=== PATIENT | male | born 1935 | race Caucasian/White ===

== ENCOUNTER → 2017-08-26 | Day surgery (SDC) | payer BC ==
[2017-08-14 09:29] VITALS: Ht 170.2 cm; Wt 95.5 kg
[~2017-08-26] VITALS: Ht 170.2 cm; Wt 95.5 kg
[~2017-08-26] MED LIST: ASPI81TA28 PO; ATOR-26 PO; GLUC1TAB94 PO; HYG/25 PO; HYT/2 PO; LIDOCAINE HCL 2% 2 ML VIAL (20MG/ML) ONE; LSN40 PO; MECL1TAB40 PO; PANT20TA2 PO; PROPOFOL IV EMULSION 10 MG/ML 20 ML VIAL IV ONE; ROPI4TAB3 PO; SENNTAB23 PO; SODIUM CHLORIDE 0.9% 500ML 500 ML IV ONE; TNR50 PO
--- NOTE | 2017-08-26 12:52 | Endo History and Physical ---
History & Physical Date of Service: Aug 26, 2017. Chief Complaint: hx polyps Referring Physician: History of Present Illness hx polyps Past Medical History Reflux, High Cholesterol, Heart Disease, Hypertension Past Surgical History Hx Cardiac Surgery: Yes (HEART CATH-2 STENTS PLACED) Hx Internal Defibrillator: No Hx Pacemaker: No Hx Abdominal Surgery: Yes (LAP RICHARD) Hx of Implantable Prosthesis: No Hx Post-Op Nausea and Vomiting: No Hx Cancer Surgery: No Hx Thoracic Surgery: No Hx Orthopedic: Yes (LUMBAR DECOMPRESSION/FUSION) Hx Urinary Tract Surgery: Yes (TURP) Family History None Social History Smoking Status: Former Smoker Hx Substance Use: No Hx Alcohol Use: Yes (OCCASIONALLY) Allergies Coded Allergies: Chlorhexidine (Verified Allergy, Intermediate, RASH, 08/14/17) Current Medications Reported Home Medications Medications Dose Route/Sig Max Daily Dose Days Date Category Meclizine HCl 12.5 Mg Tab 1 Tab PO TID PRN 08/14/17 Reported Requip (Ropinirole HCl) 4 Mg Tab 4 Mg PO HS 08/14/17 Reported Stool Softener (Sennosides-Docusate Sodium) 1 Tab Tab 1 Tab PO QAM 08/01/16 Reported Lipitor (Atorvastatin Calcium) 80 Mg Tab 80 Mg PO QAM 08/01/16 Reported Move Free Joint Health Ad (Ihznyubdedy-Bmzermbwwbo-Oqhpwh) 1 Tab Tab 2 Tab PO QAM 08/01/16 Reported Protonix (Pantoprazole Sodium) 20 Mg Tab 20 Mg PO HS 07/25/15 Reported Hygroton (Chlorthalidone) 25 Mg Tab 25 Mg PO QAM 07/25/15 Reported Hytrin (Terazosin HCl) 2 Mg Cap 2 Mg PO HS 07/25/15 Reported Aspirin Ec (Aspirin) 81 Mg Tab 81 Mg PO QAM 12/30/14 Reported Atenolol 50 Mg Tab 50 Mg PO QAM 12/30/14 Reported Lisinopril 40 Mg Tab 40 Mg PO QAM 12/30/14 Reported Vital Signs Weight (Kilograms): 95.45 Height (Feet): 5 Height (Inches): 7 Date Time Temp Pulse Resp B/P (MAP) Pulse Ox O2 Delivery O2 Flow Rate FiO2 08/26/17 12:40 36.5 53 20 150/67 (94) 99 Room Air Physical Exam General Appearance: WD/WN, no apparent distress Respiratory/Chest: Auscultation: breath sounds normal Cardiovascular: Heart Auscultation: RRR Abdomen: Bowel Sounds: normal Inspection & Palpation: soft, non-distended, no tenderness, guarding & rebound Assessment and Plan colon today
--- NOTE | 2017-08-26 13:52 | Discharge Instructions ---
Endoscopy Patient Instructions Date / Procedure(s) Performed Aug 26, 2017. Colonoscopy Allergy Information Coded Allergies: Chlorhexidine (Verified Allergy, Intermediate, RASH, 08/14/17) Discharge Date / Findings Aug 26, 2017. small polyp hemorrhoids rare tics Medication Instructions Stopped Medication(s): stool softener, Aspirin, amitriptyline Restart Stopped Medication(s): Reported Home Medications Medications Dose Route/Sig Max Daily Dose Days Date Category Meclizine HCl 12.5 Mg Tab 1 Tab PO TID PRN 08/14/17 Reported Requip (Ropinirole HCl) 4 Mg Tab 4 Mg PO HS 08/14/17 Reported Stool Softener (Sennosides-Docusate Sodium) 1 Tab Tab 1 Tab PO QAM 08/01/16 Reported Lipitor (Atorvastatin Calcium) 80 Mg Tab 80 Mg PO QAM 08/01/16 Reported Move Free Joint Health Ad (Rdedcxiqrxu-Uvieiibltfi-Pyjxjs) 1 Tab Tab 2 Tab PO QAM 08/01/16 Reported Protonix (Pantoprazole Sodium) 20 Mg Tab 20 Mg PO HS 07/25/15 Reported Hygroton (Chlorthalidone) 25 Mg Tab 25 Mg PO QAM 07/25/15 Reported Hytrin (Terazosin HCl) 2 Mg Cap 2 Mg PO HS 07/25/15 Reported Aspirin Ec (Aspirin) 81 Mg Tab 81 Mg PO QAM 12/30/14 Reported Atenolol 50 Mg Tab 50 Mg PO QAM 12/30/14 Reported Lisinopril 40 Mg Tab 40 Mg PO QAM 12/30/14 Reported Reported Home Medications Medications Dose Route/Sig Max Daily Dose Days Date Category Meclizine HCl 12.5 Mg Tab 1 Tab PO TID PRN 08/14/17 Reported Requip (Ropinirole HCl) 4 Mg Tab 4 Mg PO HS 08/14/17 Reported Stool Softener (Sennosides-Docusate Sodium) 1 Tab Tab 1 Tab PO QAM 08/01/16 Reported Lipitor (Atorvastatin Calcium) 80 Mg Tab 80 Mg PO QAM 08/01/16 Reported Move Free Joint Health Ad (Hcvzrobcpnv-Vqhuoujfdgk-Mwblpl) 1 Tab Tab 2 Tab PO QAM 08/01/16 Reported Protonix (Pantoprazole Sodium) 20 Mg Tab 20 Mg PO HS 07/25/15 Reported Hygroton (Chlorthalidone) 25 Mg Tab 25 Mg PO QAM 07/25/15 Reported Hytrin (Terazosin HCl) 2 Mg Cap 2 Mg PO HS 07/25/15 Reported Aspirin Ec (Aspirin) 81 Mg Tab 81 Mg PO QAM 12/30/14 Reported Atenolol 50 Mg Tab 50 Mg PO QAM 12/30/14 Reported Lisinopril 40 Mg Tab 40 Mg PO QAM 12/30/14 Reported Provider Instructions Activity Restrictions - No exercising or heavy lifting for 24 hours. - Do not drink alcohol the day of the procedure. - Do not drive a car or operate machinery until the day after the procedure. - Do not make any important decisions or sign important papers in 24 hours after the procedure. Following Day: - Return to full activity which may include returning to work/school. Diet Start your diet with liquids and light foods (jello, soup, juice, toast). Then eat your usual diet if not nauseated. Treatment For Common After Affects For mild abdominal pain, bloating, or excessive gas: - Rest - Eat lightly - Lie on right side Follow-Up Information Follow-up with Dr. Vivas as scheduled Anesthesia Information What You Should Know You have had a procedure that required some medicine to reduce anxiety and discomfort. This treatment is called moderate sedation. After receiving the treatment, you may be sleepy, but you will be able to breathe on your own. The effects of the treatment may last for several hours. Follow these instructions along with Activity/Diet recommendations noted above: * Do NOT do anything where dizziness or clumsiness would be dangerous. * Rest quietly at home today, then you can be up and about tomorrow. * Have a responsible person stay with you the rest of today. * You may have had an I.V. today. If so, you may take the dressing off later today. Recommendations Call your doctor if: * Trouble breathing * Continuous vomiting for more than 24 hours * Temperature above 101 degrees * Severe abdominal pain or bloating * Pain not relieved by pain medicine ordered * There is increased drainage or redness from any incision * A large amount of rectal bleeding greater than 2-3 tablespoons. (If you had a polyp/s removed or have hemorrhoids, a small amount of blood - from the rectum is to be expected.) * You have any unanswered questions or concerns. IN THE EVENT OF A SERIOUS EMERGENCY, GO TO THE NEAREST EMERGENCY ROOM Your discharge instructions were prepared by provider Alphonse Gill. Patient Instructions Signature Page Jose D Irving Patient (or Guardian) Signature/Date: I have read and understand the instructions given to me by my caregivers. Caregiver/RN/Doctor Signature/Date: The above-named patient and/or guardian has received patient instructions on this date. + Original Patient Signature Page (only) stays with chart. Please make copy for patient.
--- NOTE | 2017-08-26 14:01 | GI REPORT ---
Procedure Date: 08/26/2017 1:26 PM Procedure: Colonoscopy Indications: High risk colon cancer surveillance: Personal history of colonic polyps Medicines: Propofol per Anesthesia Complications: No immediate complications. Estimated blood loss: Minimal. Estimated Blood Loss: Estimated blood loss was minimal. Procedure: Pre-Anesthesia Assessment: - Prior to the procedure, a History and Physical was performed, and patient medications and allergies were reviewed. The patient's tolerance of previous anesthesia was also reviewed. The risks and benefits of the procedure and the sedation options and risks were discussed with the patient. All questions were answered, and informed consent was obtained. Prior Anticoagulants: The patient has taken no previous anticoagulant or antiplatelet agents. ASA Grade Assessment: II - A patient with mild systemic disease. After reviewing the risks and benefits, the patient was deemed in satisfactory condition to undergo the procedure. After I obtained informed consent, the scope was passed under direct vision. Throughout the procedure, the patient's blood pressure, pulse, and oxygen saturations were monitored continuously. The scope was introduced through the anus and advanced to the terminal ileum, with identification of the appendiceal orifice and IC valve. The colonoscopy was performed without difficulty. The patient tolerated the procedure well. The quality of the bowel preparation was fair. Findings: The perianal and digital rectal examinations were normal. Pertinent negatives include normal sphincter tone, no palpable rectal lesions and no anal lesion or abnormality was detected. A 3 mm polyp was found in the proximal ascending colon. The polyp was sessile. The polyp was removed with a cold biopsy forceps. Resection and retrieval were complete. Estimated blood loss was minimal. Verification of patient identification for the specimen was done by the physician and perinatal technician using the patient's name and medical record number. A few small-mouthed diverticula were found in the sigmoid colon. Non-bleeding internal hemorrhoids were found during retroflexion. The hemorrhoids were mild. The exam was otherwise without abnormality. The terminal ileum appeared normal. Impression: - One 3 mm polyp in the proximal ascending colon, removed with a cold biopsy forceps. Resected and retrieved. - Diverticulosis in the sigmoid colon. - Non-bleeding internal hemorrhoids. - The examination was otherwise normal. - The examined portion of the ileum was normal. Recommendation: - Discharge patient to home (ambulatory). - Resume regular diet. - Continue present medications. - Await pathology results. - Repeat colonoscopy for surveillance based on pathology results. - Return to referring physician as previously scheduled. MD Alphonse Woody MD 08/26/2017 2:00:44 PM This report has been signed electronically. Note Initiated On: 08/26/2017 1:26 PM I attest to the content of the Intraoperative Record and orders documented therein, exceptions below
[2017-08-26 14:21] VITALS: BP 15/90; PULSE 50; O2SAT 99
--- NOTE | 2017-08-26 14:41 | Anesthesiology Progress Note ---
Anesthesia Post Op Note Date & Time Aug 26, 2017 at 14:41 Vital Signs Pain Intensity: 0 Vital Signs Past 12 Hours Date Time Temp Pulse Resp B/P (MAP) Pulse Ox O2 Delivery O2 Flow Rate FiO2 08/26/17 14:21 50 16 15/90 (65) 99 Room Air 08/26/17 14:06 50 16 141/71 (94) 98 Room Air 08/26/17 13:51 52 12 107/63 (78) 98 Room Air 08/26/17 12:40 36.5 53 20 150/67 (94) 99 Room Air Notes Mental Status: alert / awake / arousable, participated in evaluation Pt Amnestic to Procedure: Yes Nausea / Vomiting: adequately controlled Pain: adequately controlled Airway Patency, RR, SpO2: stable & adequate BP & HR: stable & adequate Hydration State: stable & adequate Anesthetic Complications: no major complications apparent
== END | disposition home or self-care (01) ==
LOC: C.GI 11:50
PROVIDERS: ATTEND Internal Medicine Gastroenterology
DX: Z12.11 Encounter for screening for malignant neoplasm of colon (principal); D12.2 Benign neoplasm of ascending colon; K57.30 Diverticulosis of large intestine without perforation or abscess without bleeding; K64.8 Other hemorrhoids; E66.9 Obesity, unspecified; I25.2 Old myocardial infarction; N40.0 Benign prostatic hyperplasia without lower urinary tract symptoms; I25.10 Atherosclerotic heart disease of native coronary artery without angina pectoris; I10 Essential (primary) hypertension; Z90.49 Acquired absence of other specified parts of digestive tract; Z98.890 Other specified postprocedural states; Z85.038 Personal history of other malignant neoplasm of large intestine; Z87.891 Personal history of nicotine dependence; Z79.82 Long term (current) use of aspirin; Z79.899 Other long term (current) drug therapy; Z68.30 Body mass index [BMI] 30.0-30.9, adult

== ENCOUNTER → 2017-10-01 | Outpatient (CLI) | payer BC ==
[~2017-10-01] MED LIST changes: -LIDOCAINE HCL 2% 2 ML VIAL (20MG/ML) ONE; -PROPOFOL IV EMULSION 10 MG/ML 20 ML VIAL IV ONE; -SODIUM CHLORIDE 0.9% 500ML 500 ML IV ONE
== END | disposition home or self-care (01) ==
LOC: C.RDSM 10:54
PROVIDERS: ATTEND Orthopaedic Surgery
DX: R52 Pain, unspecified (principal)

== ENCOUNTER → 2017-10-11 | Outpatient (CLI) | payer BC | END | disposition home or self-care (01) | LOC: C.RDSM 08:00 | PROVIDERS: ATTEND Orthopaedic Surgery | DX: R52 Pain, unspecified (principal) ==

== ENCOUNTER 2019-08-09 11:16 | Inpatient (IN) ==
[2019-08-09] MEDS ORDERED: PIPERACILLIN/TAZOBACTAM 4.5 GM/120 ML BAG IV STA (12:01)
[2019-08-09] MEDS ORDERED: SODIUM CHLORIDE 0.9% 500 ML IV SCH (12:15)
--- NOTE | 2019-08-09 12:49 | XRay Report ---
XR ankle RT min 3V routine CLINICAL HISTORY: swelling, pain pain. Edema. COMPARISON: 08/08/2018 DISCUSSION: Degenerative change of all major bony structures. Small old avulsions from the tip of the medial as well as lateral malleolus. Moderate soft tissue edema. Soft tissue vascular calcifications. Heel spur. Considerable soft tissue edema IMPRESSION: 1. Considerable degenerative change. 2. Significant soft tissue edema. 3. No well-defined acute bony abnormality. The above report was generated using voice recognition software. It may contain grammatical, syntax or spelling errors. Electronically signed by: Jerzy Quiros M.D. 08/09/2019 12:48 PM
--- NOTE | 2019-08-09 12:54 | XRay Report ---
XR foot RT min 3V routine CLINICAL HISTORY: pain, swelling pain. Edema. COMPARISON: None DISCUSSION: Generalized degenerative change. Mild soft tissue edema. Heel spur. Soft tissue vascular calcifications. No evidence for fracture or dislocation. Moderate soft tissue edema IMPRESSION: 1. Considerable degenerative changes throughout. 2. No acute bony abnormality. 3. Moderate soft tissue edema. The above report was generated using voice recognition software. It may contain grammatical, syntax or spelling errors. Electronically signed by: Jerzy Quiros M.D. 08/09/2019 12:53 PM
[2019-08-09 13:18] LABS: Hematocrit (blood only) 31.6 % (42-52); Hemoglobin 10.3 g/dL (14.0-18.0); Mean Corpuscular Hemoglobin 29.7 pg (25-34); Mean Corpuscular Hgb Conc 32.6 g/dL (32-36); Mean Corpuscular Volume 91.1 fL (80-100); Mean Platelet Volume 10.2 fL (7.4-10.4); Platelet Count 292 K/uL (130-400); RDW Coefficient of Variation 14.4 % (11.5-14.5); RDW Standard Deviation 48.2 fL (36.4-46.3); Red Blood Count 3.47 M/uL (4.7-6.1)
--- NOTE | 2019-08-09 13:32 | CT Scan Report ---
CT hand LT wo con CT DOSE: 267.02 mGy.cm HISTORY: Pain. Infection. possible osteo of 2nd finger/hand TECHNIQUE: Multiaxial CT images of the left hand were performed and reformatted in the sagittal and c oronal plane without the use of contrast. A dose lowering technique was utilized adhering to the lilia Howard. COMPARISON: Routine hand images 08/03/2019 FINDINGS: Considerable degenerative change of all major bony structures. Sclerosis of the articular s urfaces, scattered reactive osteophytes, and generalized soft tissue edema. No evidence for a lytic or blastic process. No CT criteria are present for osteomyelitis. IMPRESSION: 1. Generalized degenerative change 2. Soft tissue edema overlying the distal phalanges of the second finger and to a lesser extent over the carpal regions. 3. No evidence for osteomyelitis by CT criteria The above report was generated using voice recognition software. It may contain grammatical, syntax or spelling errors. Electronically signed by: Jerzy Quiros M.D. 08/09/2019 1:31 PM
[2019-08-09 13:33] LABS: Basophils # (auto) 0.04 K/uL (0-0.2); Basophils % (auto) 0.1 %; Eosinophils % (auto) 3.3 %; Immature Granulocytes # (auto) 2.45 K/uL (0.00-0.02); Immature Granulocytes % (auto) 8.1 %; Lymphocytes # (auto) 1.48 K/uL (1.2-3.4); Lymphocytes % (auto) 4.9 %; Monocytes # (auto) 3.81 K/uL (0.11-0.59); Monocytes % (auto) 12.6 %; Neutrophils # (auto) 21.52 K/uL (1.4-6.5); Poikilocytosis Present
[2019-08-09 13:35] LABS: Alanine Aminotransferase 72 U/L (12-78); Albumin Level 3.5 gm/dl (3.4-5.0); Aspartate Aminotransferase 34 U/L (15-37); Blood Urea Nitrogen 35 mg/dl (7-18); Calcium 9.1 mg/dl (8.5-10.1); Carbon Dioxide 24 mmol/L (21-32); Chloride 107 mmol/L (98-107); Est GFR (African American) 53.5; Est GFR (Non-African American) 46.1; Glucose 91 mg/dl (70-99); Potassium 4.3 mmol/L (3.5-5.1); Sodium 138 mmol/L (136-145)
[2019-08-09 13:37] LABS: Albumin Globulin Ratio 0.8 (0.9-2); Alkaline Phosphatase 143 U/L (45-117); Bilirubin,Total 0.4 mg/dl (0.2-1); Globulin 4.3 gm/dl (2.5-4.0); Total Protein 7.8 gm/dl (6.4-8.2)
[2019-08-09] MEDS ORDERED: VANCOMYCIN HCL 2,250 MG in SODIUM CHLORIDE 0.9% 500 ML IV STA (13:37)
--- NOTE | 2019-08-09 13:47 | Emergency Department Note ---
Entered by Catalina Nguyen acting as a scribe for Rob Daniel MD History of Present Illness General Chief complaint: Infection Stated complaint: INFECTION IN LEFT HAND - ALSO IN FOOT Time Seen by Provider: 08/09/19 11:44 Source: patient and family History of Present Illness Onset (ago): week(s) Location: upper extremity (left hand) Pain Consistency: + constant Maximum Pain Intensity: 6 Quality: + other (swelling - concern for infection) Associated symptoms: + other (+bilateral feet swelling; +feet pain; +leg pain ); no fever/chills and no nausea/vomiting The patient is an 84 year old male, with past medical history of STEMI and hypertension, who presents to the Emergency Room with a concern for an infection to his left hand due to swelling to the patients left hand that has been constant over the past week. The patient reports he had a table saw injury on 08/03 that caused lacerations to his left hand, and a family member of the patient reports the patient was prescribed Keflex during this visit. The family member states the patient was seen by his PCP 2 days ago where the patient was given a shot of rocephin because the swelling to his left hand was not improving. The family member states the patient was given another shot of Rocephin yesterday at the office across the street from [facility], and she states the patients pill antibiotic was changed from Keflex to Levaquin (750 mg, once a d ay) at this time as well. The family member states the patients swelling has not improved today, and she states the patients feet have started to swell up as well. The patient notes he has pain to the upper side of his feet and up his legs as well. The patient denies recent trauma or injury to his feet. The patient also denies fever, vomiting, or currently being on blood thinners. The family member states the patient has an appointment with a hand specialist, Dr. Dobbs, scheduled for tomorrow. Home Medications Home Medications Medication Instructions Recorded Confirmed Type aspirin 81 mg PO DAILY 05/07/19 08/09/19 History atenolol 50 mg PO DAILY 05/07/19 08/09/19 History chlorthalidone 25 mg PO DAILY 05/07/19 08/09/19 History lisinopril 20 mg PO DAILY 05/07/19 08/09/19 History ropinirole 4 mg PO HS 05/07/19 08/09/19 History atorvastatin 80 mg tablet 80 mg PO QPM tab 05/25/19 08/09/19 History famotidine 20 mg tablet 20 mg PO DAILY tab 05/25/19 08/09/19 History meclizine 25 mg tablet 25 mg PO Q6H PRN tab 05/25/19 08/09/19 History terazosin 2 mg tablet 2 mg PO DAILY tab 05/25/19 08/09/19 History oxycodone-acetaminophen [Percocet] 1 - 2 tab PO Q6H PRN #12 tab MDD 4 08/03/19 08/09/19 Rx levofloxacin 750 mg PO DAILY 08/09/19 08/09/19 History Allergies Allergy/AdvReac Type Severity Reaction Status Date / Time chlorhexidine Allergy Intermediate RASH Verified 08/09/19 11:44 Past Med/Surg History Medical History CAD (coronary artery disease) (Chronic) Dyslipidemia GERD (gastroesophageal reflux disease) (Chronic) High cholesterol (Chronic) HTN (hypertension) (Resolved) 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) Surgical History History of cholecystectomy (Resolved) History of lumbar fusion (Resolved) Family History Other No significant family history Social History Preferred Language: Bengali Communication Ability: Effective Technology Auditor Required: No Beliefs That Will Affect Care: None Current Living Situation: Alone Other Information That Helps Us Care for You: No Feels Safe at Home: Yes Safety Concerns: Feels Safe At This Time Smoking Status: Never smoker Tobacco Type: smokeless tobacco ; Do You Dip or Chew Tobacco: Yes ; Second Hand Exposure: No ; Tobacco Cessation Education Requested by Patient: No Hx Alcohol Use: Yes Hx Substance Use: No Review of Systems See HPI for pertinent positives & negatives. and A total of 10 systems reviewed and were otherwise negative Physical Exam Vital Signs Vital Signs - 24 hr 08/09/19 11:18 08/09/19 13:17 08/09/19 13:54 Temperature 36.6 C Temperature Source Oral Pulse Rate 69 Pulse Rate [Finger] 72 67 Pulse Rhythm Regular Pulse Rhythm [Finger] Regular Pulse Strength [Finger] Normal Respiratory Rate 20 18 18 Respiratory Effort / Characteristics Non-Labored Spontaneous Non-Labored Spontaneous Respiratory Depth Normal Normal Respiratory Pattern Regular Regular Blood Pressure 154/74 H Blood Pressure [Right Arm] 163/71 H 156/60 H Blood Pressure Mean 100 Blood Pressure Mean [Right Arm] 101 92 Blood Pressure Position Sitting Blood Pressure Position [Right Arm] Lying Pulse Oximetry 98 96 98 Oxygen Delivery Method Room Air Room Air Sepsis Recent Fever Within 48 Hours No Sepsis New/Unexplained Change in Mental Status No Sepsis Action Taken by Nursing No Action Required GENERAL: Patient is in no acute distress. HEENT: No acute trauma, normocephalic atraumatic, mucous membranes moist, no nasal congestion, no scleral icterus. NECK: No stridor, no adenopathy, no meningismus, trachea is midline. LUNGS: Clear to auscultation bilaterally, no wheeze, no rhonchi, breath sounds equal. HEART: Without murmurs gallops or rubs, regular rate and rhythm. ABDOMEN: Soft, nontender, bowel sounds positive, no hernias, no peritonitis. EXTREMITIES: Patient has, right more so than left, lower extremity edema. No erythema. Tender to palpate about the right ankle and right foot. No gross deformity. Edema noted to the left hand and fingers. The thumb, 2nd finger, and 3rd finger have sutures in place. The second finger is quite swollen, erythematous, and warm to touch. There is significant purulent drainage in the area of the suturing. No gross deformities. NEUROLOGIC: Oriented x 3, no acute motor or sensory deficits, no focal weakness. SKIN: No rash, no jaundice, no diaphoresis. Procedures Free Text Procedures Suture Removal: All of the sutures that were in place along the patient's left, 2nd finger were removed. There was some purulent drainage. A culture was sent. Patient tolerated the procedure well. Course Course 1146: Past medical records reviewed. The patient was evaluated in room A11B. A complete history and physical exam was performed. 1354: I discussed the patient's case with Dr. [facility]. Dr. Escalante states to remove the sutures to the finger that is causing the patient trouble to allow that finger to drain. Dr. Escalante reports he will see the patient in the hospital. 1404: I performed a suture removal. I also updated the patient on his case. 1418: I reviewed the patient's case with Dr. Freed-Hospitalist [facility]. Dr. rFeed will evaluate the patient for further management. Consultations Consultation #1: I discussed the patient's case with Dr. [facility]. Dr. Escalante states to remove the sutures to the finger that is causing the patient trouble to allow that finger to drain. Dr. Escalante reports he will see the patient in the hospital. Time: 13:54 Consultation #2: I reviewed the patient's case with Dr. Freed-Hospitalist [facility]. Dr. Freed will evaluate the patient for further management. Time: 14:18 Administered Medications Discontinued Medications Sodium Chloride (Nss) 500 mls @ 999 mls/hr IV .Q31M RODRIGO Stop: 08/09/19 12:45 Last Infusion: 08/09/19 14:09 Dose: 0 mls/hr Documented by: [id number] Admin: 08/09/19 13:38 Dose: 999 mls/hr Documented by: [id number] Piperacillin Sod/Tazobactam Sod (Zosyn) 4.5 gm in 120 mls @ 200 mls/hr IV NOW STA Stop: 08/09/19 12:36 Last Infusion: 08/09/19 14:14 Dose: 0 mls/hr Documented by: [id number] Admin: 08/09/19 13:38 Dose: 200 mls/hr Documented by: [id number] Vancomycin HCl 2,250 mg/ (Sodium Chloride) 545 mls @ 200 mls/hr IV NOW STA Stop: 08/09/19 16:20 Last Admin: 08/09/19 14:26 Dose: 200 mls/hr Documented by: [id number] Medical Decision Making Differential Diagnosis Differential diagnoses include osteomyelitis, DVT, failed outpatient treatment, cellulitis, tenosynovitis, tendon laceration, foot or ankle fracture, amongst others that were considered. Medical Records Attestation: I reviewed the patient's medical records. The patient was seen at [facility] by Nasima Rowe and Dr. Razo on 08/03. The patient was discharged on Keflex 3x a day. Home Medications Current Medication List: was personally reviewed by me Laboratory Data Attestation: I reviewed the patient's lab results. Result diagrams: 08/09/19 12:59 08/09/19 12:59 Lab Results 08/09/19 08/09/19 08/09/19 Range/Units 12:59 12:59 12:59 WBC 30.30 H* (4.8-10.8) K/uL RBC 3.47 L (4.7-6.1) M/uL Hgb 10.3 L (14.0-18.0) g/dL Hct 31.6 L (42-52) % MCV 91.1 (80-100) fL MCH 29.7 (25-34) pg MCHC 32.6 (32-36) g/dL RDW Std Deviation 48.2 H (36.4-46.3) fL RDW Coeff of Dione 14.4 (11.5-14.5) % Plt Count 292 (130-400) K/uL MPV 10.2 (7.4-10.4) fL Immature Gran % (Auto) 8.1 % Neut % (Auto) 71.0 % Lymph % (Auto) 4.9 % Pen[place] % (Auto) 12.6 % Eos % (Auto) 3.3 % Baso % (Auto) 0.1 % Immature Gran # (Auto) 2.45 H (0.00-0.02) K/uL Neut # (Auto) 21.52 H (1.4-6.5) K/uL Lymph # (Auto) 1.48 (1.2-3.4) K/uL [place] # (Auto) 3.81 H (0.11-0.59) K/uL Eos # (Auto) 1.00 H (0-0.5) K/uL Baso # (Auto) 0.04 (0-0.2) K/uL Poikilocytosis Present ESR 62 H (0-14) mm/hr Sodium (136-145) mmol/L Potassium (3.5-5.1) mmol/L Chloride (98-107) mmol/L Carbon Dioxide (21-32) mmol/L Anion Gap (3-11) BUN (7-18) mg/dl Creatinine (0.6-1.4) mg/dl Est Cr Clr Drug Dosing Est GFR ( Amer) Est GFR (Non-Af Amer) BUN/Creatinine Ratio (10-20) Glucose (70-99) mg/dl Lactate 1.0 (0.4-2.0) mmol/L Calcium (8.5-10.1) mg/dl Total Bilirubin (0.2-1) mg/dl AST (15-37) U/L ALT (12-78) U/L Alkaline Phosphatase (45-117) U/L Total Protein (6.4-8.2) gm/dl Albumin (3.4-5.0) gm/dl Globulin (2.5-4.0) gm/dl Albumin/Globulin Ratio (0.9-2) 08/09/19 Range/Units 12:59 WBC (4.8-10.8) K/uL RBC (4.7-6.1) M/uL Hgb (14.0-18.0) g/dL Hct (42-52) % MCV (80-100) fL MCH (25-34) pg MCHC (32-36) g/dL RDW Std Deviation (36.4-46.3) fL RDW Coeff of Dione (11.5-14.5) % Plt Count (130-400) K/uL MPV (7.4-10.4) fL Immature Gran % (Auto) % Neut % (Auto) % Lymph % (Auto) % Pen[place] % (Auto) % Eos % (Auto) % Baso % (Auto) % Immature Gran # (Auto) (0.00-0.02) K/uL Neut # (Auto) (1.4-6.5) K/uL Lymph # (Auto) (1.2-3.4) K/uL Pen[place] # (Auto) (0.11-0.59) K/uL Eos # (Auto) (0-0.5) K/uL Baso # (Auto) (0-0.2) K/uL Poikilocytosis ESR (0-14) mm/hr Sodium 138 (136-145) mmol/L Potassium 4.3 (3.5-5.1) mmol/L Chloride 107 (98-107) mmol/L Carbon Dioxide 24 (21-32) mmol/L Anion Gap 7.0 (3-11) BUN 35 H (7-18) mg/dl Creatinine 1.40 (0.6-1.4) mg/dl Est Cr Clr Drug Dosing Not Reportable Est GFR ( Amer) 53.5 Est GFR (Non-Af Amer) 46.1 BUN/Creatinine Ratio 25.0 H (10-20) Glucose 91 (70-99) mg/dl Lactate (0.4-2.0) mmol/L Calcium 9.1 (8.5-10.1) mg/dl Total Bilirubin 0.4 (0.2-1) mg/dl AST 34 (15-37) U/L ALT 72 (12-78) U/L Alkaline Phosphatase 143 H (45-117) U/L Total Protein 7.8 (6.4-8.2) gm/dl Albumin 3.5 (3.4-5.0) gm/dl Globulin 4.3 H (2.5-4.0) gm/dl Albumin/Globulin Ratio 0.8 L (0.9-2) Imaging Data Radiologist's Impression: Radiology results as stated below per my review and the radiologist's interpretation: XR ankle RT min 3V routine CLINICAL HISTORY: swelling, pain pain. Edema. COMPARISON: 08/08/2018 DISCUSSION: Degenerative change of all major bony structures. Small old avulsions from the tip of the medial as well as lateral malleolus. Moderate soft tissue edema. Soft tissue vascular calcifications. Heel spur. Considerable soft tissue edema IMPRESSION: 1. Considerable degenerative change. 2. Significant soft tissue edema. 3. No well-defined acute bony abnormality. The above report was generated using voice recognition software. It may contain grammatical, syntax or spelling errors. Electronically signed by: Jerzy Quiros M.D. 08/09/2019 12:48 PM XR foot RT min 3V routine CLINICAL HISTORY: pain, swelling pain. Edema. COMPARISON: None DISCUSSION: Generalized degenerative change. Mild soft tissue edema. Heel spur. Soft tissue vascular calcifications. No evidence for fracture or dislocation. Moderate soft tissue edema IMPRESSION: 1. Considerable degenerative changes throughout. 2. No acute bony abnormality. 3. Moderate soft tissue edema. The above report was generated using voice recognition software. It may contain grammatical, syntax or spelling errors. Electronically signed by: Jerzy Quiros M.D. 08/09/2019 12:[address] hand LT wo con CT DOSE: 267.02 mGy.cm HISTORY: Pain. Infection. possible osteo of 2nd finger/hand TECHNIQUE: Multiaxial CT images of the left hand were performed and reformatted in the sagittal and coronal plane without the use of contrast. A dose lowering technique was utilized adhering to the principles of ALARA. COMPARISON: Routine hand images 08/03/2019 FINDINGS: Considerable degenerative change of all major bony structures. Sclerosis of the articular surfaces, scattered reactive osteophytes, and generalized soft tissue edema. No evidence for a lytic or blastic process. No CT criteria are present for osteomyelitis. IMPRESSION: 1. Generalized degenerative change 2. Soft tissue edema overlying the distal phalanges of the second finger and to a lesser extent over the carpal regions. 3. No evidence for osteomyelitis by CT criteria The above report was generated using voice recognition software. It may contain grammatical, syntax or spelling errors. Electronically signed by: Jerzy Quiros M.D. 08/09/2019 1:31 PM US venous doppler LE RT CLINICAL HISTORY: swelling PAIN. EDEMA. COMPARISON STUDY: No previous studies for comparison. FINDINGS: Real-time and color flow Doppler imaging were performed. Flow was seen within the femoral, popliteal and calf veins with no intraluminal thrombus demonstrated. The saphenous vein is patent. IMPRESSION: No evidence of deep venous thrombosis. The above report was generated using voice recognition software. It may contain grammatical, syntax or spelling errors. Electronically signed by: Jerzy Quiros M.D. 08/09/2019 2:47 PM Blood Pressure Blood Pressure Findings: Elevated blood pressure Blood Pressure Disposition: further management by hospitalist [place] Narrative There is a significant leukocytosis at 30,000, this certainly could be consistent with infection. A mild anemia is present with a hemoglobin of 10.3. There is a normal platelet count. Sed rate is elevated at 62, this is consistent with infection/inflammation. No renal failure or significant electrolyte abnormality. No concerning liver enzyme elevation. Right ankle and right foot films show some arthritis, there was no fracture. Right leg ultrasound does not show evidence for DVT. Left hand CT scan does not show osteomyelitis, soft tissue swelling was seen. The patient has an infection in his left hand. He has been on different antibiotics without improvement as an outpatient. Hospitalization is warranted. Patient received IV saline, he was given IV Zosyn and IV vancomycin. I did speak with orthopedics about the hand findings. They suggested removing the sutures of the second finger to allow the wound to drain. The sutures were removed without difficulty. A culture of the drainage was sent. The patient is aware of his findings. Hospitalization is warranted. I did speak with the on-call hospitalist. Case management has been involved. Orthopedics has been consulted as noted above for more definitive management. Impression & Plan Cellulitis of hand, left, Failure of outpatient treatment, Leukocytosis, Pedal edema, Contact with powered saw as cause of accidental injury Discharge Plan Visit Data *Final* Discharge Date/Time: 08/09/19 14:41 Chief Complaint: Infection Stated Complaint: INFECTION IN LEFT HAND - ALSO IN FOOT ED Provider: Rob Daniel Discharge Problem: Cellulitis of hand, left, Failure of outpatient treatment, Leukocytosis, Pedal edema, Contact with powered saw as cause of accidental injury Patient Disposition: Admitted As Inpatient Discharge Instructions Interventions: ED Discharge Assessment Last Done: 08/09/19 14:41 Discharge Problem: Leukocytosis Qualifiers: Leukocytosis type: unspecified Qualified Code(s): D72.829 - Elevated white blood cell count, unspecified The scribe's documentation has been prepared under my direction and personally reviewed by me in its entirety. I confirm that the note above accurately reflects all work, treatment, procedures, and medical decision making performed by me.
--- NOTE | 2019-08-09 14:25 | History & Physical Report ---
Date of Service August 09, 2019 Assessment & Plan (1) Cellulitis of hand, left: Patient was started on IV Zosyn and IV vancomycin. Check wound cultures. Consult orthopedics. (2) Failure of outpatient treatment: (3) Leukocytosis: Secondary to left hand infection Check blood cultures. (4) Pedal edema: Dopplers leg was negative for DVT. Check echocardiogram for cardiac assessment. (5) Contact with powered saw as cause of accidental injury: (6) Hypertension: Continue home medications. (7) GERD (gastroesophageal reflux disease): Continue Pepcid. (8) CAD (coronary artery disease): Continue home medications. (9) Previous back surgery: (10) Dyslipidemia: Continue statins. (11) DVT prophylaxis: Add subcu heparin. History of Present Illness Chief Complaint: Left hand infection Primary Care Provider: Jacqueline Vivas MD The patient is an 84 year old male, with past medical history of STEMI and hypertension, who presents to the Emergency Room with a concern for an infection to his left hand due to swelling to the patients left hand that has been constant over the past week. The patient reports he had a table saw injury on 08/03 that caused lacerations to his left hand, and a family member of the patient reports the patient was prescribed Keflex during this visit. The family member states the patient was seen by his PCP 2 days ago where the patient was given a shot of rocephin because the swelling to his left hand was not impr oving. The family member states the patient was given another shot of Rocephin yesterday at the office across the street from [facility], and she states the patients pill antibiotic was changed from Keflex to Levaquin (750 mg, once a day) at this time as well. The family member states the patients swelling has not improved today, and she states the patients feet have started to swell up as well. The patient notes he has pain to the upper side of his feet and up his legs as well. The patient denies recent trauma or injury to his feet. The patient also denies fever, vomiting, or currently being on blood thinners. The family member states the patient has an appointment with a hand specialist, Dr. Dobbs, scheduled for tomorrow. He was started on IV antibiotics in the ER and will be admitted for further evaluation and management. Patient has also noted swelling of the legs right side more than the left side for last 1 month. The patient is very hard appearing and his daughter is present at the bedside. Allergies Allergy/AdvReac Type Severity Reaction Status Date / Time chlorhexidine Allergy Intermediate RASH Verified 08/09/19 11:44 Home Medications Home Medications Medication Instructions Recorded Confirmed Type aspirin 81 mg PO DAILY 05/07/19 08/09/19 History atenolol 50 mg PO DAILY 05/07/19 08/09/19 History chlorthalidone 25 mg PO DAILY 05/07/19 08/09/19 History lisinopril 20 mg PO DAILY 05/07/19 08/09/19 History ropinirole 4 mg PO HS 05/07/19 08/09/19 History atorvastatin 80 mg tablet 80 mg PO QPM tab 05/25/19 08/09/19 History famotidine 20 mg tablet 20 mg PO DAILY tab 05/25/19 08/09/19 History meclizine 25 mg tablet 25 mg PO Q6H PRN tab 05/25/19 08/09/19 History terazosin 2 mg tablet 2 mg PO DAILY tab 05/25/19 08/09/19 History oxycodone-acetaminophen [Percocet] 1 - 2 tab PO Q6H PRN #12 tab MDD 4 08/03/19 08/09/19 Rx levofloxacin 750 mg PO DAILY 08/09/19 08/09/19 History Past Med/Surg History Medical History CAD (coronary artery disease) (Chronic) Dyslipidemia GERD (gastroesophageal reflux disease) (Chronic) High cholesterol (Chronic) HTN (hypertension) (Resolved) 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) Surgical History History of cholecystectomy (Resolved) History of lumbar fusion (Resolved) Family History Other No significant family history Social History Preferred Language: Citizen Of [place] Feels Safe at Home: Yes Smoking Status: Never smoker Review of Systems Review of Systems: All systems reviewed & are unremarkable except as noted in HPI & below Physical Exam Physical Exam: GENERAL : No acute distress EYES: No icterus, gaze conjugate NOSE: No evidence of epistaxis MOUTH: No lesions or candidiasis, mucosa moist NECK: Supple LUNGS: CTA B/L, no wheezes, rales or rhonchi HEART: Regular, rate controlled ABDOMEN: Soft, NT, ND, BS Present EXTREMITIES: No LE edema, pedal pulses intact NEURO: A&OX3 Results & Data Vital Signs (Past 12 Hours) Vital Signs Temp Pulse Pulse Resp BP BP Pulse Ox 08/09/19 13:54 67 18 156/60 H 98 08/09/19 13:17 72 18 163/71 H 96 08/09/19 11:18 97.9 F 69 20 154/74 H 98 Laboratory Results 08/09/19 12:59 08/09/19 12:[address] hand LT wo con CT DOSE: 267.02 mGy.cm HISTORY: Pain. Infection. possible osteo of 2nd finger/hand TECHNIQUE: Multiaxial CT images of the left hand were performed and reformatted in the sagittal and coronal plane without the use of contrast. A dose lowering technique was utilized adhering to the principles of ALARA. COMPARISON: Routine hand images 08/03/2019 FINDINGS: Considerable degenerative change of all major bony structures. Sclerosis of the articular surfaces, scattered reactive osteophytes, and gener alized soft tissue edema. No evidence for a lytic or blastic process. No CT criteria are present for osteomyelitis. IMPRESSION: 1. Generalized degenerative change 2. Soft tissue edema overlying the distal phalanges of the second finger and to a lesser extent over the carpal regions. 3. No evidence for osteomyelitis by CT criteria XR ankle RT min 3V routine CLINICAL HISTORY: swelling, pain pain. Edema. COMPARISON: 08/08/2018 DISCUSSION: Degenerative change of all major bony structures. Small old avulsions from the tip of the medial as well as lateral malleolus. Moderate soft tissue edema. Soft tissue vascular calcifications. Heel spur. Considerable soft tissue edema IMPRESSION: 1. Considerable degenerative change. 2. Significant soft tissue edema. 3. No well-defined acute bony abnormality. XR foot RT min 3V routine CLINICAL HISTORY: pain, swelling pain. Edema. COMPARISON: None DISCUSSION: Generalized degenerative change. Mild soft tissue edema. Heel spur. Soft tissue vascular calcifications. No evidence for fracture or dislocation. Moderate soft tissue edema IMPRESSION: 1. Considerable degenerative changes throughout. 2. No acute bony abnormality. 3. Moderate soft tissue edema. Code Status & VTE Plan VTE Prophylaxis Plan VTE Prophylaxis will be ordered: Yes PG Care Time/CCT Total # of Minutes Spent Total Time Spent with Patient: Total time spent is greater than 50% in coordina tion of care (as documented) at patient's floor/unit and/or counseling patient: (1) Leukocytosis Leukocytosis type: unspecified Qualified Code(s): D72.829 - Elevated white blood cell count, unspecified
--- NOTE | 2019-08-09 14:48 | Ultrasound Report ---
US venous doppler LE RT CLINICAL HISTORY: swelling PAIN. EDEMA. COMPARISON STUDY: No previous studies for comparison. FINDINGS: Real-time and color flow Doppler imaging were performed. Flow was seen within the femoral, popliteal and calf veins with no intraluminal thrombus demonstrated. The saphenous vein is patent. IMPRESSION: No evidence of deep venous thrombosis. The above report was generated using voice recognition software. It may contain grammatical, syntax or spelling errors. Electronically signed by: Jerzy Quiros M.D. 08/09/2019 2:47 PM
[2019-08-09] MEDS ORDERED: PIPERACILL/TAZOBAC CONSULT ACTIVE PRN (15:20)
[2019-08-09] MEDS ORDERED: ACETAMINOPHEN 325 MG TAB PO PRN (15:20)
[2019-08-09] MEDS ORDERED: VANCOMYCIN CONSULT ACTIVE PRN (15:20)
[2019-08-09] MEDS ORDERED: MECLIZINE HCL 25 MG TAB PO PRN (15:32)
--- NOTE | 2019-08-09 15:51 | Pharmacy Report ---
Pharmacy Abx Initial Consult - Date of Service August 09, 2019 - Pharmacy Dosing Scope Date of Consult: 08/09/19 Consultation requested by: Dr. Freed Pharmacy is consulted to initiate Vancomycin + Zosyn IV dosing therapy, order appropriate labs and adjust drug dose/frequency. - Subjective The patient is a 84 year old M admitted on 08/09/19 14:06. - Objective Height: 5 ft 7 in Weight: 100.4 kg Vital Signs (Past 12hrs): Vital Signs Temp Pulse Pulse Resp BP BP Pulse Ox 08/09/19 13:54 67 18 156/60 H 98 08/09/19 13:17 72 18 163/71 H 96 08/09/19 11:18 36.6 C 69 20 154/74 H 98 Lab Results (24hrs): Laboratory Tests (24 Hours) 08/09/19 08/09/19 08/09/19 12:59 12:59 12:59 WBC 30.30 H* Neut # (Auto) 21.52 H ESR 62 H Creatinine 1.40 Est Cr Clr Drug Dosing Not Reportable Micro Results: 08/09/19 Unknown Gram Stain - Pending Finger,Left Index Deep Wound Culture - Pending 08/09/19 12:25 Gram Stain - Final Finger,Left Index Wound Culture - Pending 08/09/19 12:59 Aerobic Blood Culture - Pending Blood Anaerobic Blood Culture - Pending 08/09/19 12:59 Aerobic Blood Culture - Pending Blood Anaerobic Blood Culture - Pending - Risk Factors for Resistance * Antimicrobial use within the last 90 days - Keflex, Ceftriaxone (2 doses in PCP office), and Levaquin given for hand infection. Two others given for unknown infection. * Amoxicillin 500mg PO TID [id number] 06/04/19 * Cefadroxil 500mg PO BID [id number] 07/03 & 07/20/19 * Keflex 500mg PO TID x7days 08/03/19 * Rocephin 1gm x2 doses given in PCPs office * Levaquin 750mg PO QD x7days 08/08/2019 (unsure if any doses were taken) - Assessment & Plan Assessment 84 year old M with h/o of STEMI and HTN presents to the ED with complaints of left hand swelling over the last week. He reports a table saw injury on 08/03 that resulted in lacerations his left hand. He was started on Keflex 500mg PO TID X7days. On 08/07 he was given a shot of Rocephin at his PCPs office after swelling did not improve. He was then given a 2nd dose of Rocephin yesterday. The Keflex was also change to Levaquin, but patient likely only took one dose of this prior to presenting to the ED. The swelling has not improved according the patient, and is also now noting swelling in his lower extremities. Pt afebrile, WBC 30k Blood cultures x2 and finger cultures x2 pending CT of hand ruled out osteo involvement Plan Vancomycin and Zosyn for treatment of left hand cellulitis Vancomycin IV * Estimated PK Parameters: Vd 0.7 L/kg, Ye 0.042 hr-1, t1/2 16 hr * Loading dose: 2250 mg (22 mg/kg) x1 in ED * Maintenance dose: 1500 mg IV (15 mg/kg) every 24 hours * Goal trough level : 10 to 15 mcg/mL * Trough level will be ordered with 4th maintenance dose if drug therapy continues. May be obtained sooner if clinically indicated. * A less than traditional dose and/or extended dosing interval has/have been selected due to likelihood of drug accumulation in obese patient. Piperacillin/tazobactam * 4.5 g bolus administered over 30 minutes, then 4.5 g IV extended infusion every 8 hours for CrCl greater than 20 mL/min. * Aggressive dosing selected due to BMI 35 or more. Pharmacy will continue to follow and will adjust dose/frequency as necessary. Thank you.
[2019-08-09] MEDS: OXYCODONE/ACETAMINOPHEN 5mg/325mg TAB PO PRN (19:46)
[2019-08-09] MEDS: PIPERACILLIN/TAZOBACTAM 4.5 GM in DEXTROSE 5% 100 ML IV SCH (19:47)
[2019-08-09] MEDS ORDERED: PIPERACILLIN/TAZOBACTAM 3.375 GM in DEXTROSE 5% 100 ML IV SCH (20:00)
[2019-08-09] MEDS: ATORVASTATIN 40 MG TAB PO SCH (21:05)
[2019-08-09] MEDS: ROPINIROLE HCL 1 MG TABLET PO SCH (21:05)
[2019-08-09] MEDS: HEPARIN SOD 5,000 UNIT/0.5 ML VIAL SQ SCH (21:05)
[2019-08-10] MEDS: OXYCODONE/ACETAMINOPHEN 5mg/325mg TAB PO PRN ×3 (02:20→20:27)
[2019-08-10] MEDS: PIPERACILLIN/TAZOBACTAM 4.5 GM in DEXTROSE 5% 100 ML IV SCH ×3 (04:56→20:20)
[2019-08-10] MEDS: HEPARIN SOD 5,000 UNIT/0.5 ML VIAL SQ SCH ×3 (04:56→20:23)
[2019-08-10 06:05] LABS: Hematocrit (blood only) 25.6 % (42-52); Hemoglobin 8.4 g/dL (14.0-18.0); Mean Corpuscular Hemoglobin 29.6 pg (25-34); Mean Corpuscular Hgb Conc 32.8 g/dL (32-36); Mean Corpuscular Volume 90.1 fL (80-100); Mean Platelet Volume 10.1 fL (7.4-10.4); Platelet Count 282 K/uL (130-400); RDW Coefficient of Variation 14.4 % (11.5-14.5); Red Blood Count 2.84 M/uL (4.7-6.1); White Blood Count 29.73 K/uL (4.8-10.8)
[2019-08-10 06:32] LABS: BUN Creatinine Ratio 22.9 (10-20); Creatinine Clr Calc Pharmacy 43.3 ml/min; Est GFR (African American) 50.8; Est GFR (Non-African American) 43.9
[2019-08-10] MEDS ORDERED: INFLUENZA ADMINISTRATION CHARGE ONE (08:00)
[2019-08-10] MEDS ORDERED: INFLUENZA VACCINE HIGH DOSE 65+ 0.5 ML SYR IM ONE (08:00)
[2019-08-10] MEDS: ATENOLOL 50 MG TABLET PO SCH (08:07)
[2019-08-10] MEDS: ASPIRIN 81 MG ECTAB PO SCH (08:08)
[2019-08-10] MEDS: CHLORTHALIDONE 25 MG TAB PO SCH (08:08)
[2019-08-10] MEDS: FAMOTIDINE 20 MG TAB PO SCH (08:08)
[2019-08-10] MEDS: lisinopriL 20 MG TAB PO SCH (08:08)
[2019-08-10] MEDS: TERAZOSIN HCL 1 MG CAP PO SCH (08:09)
--- NOTE | 2019-08-10 08:13 | Pharmacy Report ---
Pharmacy Abx Dose Short Note - Date of Service August 10, 2019 - Assessment & Plan Assessment 08/10/19 84 year old M receiving vancomycin and Zosyn for treatment of L hand cellulitis, with multiple courses of antibiotics prior to this without improvement Day # 2/10 of antimicrobial therapy. Blood and L finger cultures are still pending SCr remains stable at 1.46 08/09/19 84 year old M with h/o of STEMI and HTN presents to the ED with complaints of left hand swelling over the last week. He reports a table saw injury on 08/03 that resulted in lacerations his left hand. He was started on Keflex 500mg PO TID X7days. On 08/07 he was given a shot of Rocephin at his PCPs office after s welling did not improve. He was then given a 2nd dose of Rocephin yesterday. The Keflex was also change to Levaquin, but patient likely only took one dose of this prior to presenting to the ED. The swelling has not improved according the patient, and is also now noting swelling in his lower extremities. Pt afebrile, WBC 30k Blood cultures x2 and finger cultures x2 pending CT of hand ruled out osteo involvement Plan Vancomycin * Continue dose of 1500 mg IV every 24 hours * Goal trough at least 15 mcg/mL, until cultures have resulted * Trough level ordered for: 08/11/19 prior to the 3rd dose. NOTE: this will be PRIOR to steady state but need to evaluate trough sooner in the setting of both elevated SCr and BMI and the combination of vanc + Zosyn Zosyn * Continue dose of 4.5 gm (extended infusion) IV q8h for CrCl > 20 and BMI ~35 * Consider discontinuation as vancomycin will provide adequate gram + coverage and the combination of both provides an increased risk of KAPIL Pharmacy will continue to follow and will adjust dose/frequency as necessary. Thank you.
--- NOTE | 2019-08-10 10:27 | Infectious Disease Consult ---
Date of Consultation August 10, 2019 Assessment & Plan (1) Cellulitis of hand, left: pt will continue on current abx penidng additional culture data, suspect he will require washout and prolonged course of abx. will follow. History of Present Illness Attending Physician: Noe Nichols MD pt admitted with increased left hand swelling and purulent drainage. He cut hand on table saw at home on 08/03. he had sutured and was given Keflex by PCP, had increased pain and swelling, went back to PCP was given IM Rocephin and then abx changed to high dose levaquin, contined to worsen, came to ER, had bedside I&D - cultures pending but gram stain with gpc. was placed on vanco and zosyn and remains on this. CT negative for osteo. Ortho eval pending. wbc 30 in ER, 29 today. ESR 62. Creat 1.4. Blood cultures pending, tolerating abx well. Still with significant swelling and pain in first three fingers but worse in left 2nd digit, weeping purulent fluid on my exam. unable to bend fingers due to pain and swelling but sensation is intact. tender to light touch. no f/c at home. no abd pain, no n/v/d. was tolerating abx well at home. no cp, cough, sob. His major complaint on my exam is pain in his right foot, x ray and doppler negative in ER. denies any trauma to area. Allergies Allergy/AdvReac Type Severity Reaction Status Date / Time chlorhexidine Allergy Intermediate RASH Verified 08/09/19 11:44 Home Medications Home Medications Medication Instructions Recorded Confirmed Type aspirin 81 mg PO DAILY 05/07/19 08/09/19 History atenolol 50 mg PO DAILY 05/07/19 08/09/19 History chlorthalidone 25 mg PO DAILY 05/07/19 08/09/19 History lisinopril 20 mg PO DAILY 05/07/19 08/09/19 History ropinirole 4 mg PO HS 05/07/19 08/09/19 History atorvastatin 80 mg tablet 80 mg PO QPM tab 05/25/19 08/09/19 History famotidine 20 mg tablet 20 mg PO DAILY tab 05/25/19 08/09/19 History meclizine 25 mg tablet 25 mg PO Q6H PRN tab 05/25/19 08/09/19 History terazosin 2 mg tablet 2 mg PO DAILY tab 05/25/19 08/09/19 History oxycodone-acetaminophen [Percocet] 1 - 2 tab PO Q6H PRN #12 tab MDD 4 08/03/19 08/09/19 Rx levofloxacin 750 mg PO DAILY 08/09/19 08/09/19 History Patient History Medical History CAD (coronary artery disease) (Chronic) Dyslipidemia GERD (gastroesophageal reflux disease) (Chronic) High cholesterol (Chronic) HTN (hypertension) (Resolved) 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) Surgical History History of cholecystectomy (Resolved) History of lumbar fusion (Resolved) Family History Other No significant family history Social History Preferred Language: Bahraini Communication Ability: Effective 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 Beliefs That Will Affect Care: None Current Living Situation: Alone Other Information That Helps Us Care for You: No Feels Safe at Home: Yes Safety Concerns: Feels Safe At This Time Smoking Status: Never smoker Tobacco Type: smokeless tobacco ; Do You Dip or Chew Tobacco: Yes ; Second Hand Exposure: No ; Tobacco Cessation Education Requested by Patient: No Hx Alcohol Use: Yes Hx Substance Use: No Review of Systems Review of Systems: All systems reviewed & are unremarkable except as noted in HPI & below Physical Exam Constitutional: WD/WN, vitals as above Eyes: PERRL, conjunctivae normal, anicteric sclerae ENMT: external ear and nose normal, oropharynx normal Neck: normal visual inspection Respiratory: normal respiratory effort, lungs clear to auscultation Cardiovascular: RRR, no murmur, no edema Gastrointestinal (Abdomen): normal bowel sounds, soft, nontender, no hepatosplenomegaly Musculoskeletal: no cyanosis or clubbing, extremities motor strength 5/5 Skin: no rashes, warm and dry + wound (sutures 1st 3 digits, weeping, eccyhomotic, tender, swollen) Psychiatric: A+Ox3, euthymic affect Results & Data Vital Signs (Past 12 Hours) Vital Signs Temp Pulse Resp BP Pulse Ox 08/10/19 07:00 36.7 C 68 17 148/68 H 95 08/09/19 22:56 37.3 C 69 18 128/48 L 93 Laboratory Results Microbiology 08/09/19 Unknown Finger,Left Index Gram Stain - Final 08/09/19 12:25 Finger,Left Index Gram Stain - Final PG Care Time/CCT Total # of Minutes Spent Total Time Spent with Patient: Total time spent is greater than 50% in coordination of care (as documented) at patient's floor/unit and/or counseling patient:
--- NOTE | 2019-08-10 11:33 | Hospitalist Progress Note ---
Date of Service August 10, 2019 Assessment & Plan (1) Cellulitis of hand, left: Failure of outpatient treatment with ceftriaxone and Keflex. Possible failure of Levaquin although may have not had enough time to work. Concerning smell as per patient description for Pseudomonas although gram positive cocci seen on wound culture. Appreciate orthopedic review. No surgery planned at this time. (2) Failure of outpatient treatment: As above (3) Pedal edema: Suspect this is the main cause of his leg pain right > left. Although I am very unclear regarding the acute or chronic illness of this. Ultrasound Dopplers negative for DVT. Echo 65 to 70%. No regional wall abnormalities. Severe biatrial dilatation. Mild pulmonary hypertension. Compared to prior study in November 2014 RVSP is now mildly elevated. Cardiology consulted in case patient required surgery for preop clearance - appreciate review, thought to be due to venous insufficiency. (4) Contact with powered saw as cause of accidental injury: (5) Hypertension: Continue home medications. (6) GERD (gastroesophageal reflux disease): Continue Pepcid. (7) CAD (coronary artery disease): Appreciate cardiology review. Stable on current medication regimen. Aspirin, atenolol, lisinopril, atorvastatin. (8) Previous back surgery: (9) Dyslipidemia: Continue atorvastatin 80 mg daily. (10) Normocytic anemia: Hemodynamically stable. Hgb 10.3 -> 8.4 although no chest pain, shortness of breath or lightheadedness. Repeat CBC in a.m. (11) Pulmonary hypertension: Unclear etiology for this but possibly contributing towards lower extremity edema. Consider outpatient sleep apnea testing. Will get chest x-ray in a.m prior to diuresis. (12) DVT prophylaxis: Heparin 5000 units Q8H (13) Discharge planning issues: Lives alone in two-story [facility]. Will get PT and OT eval's to determine if home services needed. Subjective Patient resting comfortably in bed. Complaining of pain in his lower extremity up to his knees R > L and left hand. Reports significant discharge when stitches removed which had a strong smell. He is unsure why the outpatient antibiotics worked and reported compliance with this regimen. No fever/chills since admitted. Awaiting orthopedic evaluation when pt seen. Review of Systems Review of Systems: All systems reviewed & are unremarkable except as noted in HPI & below Physical Exam Constitutional: well developed and + obese; no acute distress Eyes: + anicteric sclerae; pupils not irregular ENMT: external ear and nose normal, oropharynx normal Neck: trachea midline Respiratory: normal respiratory effort, lungs clear to auscultation Cardiovascular: Rate/Rhythm: regular rate and regular rhythm Heart Sounds: no murmur Vessels: no JVD Extremities: normal capillary refill, + calf tenderness (b/l) and + pedal edema (2+ right, 1+ left) Gastrointestinal (Abdomen): normal bowel sounds, soft, nontender, no hepatosplenomegaly Skin: no rashes, warm and dry Neurologic: Motor/Sensory: no sensory deficit (intact distal to laceration) Psychiatric: A+Ox3, euthymic affect Results & Data Vital Signs (Past 12 Hours) Vital Signs Temp Pulse Resp BP Pulse Ox 08/10/19 07:00 98.1 F 68 17 148/68 H 95 PG Care Time/CCT Total # of Minutes Spent Total Time Spent with Patient: Total time spent is greater than 50% in coordination of care (as documented) at patient's floor/unit and/or counseling patient: (1) Hypertension Hypertension type: essential hypertension Qualified Code(s): I10 - Essential (primary) hypertension
[2019-08-10] MEDS: VANCOMYCIN HCL 1,500 MG in SODIUM CHLORIDE 0.9% 500 ML IV SCH (13:37)
--- NOTE | 2019-08-10 14:29 | Orthopedic Consultation ---
Date of Consultation August 10, 2019 Assessment & Plan (1) Laceration of left hand: (2) Contact with powered saw as cause of accidental injury: Right now would continue with IV antibiotics as an inpatient for next 24 to 48 hours. Should be safely discharged at that time. Can you with an tibiotics. I should see him back in the office approximately 1 week. [place] The patient has inform you he did actually have an appointment today with Dr. Martin tapia for this laceration he may follow-up with Dr. Rob tapia or myself. I also instituted wet-to-dry dressings with normal saline Present on Admission?: Yes (3) Failure of outpatient treatment: Wet-to-dry dressings with normal saline IV antibiotics Present on Admission?: Yes (4) Laceration of hand with complication: History of Present Illness Attending Physician: Noe Nichols MD Allergies Allergy/AdvReac Type Severity Reaction Status Date / Time chlorhexidine Allergy Intermediate RASH Verified 08/09/19 11:44 Home Medications Home Medications Medication Instructions Recorded Confirmed Type aspirin 81 mg PO DAILY 05/07/19 08/09/19 History atenolol 50 mg PO DAILY 05/07/19 08/09/19 History chlorthalidone 25 mg PO DAILY 05/07/19 08/09/19 History lisinopril 20 mg PO DAILY 05/07/19 08/09/19 History ropinirole 4 mg PO HS 05/07/19 08/09/19 History atorvastatin 80 mg tablet 80 mg PO QPM tab 05/25/19 08/09/19 History famotidine 20 mg tablet 20 mg PO DAILY tab 05/25/19 08/09/19 History meclizine 25 mg tablet 25 mg PO Q6H PRN tab 05/25/19 08/09/19 History terazosin 2 mg tablet 2 mg PO DAILY tab 05/25/19 08/09/19 History oxycodone-acetaminophen [Percocet] 1 - 2 tab PO Q6H PRN #12 tab MDD 4 08/03/19 08/09/19 Rx levofloxacin 750 mg PO DAILY 08/09/19 08/09/19 History Patient History Medical History CAD (coronary artery disease) (Chronic) Dyslipidemia GERD (gastroesophageal reflux disease) (Chronic) High cholesterol (Chronic) HTN (hypertension) (Resolved) 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) Surgical History History of cholecystectomy (Resolved) History of lumbar fusion (Resolved) Family History Other No significant family history Social History Preferred Language: Persian Communication Ability: Effective 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 Beliefs That Will Affect Care: None Current Living Situation: Alone Other Information That Helps Us Care for You: No Feels Safe at Home: Yes Safety Concerns: Feels Safe At This Time Smoking Status: Never smoker Tobacco Type: smokeless tobacco ; Do You Dip or Chew Tobacco: Yes ; Second Hand Exposure: No ; Tobacco Cessation Education Requested by Patient: No Hx Alcohol Use: Yes Hx Substance Use: No Physical Exam Physical Exam: Lungs clear to auscultation Cardiac normal rate rhythm No adenopathy Neuro sensory intact Musculoskeletal: Left upper extremity was intact he has several lacerations on dorsal and palmar aspect thereof particularly the index finger and ring finger. Is no obvious pus formation he has adequate range of motion although slightly decreased mild erythema neuro sensory intact and tendon structures appear to be normal. His right foot has universal swelling to it consistent with an inflammatory process or even gout arthritis. Skin he does have several ulcers lacerations from his skin from his table saw injury Results & Data Vital Signs (Past 12 Hours) Vital Signs Temp Pulse Resp BP Pulse Ox 08/10/19 07:00 36.7 C 68 17 148/68 H 95 PG Care Time/CCT Total # of Minutes Spent Total Time Spent with Patient: Total time spent is greater than 50% in coordination of care (as documented) at patient's floor/unit and/or counseling patient:
[2019-08-10] MEDS ORDERED: FUROSEMIDE 40 MG in SYRINGE 0 ML IV STA (15:53)
--- NOTE | 2019-08-10 15:53 | Cardiology Consultation ---
Date of Consultation August 10, 2019 Assessment & Plan (1) CAD (coronary artery disease): (2) Lower extremity edema: (3) Preop cardiovascular exam: (4) Hypertension: (5) Pulmonary hypertension: ASSESSMENT/PLAN: 1. Lower extremity edema: He is followed in the outpatient office and this was thought to be due to venous insufficiency. He does appear to be a bit hypervolemic on exam, although asymptomatic. Can give 1 dose of IV Lasix 40 mg but would monitor renal function closely. This does not appear to be in acute issue according to records. 2. CAD status post RCA PCI (12/13/2014): No angina. Recommend continuation of aspirin 81 mg daily indefinitely. Continue high-intensity statin therapy and beta-naheed. 3. Hypertension: Blood pressure has mostly been elevated. As per primary service. 4. Pulmonary hypertension: Etiology uncertain. Noted on echo ordered by primary service. This can be followed up as an outpatient. 5. Preoperative cardiac assessment: He is asymptomatic, without angina. There is no surgery currently planned according to orthopedic note. If a surgery is required, would continue on aspirin and beta-naheed without interruption throughout the perioperative period. 6. Disposition: On discharge, he should follow up with his primary electrician constructor supervisor, Dr. Rivera. Patient care has been communicated with Dr. espinal the primary hospitalist service. Thank you for allowing me to participate in the care of your patient. Please call for any other questions or concerns. Sincerely, Ezequiel Foote M.D. History of Present Illness Reason for Consultation: Leg swelling, CAD, preoperative cardiac assessment Requesting Physician: Dr. Nichols Attending Physician: Noe Nichols MD History of Present Illness Mr. Villatoro is a pleasant 84-year-old gentleman with a history significant for CAD status post STEMI and RCA PCI, dyslipidemia, hypertension, lower extremity edema (suspected primary venous insufficiency per records), and chronic back pain with lumbar canal stenosis and radiculopathy status post surgery. His primary electrician constructor supervisor is Dr. Rivera. He was last seen by Dr. Rivera on 08/05/2019. He recently suffered a severe laceration to his left hand with a saw. He was admitted on 08/09/2019 due to infection of this left hand wound. There is concern by his other providers that he may require a surgical procedure and given his prior cardiac history and lower extremity edema, cardiology consultation was requested. According to Mr. Villatoro, he has had intermittent swelling of his lower extremities, with the right being worse than the left. He states that in the past with this occurred he was given antibiotics and the swelling resolved. It appears as though he stays active but does use a cane, walker, wheelchair, or other device when possible at home. When sitting, he tries to keep his legs elevated. He denies orthopnea or dyspnea with exertion. He denies shortness of breath unless he bends over at the waist. He denies chest pain, syncope, near- syncope, melena, hematochezia, hematuria, or other bleeding. He maintains a low-sodium diet. He states that his weight at home is up and down and did not give further clarification on his recent trend. He states that more recently he has lower extremity edema has worsened. Once again, the right more so than the left. He takes chlorthalidone home. He believes he was on a stronger diuretic years ago but cannot recall the name. He has undergone Doppler studies of his lower extremities which were negative for DVT on 08/09/2019. Review of systems: As above. He also admits to chronic back pain. Review of systems otherwise negative/unremarkable. Family history: Father at the age of 58 from [place]. Brother had CABG at the age of 65. Social history: He lives alone. He is a ( in 2008). He has a son and a daughter. He denies tobacco or alcohol abuse. 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 He is unaccompanied in his hospital room. Allergies Allergy/AdvReac Type Severity Reaction Status Date / Time chlorhexidine Allergy Intermediate RASH Verified 08/09/19 11:44 Home Medications Home Medications Medication Instructions Recorded Confirmed Type aspirin 81 mg PO DAILY 05/07/19 08/09/19 History atenolol 50 mg PO DAILY 05/07/19 08/09/19 History chlorthalidone 25 mg PO DAILY 05/07/19 08/09/19 History lisinopril 20 mg PO DAILY 05/07/19 08/09/19 History ropinirole 4 mg PO HS 05/07/19 08/09/19 History atorvastatin 80 mg tablet 80 mg PO QPM tab 05/25/19 08/09/19 History famotidine 20 mg tablet 20 mg PO DAILY tab 05/25/19 08/09/19 History meclizine 25 mg tablet 25 mg PO Q6H PRN tab 05/25/19 08/09/19 History terazosin 2 mg tablet 2 mg PO DAILY tab 05/25/19 08/09/19 History oxycodone-acetaminophen [Percocet] 1 - 2 tab PO Q6H PRN #12 tab MDD 4 08/03/19 08/09/19 Rx levofloxacin 750 mg PO DAILY 08/09/19 08/09/19 History Patient History Medical History CAD (coronary artery disease) (Chronic) Cellulitis of hand, left (Acute) Dyslipidemia GERD (gastroesophageal reflux disease) (Chronic) High cholesterol (Chronic) HTN (hypertension) (Resolved) Lower extremity edema 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) Surgical History History of cholecystectomy (Resolved) History of lumbar fusion (Resolved) Family History Other No significant family history Social History Preferred Language: Upper Sorbian Communication Ability: Effective 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 Alert and oriented. HEENT: Anicteric sclera. Neck: Mild JVD. No bruits. Normal carotid upstrokes bilaterally. Cardiac: PMI was nondisplaced. No ventricular heave. Regular. Normal S1-S2. 1/6 systolic murmur. No rubs, or gallops. Pulmonary: Clear to auscultation bilaterally without wheezes, rales, or rhonchi. Abdomen: Soft, nontender, nondistended, with normoactive bowel sounds. No bruits noted. Extremities: 2+ radial pulses bilaterally. 2+ posterior tibialis pulses bilaterally. 1 to 2+ right lower extremity edema. 1+ left lower extremity edema. No cyanosis. No palpable cords. Psychiatric: Affect appears appropriate. Results & Data Vital Signs (Past 12 Hours) Vital Signs Temp Pulse Resp BP Pulse Ox 08/10/19 15:32 36.8 C 66 18 123/58 L 96 08/10/19 07:00 36.7 C 68 17 148/68 H 95 Laboratory Results Laboratory Results - last 24 hr 08/10/19 08/10/19 08/10/19 05:30 05:30 05:30 WBC 29.73 H RBC 2.84 L Hgb 8.4 L Hct 25.6 L MCV 90.1 MCH 29.6 MCHC 32.8 RDW Std Deviation 48.0 H RDW Coeff of Dione 14.4 Plt Count 282 MPV 10.1 Sodium 139 Potassium 4.0 Chloride 110 H Carbon Dioxide 23 Anion Gap 6.0 BUN 34 H Creatinine 1.46 H Est Cr Clr Drug Dosing 43.3 Est GFR ( Amer) 50.8 Est GFR (Non-Af Amer) 43.9 BUN/Creatinine Ratio 22.9 H Glucose 93 Uric Acid 10.7 H Calcium 9.0 NT-Pro-B Natriuret Pep 2169 H Diagnostic Findings Echo 08/10/2019: Normal LV size, wall motion, systolic function. EF 65-70%. Mild LVH. Mildly dilated RV with normal systolic function. Severe biatrial dilation. Sclerotic aortic valve. RVSP 47mmHg. Lower extremity Doppler results reviewed on presentation as noted above. Medications Administered Current Inpatient Medications Acetaminophen (Tylenol) 650 mg PO Q4H PRN PRN Reason: pain/fever Stop: 09/08/19 15:19 Aspirin (Ecotrin Ectab) 81 mg PO DAILY [facility] Stop: 09/09/19 08:59 Last Admin: 08/10/19 08:08 Dose: 81 mg Documented by: Atenolol (Tenormin) 50 mg PO DAILY [facility] Stop: 09/09/19 08:59 Last Admin: 08/10/19 08:07 Dose: 50 mg Documented by: Atorvastatin Calcium (Lipitor) 80 mg PO QPM [facility] Stop: 09/08/19 20:59 Last Admin: 08/09/19 21:05 Dose: 80 mg Documented by: Chlorthalidone (Hygroton) 25 mg PO DAILY [facility] Stop: 09/09/19 08:59 Last Admin: 08/10/19 08:08 Dose: 25 mg Documented by: Famotidine (Pepcid) 20 mg PO DAILY [facility] Stop: 09/09/19 08:59 Last Admin: 08/10/19 08:08 Dose: 20 mg Documented by: Heparin Sodium (Porcine) (Heparin Sodium (Porcine)) 5,000 units SQ Q8 [facility] Stop: 09/08/19 21:59 Last Admin: 08/10/19 13:37 Dose: 5,000 units Documented by: Vancomycin HCl 1,500 mg/ (Sodium Chloride) 530 mls @ 200 mls/hr IV Q24H [facility] Stop: 08/20/19 13:59 Last Infusion: 08/10/19 14:28 Dose: 200 mls/hr Documented by: Piperacillin Sod/Tazobactam (Sod 4.5 gm/ Dextrose) 120 mls @ 30 mls/hr IV Q8H [facility]; Protocol Stop: 08/19/19 19:59 Last Infusion: 08/10/19 14:27 Dose: 28.8 mls/hr Documented by: Lisinopril (Zestril) 20 mg PO DAILY [facility] Stop: 09/09/19 08:59 Last Admin: 08/10/19 08:08 Dose: 20 mg Documented by: Meclizine HCl (Antivert) 25 mg PO Q6H PRN PRN Reason: Dizziness or Vertigo Stop: 09/08/19 15:31 Miscellaneous Information (Consult) 1 ea N/A UD PRN PRN Reason: Consult Stop: 09/08/19 15:19 Miscellaneous Information (Consult) 1 ea N/A UD PRN PRN Reason: Consult Stop: 09/08/19 15:19 Oxycodone/Acetaminophen (Percocet 5mg/325mg) 1 - 2 tab PO Q6H PRN PRN Reason: pain Stop: 08/23/19 15:19 Last Admin: 08/10/19 12:08 Dose: 2 tab Documented by: Ropinirole HCl (Requip) 4 mg PO HS [facility] Stop: 09/08/19 20:59 Last Admin: 08/09/19 21:05 Dose: 4 mg Documented by: Terazosin HCl (Hytrin) 2 mg PO DAILY [facility] Stop: 09/09/19 08:59 Last Admin: 08/10/19 08:09 Dose: 2 mg Documented by: PG Care Time/CCT Total # of Minutes Spent Total Time Spent with Patient: Total time spent is greater than 50% in coordination of care (as documented) at patient's floor/unit and/or counseling patient:
[2019-08-10] MEDS: ROPINIROLE HCL 1 MG TABLET PO SCH (20:23)
[2019-08-10] MEDS: ATORVASTATIN 40 MG TAB PO SCH (20:24)
[2019-08-11] MEDS: PIPERACILLIN/TAZOBACTAM 4.5 GM in DEXTROSE 5% 100 ML IV SCH ×3 (03:32→20:29)
[2019-08-11] MEDS: HEPARIN SOD 5,000 UNIT/0.5 ML VIAL SQ SCH ×3 (05:31→20:37)
--- NOTE | 2019-08-11 07:35 | Orthopedic Progress Note ---
Date of Service August 11, 2019 Assessment & Plan (1) Laceration of hand with complication: Significant laceration of the left hand with infection Gouty arthritis and inflammatory reaction to the right foot Kidney disease Plan: Continue with the antibiotics I be reluctant and careful with treating the gouty arthritis because of his renal issues. He may continue with the dressing changes daily basis he can do that at home. I think the patient is safe to go home either today or tomorrow with home health services Present on Admission?: Yes Subjective Definite improvement seen in pain and range of motion to his left hand and to his right foot Review of Systems Review of Systems: Denies significant pain chest pain shortness of breath Physical Exam Physical Exam: Decreased warmth decreased erythema neuro sensory intact Results & Data Vital Signs (Past 12 Hours) Vital Signs Temp Pulse Resp BP Pulse Ox 08/11/19 07:31 36.5 C 65 18 151/71 H 96 White cell count still significantly elevated. Uric acid 10.7. Also has significant elevation of BUN and creatinine PG Care Time/CCT Total # of Minutes Spent Total Time Spent with Patient: Total time spent is greater than 50% in coordination of care (as documented) at patient's floor/unit and/or counseling patient:
[2019-08-11 07:39] LABS: Hematocrit (blood only) 27.3 % (42-52); Hemoglobin 9.1 g/dL (14.0-18.0); Mean Corpuscular Hemoglobin 29.8 pg (25-34); Mean Corpuscular Hgb Conc 33.3 g/dL (32-36); Mean Corpuscular Volume 89.5 fL (80-100); Mean Platelet Volume 10.3 fL (7.4-10.4); Platelet Count 295 K/uL (130-400); RDW Coefficient of Variation 14.6 % (11.5-14.5); Red Blood Count 3.05 M/uL (4.7-6.1); White Blood Count 29.36 K/uL (4.8-10.8)
[2019-08-11 08:18] LABS: BUN Creatinine Ratio 19.5 (10-20); Creatinine Clr Calc Pharmacy 35.7 ml/min; Est GFR (African American) 40.3; Est GFR (Non-African American) 34.7; Potassium 3.9 mmol/L (3.5-5.1)
--- NOTE | 2019-08-11 08:49 | XRay Report ---
XR chest 1V portable CLINICAL HISTORY: pulmonary hypertension COMPARISON STUDY: 05/07/2019 FINDINGS: The heart remains enlarged. There is no focal pulmonary consolidation. There is mild vascul ar/interstitial thickening. There are equivocal trace pleural effusions.[ IMPRESSION: Cardiomegaly and mild vascular/interstitial thickening. Clinical correlation in regards t o mild congestive failure is recommended. No evidence of focal pulmonary consolidation Electronically signed by: Marco Antonio Brown M.D. 08/11/2019 8:48 AM
[2019-08-11] MEDS: lisinopriL 20 MG TAB PO SCH (09:43)
[2019-08-11] MEDS: TERAZOSIN HCL 1 MG CAP PO SCH (09:43)
[2019-08-11] MEDS: ASPIRIN 81 MG ECTAB PO SCH (09:44)
[2019-08-11] MEDS: FAMOTIDINE 20 MG TAB PO SCH (09:44)
[2019-08-11] MEDS: ATENOLOL 50 MG TABLET PO SCH (09:46)
[2019-08-11] MEDS: CHLORTHALIDONE 25 MG TAB PO SCH (09:46)
[2019-08-11] MEDS: OXYCODONE/ACETAMINOPHEN 5mg/325mg TAB PO PRN ×2 (09:49→17:04)
--- NOTE | 2019-08-11 12:37 | Hospitalist Progress Note ---
Date of Service August 11, 2019 Assessment & Plan (1) Inflammatory arthritis: Suspected gout from history and uric acid level. Unable to have NSAIDs due to reduced renal function. Will treat with 40 mg prednisone daily and 0.6 mg colchicine twice daily, reevaluate tomorrow. If gout I would expect significant improvement, although any inflammatory arthritis would also improve. (2) Elevated serum creatinine: Suspect due to IV Lasix rather than combination of vancomycin and Zosyn. Will repeat BMP in a.m. to monitor. (3) Pedal edema: Worsening renal function with IV Lasix given yesterday. Consistent diagnosis with long-standing venous insufficiency in the setting of inflammatory arthritis as above. Continue to keep right leg raised. No further diuretics due to worsening renal function. (4) Cellulitis of hand, left: Failure of outpatient treatment with ceftriaxone and Keflex. Possible failure of Levaquin although may have not had enough time to work. Many coagulase-negative staph on wound cultures, consistent of why outpatient treatment with cephalosporins failed. Appreciate infectious disease review. Will discontinue Zosyn, continue vancomycin overnight. Plan to discharge home on doxycycline. Appreciate orthopedic review. No surgery planned at this time. Will rearrange orthopedic follow-up on discharge. (5) Failure of outpatient treatment: As above (6) Contact with powered saw as cause of accidental injury: (7) Hypertension: Continue home medications. (8) GERD (gastroesophageal reflux disease): Continue Pepcid. (9) CAD (coronary artery disease): Appreciate cardiology review. Stable on current medication regimen. Aspirin, atenolol, lisinopril, atorvastatin. (10) Previous back surgery: (11) Dyslipidemia: Continue atorvastatin 80 mg daily. (12) Normocytic anemia: Unclear cause of acute trauma however appears improved today. We will continue to monitor CBC tomorrow. (13) Pulmonary hypertension: Noted on echocardiogram. Unclear etiology for this but possibly contributing towards lower extremity edema. Consider outpatient sleep apnea testing. Will get chest x-ray in a.m prior to diuresis. (14) DVT prophylaxis: Heparin 5000 units Q8H (15) Discharge planning issues: Lives alone in two-story [facility]. Physical therapy recommending acute inpatient rehab. Suspect I can deem him medically stable for discharge tomorrow. Subjective Patient reports no improvement in leg swelling with Lasix use. Continues to have significant pain of his right lower extremity mostly over the top of his ankle, medial ankle and first metatarsophalangeal joint. Never diagnosed with gout in the past. But has had multiple acute flareup episodes of leg swelling with associated erythema which extends from the foot to mid graff. These episodes have previously been treated as cellulitis with antibiotics although his daughter is unclear whether this is truly helped. No prior joint aspirations to confirm or deny counts. Currently his pain is no worse or better than yesterday but remains a significant burden on his ambulatory ability. He denies any drainage from his hand lacerations and cellulitis. Review of Systems Review of Systems: All systems reviewed & are unremarkable except as noted in HPI & below Physical Exam Constitutional: well developed and + obese; no acute distress Eyes: + anicteric sclerae; pupils not irregular ENMT: external ear and nose normal, oropharynx normal Neck: normal visual inspection and trachea midline Respiratory: normal respiratory effort, lungs clear to auscultation Cardiovascular: Rate/Rhythm: regular rate and regular rhythm Heart Sounds: no murmur Vessels: no JVD Extremities: normal capillary refill and + pedal edema (2+ right, 1+ left to knees); no calf tenderness Gastrointestinal (Abdomen): normal bowel sounds, soft, nontender, no hepatosplenomegaly Musculoskeletal: Significant pedal edema on right foot however is any pain for over his ankle and first MTPJ, no erythema. However overall clinical picture consistent with gouty arthritis. Skin: no rashes, warm and dry + wound (No worsening cellulitis surrounding lacerations on left first, second and third digits) Neurologic: Motor/Sensory: no sensory deficit (intact distal to lacerations) Psychiatric: A+Ox3, euthymic affect Results & Data Vital Signs (Past 12 Hours) Vital Signs Temp Pulse Resp BP Pulse Ox 08/11/19 07:31 97.7 F 65 18 151/71 H 96 PG Care Time/CCT Total # of Minutes Spent Total Time Spent with Patient: Total time spent is greater than 50% in coordination of care (as documented) at patient's floor/unit and/or counseling p atient: (1) Hypertension Hypertension type: essential hypertension Qualified Code(s): I10 - Essential (primary) hypertension
[2019-08-11] MEDS ORDERED: predniSONE 20 MG TAB PO STA (12:40)
[2019-08-11] MEDS ORDERED: COLCHICINE 0.6 MG TAB PO ONE (12:44)
[2019-08-11] MEDS ORDERED: VANCOMYCIN TROUGH ONE (13:30)
--- NOTE | 2019-08-11 14:05 | Infectious Disease Progress Nt ---
Date of Service August 11, 2019 Assessment & Plan (1) Cellulitis of hand, left: pt will continue on vanco for now, will stop zosyn follow creat, may need dose adjustment, await trough, maintain 15-20. blood cultures negative, no plan for OR. If he to transition to po abx would suggest doxy 100mg po bid with food for 21 days. will follow. 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 blood cultures remain negative, wbc remains elevated at 29. eval by ortho, no plan for OR. suspected gout in foot. creat increased today to 1.7, remains on zosyn and vanco. tolerating well. Results & Data Vital Signs (Past 12 Hours) Vital Signs Temp Pulse Resp BP Pulse Ox 08/11/19 07:31 36.5 C 65 18 151/71 H 96 Laboratory Results Microbiology 08/09/19 Unknown Finger,Left Index Gram Stain - Final 08/09/19 Unknown Finger,Left Index Deep Wound Culture - Final Coag negative Staphylococcus 08/09/19 12:25 Finger,Left Index Gram Stain - Final 08/09/19 12:25 Finger,Left Index Wound Culture - Final Coag negative Staphylococcus 08/09/19 12:59 Blood Aerobic Blood Culture - Preliminary No growth in Aerobic bottle after 24 hours. 08/09/19 12:59 Blood Anaerobic Blood Culture - Preliminary No growth in Anaerobic bottle after 24 hours. 08/09/19 12:59 Blood Aerobic Blood Culture - Preliminary No growth in Aerobic bottle after 24 hours. 08/09/19 12:59 Blood Anaerobic Blood Culture - Preliminary No growth in Anaerobic bottle after 24 hours. PG Care Time/CCT Total # of Minutes Spent Total Time Spent with Patient: Total time spent is greater than 50% in coordination of care (as documented) at patient's floor/unit and/or counseling patient:
--- NOTE | 2019-08-11 14:39 | Pharmacy Report ---
Pharmacy Abx Dose Short Note - Date of Service August 11, 2019 - Assessment & Plan Assessment From initial note (08/09): 84 year old M with h/o of STEMI and HTN presents to the ED with complaints of left hand swelling over the last week. He reports a table saw injury on 08/03 t hat resulted in lacerations his left hand. He was started on Keflex 500mg PO TID X7days. On 08/07 he was given a shot of Rocephin at his PCPs office after swelling did not improve. He was then given a 2nd dose of Rocephin yesterday. The Keflex was also changed to Levaquin, but patient likely only took one dose of this prior to presenting to the ED. 08/11 Jose D is on day #3 of empiric vanco and zosyn IV. ID is consulted and recommending discontinuation of zosyn. BC reported NGTD. Left finger culture is growing coagulase negative staph Plan Vancomycin * Trough level of 12.3 mcg/mL is near therapeutic * Trough level was drawn prior to steady state, therefore current dose of 1500 mg IV q24h will be continued. * Will monitor renal function and trough levels closely per Scr is on the rise (1.46 -> 1.77 mg/dL) * Goal trough level: 15 mcg/mL Pharmacy will continue to follow and will adjust dose/frequency as necessary. Thank you.
[2019-08-11] MEDS: CALCIUM CARBONATE 500 MG CHEWABLE TAB PO PRN (14:40)
[2019-08-11] MEDS: VANCOMYCIN HCL 1,500 MG in SODIUM CHLORIDE 0.9% 500 ML IV SCH (14:46)
[2019-08-11] MEDS: ONDANSETRON INJ 2 MG/ML 2 ML VIAL IV PRN (20:24)
[2019-08-11] MEDS: ROPINIROLE HCL 1 MG TABLET PO SCH (20:34)
[2019-08-11] MEDS: ATORVASTATIN 40 MG TAB PO SCH (20:34)
[2019-08-11] MEDS: COLCHICINE 0.6 MG TAB PO SCH (20:35)
[2019-08-12] MEDS: HEPARIN SOD 5,000 UNIT/0.5 ML VIAL SQ SCH ×3 (05:41→21:37)
[2019-08-12 06:14] LABS: Hematocrit (blood only) 28.9 % (42-52); Hemoglobin 9.4 g/dL (14.0-18.0); Mean Corpuscular Hemoglobin 29.6 pg (25-34); Mean Corpuscular Hgb Conc 32.5 g/dL (32-36); Mean Corpuscular Volume 90.9 fL (80-100); Mean Platelet Volume 10.4 fL (7.4-10.4); Platelet Count 323 K/uL (130-400); RDW Coefficient of Variation 14.4 % (11.5-14.5); RDW Standard Deviation 48.6 fL (36.4-46.3); Red Blood Count 3.18 M/uL (4.7-6.1); White Blood Count 29.65 K/uL (4.8-10.8)
[2019-08-12 06:44] LABS: BUN Creatinine Ratio 20.3 (10-20); Basophils # (auto) 0.04 K/uL (0-0.2); Basophils % (auto) 0.1 %; Calcium 8.8 mg/dl (8.5-10.1); Creatinine Clr Calc Pharmacy 31.1 ml/min; Eosinophils # (auto) 0.06 K/uL (0-0.5); Eosinophils % (auto) 0.2 %; Est GFR (African American) 34.1; Est GFR (Non-African American) 29.4; Immature Granulocytes # (auto) 2.01 K/uL (0.00-0.02); Immature Granulocytes % (auto) 6.8 %; Lymphocytes # (auto) 0.85 K/uL (1.2-3.4); Lymphocytes % (auto) 2.9 %; Monocytes # (auto) 2.81 K/uL (0.11-0.59); Monocytes % (auto) 9.5 %; Neutrophils # (auto) 23.88 K/uL (1.4-6.5); Neutrophils % (auto) 80.5 %; Potassium 4.3 mmol/L (3.5-5.1)
[2019-08-12] MEDS: ONDANSETRON INJ 2 MG/ML 2 ML VIAL IV PRN ×2 (08:12→14:58)
[2019-08-12] MEDS: COLCHICINE 0.6 MG TAB PO SCH (09:12)
[2019-08-12] MEDS: TERAZOSIN HCL 1 MG CAP PO SCH (09:13)
[2019-08-12] MEDS: ASPIRIN 81 MG ECTAB PO SCH (09:13)
[2019-08-12] MEDS: FAMOTIDINE 20 MG TAB PO SCH (09:14)
[2019-08-12] MEDS: ATENOLOL 50 MG TABLET PO SCH (09:14)
[2019-08-12] MEDS: LACTATED RINGER'S 1,000 ML IV SCH ×2 (09:22→21:39)
--- NOTE | 2019-08-12 10:38 | Infectious Disease Progress Nt ---
Date of Service August 12, 2019 Assessment & Plan (1) Cellulitis of hand, left: discussed with pharmacy, zosyn stopped, creat increased today, will change to po doxy at this time due to elevated creat - suspect vanco related, although trough 12 yesterday. would give 14 days abx. Ok for d/c from ID standpoint when otherwise stable. no clinical evidence of infection in foot. Subjective pt seen in followup, creat increased to 2, vanc trough yesterday 12, remains on this. had some nausea overnight, better today, zosyn stopped. 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 blood cultures negative wbc remains elevated at 29. still c/o pain in right foot. no open wounds, denies trauma, finger dressing intact, still with pain in 2nd digit, no plan for OR. no f/c. Review of Systems Review of Systems: All systems reviewed & are unremarkable except as noted in HPI & below Physical Exam Constitutional: WD/WN, vitals as above Eyes: PERRL, conjunctivae normal, anicteric sclerae ENMT: external ear and nose normal, oropharynx normal Neck: normal visual inspection Respiratory: normal respiratory effort, lungs clear to auscultation Cardiovascular: RRR, no murmur, no edema Gastrointestinal (Abdomen): normal bowel sounds, soft, nontender, no hepatosplenomegaly Musculoskeletal: no cyanosis or clubbing, extremities motor strength 5/5 Skin: no rashes, warm and dry + wound (dressing c/d/i, no bleeding, no drainage) 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 Psychiatric: A+Ox3, euthymic affect Results & Data Vital Signs (Past 12 Hours) Vital Signs Temp Pulse Resp BP BP Pulse Ox 08/12/19 09:08 61 119/57 L 08/12/19 07:49 36.5 C 66 20 95/46 L 94 08/11/19 23:00 36.3 C L 63 20 120/59 L 97 Laboratory Results Microbiology 08/09/19 12:59 Blood Aerobic Blood Culture - Preliminary No growth in Aerobic bottle after 48 hours. 08/09/19 12:59 Blood Anaerobic Blood Culture - Preliminary No growth in Anaerobic bottle after 48 hours. 08/09/19 12:59 Blood Aerobic Blood Culture - Preliminary No growth in Aerobic bottle after 48 hours. 08/09/19 12:59 Blood Anaerobic Blood Culture - Preliminary No growth in Anaerobic bottle after 48 hours. 08/09/19 Unknown Finger,Left Index Gram Stain - Final 08/09/19 Unknown Finger,Left Index Deep Wound Culture - Final Coag negative Staphylococcus 08/09/19 12:25 Finger,Left Index Gram Stain - Final 08/09/19 12:25 Finger,Left Index Wound Culture - Final Coag negative Staphylococcus PG Care Time/CCT Total # of Minutes Spent Total Time Spent with Patient: Total time spent is greater than 50% in coordination of care (as documented) at patient's floor/unit and/or counseling patient:
[2019-08-12] MEDS ORDERED: predniSONE 20 MG TAB PO STA (14:44)
--- NOTE | 2019-08-12 14:56 | Hospitalist Progress Note ---
Date of Service August 12, 2019 Assessment & Plan (1) Cellulitis of hand, left: Initial reason for admission. Failure of outpatient treatment with ceftriaxone and Keflex. Possible failure of Levaquin although may have not had enough time to work. Many coagulase-negative staph on wound cultures, switched to doxycycline today 08/12. Appreciate infectious disease and orthopedic review. I am concerned regarding his fingertip numbness and less mobility and DIPJ today in addition to fluid /blood collection distal to laceration of 2nd digit, will ask orthopedics to return for review tomorrow. (2) Failure of outpatient treatment: As above (3) Osyrx-hz-ihakirl kidney injury: Multifactorial with IV Lasix given on admission, poor oral intake with vomiting yesterday, chlorthalidone use, combination of vancomycin and Zosyn use Stop chlorthalidone, lisinopril. Switch antibiotics to doxycycline. Encourage oral intake with antiemetics. Start lactated Ringer's 80 mL/HR (4) Nausea and vomiting: Most likely secondary to colchicine started yesterday. Possibly gastritis/esophagitis with steroid use - however since former more likely will continue steroids for now as this is been useful for his inflammatory arthritis and continue p.o. famotidine and add pantoprazole. (5) Contact with powered saw as cause of accidental injury: Stitches to be removed on first and third fingers on August 15 if still admitted at that time. (6) Inflammatory arthritis: Appears improved with colchicine and prednisone treatment started Suspected gout from history and uric acid level. Unable to have NSAIDs due to reduced renal function. Likely colchicine causing his nausea and vomiting. We will continue treatment with 40 mg prednisone daily. Recommended reevaluation with physical therapy regarding inpatient rehab after adequate treatment for this. Follow-up with PCP as appears to have had multiple flare ups and would likely benefit from allopurinol to be started outside of acute flare. (7) Pedal edema: Worsening renal function with IV Lasix given 08/10. Consistent diagnosis with long-standing venous insufficiency in the setting of inflammatory arthritis as above. Continue to keep right leg raised. No further diuretics due to worsening renal function. (8) Hypertension: Stop chlorthalidone and lisinopril due to acute kidney injury. Continue atenolol. If blood pressure allows would discontinue thiazide diuretics due to gout on discharge. (9) GERD (gastroesophageal reflux disease): Continue Pepcid, add pantoprazole due to nausea and vomiting as above. (10) CAD (coronary artery disease): Appreciate cardiology review. Stable on current medication regimen. Aspirin, atenolol, lisinopril (holding temporarily due to KAPIL), atorvastatin. (11) Previous back surgery: (12) Dyslipidemia: Continue atorvastatin 80 mg daily. (13) Normocytic anemia: Hemoglobin relatively stable since admission. Most likely secondary to CKD, although Hgb 13, 1 year ago. Continue to trend as inpatient. (14) Pulmonary hypertension: Noted on echocardiogram. Unclear etiology for this but possibly contributing towards lower extremity edema. Consider outpatient sleep apnea testing. (15) DVT prophylaxis: Heparin 5000 units SQ Q8H (16) Discharge planning issues: PT - recommend inpatient rehab however patient wishing to go home with home health. Likely will improve with PT after gout treated for a few days. Subjective Patient complaining of nausea and vomiting which started last night, only able to tolerate sips of water and small bites.. He denies any heartburn, epigastric pain, acidic taste in his mouth. He reports his ankle and toe pain have much improved. Swelling has been stable with no improvement. No real change to his finger/hand cellulitis symptoms, no fever/chills. Review of Systems Review of Systems: All systems reviewed & are unremarkable except as noted in HPI & below Physical Exam Constitutional: well developed and + obese; no acute distress Eyes: + anicteric sclerae; pupils not irregular ENMT: external ear and nose normal, oropharynx normal Neck: normal visual inspection and trachea midline Respiratory: normal respiratory effort, lungs clear to auscultation Cardiovascular: Rate/Rhythm: regular rate and regular rhythm Heart Sounds: no murmur Vessels: no JVD Extremities: normal capillary refill and + pedal edema (2+ right, 1+ left to knees, no change); no calf tenderness Gastrointestinal (Abdomen): normal bowel sounds, soft, nontender, no hepatosplenomegaly Musculoskeletal: no cyanosis or clubbing, extremities motor strength 5/5 Skin: no rashes, warm and dry + wound (No cellulitis surrounding lacerations on left first, second and third digits) Wound fully inspected with dressing change in afternoon, developing blood blister distal to laceration on 2nd digit concerning for possible infected colllection given proximity to original drained wound. Neurologic: Motor/Sensory: + sensory deficit (reduced sensation distal to wound on 2nd digit) Psychiatric: A+Ox3, euthymic affect Results & Data Vital Signs (Past 12 Hours) Vital Signs Temp Pulse Resp BP BP Pulse Ox 08/12/19 09:08 61 119/57 L 08/12/19 07:49 97.7 F 66 20 95/46 L 94 PG Care Time/CCT Total # of Minutes Spent Total Time Spent with Patient: Total time spent is greater than 50% in c oordination of care (as documented) at patient's floor/unit and/or counseling patient: (1) CAD (coronary artery disease) Associated angina: without angina Coronary Disease-Associated Artery/Lesion type: [place] artery [place] vs. transplanted heart: [place] heart Qualified Code(s): I25.10 - Atherosclerotic heart disease of [place] coronary artery without angina pectoris (2) GERD (gastroesophageal reflux disease) Esophagitis presence: with esophagitis Qualified Code(s): K21.0 - Gastro- esophageal reflux disease with esophagitis (3) Nausea and vomiting Vomiting Intractability: unspecified Vomiting type: unspecified Qualified Code(s): R11.2 - Nausea with vomiting, unspecified (4) Feyfb-ze-rgezjzo kidney injury Acute renal failure type: unspecified Chronic kidney disease stage: stage 3 (moderate) Qualified Code(s): N17.9 - Acute kidney failure, unspecified; N18.3 - Chronic kidney disease, stage 3 (moderate) (5) Hypertension Hypertension type: essential hypertension Qualified Code(s): I10 - Essential (primary) hypertension
[2019-08-12] MEDS: DOXYCYCLINE HYCLATE 100 MG CAP PO SCH ×2 (15:52→21:37)
[2019-08-12] MEDS: CALCIUM CARBONATE 500 MG CHEWABLE TAB PO PRN (17:37)
[2019-08-12] MEDS ORDERED: PROMETHAZINE HCL 12.5 MG in SODIUM CHLORIDE 0.9% 50 ML IV PRN (17:42)
[2019-08-12] MEDS ORDERED: PROMETHAZINE HCL 12.5 MG in SODIUM CHLORIDE 0.9% 50 ML IV ONE (18:00)
[2019-08-12] MEDS: PANTOprazole 40 MG TAB PO SCH (21:35)
[2019-08-12] MEDS: ROPINIROLE HCL 1 MG TABLET PO SCH (21:36)
[2019-08-12] MEDS: ATORVASTATIN 40 MG TAB PO SCH (21:36)
[2019-08-12] MEDS: OXYCODONE/ACETAMINOPHEN 5mg/325mg TAB PO PRN (21:43)
[2019-08-13] MEDS: LACTATED RINGER'S 1,000 ML IV SCH (06:07)
[2019-08-13] MEDS: HEPARIN SOD 5,000 UNIT/0.5 ML VIAL SQ SCH (06:08)
[2019-08-13 07:11] LABS: Hematocrit (blood only) 28.2 % (42-52); Hemoglobin 9.5 g/dL (14.0-18.0); Mean Corpuscular Hemoglobin 30.6 pg (25-34); Mean Corpuscular Hgb Conc 33.7 g/dL (32-36); Mean Platelet Volume 9.9 fL (7.4-10.4); Platelet Count 362 K/uL (130-400); RDW Coefficient of Variation 14.3 % (11.5-14.5); RDW Standard Deviation 47.7 fL (36.4-46.3); White Blood Count 33.86 K/uL (4.8-10.8)
[2019-08-13 07:15] LABS: BUN Creatinine Ratio 25.8 (10-20); Creatinine Clr Calc Pharmacy 38.8 ml/min; Est GFR (African American) 44.5; Est GFR (Non-African American) 38.4; Potassium 4.1 mmol/L (3.5-5.1)
[2019-08-13] MEDS: OXYCODONE/ACETAMINOPHEN 5mg/325mg TAB PO PRN (08:22)
[2019-08-13] MEDS: ASPIRIN 81 MG ECTAB PO SCH (08:23)
[2019-08-13] MEDS: FAMOTIDINE 20 MG TAB PO SCH (08:24)
[2019-08-13] MEDS: PANTOprazole 40 MG TAB PO SCH (08:25)
[2019-08-13] MEDS: DOXYCYCLINE HYCLATE 100 MG CAP PO SCH (08:26)
[2019-08-13] MEDS: ATENOLOL 50 MG TABLET PO SCH (08:35)
[2019-08-13] MEDS: TERAZOSIN HCL 1 MG CAP PO SCH (08:36)
[2019-08-13] MEDS ORDERED: predniSONE 20 MG TAB PO SCH (09:00)
--- NOTE | 2019-08-13 11:03 | Discharge Summary ---
Date of Service August 13, 2019 Admission HPI Per Admitting Provider The patient is an 84 year old male, with past medical history of STEMI and hypertension, who presents to the Emergency Room with a concern for an infection to his left hand due to swelling to the patients left hand that has been constant over the past week. The patient reports he had a table saw injury on 08/03 that caused lacerations to his left hand, and a family member of the patient reports the patient was prescribed Keflex during this visit. The family member states the patient was seen by his PCP 2 days ago where the patient was given a shot of rocephin because the swelling to his left hand was not imp roving. The family member states the patient was given another shot of Rocephin yesterday at the office across the street from [facility], and she states the patients pill antibiotic was changed from Keflex to Levaquin (750 mg, once a day) at this time as well. The family member states the patients swelling has not improved today, and she states the patients feet have started to swell up as well. The patient notes he has pain to the upper side of his feet and up his legs as well. The patient denies recent trauma or injury to his feet. The patient also denies fever, vomiting, or currently being on blood thinners. The family member states the patient has an appointment with a hand specialist, Dr. Dobbs, scheduled for tomorrow. He was started on IV antibiotics in the ER and will be admitted for further evaluation and management. Patient has also noted swelling of the legs right side more than the left side for last 1 month. The patient is very hard appearing and his daughter is present at the bedside. Principal Diagnosis Left finger cellulitis Right ankle and foot gout flare Discharge Exam Constitutional WD/WN, vitals as above Eyes + anicteric sclerae ENMT external ear and nose normal, oropharynx normal Neck trachea midline, no thyromegaly Respiratory normal respiratory effort, lungs clear to auscultation Cardiovascular Rate/Rhythm: regular rate and regular rhythm Heart Sounds: no murmur Extremities: + edema (1+ pitting edema of the right ankle and foot, trace pitting edema of the left ankle and foot) Chest (Breasts) Chest: normal inspection of chest Gastrointestinal (Abdomen) normal bowel sounds, soft, nontender, no hepatosplenomegaly Musculoskeletal Extremities: no cyanosis and no clubbing + wound (No cellulitis surrounding lacerations on left first, second and third digits with sutures in place) with small amount of purulent drainage coming from an open blood blister distal to laceration on 2nd digit with mild tenderness and erythema Not able to flex but reports he does not have joints in the PIPs from previous injury to the fingers Right ankle and great toe with no erythema, no tenderness to palpation, full range of motion of right great toe and ankle Neurologic moves all extremities and awake; no focal motor deficits Psychiatric A+Ox3, euthymic affect Discharge Data Allergies Allergy/AdvReac Type Severity Reaction Status Date / Time chlorhexidine Allergy Intermediate RASH Verified 08/09/19 11:44 Consultations 08/09/19 15:20 Consult Infectious Diseases Routine 08/09/19 15:32 Consult Orthopedic Surgery Routine 08/10/19 11:18 Consult Cardiology Routine Ordered Studies 08/09/19 12:01 CT hand LT wo con Stat US venous doppler LE RT Stat Hospital Course (1) Cellulitis of hand, left: Initial reason for admission. Failure of outpatient treatment with ceftriaxone and Keflex. Possible failure of Levaquin although may have not had enough time to work. Many coagulase-negative staph on wound cultures, switched to doxycycline on 08/12 and should continue for at least another 7 days. The wound is now draining a scant amount of purulent drainage and he did not require incision and drainage, but rather the sutures were removed at that site by orthopedics -Had orthopedics see him again on the day of discharge-they recommend warm salt water soaks 3 times a day to the finger and close follow-up in the outpatient orthopedic clinic early next week Appreciate infectious disease and orthopedic surgery consultations Stable for discharge to home (2) Failure of outpatient treatment: As above (3) Awcde-xi-yfiffww kidney injury: Multifactorial with IV Lasix given on admission, poor oral intake with vomiting 2 days prior to discharge, chlorthalidone use, combination of vancomycin and Zosyn use Held his chlorthalidone, continued his lisinopril and provided with gentle IV fluids. Switch antibiotics to doxycycline. His nausea and vomiting have now resolved, his creatinine came back down to 1.63 on the day of discharge and his other electrolytes were within normal limits His baseline creatinine is around 1.3 -Okay to restart home chlorthalidone upon discharge Recommend checking BMP with outpatient PCP visit within 1 to 2 weeks (4) Nausea and vomiting: Most likely secondary to colchicine given here x4 doses for gout Resolved by the time of discharge with stopping colchicine, giving Protonix, and antiemetics Possibly gastritis/esophagitis with steroid use as well-continue PPI x1 week after discharge (5) Contact with powered saw as cause of accidental injury: Stitches to be removed on first and third fingers early next week as an outpatient (6) Inflammatory arthritis: Appears improved with colchicine and prednisone treatment started Suspected gout from history and significantly elevated uric acid level. Unable to have NSAIDs due to reduced renal function. Likely colchicine caused his nausea and vomiting. We will continue treatment with 40 mg prednisone daily upon discharge for 5 more days. Recommended reevaluation with physical therapy regarding inpatient rehab after adequate treatment for this. Follow-up with PCP as appears to have had multiple flare ups and would likely benefit from allopurinol to be started outside of acute flare.\ (7) Pedal edema: Worsening renal function with IV Lasix given 08/10. Consistent diagnosis with long-standing venous insufficiency in the setting of inflammatory arthritis as above. Apparently much improved since admission Okay to restart home chlorthalidone (8) Hypertension: Okay to restart home chlorthalidone for now and continue lisinopril now that acute kidney injury is resolving. Continue atenolol. -Consider discontinuing chlorthalidone as an outpatient and replacing with something else given multiple likely gout attacks (9) GERD (gastroesophageal reflux disease): Continue Pepcid, added pantoprazole due to nausea and vomiting as above x7 days while on prednisone. (10) CAD (coronary artery disease): Appreciate cardiology review. Stable on current medication regimen. -Continue aspirin, atenolol, lisinopril, and atorvastatin. (11) Previous back surgery: Noted (12) Dyslipidemia: Continue atorvastatin 80 mg daily. (13) Normocytic anemia: Hemoglobin relatively stable since admission. Most likely secondary to CKD, although Hgb 13, 1 year ago. Continue to trend as an outpatient (14) Pulmonary hypertension: Noted on echocardiogram. Unclear etiology for this but possibly contributing towards lower extremity edema. Consider outpatient sleep apnea testing. (15) DVT prophylaxis: Heparin 5000 units SQ Q8H was provided (16) Discharge planning issues: PT - recommend inpatient rehab however patient wishing to go home with home health. Likely will improve with PT after gout treated for a few days. Disposition-stable for discharge to home today Total Time Total Time Spent Total Time Spent (In Minutes): 40 minutes Total Time Includes: Examination of the Patient, Discharge Planning, Medication Reconciliation and Communication With Other Providers (Dr. Turk orthopedic surgery) Discharge Plan Discharge Items Patient Disposition: Home - Home Health Services Reason For Visit: CELLULITIS Discharge Diagnosis: Finger cellulitis Condition on Discharge: Good Activity: Resume your previous activity Bathing: No limitations Driving/Machine Use: No limitations Non-emergency contact: Primary Care Provider and Surgeon Call non-emergency contact if: you have any medication questions, your symptoms worsen, your pain is not controlled, your pain is worsening, your pain is unusual for you, your pain is concerning for you, your temperature is above 101, your wound has increased redness, your wound has increased drainage and your wound pain has increased Follow-up/Referrals: Jacqueline Vivas MD [Primary Care Provider] - (Please call for a hospital follow up appointment within 1-2 weeks.) Martin Dobbs MD [Physician] - (Please call for a hospital follow up appointment for early next week.) Diet: Heart Healthy Addtl Attending Provider Instructions: Soak your fingers in warm salt water three times a day x 15-20 min each time. Continue the antibiotics with doxycycline 100mg twice a day x 7 more days and follow up with Dr. Dobbs early next week. Please finish out a course of prednisone for your gout in the ankle/foot. Follow up with your PCP within 1-2 weeks after discharge. Pending Studies at Discharge: No Stand-Alone Forms: My [facility] Material Mix, Smoking Cessation Medications and DC Order Prescriptions: New doxycycline hyclate 100 mg Capsule 100 mg PO BID Qty: 14 RF: 0 prednisone 20 mg Tablet 40 mg PO QAM 5 Days Qty: 10 RF: 0 pantoprazole 40 mg Tablet,Delayed Release (Dr/Ec) 40 mg PO QAM Qty: 7 RF: 0 Continued famotidine 20 mg tablet 20 mg PO DAILY RF: 0 meclizine 25 mg tablet 25 mg PO Q6H PRN (Reason: Dizziness) RF: 0 terazosin 2 mg tablet 2 mg PO DAILY RF: 0 atorvastatin 80 mg tablet 80 mg PO QPM RF: 0 lisinopril 20 mg tablet 20 mg PO DAILY RF: 0 chlorthalidone 25 mg tablet 25 mg PO DAILY RF: 0 atenolol 50 mg tablet 50 mg PO DAILY RF: 0 ropinirole 4 mg tablet 4 mg PO HS RF: 0 aspirin 81 mg Tablet,Delayed Release (Dr/Ec) 81 mg PO DAILY RF: 0 oxycodone-acetaminophen [Percocet] 5-325 mg tablet 1 - 2 tab PO Q6H MDD 4 PRN (Reason: pain) Qty: 12 RF: 0 Discontinued levofloxacin 750 mg tablet 750 mg PO DAILY RF: 0 Discharge Orders: Discharge Order (Routine); Ordered 08/13/19 Ordered By: Luz Chadwick Admission Data Admit Date/Time: 08/09/19 14:09 Attending Provider: Luz Chadwick Admit Provider: Demarcus Freed Primary Care Provider: Jacqueline Vivas Other Providers: Giancarlo Redding ; Matthew Escalante ; Pablo Rivera Jr ; [place] Other Interventions: Discharge Summary Assessment (RN) Last Done: 08/13/19 11:29 DC Date/Time DO NOT enter until pt leaves facility: 08/13/19 16:50
--- NOTE | 2019-08-13 11:19 | Orthopedic Progress Note ---
Date of Service August 13, 2019 Assessment & Plan (1) Laceration of left hand: Would continue care per ID, primary service, and Dr. Escalante. Ok to be discharged from ortho stand point. continue antibiotics and warm soaks of the left index finger. Can follow-up with Dr. Dobbs or Dr. Escalante early next week. Present on Admission?: Yes (2) Cellulitis of hand, left: See above. Present on Admission?: Yes Subjective Called by primary service to evaluate left hand prior to discharge. Patient without complaints. Patient had been admitted for cellulitis by Medicine and Dr. Escalante was consulted, following initial treatment for table saw injury to left hand treated by Dr. Dobbs. Review of Systems Review of Systems: All systems reviewed & are unremarkable except as noted in HPI & below Physical Exam Physical Exam: Multiple healing lacerations left hand (thumb, Index finger and Ring Finger. Sutures in the thumb and Ring finger). The skin adjacent to the lacerations has some scabbing and eschar. The palmar aspect of the index finger, middle phalanx also has an eschar. Limited ROM Index finger (patient states it has been limited tdue to arthritis). No abscess. unable to express any puss. No tenderness to palpation along the flexor tendon sheath. Minimal swelling and erythema of the Index finger. Small area on ulnar aspect of the Index finger healing granulation tissue. Results & Data Vital Signs (Past 12 Hours) Vital Signs Temp Pulse Resp BP Pulse Ox 08/13/19 07:25 36.9 C 60 20 164/76 H 95
== END 2019-08-13 16:50 | disposition home health service (06) | DRG 605 ==
LOC: ED 11:16 → 4W 14:06 → SUATTDRO 14:06 → 4W 14:41

== ENCOUNTER 2019-08-28 16:34 | Inpatient (IN) ==
--- NOTE | 2019-08-28 16:26 | History and Physical Report ---
DATE OF ADMISSION: Dr. Dobbs asked me to see the patient today for history and physical preop examination leading up to surgery this evening on patient, Jose D Villatoro. HISTORY OF PRESENT ILLNESS: He is an 84-year-old male that has a diagnosis of left index finger flexor tenosynovitis. On 08/03/2019, the patient injured his hand when it caught in a table saw at home. He went to the Emergency Room. He was diagnosed with lacerations of thumb, index and long fingers, provided with oral antibiotics. Wound was irrigated and debrided. The patient saw his PCP on 08/07. There was concern about infection. He received IV antibiotics for 2 days. He was reevaluated by his PCP and they felt his symptoms were worse and he went to the Emergency Room, he was admitted and kept in the hospital for 5 days. He was seen by Dr. Escalante and IV antibiotics were recommended. He subsequently was discharged from the hospital and followed up with Dr. Dobbs on 08/21/2019. Dr. Dobbs at that time talked to the patient about repair of the flexor tendon, but it would require possible referral to a hand surgeon. The patient was not interested in that as an option. Therefore, Dr. Dobbs recommended continued dressing changes and observation as well as finger soaks with use of antibiotic ointment and Band-Aid, keeping the hand clean. The patient followed up today. His hand and the incision looked worse with significant redness, warmth, pain. Dr. Dobbs felt that this patient would best be served with surgical intervention. The patient was given options and agreed after hearing potential risks, complications, and outcomes to left index metacarpal ray amputation for a diagnosis of left index finger flexor tenosynovitis/finger infection/history of injury with laceration of flexor tendon. PAST MEDICAL HISTORY: Significant for coronary artery disease, dyslipidemia, GERD, high cholesterol, hypertension, [id number] kidney disease/injury, history of ST elevation myocardial infarction. PAST SURGICAL HISTORY: Includes cholecystectomy, lumbar fusion. MEDICATIONS: Include aspirin 81 mg p.o. daily, atenolol 50 mg p.o. daily, atorvastatin 40 mg 2 tabs p.o. daily, chlorthalidone 25 mg 1 tablet p.o. daily, clopidogrel 75 mg 1 tablet p.o. daily, famotidine 20 mg 1 tablet p.o. daily, ketoconazole 2% topical cream 1 application topical daily, lisinopril 20 mg 1 tablet p.o. daily, meclizine 25 mg 1 tablet p.o. q.6 hours as needed for dizziness, Percocet 5 mg 1 tablet p.o. q.8 hours as needed for pain, Protonix 20 mg 1 tablet p.o. daily, ropinirole 4 mg 1 tablet p.o. daily, terazosin 5 mg 1 capsule p.o. at the hour of sleep, tramadol 50 mg 2 tablets p.o. q.12 hours p.r.n. as needed for pain, and triamcinolone 0.1% topical ointment 1 application topical b.i.d. ALLERGIES: CHLORHEXIDINE CAUSES A RASH. Dr. Dobbs is aware. FAMILY HISTORY: Noncontributory. SOCIAL HISTORY: He does not smoke. He is here with his daughter. REVIEW OF SYSTEMS: The patient admits to above [facility]. Otherwise, he denies current fevers, chills, or sweats. He denies chest pain or shortness of breath. PHYSICAL EXAMINATION: GENERAL: The patient is an 84-year-old male who is here today with his daughter. He is in no acute distress, alert and oriented x3 with normal mood and affect. HEENT: Head is normocephalic, atraumatic. External ears intact. Eyes: Wearing glasses. Extraocular movements intact. Pupils equal, round, and reactive to light. Nose: Nares are patent. Mouth: Mucosa moist. Does have missing teeth. No lesions or candidiasis is noted. NECK: Supple, nontender. No JVD, no carotid bruits. CARDIAC: Regular rate and rhythm. LUNGS: Clear to auscultation. No wheezes, rales or rhonchi. ABDOMEN: Soft. LOWER EXTREMITIES: Neurovascularly intact. Palpable pulses. UPPER EXTREMITIES: Focused left upper extremity exam reveals that the laceration at the level of the volar flexion crease of the PIP joint has skin. Dry drainage bloody and yellow on dressings. No foul odor. The area itself, however, is significantly red, warm and swollen. The patient is able to flex at his MCP joint, but has no flexion of his DIP joint or his PIP joint. Long finger laceration is the more superficial. No evidence of infection. Thumb laceration over the volar pulp healing okay. No evidence of infection there. The patient has some altered sensation to his fourth and fifth fingers. He does have palpable pulses to radial pulse distally. Dr. Dobbs did do a more complete evaluation in the office. IMPRESSION: Left index finger flexor tenosynovitis infection. PLAN: Dr. Dobbs would like to operate on this patient this evening. He is recommending that the patient present to [facility] for same day surgery, to be admitted after the procedure for IV antibiotics. The orders were handwritten and the consent was filled out. The patient is aware of potential risks, complications, and outcomes of the procedure and the consent was signed by him as well as Dr. Dobbs. The surgery consists of a left index metacarpal ray amputation. The consent as well as the orders were put in an envelope and given to the patient to take to the hospital. His daughter will transport him. The patient has not drank or eaten since 6:00 a.m. this morning, at which time he had oatmeal and milk. Dr. Dobbs will see the patient this afternoon. Otherwise, the hospital can call us at the office if they have any further problems, questions, or concerns. Attending attestation: I saw and examined this patient and formulated the above plan. BRAYDEN
[~2019-08-28 16:34] MED LIST changes: -ASPI81TA28 PO; -ATOR-26 PO; +CEFAZOLIN 2000MG 2,000 MG/15 ML SYR IV SCH; -GLUC1TAB94 PO; -HYG/25 PO; -HYT/2 PO; +LR 15ML/HR IV SCH; -LSN40 PO; -MECL1TAB40 PO; -PANT20TA2 PO; -ROPI4TAB3 PO; -SENNTAB23 PO; -TNR50 PO
--- NOTE | 2019-08-28 16:35 | Anesthesiology Consultation ---
Date of Service August 28, 2019 Assessment & Plan Chart Review Chart Review: Acceptable Risk for Surgery Consults Requested none ASA ASA3 Proposed Anesthesia Anesthesia Type: MAC Regional Regional Laterality: Left Site: Infraclavicular Risk / Benefits Reviewed With: PT / POA / Parent / Guardian, Accepts Plan and Informed Consent Obtained History Surgery Operation Date: 08/28/19 09:10 Proposed Procedures p Left Index Finger Metacarpal/Ray Amputation - Martin Dobbs MD Allergies Allergy/AdvReac Type Severity Reaction Status Date / Time chlorhexidine Allergy Intermediate RASH Verified 08/09/19 11:44 Medications Home Medications Medication Instructions Recorded Confirmed Last Taken aspirin 81 mg PO DAILY 05/07/19 08/28/19 08/28/19 07:00 atenolol 50 mg PO DAILY 05/07/19 08/28/19 08/28/19 07:00 chlorthalidone 25 mg PO DAILY 05/07/19 08/28/19 08/28/19 07:00 lisinopril 20 mg PO DAILY 05/07/19 08/28/19 08/28/19 07:00 ropinirole 4 mg PO HS 05/07/19 08/28/19 08/27/19 17:00 atorvastatin 80 mg tablet 80 mg PO QPM tab 05/25/19 08/28/19 08/27/19 17:00 famotidine 20 mg tablet 20 mg PO DAILY tab 05/25/19 08/28/19 08/28/19 07:00 meclizine 25 mg tablet 25 mg PO Q6H PRN tab 05/25/19 08/28/19 08/09/19 terazosin 2 mg tablet 2 mg PO DAILY tab 05/25/19 08/09/19 08/09/19 oxycodone-acetaminophen [Percocet] 1 - 2 tab PO Q6H PRN #12 tab MDD 4 08/03/19 08/28/19 08/28/19 07:00 pantoprazole 40 mg PO QAM #7 tab 08/13/19 08/28/19 08/28/19 07:00 NPO Date Last Intake of Fluids: 08/28/19 Time Last Intake of Fluids: 12:00 Date Last Intake of Solids: 08/28/19 Time Last Intake of Solids: 06:30 Past Medical History Medical History CAD (coronary artery disease) (Chronic) Cellulitis of hand, left (Acute) Dyslipidemia GERD (gastroesophageal reflux disease) (Chronic) High cholesterol (Chronic) HTN (hypertension) (Resolved) Lower extremity edema 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) Exercise / Class Metabolic Activity III < 4 Walking/Shop/Light housework Past Family History Family History Other No significant family history Past Surgical History Surgical History History of cholecystectomy (Resolved) History of lumbar fusion (Resolved) Past Anesthesia History No Hx of Anesthesia Complications and No Family Hx of Anesthesia Complications History of PONV No Hx of PONV and No Hx of Motion Sickness Social History Smoking Status: Never smoker tobacco type: smokeless tobacco Hx Alcohol Use: Yes alcohol intake frequency: other Hx Substance Use: No substance use type: does not use Physical Exam Vital Signs Last Vital Signs Temp 99.0 F 08/28/19 16:31 Pulse 68 08/28/19 16:31 Resp 20 08/28/19 16:31 BP 151/68 H 08/28/19 16:31 Pulse Ox 97 08/28/19 16:31 ENMT Mouth: no dentition abnormality Thyromental Distance: > or= 3.5 Finger Breadths Mallampati Class: II Neck normal visual inspection Respiratory normal respiratory effort Auscultation: lungs clear to auscultation bilaterally Cardiovascular Rate/Rhythm: regular rate and regular rhythm Testing Laboratory Results Laboratory Tests 08/13/19 08/13/19 06:23 06:23 WBC 33.86 H* Hgb 9.5 L Plt Count 362 Sodium 140 Potassium 4.1 Chloride 107 Carbon Dioxide 25 BUN 42 H Creatinine 1.63 H D Glucose 112 H Electrocardiogram Date: 08/10/19 Sinus rhythm with occasional Premature ventricular complexes, rate 68 bpm Otherwise normal ECG When compared with ECG of 25-JUL-2015 17:04, Premature ventricular complexes are now Present Confirmed by Edy Foote ([id number]) on 08/11/2019 6:17:53 AM Chest X-Ray Date: 08/11/19 IMPRESSION: Cardiomegaly and mild vascular/interstitial thickening. Clinical correlation in regards to mild congestive failure is recommended. No evidence of focal pulmonary consolidation Echocardiogram Date: 08/10/19 EF: 65-70% LV Function: normal Other Findings: + LVH (mild) Severe biatrial dilatation Mild pulm HTN
[2019-08-28] MEDS ORDERED: ePHEDrine sulfate 50 MG/ML AMP IV PRN (16:50)
[2019-08-28] MEDS ORDERED: ATROPINE SULFATE 0.1 MG/ML 10ML SYR IV PRN (16:50)
[2019-08-28] MEDS ORDERED: fentaNYL citrate 100 MCG/2 ML VIAL IV PRN (16:50)
[2019-08-28] MEDS ORDERED: ONDANSETRON INJ 2 MG/ML 2 ML VIAL IV PRN (16:50)
[2019-08-28] MEDS ORDERED: CEFAZOLIN 2,000 MG/15 ML IV PUSH IV ONE (17:00)
--- NOTE | 2019-08-28 17:07 | History & Physical Bridge Note ---
Date of Service August 28, 2019 History & Physical Bridge Note I have examined the patient, reviewed the History & Physical and in the interval since the performance of the History & Physical I have noted the following changes of clinical significance: no changes noted
[2019-08-28] MEDS ORDERED: ROPIVACAINE 0.5% 5 MG/ML 30 ML VIAL ONE (17:12)
[2019-08-28] MEDS ORDERED: fentaNYL citrate 100 MCG/2 ML VIAL ONE (17:14)
--- NOTE | 2019-08-28 17:24 | History & Physical Report ---
Date of Service August 28, 2019 History of Present Illness HISTORY OF PRESENT ILLNESS: He is an 84-year-old male that has a diagnosis of left index finger flexor tenosynovitis. On 08/03/2019, the patient injured his hand when it caught in a table saw at home. He went to the Emergency Room. He was diagnosed with lacerations of thumb, index and long fingers, provided with oral antibiotics. Wound was irrigated and debrided. The patient saw his PCP on 08/07. There was concern about infection. He received IV antibiotics for 2 days. He was reevaluated by his PCP and they felt his symptoms were worse and he went to the Emergency Room, he was admitted and kept in the hospital for 5 days. He was seen by Dr. Escalante and IV antibiotics were recommended. He subsequently was discharged from the hospital and followed up with Dr. Dobbs on 08/21/2019. Dr. Dobbs at that time talked to the patient about repair of the flexor tendon, but it would require possible referral to a hand surgeon. The patient was not interested in that as an option. Therefore, Dr. Dobbs recommended continued dressing changes and observation as well as finger soaks with use of antibiotic ointment and Band-Aid, keeping the hand clean. The patient followed up today. His hand and the incision looked worse with significant redness, warmth, pain. Dr. Dobbs felt that this patient would best be served with surgical intervention. The patient was given options and agreed after hearing potential risks, complications, and outcomes to left index metacarpal ray amputation for a diagnosis of left index finger flexor tenosynovitis/finger infection/history of injury with laceration of flexor tendon. PAST MEDICAL HISTORY: Significant for coronary artery disease, dyslipidemia, GERD, high cholesterol, hypertension, [id number] kidney disease/injury, history of ST elevation myocardial infarction. PAST SURGICAL HISTORY: Includes cholecystectomy, lumbar fusion. MEDICATIONS: Include aspirin 81 mg p.o. daily, atenolol 50 mg p.o. daily, atorvastatin 40 mg 2 tabs p.o. daily, chlorthalidone 25 mg 1 tablet p.o. daily, clopidogrel 75 mg 1 tablet p.o. daily, famotidine 20 mg 1 tablet p.o. daily, ketoconazole 2% topical cream 1 application topical daily, lisinopril 20 mg 1 tablet p.o. daily, meclizine 25 mg 1 tablet p.o. q.6 hours as needed for dizziness, Percocet 5 mg 1 tablet p.o. q.8 hours as needed for pain, Protonix 20 mg 1 tablet p.o. daily, ropinirole 4 mg 1 tablet p.o. daily, terazosin 5 mg 1 capsule p.o. at the hour of sleep, tramadol 50 mg 2 tablets p.o. q.12 hours p.r.n. as needed for pain, and triamcinolone 0.1% topical ointment 1 application topical b.i.d. ALLERGIES: CHLORHEXIDINE CAUSES A RASH. Dr. Dobbs is aware. FAMILY HISTORY: Noncontributory. SOCIAL HISTORY: He does not smoke. He is here with his daughter. REVIEW OF SYSTEMS: The patient admits to above [facility]. Otherwise, he denies current fevers, chills, or sweats. He denies chest pain or shortness of breath. PHYSICAL EXAMINATION: GENERAL: The patient is an 84-year-old male who is here today with his daughter. He is in no acute distress, alert and oriented x3 with normal mood and affect. HEENT: Head is normocephalic, atraumatic. External ears intact. Eyes: Wearing glasses. Extraocular movements intact. Pupils equal, round, and reactive to light. Nose: Nares are patent. Mouth: Mucosa moist. Does have missing teeth. No lesions or candidiasis is noted. NECK: Supple, nontender. No JVD, no carotid bruits. CARDIAC: Regular rate and rhythm. LUNGS: Clear to auscultation. No wheezes, rales or rhonchi. ABDOMEN: Soft. LOWER EXTREMITIES: Neurovascularly intact. Palpable pulses. UPPER EXTREMITIES: Focused left upper extremity exam reveals that the laceration at the level of the volar flexion crease of the PIP joint has skin. Dry drainage bloody and yellow on dressings. No foul odor. The area itself, however, is significantly red, warm and swollen. The patient is able to flex at his MCP joint, but has no flexion of his DIP joint or his PIP joint. Long finger laceration is the more superficial. No evidence of infection. Thumb laceration over the volar pulp healing okay. No evidence of infection there. The patient has some altered sensation to his fourth and fifth fingers. He does have palpable pulses to radial pulse distally. Dr. Dobbs did do a more complete evaluation in the office. IMPRESSION: Left index finger flexor tenosynovitis infection. PLAN: Dr. Dobbs would like to operate on this patient this evening. He is recommending that the patient present to [facility] for same day surgery, to be admitted after the procedure for IV antibiotics. The orders were handwritten and the consent was filled out. The patient is aware of potential risks, complications, and outcomes of the procedure and the consent was signed by him as well as Dr. Dobbs. The surgery consists of a left index metacarpal ray amputation. The consent as well as the orders were put in an envelope and given to the patient to take to the hospital. His daughter will transport him. The patient has not drank or eaten since 6:00 a.m. this morning, at which time he had oatmeal and milk. Dr. Dobbs will see the patient this afternoon. Otherwise, the hospital can call us at the office if they have any further problems, questions, or concerns. Primary Care Provider: Jacqueline Vivas MD Allergies Allergy/AdvReac Type Severity Reaction Status Date / Time chlorhexidine Allergy Intermediate RASH Verified 08/09/19 11:44 Home Medications Home Medications Medication Instructions Recorded Confirmed Type aspirin 81 mg PO DAILY 05/07/19 08/28/19 History atenolol 50 mg PO DAILY 05/07/19 08/28/19 History chlorthalidone 25 mg PO DAILY 05/07/19 08/28/19 History lisinopril 20 mg PO DAILY 05/07/19 08/28/19 History ropinirole 4 mg PO HS 05/07/19 08/28/19 History atorvastatin 80 mg tablet 80 mg PO QPM tab 05/25/19 08/28/19 History famotidine 20 mg tablet 20 mg PO DAILY tab 05/25/19 08/28/19 History meclizine 25 mg tablet 25 mg PO Q6H PRN tab 05/25/19 08/28/19 History terazosin 2 mg tablet 2 mg PO DAILY tab 05/25/19 08/09/19 History oxycodone-acetaminophen [Percocet] 1 - 2 tab PO Q6H PRN #12 tab MDD 4 08/03/19 08/28/19 Rx pantoprazole 40 mg PO QAM #7 tab 08/13/19 08/28/19 Rx Past Med/Surg History Medical History CAD (coronary artery disease) (Chronic) Cellulitis of hand, left (Acute) Dyslipidemia GERD (gastroesophageal reflux disease) (Chronic) High cholesterol (Chronic) HTN (hypertension) (Resolved) Lower extremity edema 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) Surgical History History of cholecystectomy (Resolved) History of lumbar fusion (Resolved) Family History Other No significant family history Social History Preferred Language: Luxembourgish Communication Ability: Effective [place] Required: No Beliefs That Will Affect Care: None Current Living Situation: Alone Feels Safe at Home: Yes Smoking Status: Never smoker Tobacco Type: smokeless tobacco ; Do You Dip or Chew Tobacco: No ; Second Hand Exposure: No ; Hx Alcohol Use: Yes Hx Substance Use: No Results & Data Vital Signs (Past 12 Hours) Vital Signs Temp Pulse Resp BP Pulse Ox 08/28/19 16:31 37.2 C 68 20 151/68 H 97
[2019-08-28] MEDS ORDERED: PROPOFOL IV EMULSION 10 MG/ML 20 ML VIAL IV ONE ×3 (17:26→18:44)
[2019-08-28] MEDS ORDERED: LIDOCAINE HCL 2% 2 ML VIAL/AMP(20MG/ML) INFIL ONE (17:26)
[2019-08-28] MEDS ORDERED: KETAMINE HCL INJ 50 MG/ML 10 ML VIAL ONE (17:54)
[2019-08-28] MEDS ORDERED: GLYCOPYRROLATE 0.2 MG/ML VIAL ONE (18:14)
[2019-08-28] MEDS ORDERED: ONDANSETRON INJ 2 MG/ML 2 ML VIAL ONE ×2 (18:29→19:23)
--- NOTE | 2019-08-28 19:35 | Post Operative Brief Note ---
Immediate Post Op Note v1 Date of Surgery August 28, 2019 Pre & Post Diagnosis Operation Date: 08/28/19 09:10 Pre-Op Diagnosis: Left index finger flexor tenosynovitis infection, flexor tendon laceration with open wound Post-Op Diagnosis: Left index finger flexor tenosynovitis infection, flexor tendon laceration with open wound I identified the patient and participated in the time-out.: Yes Procedure Operation Date: 08/28/19 09:10 Actual Procedures p Left Index Finger Metacarpal Amputation(Left) - Martin Dobbs MD Surgeon Martin Dobbs MD Salvager Helper Ed Andrade MD and Ravindra Brito MS-3 Estimated Blood Loss 50 Findings Consistent with Post-Op Diagnosis Fluids 800 cc Specimens Left index finger and metacarpal Anesthesia Type MAC Regional Complications none Disposition Accompanied Patient To Recovery: No Disposition: Recovery Room
--- NOTE | 2019-08-28 20:02 | Operative Report ---
Post Operative Report Pre & Post Diagnosis Operation Date: 08/28/19 09:10 Pre-Op Diagnosis: Left index finger flexor tenosynovitis infection Post-Op Diagnosis: Left index finger flexor tenosynovitis infection I identified the patient and participated in the time-out.: Yes Procedure Operation Date: 08/28/19 09:10 Actual Procedures p Left Index Finger Metacarpal Amputation(Left) - Martin Dobbs MD Surgeon Martin Dobbs MD Ground Intelligence Officer Ed Andrade MD and Ravindra Brito MS-3 Estimated Blood Loss 50 Findings Consistent with Post-Op Diagnosis Specimens index finger left hand and soft tissues Complications none Disposition Accompanied Patient To Recovery: Yes Disposition: Recovery Room Description of Procedure Supine, hand table, tourniquet, time out Left Index Finger Metacarpal Amputation Please see Dr Dobbs's procedure notes for specific details I was present throughout the case, assisted for wound closure and transferred the patient to PACU in stable condition I attest to the content of the Intraoperative Record and any orders documented therein. Any exceptions are noted below.
--- NOTE | 2019-08-28 20:19 | Operative Report ---
DATE OF OPERATION: 08/28/2019 PREOPERATIVE DIAGNOSIS: Left index finger open flexor tendon laceration at the level of the proximal phalanx with open wound and flexor tenosynovitis. POSTOPERATIVE DIAGNOSIS: Left index finger open flexor tendon laceration at the level of the proximal phalanx with open wound and flexor tenosynovitis. OPERATION PERFORMED: Left index finger ray amputation. SURGEON: Martin Dobbs MD. ASSISTANTS: Hiral Andrade MD and DINA Smalls. ESTIMATED BLOOD LOSS: 50 mL. INTRAVENOUS FLUIDS: 800 mL of crystalloid. SPECIMENS: Index finger and metacarpal. COMPLICATIONS: None. IMPLANTS: None. INDICATIONS: Mr. Villatoro is an 84-year-old gentleman who approximately 4 weeks ago sustained an injury where he had lacerations to his thumb, index and long fingers from a circular saw. As a result of this, he lacerated the flexor tendons to the index finger at the level of the proximal phalanx. He had his wound sutured up in the Emergency Room. He subsequently developed a localized infection and was admitted to the hospital for IV antibiotics approximately 10 days after the initial injury. He was then discharged and followed up in my clinic, at which point I saw him for the first time about 3 weeks from his injury. At that time point, he had had some breakdown of his wound over the flexor tendons where the sutures had pulled out. The flexor tendons were immediately visible at the base of the wound. However, there was no sign of infection at that time. He reported a history of another saw injury to this finger with stiffness and diminished function even before this more recent injury. I talked to him about the diagnosis of flexor tendon laceration and offered to refer him to a hand surgeon at that time. The patient declined this. We therefore attempted dressing changes. Unfortunately, he presented to my clinic today with a 2-day history of worsening finger pain, redness and swelling in the hand. He had positive Kanavel signs of swelling of the index finger in a sausage digit configuration, erythema with tenderness over the flexor tendon sheath and pain with passive extension of the finger. I had a long discussion with him about treatment options. Because of his flexor tendon lacerations and open wound, a simple I and D is unlikely to permanently eradicate the infection and he is not a good candidate for any soft tissue coverage procedures because of his age and comorbidities. Furthermore, because of the diminished function he already has in the finger, any repair of his flexor tendons is unlikely to result in a significant improvement in function. Therefore, he is a candidate for index finger ray amputation to eradicate the infection. I had a long discussion with him about the risks and benefits of this procedure, alternatives and expected outcomes. After reviewing all these, he elected to proceed. All questions were answered. Informed consent was signed. OPERATIVE FINDINGS: The ray amputation was performed without any complications. Deep cultures were taken of the flexor tendon sheath at the level of the volar plate. There was no purulence within the flexor tendon sheath. Intraoperative findings did confirm the presence of a flexor tendon laceration. The specimen was sent to pathology. He was placed in a splint at the conclusion of the case in the intrinsic plus position. DESCRIPTION OF THE OPERATION: The patient was identified in the preoperative holding area where the surgical site was marked. He was given an infraclavicular block by anesthesia, then brought back to main operating room where IV sedation was administered. All bony prominences were padded. Perioperative antibiotics were administered. He was prepped and draped in the normal sterile fashion. Prior to incision, a multidisciplinary timeout was called. All in the room were in agreement. We began by exsanguinating the limb with an Esmarch bandage. Tourniquet was inflated to 250 mmHg. Total tourniquet time for the case was 53 minutes. The incision was marked out and was made with a dorsal longitudinal incision over the index finger metacarpal and then a fishmouth incision around the base of the metacarpal through the web space. We dissected down through subcutaneous tissues. Dorsal venous branches were ligated with electrocautery or suture of 4-0 Vicryl. The EIP and EDC to the index finger were identified and traced proximally to their junction with the long finger extensor tendons and then cut sharply with the Metzenbaums. We then dissected distally underneath the tendon to the level of the MCP joint. The neurovascular bundles were then identified on both the radial and ulnar aspect of the metacarpal head at this level. The artery and vein were suture ligated while the digital nerves were dissected proximally and with traction pulled, were then sharply cut with a fresh 15 blade and allowed to retract into the soft tissues. Once this was complete, we subperiosteally dissected around the index finger metacarpal and exposed it all the way to its proximal metaphyseal flare. We then protected the palmar surface using Hohmann's and made our oblique saw cut. We then grasped the metacarpal with a towel clip and dissected on its undersurface tracking it all the way to the level of the MCP joint. The metacarpal was then sharply removed and passed off to the back table. We then continued our dissection to remove the remainder of the index finger, which was also passed off onto the back table. The flexor tendon laceration was identified and the flexor tendons were pulled distally. We then used a swab to obtain a culture of the flexor tendon sheath. Once this was complete, we then pulled maximum traction on the flexor tendons, cut them sharply and allowed them to retract into the wound. At this point, we copiously irrigated the wound including 500 mL within the flexor tendon sheath itself. The proximal metacarpal saw cut was bevelled using a rongeur. The tourniquet was then let down at 53 minutes. Meticulous hemostasis was ensured. We then closed the periosteum and fascial layer using a running 3-0 PDS suture. The skin was closed using 3-0 nylon sutures. Excess skin was excised. We then placed him into a volar-dorsal plaster slab splint with the hand in the intrinsic plus position. His IV sedation was lifted and he was transferred to the recovery room in stable condition. POSTOPERATIVE COURSE: The patient will be admitted to the hospital overnight for IV antibiotics and pain control. We will follow his cultures. We will plan on changing his dressing in the next 1-2 days depending on drainage. He will elevate his arm overnight. I attest to the content of the Intraoperative Record and any orders documented therein. Any exceptions are noted below. BRAYDEN
--- NOTE | 2019-08-28 20:28 | Anesthesiology Progress Note ---
Date of Service August 28, 2019 Anesthesia Post Procedure Vital Signs Vital Signs: Temp Pulse Pulse Resp BP Pulse Ox 08/28/19 20:10 66 13 111/61 96 08/28/19 20:00 67 12 106/61 93 08/28/19 19:52 37.7 C H 68 17 118/58 L 100 08/28/19 16:31 37.2 C 68 20 151/68 H 97 Pain Intensity Left 2nd Digit: Pain Intensity: 0 Transfer of Care Handoff Completed per policy Notes Mental Status: alert / awake / arousable and participated in evaluation Patient Amnestic to Procedure: Yes Nausea / Vomiting: adequately controlled Pain: adequately controlled Airway Patency, RR, SpO2: stable & adequate BP & HR: stable & adequate Hydration State: stable & adequate Anesthetic Complications: no major complications apparent and Pt Satisfied with anesthetic care
--- NOTE | 2019-08-28 20:38 | XRay Report ---
XR hand LT 2V CLINICAL HISTORY: 84 years-old Male presenting with s/p index finger ray amputation. TECHNIQUE: Frontal and lateral views of the left hand were obtained. COMPARISON: 08/03/2019. FINDINGS: A plaster cast overlies the hand which significantly obscures underlying osseous detail. Status post amputation of the second finger and the majority of the second metacarpal. Small defect of the soft t issues at the distal aspect of the first finger. Underlying significant degenerative change at the pr oximal interphalangeal joint of the third finger and along the radial carpus. IMPRESSION: 1. Postsurgical changes. Underlying osseous detail limited by overlying splint. 2. Degenerative changes better evaluated on the prior radiograph. Electronically signed by: Martin Woods M.D. 08/28/2019 8:36 PM
[2019-08-28] MEDS ORDERED: MECLIZINE HCL 25 MG TAB PO PRN (20:53)
[2019-08-28] MEDS: SODIUM CHLORIDE 0.9% 1000ML 1,000 ML IV SCH (22:06)
[2019-08-28] MEDS: DOCUSATE SODIUM 100 MG CAP PO SCH (22:07)
[2019-08-28] MEDS: ROPINIROLE HCL 1 MG TABLET PO SCH (22:07)
[2019-08-28] MEDS: ATORVASTATIN 40 MG TAB PO SCH (22:07)
[2019-08-28] MEDS: CEFAZOLIN 2000MG 2,000 MG/15 ML SYR IV SCH (23:49)
[2019-08-29] MEDS: OXYCODONE/ACETAMINOPHEN 5mg/325mg TAB PO PRN ×4 (01:53→21:01)
[2019-08-29] MEDS: SODIUM CHLORIDE 0.9% 1000ML 1,000 ML IV SCH (07:12)
[2019-08-29 08:02] LABS: Hemoglobin 9.7 g/dL (14.0-18.0); Mean Corpuscular Hemoglobin 29.7 pg (25-34); Mean Corpuscular Volume 91.7 fL (80-100); Mean Platelet Volume 9.6 fL (7.4-10.4); Platelet Count 235 K/uL (130-400); RDW Coefficient of Variation 14.9 % (11.5-14.5); RDW Standard Deviation 50.8 fL (36.4-46.3); Red Blood Count 3.27 M/uL (4.7-6.1); White Blood Count 29.57 K/uL (4.8-10.8)
[2019-08-29 08:03] LABS: Mean Corpuscular Hgb Conc 32.3 g/dL (32-36)
[2019-08-29 08:19] LABS: BUN Creatinine Ratio 17.2 (10-20); Basophils # (auto) 0.04 K/uL (0-0.2); Basophils % (auto) 0.1 %; Calcium 9.1 mg/dl (8.5-10.1); Creatinine Clr Calc Pharmacy 41.4 ml/min; Eosinophils % (auto) 1.4 %; Est GFR (African American) 48.8; Est GFR (Non-African American) 42.1; Immature Granulocytes # (auto) 1.75 K/uL (0.00-0.02); Immature Granulocytes % (auto) 5.9 %; Lymphocytes # (auto) 0.99 K/uL (1.2-3.4); Lymphocytes % (auto) 3.3 %; Monocytes # (auto) 4.68 K/uL (0.11-0.59); Monocytes % (auto) 15.8 %; Neutrophils # (auto) 21.71 K/uL (1.4-6.5); Neutrophils % (auto) 73.5 %; Poikilocytosis Present; Potassium 4.1 mmol/L (3.5-5.1)
[2019-08-29 08:22] LABS: Albumin Globulin Ratio 0.8 (0.9-2); Bilirubin,Total 0.6 mg/dl (0.2-1); Globulin 3.9 gm/dl (2.5-4.0); Total Protein 6.9 gm/dl (6.4-8.2)
[2019-08-29] MEDS: lisinopriL 20 MG TAB PO SCH (08:48)
[2019-08-29] MEDS: ASPIRIN 81 MG ECTAB PO SCH (08:49)
[2019-08-29] MEDS: FAMOTIDINE 20 MG TAB PO SCH (08:49)
[2019-08-29] MEDS: PANTOprazole 40 MG TAB PO SCH (08:49)
[2019-08-29] MEDS: CHLORTHALIDONE 25 MG TAB PO SCH (08:49)
[2019-08-29] MEDS: DOCUSATE SODIUM 100 MG CAP PO SCH ×2 (08:49→20:48)
[2019-08-29] MEDS: ATENOLOL 50 MG TABLET PO SCH (08:49)
[2019-08-29] MEDS: CEFAZOLIN 2000MG 2,000 MG/15 ML SYR IV SCH ×3 (08:50→23:56)
--- NOTE | 2019-08-29 08:51 | XRay Report ---
XR ankle RT min 3V routine CLINICAL HISTORY: R ankle pain, swelling COMPARISON: Right ankle radiographs August 09, 2019. FINDINGS: Alignment of the right ankle is anatomic. There is extensive vascular calcification. Soft tissue swelling is noted. This is similar to prior exam. No fracture or suspicious osseous lesion is noted. There is no radiographic evidence for osteomyelitis. Minimal plantar calcaneal spurring is not ed. Talar dome is intact. Mild tibiotalar joint osteoarthritis is noted. IMPRESSION: 1. No acute fracture. 2. Right ankle soft tissue swelling, similar to prior exam. Mild tibiotalar joint osteoarthritis. 3. Extensive vascular calcification. Electronically signed by: Brett Snow M.D. 08/29/2019 8:50 AM
--- NOTE | 2019-08-29 08:53 | XRay Report ---
XR foot RT min 3V routine CLINICAL HISTORY: R foot swelling, pain COMPARISON: Right foot radiographs August 09, 2019. FINDINGS: Extensive vascular calcification is noted. There is right ankle and foot soft tissue swell ing. Tarsometatarsal joints are intact. No fracture or osseous lesion is noted. No soft tissue gas is noted. There is no radiographic evidence of osteomyelitis. Bipartite medial sesamoid of the right gr eat toe is noted. Mild osteoarthrosis noted within several articulations of the right foot. IMPRESSION: 1. No acute fracture or dislocation within the right foot. 2. Right ankle and foot soft tissue swelling. 3. Extensive vascular calcification. Electronically signed by: Brett Snow M.D. 08/29/2019 8:52 AM
--- NOTE | 2019-08-29 10:16 | Hospitalist Consultation ---
Date of Consultation August 29, 2019 Assessment & Plan (1) Laceration of hand with complication: -Initial injury related to laceration from circular saw with culture revealing coag negative Staphylococcus -is undergone oral and IV antibiotics in recent past -Now he is S/P left index finger amputation due to open flexor tendon laceration/open wound/flexor tenosynovitis on 08/28 -new cultures with gram- positive cocci and will await identification -Continue cefazolin -Pain surgical management per primary team (2) Chronic kidney disease: -With Dr. Ortiz; baseline reported around 1.3-1.4 and currently at 1.5 -We will continue to monitor with labs and avoid nephrotoxins; renally dose medications (3) Inflammatory arthritis: -History of elevated uric acid and gouty flares in the past given his CKD and chlorthalidone this could increase his odds of gout -Appears colchicine and prednisone utilized on previous admission with improvement in symptoms -however it was suspected colchicine led to nausea and vomiting and possible gastritis -We will add prednisone 40 mg daily x5 days and monitor for improvement; kidney function is similar to baseline and may benefit from allopurinol with renal adjustments but this can be deferred to after acute flare is resolved 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 Physical Exam Constitutional: WD/WN, vitals as above Eyes: PERRLA, EOMI, + anicteric sclerae ENMT: Ears: + hearing impairment Neck: trachea midline Respiratory: normal respiratory effort, lungs clear to auscultation Cardiovascular: Rate/Rhythm: regular rate and regular rhythm Heart Sounds: no murmur Gastrointestinal (Abdomen): Inspection/Auscultation: normal bowel sounds Percussion/Palpation: abdomen soft; abdomen nontender Musculoskeletal: Head/Neck/Chest: normocephalic and head atraumatic Left- handed and arm in splint and Romel wrap Neurologic: moves all extremities Psychiatric: A+Ox3, euthymic affect History of Present Illness Reason for Consultation: Medical management Attending Physician: Martin Dobbs MD History of Present Illness Mr. Villatoro is a 84-year-old male with past medical history of CKD, pulmonary hypertension, [place], HLD, and HTN who is S/P left index finger amputation due to open flexor tendon laceration/open wound/flexor tenosynovitis. Patient sustained this initial injury due to a laceration from a circular saw. He has dealt with ongoing infection of the site requiring recent hospitalization for this. He reports some throbbing at the surgical site but states it is manageable. His biggest complaint today is bilateral feet pain that is more prevalent in the right foot. Per nursing he had significant pain with attempts at placing Gagandeep stockings and socks. Patient cannot give me a description of the pain in his feet as he just keeps calling this his gout pain. Patient is known to have elevated uric acid levels and gouty attacks in the past. Currently feet do not appear to tender to palpation but more prevalent right pedal edema compared to left. On previous admission he was given colchicine and prednisone with good relief. However it was thought colchicine caused him nausea and vomiting. Also attempts at reducing edema in feet with Lasix led to worsening renal function. In regards to chronic medical conditions he feels he is relatively stable. He states he sustained a heart attack while undergoing dobutamine stress testing in the past. He underwent catheterization requiring 2 stents. Allergies Allergy/AdvReac Type Severity Reaction Status Date / Time chlorhexidine Allergy Intermediate RASH Verified 08/09/19 11:44 Home Medications Home Medications Medication Instructions Recorded Confirmed Type aspirin 81 mg PO DAILY 05/07/19 08/28/19 History atenolol 50 mg PO DAILY 05/07/19 08/28/19 History chlorthalidone 25 mg PO DAILY 05/07/19 08/28/19 History lisinopril 20 mg PO DAILY 05/07/19 08/28/19 History ropinirole 4 mg PO HS 05/07/19 08/28/19 History atorvastatin 80 mg tablet 80 mg PO QPM tab 05/25/19 08/28/19 History famotidine 20 mg tablet 20 mg PO DAILY tab 05/25/19 08/28/19 History meclizine 25 mg tablet 25 mg PO Q6H PRN tab 05/25/19 08/28/19 History terazosin 2 mg tablet 2 mg PO DAILY tab 05/25/19 08/09/19 History oxycodone-acetaminophen [Percocet] 1 - 2 tab PO Q6H PRN #12 tab MDD 4 08/03/19 08/28/19 Rx pantoprazole 40 mg PO QAM #7 tab 08/13/19 08/28/19 Rx Patient History Medical History CAD (coronary artery disease) (Chronic) Cellulitis of hand, left (Acute) Dyslipidemia GERD (gastroesophageal reflux disease) (Chronic) High cholesterol (Chronic) HTN (hypertension) (Resolved) Lower extremity edema 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) Surgical History History of cholecystectomy (Resolved) History of lumbar fusion (Resolved) Family History Other No significant family history Social History Preferred Language: [place] Communication Ability: Effective 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 Beliefs That Will Affect Care: None Current Living Situation: Alone Feels Safe at Home: Yes Smoking Status: Never smoker Tobacco Type: smokeless tobacco ; Do You Dip or Ch ew Tobacco: No ; Second Hand Exposure: No ; Hx Alcohol Use: Yes Hx Substance Use: No Review of Systems Constitutional: no fever and no chills Respiratory: no cough and no dyspnea Cardiovascular: + edema (Bilateral feet with right worse than left); no chest pain and no palpitations Gastrointestinal: no abdominal pain, no nausea, no vomiting, no constipation and no diarrhea/loose stools Genitourinary: no dysuria Musculoskeletal: Throbbing at surgical site; bilateral foot pain reported as gout pain cannot give other descriptors Neurologic: no tingling and no numbness Physical Exam Constitutional: WD/WN, vitals as above Eyes: + anicteric sclerae ENMT: Ears: + hearing impairment Neck: trachea midline Respiratory: normal respiratory effort, lungs clear to auscultation Cardiovascular: Rate/Rhythm: regular rate and regular rhythm Heart Sounds: no murmur Gastrointestinal (Abdomen): Inspection/Auscultation: normal bowel sounds Percussion/Palpation: abdomen soft; abdomen nontender Musculoskeletal: Head/Neck/Chest: normocephalic and head atraumatic Left- handed and arm in splint and Romel wrap Neurologic: moves all extremities Psychiatric: A+Ox3, euthymic affect Results & Data Vital Signs (Past 12 Hours) Vital Signs Temp Pulse Pulse Resp BP Pulse Ox 08/29/19 07:04 36.9 C 74 16 155/67 H 08/29/19 03:38 37.0 C 68 16 126/55 L 93 08/28/19 23:53 36.8 C 72 15 151/65 H 92 08/28/19 22:51 36.7 C 70 16 130/65 95 PG Care Time/CCT Total # of Minutes Spent Total Time Spent with Patient: Total time spent is greater than 50% in coordination of care (as documented) at patient's floor/unit and/or counseling patient: (1) CAD (coronary artery disease) Associated angina: without angina Coronary Disease-Associated Artery/Lesion type: [place] artery [place] vs. transplanted heart: [place] heart Qualified Code(s): I25.10 - Atherosclerotic heart disease of [place] coronary artery without angina pectoris (2) Hypertension Hypertension type: essential hypertension Qualified Code(s): I10 - Essential (primary) hypertension
[2019-08-29] MEDS: predniSONE 20 MG TAB PO SCH (11:38)
--- NOTE | 2019-08-29 14:06 | Orthopedic Progress Note ---
Date of Service August 29, 2019 Assessment & Plan (1) Laceration of hand with complication: X rays of ankle and foot Hospitalist consult for medical management Subjective Patient is comfortable; Day 1 post op - left index finger and 1st MC amputation Has pain in both ankles and feet; Associated with swelling Positive Gout Hx in the past with no specific treatment due to renal issues Physical Exam Physical Exam: Left hand - with splint in-situ No soakage of dressings Intact circulation and sensations Active movt of fingers - present Bilateral ankles and feet: Swelling + Active movt - possible with end range restriction Intact circulation Results & Data Vital Signs (Past 12 Hours) Vital Signs Temp Pulse Resp BP Pulse Ox 08/29/19 07:04 36.9 C 74 16 155/67 H 08/29/19 03:38 37.0 C 68 16 126/55 L 93
[2019-08-29] MEDS: ONDANSETRON INJ 2 MG/ML 2 ML VIAL IV PRN (19:25)
[2019-08-29] MEDS: ROPINIROLE HCL 1 MG TABLET PO SCH (20:48)
[2019-08-29] MEDS: ATORVASTATIN 40 MG TAB PO SCH (20:48)
[2019-08-30 05:24] LABS: Hematocrit (blood only) 28.7 % (42-52); Hemoglobin 9.2 g/dL (14.0-18.0); Mean Corpuscular Hemoglobin 29.1 pg (25-34); Mean Corpuscular Hgb Conc 32.1 g/dL (32-36); Mean Corpuscular Volume 90.8 fL (80-100); Mean Platelet Volume 10.1 fL (7.4-10.4); Platelet Count 234 K/uL (130-400); RDW Coefficient of Variation 14.9 % (11.5-14.5); RDW Standard Deviation 49.5 fL (36.4-46.3); Red Blood Count 3.16 M/uL (4.7-6.1); White Blood Count 24.99 K/uL (4.8-10.8)
[2019-08-30 05:47] LABS: ALC (manual) 1.32 K/uL (1.2-3.4); ANC (manual) 20.59 K/uL (1.4-6.5); Eosinophils # (manual) 0.22 K/uL (0-0.5); Eosinophils % (manual) 0.9 %; Lymphocytes # (manual) 1.32 K/uL (1.2-3.4); Lymphocytes % (manual) 5.3 %; Metamyelocytes # (manual) 0.22 K/uL (0-0); Metamyelocytes % (manual) 0.9 %; Monocytes # (manual) 1.97 K/uL (0.11-0.59); Monocytes % (manual) 7.9 %; Myelocytes # (manual) 0.65 K/uL (0-0); Myelocytes % (manual) 2.6 %; Neutrophils # (manual) 20.59 K/uL (1.4-6.5); Neutrophils % (manual) 82.4 %; RBC Morphology Unremarkable
[2019-08-30] MEDS: ONDANSETRON INJ 2 MG/ML 2 ML VIAL IV PRN ×2 (05:49→17:06)
[2019-08-30 05:52] LABS: Albumin Level 2.8 gm/dl (3.4-5.0); BUN Creatinine Ratio 16.3 (10-20); Calcium 8.6 mg/dl (8.5-10.1); Creatinine Clr Calc Pharmacy 38.4 ml/min; Est GFR (African American) 44.5; Est GFR (Non-African American) 38.4; Potassium 4.1 mmol/L (3.5-5.1)
[2019-08-30 05:54] LABS: Albumin Globulin Ratio 0.7 (0.9-2); Bilirubin,Total 0.4 mg/dl (0.2-1); Globulin 3.8 gm/dl (2.5-4.0); Total Protein 6.6 gm/dl (6.4-8.2)
[2019-08-30] MEDS ORDERED: PROMETHAZINE HCL 6.25 MG in SODIUM CHLORIDE 0.9% 50 ML IV STA (06:39)
[2019-08-30] MEDS: OXYCODONE/ACETAMINOPHEN 5mg/325mg TAB PO PRN ×2 (08:44→17:09)
[2019-08-30] MEDS: lisinopriL 20 MG TAB PO SCH (08:45)
[2019-08-30] MEDS: CHLORTHALIDONE 25 MG TAB PO SCH (08:45)
[2019-08-30] MEDS: DOCUSATE SODIUM 100 MG CAP PO SCH ×2 (08:45→18:42)
[2019-08-30] MEDS: PANTOprazole 40 MG TAB PO SCH (08:45)
[2019-08-30] MEDS: ATENOLOL 50 MG TABLET PO SCH (08:45)
[2019-08-30] MEDS: FAMOTIDINE 20 MG TAB PO SCH (08:45)
[2019-08-30] MEDS: ASPIRIN 81 MG ECTAB PO SCH (08:46)
[2019-08-30] MEDS: predniSONE 20 MG TAB PO SCH (08:46)
[2019-08-30] MEDS: CEFAZOLIN 2000MG 2,000 MG/15 ML SYR IV SCH ×2 (08:48→17:10)
--- NOTE | 2019-08-30 09:54 | Orthopedic Progress Note ---
Date of Service August 30, 2019 Assessment & Plan (1) Laceration of hand with complication: Change of dressing and plaster of barrett - done now with no incidents Continue steroid medication as advised by hospitalist Elevation of left hand and active finger and elbow movt Subjective Day 2 post op Left index finger amputation Pain well controlled Intact sensations and circulation left hand Plaster removed and incision inspected Dry and healing well New dressings applied followed by Splint Examination of bilateral ankles: Better now Improved ROM Effusion + Intact sensations and circulation Results & Data Vital Signs (Past 12 Hours) Vital Signs Temp Pulse Pulse Resp BP Pulse Ox 08/30/19 07:10 36.7 C 59 L 18 149/87 H 96 08/29/19 22:55 36.9 C 65 17 145/63 H 93
[2019-08-30] MEDS: bisacodyL 5 MG TABEC PO PRN (10:41)
[2019-08-30] MEDS: POLYETHYLENE (MIRALAX) 17 GM PACK PO PRN (10:41)
--- NOTE | 2019-08-30 18:39 | Hospitalist Progress Note ---
Date of Service August 30, 2019 Assessment & Plan (1) Laceration of hand with complication: -Initial injury related to laceration from circular saw with culture revealing coag negative Staphylococcus -has undergone oral and IV antibiotics in recent past -Now he is S/P left index finger amputation due to open flexor tendon laceration/open wound/flexor tenosynovitis on 08/28 -new cultures with gram- positive cocci and will await identification -Continue cefazolin; WBC is trending down - Last BM x 3 days ago - some nausea/small emesis this AM - continue bowel regimen - if current modalities unsuccessful may need suppository/enema -- If nausea/vomiting occurs consider KUB to assess for ileus -Surgical management per primary team (2) Chronic kidney disease: -With Dr. Ortiz; baseline reported around 1.3-1.4 and currently at 1.6 -We will continue to monitor with labs and avoid nephrotoxins; renally dose medications (3) Inflammatory arthritis: -History of elevated uric acid and gouty flares in the past given his CKD and chlorthalidone this could increase his odds of gout -Appears colchicine and prednisone utilized on previous admission with improvement in symptoms -however it was suspected colchicine led to nausea and vomiting and possible gastritis -We will add prednisone 40 mg daily x5 days and monitor for improvement; kidney function is similar to baseline and may benefit from allopurinol with renal adjustments but this can be deferred to after acute flare is resolved and 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 Hospitalists will continue to monitor Supervising Physician Co-Signing Physician Notes I examined and seen patient with Magadlena Perdomo PA-C and agree with her assessment and plan. Physical Exam Constitutional: WD/WN, vitals as above Eyes: + anicteric sclerae ENMT: Ears: no hearing impairment Neck: trachea midline Respiratory: normal respiratory effort and + cough Auscultation: + wheezes (minimal in b/l midlung) Cardiovascular: Rate/Rhythm: regular rate and regular rhythm Vessels: no JVD Gastrointestinal (Abdomen): normal bowel sounds Percussion/Palpation: abdomen soft; abdomen nontender Musculoskeletal: Head/Neck/Chest: normocephalic and head atraumatic Skin: erythema of L foot/ankle/graff with mild warmth to tough and peeled skin on medial aspect of ankle/foot Neurologic: moves all extremities Psychiatric: A+Ox3, euthymic affect Subjective Reports his pain is doing a bit better today. Continues to have throbbing in his surgical hand and some discomfort with his feet. Discussed with the daughter at bedside. Renal function remains stable. He does report feeling nauseous this AM after eating. States he has not moved his bowels in 3 days but feels his distended abdomen is his baseline. States he has ongoing issues between constipation/diarrhea. Tolerated lunch without difficulty or Nausea/vomiting. Verbalizes no complaints. Review of Systems Constitutional: no fever and no chills Respiratory: no cough and no dyspnea Cardiovascular: + edema (Bilateral feet with right worse than left); no chest pain and no palpitations Gastrointestinal: + nausea, + vomiting and + constipation; no abdominal pain and no diarrhea/loose stools Genitourinary: no dysuria Musculoskeletal: Throbbing at surgical site; bilateral foot pain reported as gout pain cannot give other descriptors Integumentary: no rash Physical Exam Constitutional: WD/WN, vitals as above Eyes: + anicteric sclerae ENMT: Ears: + hearing impairment Neck: trachea midline Respiratory: normal respiratory effort, lungs clear to auscultation Cardiovascular: Rate/Rhythm: regular rate and regular rhythm Heart Sounds: no murmur Gastrointestinal (Abdomen): Inspection/Auscultation: + abdomen distended and normal bowel sounds Percussion/Palpation: abdomen nontender Musculoskeletal: Head/Neck/Chest: normocephalic and head atraumatic L hand/arm in splinting/WES wrap; mild tenderness with palp of L toes Neurologic: moves all extremities Psychiatric: A+Ox3, euthymic affect Results & Data Vital Signs (Past 12 Hours) Vital Signs Temp Pulse Resp BP Pulse Ox 08/30/19 15:05 36.6 C 62 17 145/61 H 96 08/30/19 07:10 36.7 C 59 L 18 149/87 H 96 PG Care Time/CCT Total # of Minutes Spent Total Time Spent with Patient: Total time spent is greater than 50% in coordination of care (as documented) at patient's floor/unit and/or counseling patient: (1) CAD (coronary artery disease) Associated angina: without angina Coronary Disease-Associated Artery/Lesion type: [place] artery Elem vs. transplanted heart: [place] heart Qualified Code(s): I25.10 - Atherosclerotic heart disease of [place] coronary artery without angina pectoris (2) Hypertension Hypertension type: essential hypertension Qualified Code(s): I10 - Essential (primary) hypertension
[2019-08-30] MEDS: ATORVASTATIN 40 MG TAB PO SCH (21:34)
[2019-08-30] MEDS: ROPINIROLE HCL 1 MG TABLET PO SCH (21:34)
[2019-08-31] MEDS: CEFAZOLIN 2000MG 2,000 MG/15 ML SYR IV SCH ×2 (00:29→07:46)
[2019-08-31] MEDS: OXYCODONE/ACETAMINOPHEN 5mg/325mg TAB PO PRN (00:43)
[2019-08-31] MEDS: POLYETHYLENE (MIRALAX) 17 GM PACK PO PRN (00:43)
[2019-08-31] MEDS: bisacodyL 5 MG TABEC PO PRN (00:44)
[2019-08-31 05:37] LABS: Hematocrit (blood only) 28.5 % (42-52); Hemoglobin 9.1 g/dL (14.0-18.0); Mean Corpuscular Hemoglobin 29.3 pg (25-34); Mean Corpuscular Hgb Conc 31.9 g/dL (32-36); Mean Corpuscular Volume 91.6 fL (80-100); Mean Platelet Volume 10.1 fL (7.4-10.4); Platelet Count 254 K/uL (130-400); RDW Coefficient of Variation 14.8 % (11.5-14.5); RDW Standard Deviation 50.2 fL (36.4-46.3); Red Blood Count 3.11 M/uL (4.7-6.1)
[2019-08-31 06:08] LABS: ALC (manual) 1.35 K/uL (1.2-3.4); Echinocytes 2+; Lymphocytes # (manual) 1.35 K/uL (1.2-3.4); Lymphocytes % (manual) 5.3 %; Metamyelocytes # (manual) 0.23 K/uL (0-0); Metamyelocytes % (manual) 0.9 %; Monocytes # (manual) 1.35 K/uL (0.11-0.59); Monocytes % (manual) 5.3 %; Myelocytes # (manual) 0.66 K/uL (0-0); Myelocytes % (manual) 2.6 %; Neutrophils % (manual) 85.9 %
[2019-08-31 06:14] LABS: Albumin Level 2.8 gm/dl (3.4-5.0); BUN Creatinine Ratio 21.7 (10-20); Calcium 8.6 mg/dl (8.5-10.1); Creatinine Clr Calc Pharmacy 47.4 ml/min; Est GFR (African American) 57.4; Est GFR (Non-African American) 49.5; Potassium 4.3 mmol/L (3.5-5.1)
[2019-08-31 06:17] LABS: Albumin Globulin Ratio 0.7 (0.9-2); Bilirubin,Total 0.3 mg/dl (0.2-1); Globulin 3.8 gm/dl (2.5-4.0); Total Protein 6.6 gm/dl (6.4-8.2)
[2019-08-31] MEDS: lisinopriL 20 MG TAB PO SCH (08:53)
[2019-08-31] MEDS: ATENOLOL 50 MG TABLET PO SCH (08:53)
[2019-08-31] MEDS: PANTOprazole 40 MG TAB PO SCH (08:53)
[2019-08-31] MEDS: ASPIRIN 81 MG ECTAB PO SCH (08:53)
[2019-08-31] MEDS: CHLORTHALIDONE 25 MG TAB PO SCH (08:53)
[2019-08-31] MEDS: FAMOTIDINE 20 MG TAB PO SCH (08:54)
[2019-08-31] MEDS: predniSONE 20 MG TAB PO SCH (08:54)
[2019-08-31] MEDS: DOCUSATE SODIUM 100 MG CAP PO SCH (08:54)
--- NOTE | 2019-08-31 11:29 | Orthopedic Progress Note ---
Date of Service August 31, 2019 Assessment & Plan (1) Laceration of hand with complication: Keep splint and dressing in place until follow up Continue steroid medication as advised by hospitalist Elevation of left hand and active finger and elbow move Discharge later today with PO ABX (Keflex) and antifungal (Diflucan) meds Culture sensitivities pending. Follow up at [facility] with Dr. Dobbs in 2 weeks Subjective This 84 yo M is seen for f/u of Left 2nd finger/metacarpal amputation. He is 3 days post op. Dressing was changed yesterday. He is doing well. Pain is controlled with PO meds. He state that he is ready to go home. He denies CP, SOB, nausea, vomiting, fever, chills, sweats or lethargy. Review of Systems Review of Systems: All systems reviewed & are unremarkable except as noted in HPI & below Physical Exam Physical Exam: Left upper extremity: splint/dressing, clean, dry and intact. Patient has appropriate dexterity of remaining digits. Able to actively flex/extend at IP and MCP of left thumb. FROM at elbow and shoulder. Numbness to palpation over pads of 4th and 5th digits (chronic from previous injury). Otherwise NV intact. Cap refill < 2 seconds. Unable to palpate pulse due to splint placement. Results & Data Vital Signs (Past 12 Hours) Vital Signs Temp Pulse Resp BP Pulse Ox 08/31/19 06:54 36.8 C 53 L 16 156/69 H 94 Laboratory Results 08/31/19 08/31/19 Range/Units 04:50 04:50 WBC 25.50 H (4.8-10.8) K/uL RBC 3.11 L (4.7-6.1) M/uL Hgb 9.1 L (14.0-18.0) g/dL Hct 28.5 L (42-52) % MCV 91.6 (80-100) fL MCH 29.3 (25-34) pg MCHC 31.9 L (32-36) g/dL RDW Std Deviation 50.2 H (36.4-46.3) fL RDW Coeff of Dione 14.8 H (11.5-14.5) % Plt Count 254 (130-400) K/uL MPV 10.1 (7.4-10.4) fL Neutrophils % (Manual) 85.9 % Lymphocytes % (Manual) 5.3 % Monocytes % (Manual) 5.3 % Metamyelocytes % (Man) 0.9 % Myelocytes % (Man) 2.6 % Neutrophils # (Manual) 21.90 H (1.4-6.5) K/uL Total Absolute Neuts 21.90 H (1.4-6.5) K/uL Lymphocytes # (Manual) 1.35 (1.2-3.4) K/uL Total Abs Lymphocytes 1.35 (1.2-3.4) K/uL Monocytes # (Manual) 1.35 H (0.11-0.59) K/uL Metamyelocytes # (Man) 0.23 H (0-0) K/uL Myelocytes # (Manual) 0.66 H (0-0) K/uL Echinocytes 2+ Sodium 139 (136-145) mmol/L Potassium 4.3 (3.5-5.1) mmol/L Chloride 106 (98-107) mmol/L Carbon Dioxide 28 (21-32) mmol/L Anion Gap 5.0 (3-11) BUN 29 H (7-18) mg/dl Creatinine 1.32 D (0.6-1.4) mg/dl Est Cr Clr Drug Dosing 47.4 ml/min Est GFR ( Amer) 57.4 Est GFR (Non-Af Amer) 49.5 BUN/Creatinine Ratio 21.7 H (10-20) Glucose 112 H (70-99) mg/dl Calcium 8.6 (8.5-10.1) mg/dl Total Bilirubin 0.3 (0.2-1) mg/dl AST 23 (15-37) U/L ALT 18 (12-78) U/L Alkaline Phosphatase 114 (45-117) U/L Total Protein 6.6 (6.4-8.2) gm/dl Albumin 2.8 L (3.4-5.0) gm/dl Globulin 3.8 (2.5-4.0) gm/dl Albumin/Globulin Ratio 0.7 L (0.9-2)
--- NOTE | 2019-08-31 15:35 | Discharge Summary ---
Date of Service August 31, 2019 Admission HPI Per Admitting Provider HISTORY OF PRESENT ILLNESS: He is an 84-year-old male that has a diagnosis of left index finger flexor tenosynovitis. On 08/03/2019, the patient injured his hand when it caught in a table saw at home. He went to the Emergency Room. He was diagnosed with lacerations of thumb, index and long fingers, provided with oral antibiotics. Wound was irrigated and debrided. The patient saw his PCP on 08/07. There was concern about infection. He received IV antibiotics for 2 days. He was reevaluated by his PCP and they felt his symptoms were worse and he went to the Emergency Room, he was admitted and kept in the hospital for 5 days. He was seen by Dr. Escalante and IV antibiotics were recommended. He subsequently was discharged from the hospital and followed up with Dr. Dbobs on 08/21/2019. Dr. Dobbs at that time talked to the patient about repair of the flexor tendon, but it would require possible referral to a hand surgeon. The patient was not interested in that as an option. Therefore, Dr. Dobbs recommended continued dressing changes and observation as well as finger soaks with use of antibiotic ointment and Band-Aid, keeping the hand clean. The patient followed up today. His hand and the incision looked worse with significant redness, warmth, pain. Dr. Dobbs felt that this patient would best be served with surgical intervention. The patient was given options and agreed after hearing potential risks, complications, and outcomes to left index metacarpal ray amputation for a diagnosis of left index finger flexor tenosynovitis/finger infection/history of injury with laceration of flexor tendon. Admission Exam Per Admitting Provider PHYSICAL EXAMINATION: GENERAL: The patient is an 84-year-old male who is here today with his daughter. He is in no acute distress, alert and oriented x3 with normal mood and affect. HEENT: Head is normocephalic, atraumatic. External ears intact. Eyes: Wearing glasses. Extraocular movements intact. Pupils equal, round, and reactive to light. Nose: Nares are patent. Mouth: Mucosa moist. Does have missing teeth. No lesions or candidiasis is noted. NECK: Supple, nontender. No JVD, no carotid bruits. CARDIAC: Regular rate and rhythm. LUNGS: Clear to auscultation. No wheezes, rales or rhonchi. ABDOMEN: Soft. LOWER EXTREMITIES: Neurovascularly intact. Palpable pulses. UPPER EXTREMITIES: Focused left upper extremity exam reveals that the laceration at the level of the volar flexion crease of the PIP joint has skin. Dry drainage bloody and yellow on dressings. No foul odor. The area itself, however, is significantly red, warm and swollen. The patient is able to flex at his MCP joint, but has no flexion of his DIP joint or his PIP joint. Long finger laceration is the more superficial. No evidence of infection. Thumb laceration over the volar pulp healing okay. No evidence of infection there. The patient has some altered sensation to his fourth and fifth fingers. He does have palpable pulses to radial pulse distally. Dr. Dobbs did do a more complete evaluation in the office. Principal Diagnosis Left index finger flexor tenosynovitis infection Discharge Exam Left upper extremity: splint/dressing, clean, dry and intact. Patient has appropriate dexterity of remaining digits. Able to actively flex/extend at IP and MCP of left thumb. FROM at elbow and shoulder. Numbness to palpation over pads of 4th and 5th digits (chronic from previous injury). Otherwise NV intact. Cap refill < 2 seconds. Unable to palpate pulse due to splint placement. Discharge Data Allergies Allergy/AdvReac Type Severity Reaction Status Date / Time chlorhexidine Allergy Intermediate RASH Verified 08/09/19 11:44 Consultations 08/28/19 20:08 Consult Internal Medicine Routine Procedures Performed Operation Date: 08/28/19 09:10 Actual Procedures p Left Index Finger Metacarpal Amputation(Left) - Martin Dobbs MD Ordered Studies 08/28/19 16:50 US - OR guided needle placemen Routine Hospital Course (1) Laceration of hand with complication: Patient was sent from our office to ED on 08/28/19 for left hand infection following conservative treatment for a laceration for approximately 1 month. On the evening of the he underwent surgical intervention which required a Left 2nd finger and ray amputation. Patient was also evaluated by medicine service due to his PMH and comorbidities, and was subsequently prescribed prednisone for LUIS LE swelling and "gout flare up." Overall, he did well over the weekend and was discharged home today on oral ABX and antifungal medication. We are still awaiting culture sensitivity results and will adjust ABX accordingly. Keep splint and dressing in place until follow up Continue steroid medication as advised by hospitalist Elevation of left hand and active finger and elbow move Discharge later today with PO ABX (Keflex) and antifungal (Diflucan) meds Culture sensitivities pending. Follow up at [facility] with Dr. 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 Activity: As commented below Lifting Comment: No lifting with Left arm Bathing: Keep incision dry Bathing Comment: May shower tomorrow Sexual Activity: Wait until after follow-up appointment Exercise/Sports: Wait until after follow-up appointment Driving/Machine Use: No driving until cleared by wardrobe specialist Weightbearing: Left non-weightbearing Weightbearing Comment: Keep splint in place until follow up Non-emergency contact: Primary Care Provider Call non-emergency contact if: you have any medication questions, your pain is not controlled, your temperature is above 101.5, your wound has increased drainage and your wound pain has increased Follow-up/Referrals: Jacqueline Vivas MD [Primary Care Provider] - Diet: Heart Healthy Addtl Attending Provider Instructions: Post-operative Instructions Dear Patient and Family/Friends, Before you are discharged from the hospital, it is important to know what to expect when you get home after surgery. To that end, we have created this sheet of discharge instructions which covers many commonly asked questions. Make sure you go through this sheet in its entirety with your nurse before you are discharged. Please note that we will go over the specifics of your surgery and recovery when you return for your first post-operative visit. Sincerely, Dr. Dobbs Pain Expect to be in a fair amount of pain after surgery. Remember, our goal is not to eliminate your pain, but to make it tolerable. It is a good idea to stay ahead of your pain by taking the medications you were prescribed once you get home. Typically, the pain starts improving 3-7 days after surgery. You should start weaning off the narcotic pain medication (oxycodone, hydrocodone, hydromorphone, morphine) as soon as your pain improves. Please call our office if your pain is not adequately controlled. Ice Ice your operative site at least 5 times a day for 15-30 minutes at a time. Make sure you have a thin cloth between the ice or cooling unit and your skin to prevent paul bite. This is especially important if you received a nerve block. Continue icing your operative site for the first 5-7 days after surgery, then as needed. Diet/Nausea/Vomiting Start by drinking clear liquids and eating crackers. If you can tolerate this, then you may resume your normal diet. If you feel nauseated or vomit, take Zofran/ondansetron (if prescribed). Please call our office if you have intractable nausea or vomiting, or, if after hours, you may go to the Emergency Room for help. Constipation Constipation is a common side effect of narcotic pain medication. If you have not had a bowel movement within 2 days after surgery, we recommend purchasing an over the counter laxative such as Milk of Magnesia, Dulcolax, or Miralax from a local pharmacy, and taking it as instructed. Call our clinic if any questions. Slings and Braces If you were placed in a sling or brace, it must be worn at all times, including sleep. You may remove your sling or brace for physical therapy, home exercises, and showering. The length of time you will be in your brace and range of motion restrictions depends on what surgery you had; these details will be reviewed at your first post-operative appointment. Weight bearing and Range of Motion. Do not bear any weight through your operative extremity immediately after surgery. If you had upper extremity surgery, do not lift anything with that arm. If you are in a knee brace, keep it locked in place until your follow-up. We will discuss your weight bearing, range of motion, and lifting restrictions in detail at your first post-operative appointment. Continuous Passive Motion (CPM) Machine If you were prescribed a CPM machine, it will start after your first post- operative appointment, at which time we will give you instructions on the range of motion settings and duration of treatment Physical therapy You will be given a prescription for physical therapy or occupational therapy at your first post-operative appointment. Typically, patients start therapy within 1 week of surgery Wound care and showering We will inspect your wound at your first post-operative visit, and may do a dressing change at that time. Most patients will be in a water-proof dressing that is removed 14 days after surgery. It is normal to see some dried blood on the dressing. Do not remove your dressing, paper strips or sutures yourself unless you are given permission. Showering is allowed the day after surgery. Do not scrub or remove any dressings. The wound should not be submerged underwater (i.e. in a bathtub or pool) until 4 weeks after surgery GAVINO stockings If you were given white stockings, these are to be worn at all times except to shower (on both legs) for the first 2 weeks after surgery. Driving You may not drive while taking narcotic pain medication or while in a cast, splint, sling or brace. You, the patient, need to make the final determination about when you are safe to drive, however, the earliest you may consider driving after surgery is below: Hand/Wrist/Elbow Surgery: 3 days Shoulder Surgery: 2 weeks Hip,/Knee/Ankle Surgery: 4 weeks Fracture repair: 6 weeks Return to Work Your return to work depends on what surgery was done and what type of work you do. Please bring any paperwork your employer needs completed to your first post-operative visit. Also, bring a description of your job duties, as this helps us to understand what risks you may face at work. Travel Avoid long distance travel (greater than 1 hour) in airplanes and cars for the first 6 weeks after surgery. If you must travel, you need to have a Doppler ultrasound done before you travel to rule out a blood clot in your legs. Follow-up You should have a follow-up appointment already scheduled 1-2 days after surgery. If not, please contact our office to make this appointment before you leave the hospital. When to call the office It is normal to have swelling and bruising in the limb that was operated on. This will improve with time. It is also normal to have fevers for the first 2 days after surgery. Reasons you should call your doctor include: Uncontrolled pain; Nausea, vomiting, or constipation that does not improve with medication; Fevers over 101.5, chills, sweats; Drainage or bleeding from the wound; Foul odor; Spreading areas of redness; Any other concerns Pending Studies at Discharge: Yes (culture sensitivities pending) Stand-Alone Forms: My [facility], Smoking Cessation Medications and DC Order Prescriptions: New cephalexin [Keflex] 500 mg capsule 500 mg PO QID 10 Days Qty: 40 RF: 0 fluconazole [Diflucan] 200 mg tablet 200 mg PO DAILY 10 Days Qty: 10 RF: 0 Continued famotidine 20 mg tablet 20 mg PO DAILY RF: 0 meclizine 25 mg tablet 25 mg PO Q6H PRN (Reason: Dizziness) RF: 0 terazosin 2 mg tablet 2 mg PO DAILY RF: 0 atorvastatin 80 mg tablet 80 mg PO QPM RF: 0 lisinopril 20 mg tablet 20 mg PO DAILY RF: 0 chlorthalidone 25 mg tablet 25 mg PO DAILY RF: 0 atenolol 50 mg tablet 50 mg PO DAILY RF: 0 ropinirole 4 mg tablet 4 mg PO HS RF: 0 aspirin 81 mg Tablet,Delayed Release (Dr/Ec) 81 mg PO DAILY RF: 0 oxycodone-acetaminophen [Percocet] 5-325 mg tablet 1 - 2 tab PO Q6H MDD 4 PRN (Reason: pain) Qty: 12 RF: 0 pantoprazole 40 mg Tablet,Delayed Release (Dr/Ec) 40 mg PO QAM Qty: 7 RF: 0 Discharge Orders: Discharge Order (Routine); Ordered 08/31/19 Ordered By: Oleksandr Lawler Admission Data Admit Date/Time: 08/28/19 20:08 Attending Provider: Martin Dobbs Admit Provider: Martin Dobbs Primary Care Provider: Jacqueline Vivas Other Providers: Alanis Salas ; Mariposa Kim ; Noe Scott ; Sudeep Chacon ; Ting Wang ; Javier Lawson ; Willie Guajardo ; Vikash Herrera ; Luz Chadwick ; Magdalena Boss ; Mariama Crawley ; Omid Avilez ; Su Squires ; Grant Duarte ; Joel Linton ; Alanis Meléndez ; Delbert Gloria ; Hazel Bauer ; Donte Yee ; Alfred Taylor ; Noe Nichols ; Aislinn Patricio ; Pebbles Hansen ; Gavin Mora ; Ravindra Stanford ; Sandro Cordova ; Demarcus Freed ; Iván Hoover ; Susie Farnsworth ; Irving Grady ; [facility] Other Interventions: Discharge Summary Assessment (RN) Last Done: 08/31/19 11:32 DC Date/Time DO NOT enter until pt leaves facility: 08/31/19 13:41
== END 2019-08-31 13:41 | disposition home health service (06) | DRG 514 ==
LOC: ASU 16:34 → 3W 20:08

== ENCOUNTER 2019-10-27 19:42 | Inpatient (IN) ==
[2019-10-27] MEDS ORDERED: LACTATED RINGER'S 1,000 ML IV ONE (20:01)
[2019-10-27] MEDS ORDERED: ACETAMINOPHEN 500 MG TAB PO STA (20:29)
[2019-10-27 20:32] LABS: Hematocrit (blood only) 31.1 % (42-52); Mean Corpuscular Hemoglobin 28.2 pg (25-34); Mean Corpuscular Hgb Conc 32.2 g/dL (32-36); Mean Corpuscular Volume 87.9 fL (80-100); Mean Platelet Volume 10.2 fL (7.4-10.4); Platelet Count 181 K/uL (130-400); RDW Coefficient of Variation 17.1 % (11.5-14.5); RDW Standard Deviation 55.4 fL (36.4-46.3); Red Blood Count 3.54 M/uL (4.7-6.1); White Blood Count 17.53 K/uL (4.8-10.8)
[2019-10-27 20:43] LABS: INR 1.2 (0.9-1.1); Partial Thromboplastin Ratio 1.2; Partial Thromboplastin Time 31.3 Seconds (21.0-31.0); Prothrombin Time 12.4 Seconds (9.0-12.0)
[2019-10-27 20:52] LABS: Alanine Aminotransferase 56 U/L (12-78); Albumin Level 3.3 gm/dl (3.4-5.0); Aspartate Aminotransferase 39 U/L (15-37); BUN Creatinine Ratio 18.2 (10-20); Blood Urea Nitrogen 33 mg/dl (7-18); Calcium 8.6 mg/dl (8.5-10.1); Carbon Dioxide 23 mmol/L (21-32); Chloride 101 mmol/L (98-107); Est GFR (African American) 39.5; Glucose 108 mg/dl (70-99); Magnesium 1.7 mg/dl (1.8-2.4); Potassium 4.5 mmol/L (3.5-5.1); Sodium 131 mmol/L (136-145)
[2019-10-27 20:55] LABS: Alkaline Phosphatase 136 U/L (45-117); Bilirubin,Total 0.6 mg/dl (0.2-1); Globulin 3.5 gm/dl (2.5-4.0); Total Protein 6.8 gm/dl (6.4-8.2); Troponin I < 0.015 ng/ml (0-0.045)
[2019-10-27 20:58] LABS: Basophils # (auto) 0.05 K/uL (0-0.2); Basophils % (auto) 0.3 %; Eosinophils # (auto) 0.09 K/uL (0-0.5); Eosinophils % (auto) 0.5 %; Immature Granulocytes % (auto) 6.8 %; Lymphocytes % (auto) 6.3 %; Monocytes % (auto) 6.8 %; Neutrophils # (auto) 13.89 K/uL (1.4-6.5); Neutrophils % (auto) 79.3 %
--- NOTE | 2019-10-27 21:02 | XRay Report ---
XR chest 1V portable CLINICAL HISTORY: 84 years-old Male presenting with SEPSIS. TECHNIQUE: Portable upright AP view of the chest was obtained. COMPARISON: 08/11/2019. FINDINGS: Evaluation limited by patient body habitus and portable technique. Atherosclerosis of the aortic arch. Cardiac silhouette enlarged. Pulmonary vascular prominence. Only mild interstitial prominence. Low lung volumes. No focal opacity. No large effusion or pneumothorax. Degenerative changes of the thoracic spine. Degenerative changes of the glenohumeral joints. Upper ab domen normal. IMPRESSION: 1. Cardiomegaly and volume overload. No advanced congestive change. No carson pulmonary edema. ACT 112: Negative or not required by law. Electronically signed by: Martin Woods M.D. 10/27/2019 9:01 PM
--- NOTE | 2019-10-27 21:09 | XRay Report ---
XR hand RT min 3V routine CLINICAL HISTORY: 84 years-old Male presenting with r hand ? osteo. TECHNIQUE: Frontal, oblique, and lateral views of the right hand were obtained. COMPARISON: 10/19/2019. FINDINGS: Extensive osteophytosis and joint space loss affecting the radiocarpal articulations, radial aspect o f the carpus, first CMC joint, multiple metacarpophalangeal joints and the interphalangeal joint of t he first finger. Large overhanging osteophytes at the second metacarpal head. Allowing for these exte nsive changes, osseous erosions at the next of the proximal phalanges of the second and fourth finger s. No acute fracture or malalignment. Diffuse mild soft tissue swelling of the hand. Calcification of the triangular fibrocartilage complex may be present. Prominent atherosclerosis. IMPRESSION: 1. 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 2. Nonspecific diffuse soft tissue swelling. Cellulitis is not excluded. 3. Suspected osseous erosions at the next of the proximal phalanges of the second and fourth fingers . This would not be a suspected location for an inflammatory arthropathy. Osteomyelitis is difficult to exclude. The report will be called/faxed according to standard departmental protocol. ACT 112: Negative or not required by law. Electronically signed by: Martin Woods M.D. 10/27/2019 9:08 PM
[2019-10-27] MEDS ORDERED: PIPERACILLIN/TAZOBACTAM 4.5 GM/120 ML BAG IV ONE (21:30)
[2019-10-27] MEDS ORDERED: VANCOMYCIN HCL 2,500 MG in SODIUM CHLORIDE 0.9% 500 ML IV ONE (21:30)
[2019-10-27] MEDS ORDERED: PIPERACILL/TAZOBAC CONSULT ACTIVE PRN (21:30)
[2019-10-27] MEDS ORDERED: VANCOMYCIN CONSULT ACTIVE PRN (21:30)
[2019-10-27 22:01] LABS: Appearance Urine Clear (Clear); Bacteria Urine Automated Negative (Negative); Bilirubin Urine Negative (Negative); Blood Urine Trace (Negative); Color Urine Yellow; Glucose Urine UA Negative (Negative); Ketones Urine Negative (Negative); Leukocyte Esterase Urine Negative (Negative); Nitrite Urine Negative (Negative); Protein Urine Trace (Negative); RBC Urine Automated 0-4 /hpf (0-4); Specific Gravity Urine 1.015 (1.000-1.030); Urobilinogen Urine Negative (Negative); pH Urine 5.5 (4.5-7.5)
--- NOTE | 2019-10-27 23:03 | History & Physical Report ---
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 Right hand laceration with tendon involvement, concern for cellulitis versus osteomyelitis Patient febrile on admission, with acute confusion of 1 day, leukocytosis to 17.5 Blood cultures drawn History of MRSA Defer Zosyn/Vanco due to kidney disease with KAPIL. Cefepime/Vanco as below Cefepime 2 g every 12 hours dose reduced to 1 g every 12 hours for renal func tion Vancomycin pharmacy consult placed X-ray shows changes consistent with inflammatory arthropathy (pseudogout) versus osteomyelitis CT right hand pending [facility] consulted, was seen by their group 10/19/2019 for primary repair CBC daily KAPIL on CKD Patient baseline creatinine of approximately 1.0-1.1 acutely increased to 1.8 Dispose 1 L LR on admission for Cerner osteo-sepsis Clinically volume overloaded at time of exam. Cautious use of diuretics in the setting of KAPIL BMP daily CHF, history of AK/CAD History of CHF with elevated BNP Echo on admit pending X-ray on admit shows volume overload and cardiomegaly without overt pulmonary edema No increased oxygen requirement at time of admission Continue aspirin 81 mg daily Continue atenolol 50 mg daily Continue atorvastatin 80 mg nightly Continue chlorthalidone 25 mg p.o. daily Continue lisinopril 20 mg p.o. daily BMP as above, KAPIL management as above. Cautious use of diuretics in the setting of KAPIL. Gout versus pseudogout Interpretation of x-ray of right hand complicated by underlying evidence of inflammatory arthropathy CT pending Follow clinically Continue allopurinol 100 mg p.o. 3 times daily DVT prophylaxis: Heparin 5000 units every 12 Diet: Heart healthy, low-sodium Disposition: MedSurg CODE STATUS: Full code, discussed with patient and family (2) Chronic kidney disease: (3) Gout: (4) Ueveq-[id number] kidney injury: (5) Nausea and vomiting: (6) DVT prophylaxis: (7) Dyslipidemia: (8) Hypertension: (9) High cholesterol: (10) GERD (gastroesophageal reflux disease): History of Present Illness Chief Complaint: Confusion, right hand laceration Primary Care Provider: Jacqueline Vivas MD Jose D Villatoro is an 84-year-old male with a past medical history of decreased hearing, hypertension, AK, GERD, dyslipidemia, CKD, 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 Mr. Villatoro is seen at the bedside with his son and daughter. They report that 1 week ago he sustained an injury to his right hand when his hand got caught while woodworking and his hand was pulled into a planar blade. He had lacerations and extensive bleeding from his right hand. He was seen by the emergency department and referred to orthopedics. He was discharged to complete a 10-day course of Bactrim DS and Keflex. He was referred to and seen at [facility] who performed primary closure of the wound last Saturday. He reports that he did well and was without fever, chills, sweats, confusion, or new symptoms until day of admission. His family is with him and reports he was in a normal state of health in the evening 1 day prior to admission. About 6 hours before presentation to the emergency room his family saw him and noted that he was confused, febrile, and had an episode of incontinence. He denies chest pain, shortness of breath, fevers, chills, rigors. Denies pain in his right hand, but endorses that it feels "tight "from swelling. Denies other symptoms. Denies nausea, vomiting, diarrhea, constipation, and rash. He reports that he had been taking the antibiotics prescribed to him daily as prescribed. Medical history: Reviewed in EMR Surgical history: Reviewed in EMR. He has a history of left second digit amputation from an accident with a circular saw. Family history: Reviewed in EMR, noncontributory Allergies: Chlorhexidine Social: Lives at home with his son and daughter. No tobacco use. Social alcohol use. No recreational drug use. CODE STATUS: Full code, discussed with family Allergies Allergy/AdvReac Type Severity Reaction Status Date / Time chlorhexidine Allergy Intermediate RASH Verified 10/27/19 21:55 Home Medications Home Medications Medication Instructions Recorded Confirmed Type aspirin 81 mg PO DAILY 05/07/19 10/27/19 History atenolol [Tenormin] 50 mg PO DAILY 05/07/19 10/27/19 History chlorthalidone 25 mg PO DAILY 05/07/19 10/27/19 History lisinopril [Zestril] 20 mg PO DAILY 05/07/19 10/27/19 History ropinirole 4 mg PO DAILY 05/07/19 10/27/19 History atorvastatin 80 mg tablet 80 mg PO BID tab 05/25/19 10/27/19 History famotidine 20 mg tablet 20 mg PO DAILY tab 05/25/19 10/27/19 History meclizine 25 mg tablet 25 mg PO Q6H PRN tab 05/25/19 10/27/19 History oxycodone-acetaminophen [Percocet] 1 - 2 tab PO Q6H PRN #12 tab MDD 4 08/03/19 10/27/19 Rx allopurinol [Zyloprim] 100 mg PO TID 10/27/19 10/27/19 History ketoconazole 1 applic TOPICAL DAILY 10/27/19 10/27/19 History pantoprazole [Protonix] 40 mg PO QAM 10/27/19 10/27/19 History terazosin 5 mg PO HS 10/27/19 10/27/19 History tramadol [Ultram] 100 mg PO Q12H PRN 10/27/19 10/27/19 History Past Med/Surg History Medical History CAD (coronary artery disease) (Chronic) Cellulitis of hand, left (Acute) Dyslipidemia GERD (gastroesophageal reflux disease) (Chronic) High cholesterol (Chronic) HTN (hypertension) (Resolved) Lower extremity edema 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) Surgical History History of cholecystectomy (Resolved) History of lumbar fusion (Resolved) Family History Other No significant family history Social History Preferred Language: Korean Communication Ability: Effective 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 No acute distress. Cooperative. HEENT: Atraumatic, normocephalic. Pulm: CTAB A&P. Bibasilar crackles without rales. -wheezes, -rhonchi. Symmetric al chest rise. No increase work of breathing. No respiratory distress. Cardiac: RRR, -mrg. Radial pulses intact and symmetrical. Abdominal: Nontender, nondistended, soft. BS present. Extremities: Left hand with second digit amputation at the MCP, well-healed. Right hand with repaired laceration covering the third and fourth dorsal aspect of the hand most prominent over the MCP and PIP. Sensation in all 5 fingertips intact, strength on county home demonstration agent intact. Mild warmth. Local erythema which is not spreading through the MCP or tracking. Radial pulses intact bilaterally. No pain on flexion/extension of the fingers, although patient notes that his range of motion is limited by edema and "tightness ". Legs with sensation is soft touch intact in the feet bilaterally, 2+ edema to the mid calf bilaterally without erythema or venous stasis changes. Results & Data Vital Signs (Past 12 Hours) Vital Signs Temp Pulse Resp BP Pulse Ox 10/27/19 22:01 76 18 10/27/19 22:00 37.2 C 77 17 110/59 L 10/27/19 21:50 78 16 10/27/19 21:45 77 16 110/58 L 10/27/19 21:40 78 24 10/27/19 21:31 87 25 H 10/27/19 21:30 76 15 119/58 L 95 10/27/19 21:20 77 19 92 10/27/19 21:15 78 17 126/52 L 93 10/27/19 21:10 79 20 91 10/27/19 21:01 81 26 H 94 10/27/19 21:00 80 26 H 138/78 95 10/27/19 20:50 79 16 95 10/27/19 20:45 80 18 131/67 10/27/19 20:40 80 20 10/27/19 20:36 81 20 10/27/19 20:33 98 10/27/19 20:30 81 17 132/58 L 98 10/27/19 19:42 39.3 C H 92 H 18 152/65 H 99 Supervising Physician Co-Signing Physician Notes Patient was seen and examined by me personally. I reviewed the chart, the orders and discussed the case in detail with Dr. Martin Ward MD . I read this H&P and agree with its contents to entirety. Resident Activity Tracking Resident Involvement: Resident Care Provided Care Provided: Adult Hospital Medicine (1) Laceration of right hand with tendon involvement including fingers Encounter type: initial encounter Qualified Code(s): S61.411A - Laceration without foreign body of right hand, initial encounter; S61.219A - Laceration without foreign body of unspecified finger without damage to nail, initial encounter; S66.921A - Laceration of unspecified muscle, fascia and tendon at wrist and hand level, right hand, initial encounter (2) GERD (gastroesophageal reflux disease) Esophagitis presence: with esophagitis Qualified Code(s): K21.0 - Gastro- esophageal reflux disease with esophagitis (3) Nausea and vomiting Vomiting Intractability: unspecified Vomiting type: unspecified Qualified Code(s): R11.2 - Nausea with vomiting, unspecified (4) [id number] kidney injury Acute renal failure type: unspecified Chronic kidney disease stage: stage 3 (moderate) Qualified Code(s): N17.9 - Acute kidney failure, unspecified; N18.3 - Chronic kidney disease, stage 3 (moderate) (5) Hypertension Hypertension type: essential hypertension Qualified Code(s): I10 - Essential (primary) hypertension
--- NOTE | 2019-10-28 00:17 | Emergency Department Note ---
Entered by Chinyere Contreras acting as a scribe for History of Present Illness General Chief complaint: Weakness Stated complaint: STROKE SX, POSSIBLE INFECTION ON HAND Source: patient and family History of Present Illness Onset (ago): hour(s) (6-8) Location: head Pain Consistency: + intermittent Quality: + other (confusion) Associated symptoms: + denies other symptoms (sore throat, changes in urination) and + other (right hand infection, runny nose, diarrhea); no chest pain, no cough, no headaches and no shortness of breath The patient is a 84 year old male who presents to the Emergency Room with family who noted that he has been intermittently confused for the past 6 to 8 hours. He was last seen around 4:00 when his son noted that something was off. He lives at home and has been treated for an infection of his right hand with antibiotics. He admits to a runny nose. He denies any headache, chest pain, shortness of breath, cough or sore throat. He injured his hand through a wood shaver about a week ago. He does admit to 1 episode of diarrhea this morning. No dysuria urgency or frequency. Family does believe that he lost control of his bladder earlier. They also note he is being worked up for leukocytosis in 2 days as an outpatient. Home Medications Home Medications Medication Instructions Recorded Confirmed Type aspirin 81 mg PO DAILY 05/07/19 10/27/19 History atenolol [Tenormin] 50 mg PO DAILY 05/07/19 10/27/19 History chlorthalidone 25 mg PO DAILY 05/07/19 10/27/19 History lisinopril [Zestril] 20 mg PO DAILY 05/07/19 10/27/19 History ropinirole 4 mg PO DAILY 05/07/19 10/27/19 History atorvastatin 80 mg tablet 80 mg PO BID tab 05/25/19 10/27/19 History famotidine 20 mg tablet 20 mg PO DAILY tab 05/25/19 10/27/19 History meclizine 25 mg tablet 25 mg PO Q6H PRN tab 05/25/19 10/27/19 History oxycodone-acetaminophen [Percocet] 1 - 2 tab PO Q6H PRN #12 tab MDD 4 08/03/19 10/27/19 Rx allopurinol [Zyloprim] 100 mg PO TID 02/11/20 02/11/20 History ketoconazole 1 applic TOPICAL DAILY 10/27/19 10/27/19 History pantoprazole [Protonix] 40 mg PO QAM 10/27/19 10/27/19 History terazosin 5 mg PO HS 10/27/19 10/27/19 History tramadol [Ultram] 100 mg PO Q12H PRN 10/27/19 10/27/19 History Allergies Allergy/AdvReac Type Severity Reaction Status Date / Time chlorhexidine Allergy Intermediate RASH Verified 10/27/19 21:55 Past Med/Surg History Medical History CAD (coronary artery disease) (Chronic) Cellulitis of hand, left (Acute) Dyslipidemia GERD (gastroesophageal reflux disease) (Chronic) High cholesterol (Chronic) HTN (hypertension) (Resolved) Lower extremity edema 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 Unobtainable due to cognitive status Physical Exam Vital Signs Vital Signs - 24 hr 10/27/19 19:42 10/27/19 20:30 10/27/19 20:33 Temperature 39.3 C H Temperature Source Oral Pulse Rate 92 H 81 Pulse Rate from SpO2 Sensor Respiratory Rate 18 17 Respiratory Effort / Characteristics Non-Labored Respiratory Depth Normal Blood Pressure 152/65 H 132/58 L Blood Pressure Mean 94 94 Pulse Oximetry 99 98 98 Oxygen Delivery Method Room Air Room Air Sepsis Recent Fever Within 48 Hours Yes Sepsis New/Unexplained Change in Mental Status Yes Sepsis Action Taken by Nursing No Action Required 10/27/19 20:36 10/27/19 20:40 10/27/19 20:45 Temperature Temperature Source Pulse Rate 81 80 80 Pulse Rate from SpO2 Sensor Respiratory Rate 20 20 18 Respiratory Effort / Characteristics Respiratory Depth Blood Pressure 131/67 Blood Pressure Mean 100 Pulse Oximetry Oxygen Delivery Method Sepsis Recent Fever Within 48 Hours Sepsis New/Unexplained Change in Mental Status Sepsis Action Taken by Nursing 10/27/19 20:50 10/27/19 21:00 10/27/19 21:01 Temperature Temperature Source Pulse Rate 79 80 81 Pulse Rate from SpO2 Sensor 79 80 80 Respiratory Rate 16 26 H 26 H Respiratory Effort / Characteristics Respiratory Depth Blood Pressure 138/78 Blood Pressure Mean 111 Pulse Oximetry 95 95 94 Oxygen Delivery Method Sepsis Recent Fever Within 48 Hours Sepsis New/Unexplained Change in Mental Status Sepsis Action Taken by Nursing 10/27/19 21:10 10/27/19 21:15 10/27/19 21:20 Temperature Temperature Source Pulse Rate 79 78 77 Pulse Rate from SpO2 Sensor 78 78 77 Respiratory Rate 20 17 19 Respiratory Effort / Characteristics Respiratory Depth Blood Pressure 126/52 L Blood Pressure Mean 105 Pulse Oximetry 91 93 92 Oxygen Delivery Method Sepsis Recent Fever Within 48 Hours Sepsis New/Unexplained Change in Mental Status Sepsis Action Taken by Nursing 10/27/19 21:30 10/27/19 21:31 10/27/19 21:40 Temperature Temperature Source Pulse Rate 76 87 78 Pulse Rate from SpO2 Sensor 76 Respiratory Rate 15 25 H 24 Respiratory Effort / Characteristics Respiratory Depth Blood Pressure 119/58 L Blood Pressure Mean 95 Pulse Oximetry 95 Oxygen Delivery Method Sepsis Recent Fever Within 48 Hours Sepsis New/Unexplained Change in Mental Status Sepsis Action Taken by Nursing 10/27/19 21:45 10/27/19 21:50 10/27/19 22:00 Temperature 37.2 C Temperature Source Pulse Rate 77 78 77 Pulse Rate from SpO2 Sensor Respiratory Rate 16 16 17 Respiratory Effort / Characteristics Respiratory Depth Blood Pressure 110/58 L 110/59 L Blood Pressure Mean 89 76 Pulse Oximetry Oxygen Delivery Method Sepsis Recent Fever Within 48 Hours Sepsis New/Unexplained Change in Mental Status Sepsis Action Taken by Nursing 10/27/19 22:01 Temperature Temperature Source Pulse Rate 76 Pulse Rate from SpO2 Sensor Respiratory Rate 18 Respiratory Effort / Characteristics Respiratory Depth Blood Pressure Blood Pressure Mean Pulse Oximetry Oxygen Delivery Method Sepsis Recent Fever Within 48 Hours Sepsis New/Unexplained Change in Mental Status Sepsis Action Taken by Nursing GENERAL: Sitting up in bed, alert and slightly ill-appearing, disheveled EYE EXAM: normal conjunctiva. OROPHARYNX: no exudate, no erythema, lips, buccal mucosa, and tongue normal and mucous membranes are moist NECK: supple, no nuchal rigidity, no adenopathy, non-tender LUNGS: Clear to auscultation. Normal chest wall mechanics HEART: Tachycardic, S1 normal and S2 normal ABDOMEN: abdomen soft, non-tender, normo-active bowel sounds, no masses, no rebound or guarding. 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 Right hand with erythema swelling and skin breakdown on the dorsal surface of MCP 3-5. Hand is tender to palpation. 4cm scab on 4th digit. 3.5cm scab on 3rd digit. Scab from medial of 2nd MCP - lateral of 5th MCP. LOWER EXTREMITIES: No pitting edema. NEURO EXAM: Oriented to person place and time moving all extremities nonfocal Course Course ED COURSE: Vital signs were reviewed and showed febrile and tachycardic The patients medical record was reviewed The above diagnostic studies were performed and reviewed. ED treatments and interventions as stated above. 2005: The patient was evaluated in room B06. A complete history and physical examination was performed. 2149: Upon reevaluation, the patient is feeling better. I discussed my findings with the patient and his family and they understand and agree with the treatment plan. Based on the patients age, coexisting illnesses, exam and lab findings the decision to treat as an inpatient was made. I reviewed the patient's case with Dr. Gloria [facility] Hospitalist who will evaluate the patient for further management. The patient remained stable while under my care. The patient will be evaluated for further management. Administered Medications Discontinued Medications Acetaminophen (Tylenol) 1,000 mg PO NOW STA Stop: 10/27/19 20:30 Last Admin: 10/27/19 20:48 Dose: 1,000 mg Documented by: [id number] Lactated Ringer's (Lr) 1,000 mls @ 999 mls/hr IV .Q1H1M ONE Stop: 10/27/19 21:01 Last Infusion: 10/27/19 22:11 Dose: 0 mls/hr Documented by: [id number] Admin: 10/27/19 20:18 Dose: 999 mls/hr Documented by: [id number] Piperacillin Sod/Tazobactam Sod (Zosyn) 4.5 gm in 120 mls @ 240 mls/hr IV NOW ONE Stop: 10/27/19 21:59 Last Infusion: 10/27/19 22:49 Dose: 0 mls/hr Documented by: [id number] Admin: 10/27/19 22:05 Dose: 240 mls/hr Documented by: [id number] Vancomycin HCl 2,500 mg/ (Sodium Chloride) 550 mls @ 200 mls/hr IV NOW ONE Stop: 10/28/19 00:14 Last Admin: 10/27/19 22:44 Dose: 200 mls/hr Documented by: [id number] Medical Decision Making Differential Diagnosis Differential diagnosis includes etiologies such as sepsis, UTI, pneumonia, metabolic, electrolyte abnormalities, cardiac sources, intracerebral event, toxicologic, neurological, as well as others were entertained. Medical Records Attestation: I reviewed the patient's medical records. Home Medications Current Medication List: was personally reviewed by me Laboratory Data Attestation: I reviewed the patient's lab results. Result diagrams: 10/27/19 20:15 10/27/19 20:15 Lab Results 10/27/19 10/27/19 10/27/19 Range/Units 20:15 20:15 20:15 WBC 17.53 H (4.8-10.8) K/uL RBC 3.54 L (4.7-6.1) M/uL Hgb 10.0 L (14.0-18.0) g/dL Hct 31.1 L (42-52) % MCV 87.9 (80-100) fL MCH 28.2 (25-34) pg MCHC 32.2 (32-36) g/dL RDW Std Deviation 55.4 H (36.4-46.3) fL RDW Coeff of Dione 17.1 H (11.5-14.5) % Plt Count 181 (130-400) K/uL MPV 10.2 (7.4-10.4) fL Immature Gran % (Auto) 6.8 % Neut % (Auto) 79.3 % Lymph % (Auto) 6.3 % [place] % (Auto) 6.8 % Eos % (Auto) 0.5 % Baso % (Auto) 0.3 % Immature Gran # (Auto) 1.20 H (0.00-0.02) K/uL Neut # (Auto) 13.89 H (1.4-6.5) K/uL Lymph # (Auto) 1.10 L (1.2-3.4) K/uL [place] # (Auto) 1.20 H (0.11-0.59) K/uL Eos # (Auto) 0.09 (0-0.5) K/uL Baso # (Auto) 0.05 (0-0.2) K/uL PT 12.4 H (9.0-12.0) Seconds INR 1.2 H (0.9-1.1) APTT 31.3 H (21.0-31.0) Seconds PTT Ratio 1.2 Sodium 131 L (136-145) mmol/L Potassium 4.5 (3.5-5.1) mmol/L Chloride 101 (98-107) mmol/L Carbon Dioxide 23 (21-32) mmol/L Anion Gap 8.0 (3-11) BUN 33 H (7-18) mg/dl Creatinine 1.80 H (0.6-1.4) mg/dl Est Cr Clr Drug Dosing 36.0 ml/min Est GFR ( Amer) 39.5 Est GFR (Non-Af Amer) 34.0 BUN/Creatinine Ratio 18.2 (10-20) Glucose 108 H (70-99) mg/dl Lactate (0.4-2.0) mmol/L Calcium 8.6 (8.5-10.1) mg/dl Magnesium 1.7 L (1.8-2.4) mg/dl Total Bilirubin 0.6 (0.2-1) mg/dl AST 39 H (15-37) U/L ALT 56 (12-78) U/L Alkaline Phosphatase 136 H (45-117) U/L Troponin I < 0.015 (0-0.045) ng/ml Total Protein 6.8 (6.4-8.2) gm/dl Albumin 3.3 L (3.4-5.0) gm/dl Globulin 3.5 (2.5-4.0) gm/dl Albumin/Globulin Ratio 1.0 (0.9-2) Urine Color Urine Appearance (Clear) Urine pH (4.5-7.5) Ur Specific [place] (1.000-1.030) Urine Protein (Negative) Urine Glucose (UA) (Negative) Urine Ketones (Negative) Urine Blood (Negative) Urine Nitrite (Negative) Urine Bilirubin (Negative) Urine Urobilinogen (Negative) Ur Leukocyte Esterase (Negative) Urine WBC (Auto) (0-5) /hpf Urine RBC (Auto) (0-4) /hpf U Hyaline Cast (Auto) (0-5) /lpf U Epithel Cells (Auto) (0-5) /lpf Urine Bacteria (Auto) (Negative) 10/27/19 10/27/19 Range/Units 20:15 21:42 WBC (4.8-10.8) K/uL RBC (4.7-6.1) M/uL Hgb (14.0-18.0) g/dL Hct (42-52) % MCV (80-100) fL MCH (25-34) pg MCHC (32-36) g/dL RDW Std Deviation (36.4-46.3) fL RDW Coeff of Dione (11.5-14.5) % Plt Count (130-400) K/uL MPV (7.4-10.4) fL Immature Gran % (Auto) % Neut % (Auto) % Lymph % (Auto) % [place] % (Auto) % Eos % (Auto) % Baso % (Auto) % Immature Gran # (Auto) (0.00-0.02) K/uL Neut # (Auto) (1.4-6.5) K/uL Lymph # (Auto) (1.2-3.4) K/uL [place] # (Auto) (0.11-0.59) K/uL Eos # (Auto) (0-0.5) K/uL Baso # (Auto) (0-0.2) K/uL PT (9.0-12.0) Seconds INR (0.9-1.1) APTT (21.0-31.0) Seconds PTT Ratio Sodium (136-145) mmol/L Potassium (3.5-5.1) mmol/L Chloride (98-107) mmol/L Carbon Dioxide (21-32) mmol/L Anion Gap (3-11) BUN (7-18) mg/dl Creatinine (0.6-1.4) mg/dl Est Cr Clr Drug Dosing ml/min Est GFR ( Amer) Est GFR (Non-Af Amer) BUN/Creatinine Ratio (10-20) Glucose (70-99) mg/dl Lactate 1.0 (0.4-2.0) mmol/L Calcium (8.5-10.1) mg/dl Magnesium (1.8-2.4) mg/dl Total Bilirubin (0.2-1) mg/dl AST (15-37) U/L ALT (12-78) U/L Alkaline Phosphatase (45-117) U/L Troponin I (0-0.045) ng/ml Total Protein (6.4-8.2) gm/dl Albumin (3.4-5.0) gm/dl Globulin (2.5-4.0) gm/dl Albumin/Globulin Ratio (0.9-2) Urine Color Yellow Urine Appearance Clear (Clear) Urine pH 5.5 (4.5-7.5) Ur Specific [place] 1.015 (1.000-1.030) Urine Protein Trace H (Negative) Urine Glucose (UA) Negative (Negative) Urine Ketones Negative (Negative) Urine Blood Trace H (Negative) Urine Nitrite Negative (Negative) Urine Bilirubin Negative (Negative) Urine Urobilinogen Negative (Negative) Ur Leukocyte Esterase Negative (Negative) Urine WBC (Auto) 1-5 (0-5) /hpf Urine RBC (Auto) 0-4 (0-4) /hpf U Hyaline Cast (Auto) 1-5 (0-5) /lpf U Epithel Cells (Auto) 5-10 H (0-5) /lpf Urine Bacteria (Auto) Negative (Negative) Imaging Data Radiologist's Impression: Radiology results as stated below per my review and the radiologist's interpretation: XR chest 1V portable CLINICAL HISTORY: 84 years-old Male presenting with SEPSIS. TECHNIQUE: Portable upright AP view of the chest was obtained. COMPARISON: 08/11/2019. FINDINGS: Evaluation limited by patient body habitus and portable technique. Atherosclerosis of the aortic arch. Cardiac silhouette enlarged. Pulmonary vascular prominence. Only mild interstitial prominence. Low lung volumes. No focal opacity. No large effusion or pneumothorax. Degenerative changes of the thoracic spine. Degenerative changes of the glenohumeral joints. Upper abdomen normal. IMPRESSION: 1. Cardiomegaly and volume overload. No advanced congestive change. No carson pulmonary edema. ACT 112: Negative or not required by law. Electronically signed by: Martin Woods M.D. 10/27/2019 9:01 PM XR hand RT min 3V routine CLINICAL HISTORY: 84 years-old Male presenting with r hand ? osteo. TECHNIQUE: Frontal, oblique, and lateral views of the right hand were obtained. COMPARISON: 10/19/2019. FINDINGS: Extensive osteophytosis and joint space loss affecting the radiocarpal articulations, radial aspect of the carpus, first CMC joint, multiple metacarpophalangeal joints and the interphalangeal joint of the first finger. Large overhanging osteophytes at the second metacarpal head. Allowing for these extensive changes, osseous erosions at the next of the proximal phalanges of the second and fourth fingers. No acute fracture or malalignment. Diffuse mild soft tissue swelling of the hand. Calcification of the triangular fibrocartilage complex may be present. Prominent atherosclerosis. IMPRESSION: 1. 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 2. Nonspecific diffuse soft tissue swelling. Cellulitis is not excluded. 3. Suspected osseous erosions at the next of the proximal phalanges of the second and fourth fingers. This would not be a suspected location for an inflammatory arthropathy. Osteomyelitis is difficult to exclude. The report will be called/faxed according to standard departmental protocol. ACT 112: Negative or not required by law. Electronically signed by: Martin Woods M.D. 10/27/2019 9:08 PM ECG Data Attestation: I personally reviewed and interpreted this ECG as follows: Indication: + other (confusion) Rate (beats per minute): 83 Rhythm: + sinus rhythm ECG [place]: + Left axis deviation ECG Findings: + Other (poor baseline); no PVCs Blood Pressure Blood Pressure Findings: Normal blood pressure MDM Narrative Patient is an 84-year-old gentleman that presents the ER febrile and tachycardic along with intermittent confusion which started just prior to arrival. IV was established blood work was obtained and showed a leukocytosis of 17,000 which is actually improved from previous as it had been up around 50,000. Mild anemia at 10 which is consistent with previous. INR at 1.2. BMP with mild hyponatremia. Creatinine is elevated at 1.8 off of a baseline of 1.3. Magnesium slightly low. Lactic acid was normal. Troponin was negative. UA was clean. X-ray of the hand does suggest questionable osteomyelitis. Patient was covered with broad-spectrum antibiotics including Vancomycin vancomycin and Zosyn. Family was updated at bedside. He was discussed with the hospitalist and admitted for sepsis secondary to osteomyelitis from the right hand. There is no signs of meningitis or encephalitis on exam. Impression & Plan Sepsis, Failure of outpatient treatment, Leukocytosis, Laceration of hand with complication, Osteomyelitis Discharge Plan Visit Data *Final* Discharge Date/Time: 10/28/19 00:07 Chief Complaint: Weakness Stated Complaint: STROKE SX, POSSIBLE INFECTION ON HAND ED Provider: Willie Razo Discharge Problem: Sepsis, Failure of outpatient treatment, Leukocytosis, Laceration of hand with complication, Osteomyelitis Patient Disposition: Admitted As Inpatient Discharge Instructions Interventions: ED Discharge Assessment Last Done: 10/28/19 00:07 Discharge Problem: Sepsis Qualifiers: Sepsis type: sepsis due to unspecified organism Sepsis acute organ dysfunction status: unspecified Qualified Code(s): A41.9 - Sepsis, unspecified organism Leukocytosis Qualifiers: Leukocytosis type: unspecified Qualified Code(s): D72.829 - Elevated white blood cell count, unspecified Laceration of hand with complication Qualifiers: Encounter type: initial encounter Laterality: unspecified laterality Qualified Code(s): S61.419A - Laceration without foreign body of unspecified hand, initial encounter Osteomyelitis Qualifiers: Osteomyelitis type: unspecified type Osteomyelitis location: hand Laterality: right Qualified Code(s): M86.9 - Osteomyelitis, unspecified The scribe's documentation has been prepared under my direction and personally reviewed by me in its entirety. I confirm that the note above accurately reflects all work, treatment, procedures, and medical decision making performed by me.
[2019-10-28] MEDS ORDERED: TRAMADOL HCL 50 MG TABLET PO PRN (00:20)
[2019-10-28] MEDS ORDERED: OXYCODONE/ACETAMINOPHEN 5mg/325mg TAB PO PRN (00:20)
[2019-10-28] MEDS ORDERED: CEFEPIME CONSULT ACTIVE PRN (01:05)
[2019-10-28] MEDS: CEFEPIME 2,000 MG in SYRINGE 7.5 ML IV SCH (01:50)
[2019-10-28] MEDS: MAGNESIUM OXIDE 400 MG TAB PO SCH ×3 (01:50→21:45)
--- NOTE | 2019-10-28 05:52 | Billing Data ---
Date of Service October 27, 2019 Coding Level of Care Code 78979 Initial Inpt Care Lvl 3
[2019-10-28 06:07] LABS: Hematocrit (blood only) 29.1 % (42-52); Hemoglobin 9.6 g/dL (14.0-18.0); Mean Corpuscular Hemoglobin 29.1 pg (25-34); Mean Corpuscular Volume 88.2 fL (80-100); Platelet Count 162 K/uL (130-400); RDW Coefficient of Variation 17.1 % (11.5-14.5); RDW Standard Deviation 55.1 fL (36.4-46.3); White Blood Count 17.14 K/uL (4.8-10.8)
[2019-10-28 06:25] LABS: Basophils # (auto) 0.04 K/uL (0-0.2); Basophils % (auto) 0.2 %; Eosinophils % (auto) 0.6 %; Immature Granulocytes # (auto) 1.21 K/uL (0.00-0.02); Immature Granulocytes % (auto) 7.1 %; Lymphocytes # (auto) 1.38 K/uL (1.2-3.4); Lymphocytes % (auto) 8.1 %; Monocytes # (auto) 1.39 K/uL (0.11-0.59); Monocytes % (auto) 8.1 %; Neutrophils # (auto) 13.02 K/uL (1.4-6.5); Neutrophils % (auto) 75.9 %
[2019-10-28 06:52] LABS: BUN Creatinine Ratio 19.5 (10-20); Calcium 8.5 mg/dl (8.5-10.1); Creatinine Clr Calc Pharmacy 35.7 ml/min; Est GFR (African American) 40.3; Est GFR (Non-African American) 34.7; Potassium 4.6 mmol/L (3.5-5.1)
[2019-10-28] MEDS: ATENOLOL 50 MG TABLET PO SCH (08:36)
[2019-10-28] MEDS: ASPIRIN 81 MG ECTAB PO SCH (08:36)
[2019-10-28] MEDS: PANTOprazole 40 MG TAB PO SCH (08:37)
[2019-10-28] MEDS: ROPINIROLE HCL 1 MG TABLET PO SCH (08:37)
[2019-10-28] MEDS: allopurinoL 100 MG TAB PO SCH ×3 (08:37→21:46)
--- NOTE | 2019-10-28 08:39 | CT Scan Report ---
CT SCAN OF THE RIGHT HAND WITHOUT IV CONTRAST CLINICAL HISTORY: Infection. COMPARISON STUDY: Radiographs of the right hand dated 10/27/2019. TECHNIQUE: CT scan of the right hand is performed from the wrist to the fingertips. Images are review ed in the axial, sagittal, and coronal planes. A dose lowering technique was utilized adhering to the principles of ALARA. CT DOSE: 288.00 mGy.cm FINDINGS: The skeletal structures are osteopenic. No acute fracture is identified. There is no bony e rosion or periostitis to suggest osteomyelitis. An accessory carpal bone is identified, likely an os centrale carpi. This is located posterior to the scaphoid at the trapezium. Advanced degenerative micheline nge is identified throughout the wrist and hand. There is widening between the scaphoid and lunate wi th proximal migration of the capitate consistent with a SLAC wrist. Additionally, there is volar tilt of the lunate with dorsal tilt of the capitate consistent with a volar intercalated segmental instab ility (VISI). Advanced degenerative narrowing is present at the radiocarpal articulation with mild [place] sclerosis and subchondral cyst formation. Extensive subchondral cyst formation is present througho ut the carpal bones. There are large hooked osteophytes involving the metacarpal heads. There is mild subluxation at the second and third metacarpophalangeal joints. Osteoarthritic change is present thr oughout the interphalangeal joints, distal greater than proximal. Mild erosive change is seen at the second distal interphalangeal joint. There is chondrocalcinosis of the triangular fibrocartilage. Ath erosclerotic calcification is noted in the regional arteries. Mild soft tissue edema is noted in the hand, greatest in the fingers. IMPRESSION: 1. No acute bony abnormality is identified. Specifically, there is no CT evidence of osteomyelitis as clinically queried. 2. 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 3. 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 4. 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 5. An accessory carpal bone is incidentally noted. 6. Soft tissue edema is noted in the hand, greatest in the fingers. ACT 112: Negative or not required by law. Dictated: 10/28/2019 7:26 AM Transcribed: 10/28/2019 7:55 AM Renae [id number] Ramirez Electronically signed by: Rob Benjamin M.D. 10/28/2019 8:38 AM
[2019-10-28] MEDS ORDERED: lisinopriL 20 MG TAB PO SCH (09:00)
[2019-10-28] MEDS ORDERED: CHLORTHALIDONE 25 MG TAB PO SCH (09:00)
--- NOTE | 2019-10-28 10:06 | Orthopedic Consultation ---
Date of Consultation October 28, 2019 Assessment & Plan (1) Laceration of right hand with tendon involvement including fingers: Will continue IV antibiotics as per primary team. Will have our hand specialists eval for conservative vs. surgical treatment + Coag neg staph, on cefepime. Blood cultues pending CT of right hand negative for osteo or fractures. History of Present Illness Attending Physician: Pebbles Hansen MD History of Present Illness 84 yr old male admitted for fevers and confusion. Had a laceration from a planer injury 1 week ago. He reported to the ER where he was given Bactrim and keflex, then referred to [facility] for repair. Approx 24 prior to admission he developed increased swelling in the right hand, fevers and confusion. He was admitted to medicine service and currently on IC Cefepime for suspected right hand cellulitis/ osteomylitis. Blood cultures pending. Wound sample growing coag neg staph Allergies Allergy/AdvReac Type Severity Reaction Status Date / Time chlorhexidine Allergy Intermediate RASH Verified 10/27/19 21:55 Home Medications Home Medications Medication Instructions Recorded Confirmed Type aspirin 81 mg PO DAILY 05/07/19 10/27/19 History atenolol [Tenormin] 50 mg PO DAILY 05/07/19 10/27/19 History chlorthalidone 25 mg PO DAILY 05/07/19 10/27/19 History lisinopril [Zestril] 20 mg PO DAILY 05/07/19 10/27/19 History ropinirole 4 mg PO DAILY 05/07/19 10/27/19 History atorvastatin 80 mg tablet 80 mg PO BID tab 05/25/19 10/27/19 History famotidine 20 mg tablet 20 mg PO DAILY tab 05/25/19 10/27/19 History meclizine 25 mg tablet 25 mg PO Q6H PRN tab 05/25/19 10/27/19 History oxycodone-acetaminophen [Percocet] 1 - 2 tab PO Q6H PRN #12 tab MDD 4 08/03/19 10/27/19 Rx allopurinol [Zyloprim] 100 mg PO TID 10/27/19 10/27/19 History ketoconazole 1 applic TOPICAL DAILY 10/27/19 10/27/19 History pantoprazole [Protonix] 40 mg PO QAM 10/27/19 10/27/19 History terazosin 5 mg PO HS 10/27/19 10/27/19 History tramadol [Ultram] 100 mg PO Q12H PRN 10/27/19 10/27/19 History Patient History Medical History CAD (coronary artery disease) (Chronic) Cellulitis of hand, left (Acute) Dyslipidemia GERD (gastroesophageal reflux disease) (Chronic) High cholesterol (Chronic) HTN (hypertension) (Resolved) Lower extremity edema 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) Surgical History History of cholecystectomy (Resolved) History of lumbar fusion (Resolved) Family History Other No significant family history Social History Preferred Language: Samoan Communication Ability: Effective Helicopter Pilot Required: No Beliefs That Will Affect Care: None Current Living Situation: Alone Other Information That Helps Us Care for You: No Feels Safe at Home: Yes Safety Concerns: Feels Safe At This Time Smoking Status: Former smoker Tobacco Type: smokeless tobacco ; Do You Dip or Chew Tobacco: No ; Second Hand Exposure: No ; Tobacco Cessation Education Requested by Patient: No Hx Alcohol Use: Yes Alcohol type: beer Hx Substance Use: No Physical Exam Physical Exam: Right hand with abrasions dorsal middle and ring fingers. +swelling + mild erythema No active drainage. No foul smell. Fingers mobile. Sensation in tact. Results & Data ([facility]) Vital Signs (Past 12 Hours) Vital Signs Temp Pulse Pulse Pulse Resp BP BP 10/28/19 08:05 37.7 C H 84 14 10/28/19 07:04 37.4 C 86 16 154/64 H 10/28/19 00:21 36.9 C 71 18 129/71 10/28/19 00:07 72 19 111/55 L BP Pulse Ox 10/28/19 08:05 145/66 H 10/28/19 07:04 93 10/28/19 00:21 98 10/28/19 00:07 92 (1) Laceration of right hand with tendon involvement including fingers Encounter type: initial encounter Qualified Code(s): S61.411A - Laceration without foreign body of right hand, initial encounter; S61.219A - Laceration without foreign body of unspecified finger without damage to nail, initial encounter; S66.921A - Laceration of unspecified muscle, fascia and tendon at wrist and hand level, right hand, initial encounter
[2019-10-28] MEDS: FAMOTIDINE 20 MG TAB PO SCH (10:35)
[2019-10-28] MEDS: HEPARIN SOD 5,000 UNIT/0.5 ML VIAL SQ SCH ×2 (10:37→21:36)
--- NOTE | 2019-10-28 10:46 | Hospitalist Progress Note ---
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 Right hand laceration with tendon involvement Pt with injury to right hand a week ago with power tool; [facility] repaired -Patient febrile on admission, with acute confusion of 1 day, leukocytosis to 17.5 -X-ray of right hand shows changes consistent with inflammatory arthropathy (pseudogout) versus osteomyelitis CT right hand- negative for osteomyelitis and fracture, noted degenerative changes as well as changes consistent with calcium phosphate deposition. Edema present suggestive of a cellulitis. -Blood cultures-NGTD continue cefepime and vancomycin -No concern given clinical picture to treat for acute gouty flare---will just continue home allopurinol (see below) [facility], was seen by their group 10/19/2019 for primary repair--recommend continuing abx and will bring in hand specialist for further evaluation. Results of hand CT communicated to daughter during the day. KAPIL on CKD Patient baseline creatinine of approximately 1.0-1.1 acutely increased ED gave fluid bolus Given heart Hx would hold off on treating with fluids as likely prerenal. -will hold potentially nephrotoxic lisinopril and chlorthalidone -will continue to monitor CHF, history of [place]/CAD History of CHF with elevated BNP Echo 2018--EF 65-70% with noted mild LVH, pulm HTN. X-ray on admit shows volume overload and cardiomegaly without overt pulmonary e rufino No increased oxygen requirement at time of admission Continue aspirin 81 mg daily Continue atenolol 50 mg daily Continue atorvastatin 80 mg nightly Hold chlorthalidone 25 mg p.o. daily Hold lisinopril 20 mg p.o. daily Pseudogout Interpretation of x-ray of right hand complicated by underlying evidence of inflammatory arthropathy CT results as above with no clinical evidence of an acute gouty flare will follow clinically Continue allopurinol 100 mg p.o. 3 times daily. DVT prophylaxis: Heparin 5000 units every 12 Diet: Heart healthy, low-sodium Disposition: MedSur CODE STATUS: Full code, discussed with patient and family (2) Chronic kidney disease: (3) Gout: (4) Eilpq-rw-[id number] kidney injury: (5) Nausea and vomiting: (6) DVT prophylaxis: (7) Dyslipidemia: (8) Hypertension: (9) High cholesterol: (10) GERD (gastroesophageal reflux disease): Admission and Anticipated Discharge Date Admission Date: October 27, 2019 Supervising Physician Co-Signing Physician Notes Resident Physician Supervision Note: I independently interviewed and examined the patient and verified the dimas history and physical, reviewed labs and image studies, discussed the case with the resident Dr. Oh and agree with the findings and care plan. Subjective Pt seen this AM, AAOx2. Denied any pain in his hand or increased swelling. Denies any headache, changes to vision, cough, runny nose, sore throat, dizziness, weakness, chest pain, SOB, palpitations, abdominal pain, diarrhea or constipation. Review of Systems Review of Systems: All systems reviewed & are unremarkable except as noted in Subjective Physical Exam Physical Exam: General: Alert, orientedx2. No acute distress Skin: No noted redness to right hand Psych: Appropriate mood and affect Neuro: Decreased sensation on right hand HEENT: NC/AT Chest: Nontender to palpation. CV: RRR, Normal s1, s2. No murmurs appreciated Resp: Breath sounds clear bilaterally, no increased effort of breathing. No crackles/rhonchi/rales. Abdomen: Soft, nontender, nondistended. No guarding. No organomegaly appreciated. Extremities: Right hand with healing wound with some black tissue and dried blood. No surrounding erythema, swelling or drainage noted. Results & Data ([facility]) Vital Signs (Past 12 Hours) Vital Signs Temp Pulse Pulse Pulse Resp BP BP 10/28/19 08:05 37.7 C H 84 14 10/28/19 07:04 37.4 C 86 16 154/64 H 10/28/19 00:21 36.9 C 71 18 129/71 10/28/19 00:07 72 19 111/55 L BP Pulse Ox 10/28/19 08:05 145/66 H 96 10/28/19 07:04 93 10/28/19 00:21 98 10/28/19 00:07 92 Resident Activity Tracking Resident Involvement: Resident Care Provided Care Provided: Adult Hospital Medicine (1) Laceration of right hand with tendon involvement including fingers Encounter type: initial encounter Qualified Code(s): S61.411A - Laceration without foreign body of right hand, initial encounter; S61.219A - Laceration without foreign body of unspecified finger without damage to nail, initial encounter; S66.921A - Laceration of unspecified muscle, fascia and tendon at wrist and hand level, right hand, initial encounter (2) GERD (gastroesophageal reflux disease) Esophagitis presence: with esophagitis Qualified Code(s): K21.0 - Gastro- esophageal reflux disease with esophagitis (3) Nausea and vomiting Vomiting Intractability: unspecified Vomiting type: unspecified Qualified Code(s): R11.2 - Nausea with vomiting, unspecified (4) Kgnuk-dy-zuxdqpb kidney injury Acute renal failure type: unspecified Chronic kidney disease stage: stage 3 (moderate) Qualified Code(s): N17.9 - Acute kidney failure, unspecified; N18.3 - Chronic kidney disease, stage 3 (moderate) (5) Hypertension Hypertension type: essential hypertension Qualified Code(s): I10 - Essential (primary) hypertension
[2019-10-28] MEDS ORDERED: MAGNESIUM OXIDE 400 MG TAB PO SCH (11:00)
--- NOTE | 2019-10-28 11:41 | Electrocardiogram Report ---
Test Reason : Blood Pressure : / mmHG Vent. Rate : 083 BPM Atrial Rate : 083 BPM P-R Int : 154 ms QRS Dur : 082 ms QT Int : 334 ms P-R-T Axes : 045 -27 038 degrees QTc Int : 392 ms Normal sinus rhythm Possible Anterior infarct , age undetermined Abnormal ECG When compared with ECG of 10-AUG-2019 16:11, Premature ventricular complexes are no longer Present Confirmed by London Huff ([id number]) on 10/28/2019 11:41:04 AM Referred By: REFERRED SELF Confirmed By:London Huff
--- NOTE | 2019-10-28 14:36 | Pharmacy Report ---
Pharmacy Abx Dose Short Note - Date of Service October 28, 2019 - Assessment & Plan Assessment 84 year old M receiving vancomycin for treatment of cellulitis vs. osteo of right hand Day # 2 of antimicrobial therapy. Plan Vancomycin * Patient received loading dose of vancomycin 2500 mg x 1 last evening * Will start vancomycin 1250 mg iv q 24 hrs to achieve an estimated trough ~15- 20 mcg/ml * Estimated kinetics: t1/2~20hrs, ke~0.03 hr-1 * Scr continues to be elevated from baseline today at 1.77 mg/dL (CrCl ~35 ml/min) * Hand Xray - cannot exclude osteo, however hand CT negative for osteomyelitis * Ortho consulted for possible surgery vs. conservative treatment Pharmacy will continue to follow and will adjust dose/frequency as necessary. Thank you.
[2019-10-28] MEDS ORDERED: ONDANSETRON 4 MG OD TAB PO PRN (16:47)
[2019-10-28] MEDS ORDERED: CALCIUM CARBONATE 500 MG CHEWABLE TAB PO PRN (16:48)
--- NOTE | 2019-10-28 17:54 | Orthopedic Progress Note ---
Date of Service October 28, 2019 Assessment & Plan (1) Laceration of right hand: He has healing superficial lacerations and abrasions over dorsum of right hand ring and middle fingers. No evidence of significant infection. No indication for surgical intervention. I do not think he even requires antibiotics at this point. It looks like it is healing fairly normally. Encourage finger motion. Discharge when OK with Medicine service. Followup within [address] Newberry for wound check. Admission and Anticipated Discharge Date Admission Date: October 27, 2019 Subjective I was asked to see this patient of Dr. Newberry's for a Hand service evaluation. He injured his right hand in a planer, and was taken to the OR about a week ago on 10/20 for I&D and closure of superficial skin lacerations. No extensor tendon or bony injury noted intraoperatively. He tells me that his told him that he needed to come to the hospital for evaluation, but he denies any significant swelling, erythema, or drainage to me. Physical Exam Physical Exam: Examination of the right hand reveals healing superficial lacerations/abrasions over the dorsal aspect of the ring and middle fingers, centered over the proximal phalanges. No evidence of infection. No significant swelling, erythema, induration, fluctuance, or purulent drainage. Intact extensor tendon function all digits. Results & Data ([facility]) Vital Signs (Past 12 Hours) Vital Signs Temp Pulse Pulse Resp BP BP Pulse Ox 10/28/19 15:02 37.2 C 63 18 110/62 93 10/28/19 12:41 36.8 C 10/28/19 11:35 37.9 C H 71 14 111/57 L 96 10/28/19 08:05 37.7 C H 84 14 145/66 H 96 10/28/19 07:04 37.4 C 86 16 154/64 H 93 (1) Laceration of right hand Encounter type: subsequent encounter Foreign body presence: without foreign body Qualified Code(s): S61.411D - Laceration without foreign body of right hand, subsequent encounter
[2019-10-28] MEDS ORDERED: ATORVASTATIN 40 MG TAB PO SCH (21:00)
[2019-10-28] MEDS ORDERED: TERAZOSIN HCL 5 MG CAP PO SCH (21:00)
[2019-10-28] MEDS ORDERED: VANCOMYCIN HCL 1,250 MG in SODIUM CHLORIDE 0.9% 250 ML IV SCH (22:00)
[2019-10-29] MEDS: CEFEPIME 2,000 MG in SYRINGE 7.5 ML IV SCH (01:53)
[2019-10-29 06:21] LABS: Hematocrit (blood only) 27.4 % (42-52); Hemoglobin 8.9 g/dL (14.0-18.0); Mean Corpuscular Hemoglobin 28.6 pg (25-34); Mean Corpuscular Hgb Conc 32.5 g/dL (32-36); Mean Corpuscular Volume 88.1 fL (80-100); Mean Platelet Volume 10.4 fL (7.4-10.4); Platelet Count 177 K/uL (130-400); RDW Coefficient of Variation 17.2 % (11.5-14.5); RDW Standard Deviation 56.1 fL (36.4-46.3); Red Blood Count 3.11 M/uL (4.7-6.1); White Blood Count 13.06 K/uL (4.8-10.8)
[2019-10-29 06:43] LABS: Basophils # (auto) 0.03 K/uL (0-0.2); Basophils % (auto) 0.2 %; Eosinophils % (auto) 0.8 %; Immature Granulocytes # (auto) 0.81 K/uL (0.00-0.02); Immature Granulocytes % (auto) 6.2 %; Lymphocytes # (auto) 0.72 K/uL (1.2-3.4); Lymphocytes % (auto) 5.5 %; Monocytes # (auto) 1.76 K/uL (0.11-0.59); Monocytes % (auto) 13.5 %; Neutrophils # (auto) 9.64 K/uL (1.4-6.5); Neutrophils % (auto) 73.8 %
[2019-10-29 06:53] LABS: BUN Creatinine Ratio 21.8 (10-20); Calcium 8.2 mg/dl (8.5-10.1); Creatinine Clr Calc Pharmacy 35.5 ml/min; Est GFR (Non-African American) 34.5; Magnesium 1.9 mg/dl (1.8-2.4); Phosphorus 3.4 mg/dl (2.5-4.9); Potassium 4.2 mmol/L (3.5-5.1)
[2019-10-29] MEDS: MAGNESIUM OXIDE 400 MG TAB PO SCH (07:44)
[2019-10-29] MEDS: HEPARIN SOD 5,000 UNIT/0.5 ML VIAL SQ SCH (07:44)
[2019-10-29] MEDS: ROPINIROLE HCL 1 MG TABLET PO SCH (07:44)
[2019-10-29] MEDS: ASPIRIN 81 MG ECTAB PO SCH (07:44)
[2019-10-29] MEDS: PANTOprazole 40 MG TAB PO SCH (07:44)
[2019-10-29] MEDS: FAMOTIDINE 20 MG TAB PO SCH (07:44)
[2019-10-29] MEDS: ATENOLOL 50 MG TABLET PO SCH (07:44)
[2019-10-29] MEDS: allopurinoL 100 MG TAB PO SCH ×2 (07:44→13:50)
--- NOTE | 2019-10-29 15:29 | Discharge Summary ---
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 Mr. Villatoro is seen at the bedside with his son and daughter. They report that 1 week ago he sustained an injury to his right hand when his hand got caught while woodworking and his hand was pulled into a planar blade. He had lacerations and extensive bleeding from his right hand. He was seen by the emergency department and referred to orthopedics. He was discharged to complete a 10-day course of Bactrim DS and Keflex. He was referred to and seen at [facility] who performed primary closure of the wound last Saturday. He reports that he did well and was without fever, chills, sweats, confusion, or new symptoms until day of admission. His family is with him and reports he was in a normal state of health in the evening 1 day prior to admission. About 6 hours before presentation to the emergency room his family saw him and noted that he was confused, febrile, and had an episode of incontinence. He denies chest pain, shortness of breath, fevers, chills, rigors. Denies pain in his rig ht hand, but endorses that it feels "tight "from swelling. Denies other symptoms. Denies nausea, vomiting, diarrhea, constipation, and rash. He reports that he had been taking the antibiotics prescribed to him daily as prescribed. Medical history: Reviewed in EMR Surgical history: Reviewed in EMR. He has a history of left second digit amputation from an accident with a circular saw. Family history: Reviewed in EMR, noncontributory Allergies: Chlorhexidine Social: Lives at home with his son and daughter. No tobacco use. Social alcohol use. No recreational drug use. CODE STATUS: Full code, discussed with family Admission Exam Per Admitting Provider General: Oriented to name and place. No acute distress. Cooperative. HEENT: Atraumatic, normocephalic. Pulm: CTAB A&P. Bibasilar crackles without rales. -wheezes, -rhonchi. Symmetrical chest rise. No increase work of breathing. No respiratory distress. Cardiac: RRR, -mrg. Radial pulses intact and symmetrical. Abdominal: Nontender, nondistended, soft. BS present. Extremities: Left hand with second digit amputation at the MCP, well-healed. Right hand with repaired laceration covering the third and fourth dorsal aspect of the hand most prominent over the MCP and PIP. Sensation in all 5 fingertips intact, strength on recruiting scheduler intact. Mild warmth. Local erythema which is not spreading through the MCP or tracking. Radial pulses intact bilaterally. No pain on flexion/extension of the fingers, although patient notes that his range of motion is limited by edema and "tightness ". Legs with sensation is soft touch intact in the feet bilaterally, 2+ edema to the mid calf bilaterally without erythema or venous stasis changes. Principal Diagnosis Right hand Cellulitis Discharge Exam General: Alert, orientedx2. No acute distress Skin: No noted redness to right hand Psych: Appropriate mood and affect Neuro: Decreased sensation on left hand HEENT: NC/AT Chest: Nontender to palpation. CV: RRR, Normal s1, s2. No murmurs appreciated Resp: Breath sounds clear bilaterally, no increased effort of breathing. No crackles/rhonchi/rales. Abdomen: Soft, nontender, nondistended. No guarding. No organomegaly appreciated. Extremities: Right hand with healing wound with some black tissue and dried blood. No surrounding erythema, swelling or drainage noted. Feet swollen bilaterally. 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 Admitted on Oct 27 2019 and discharged on Oct 29 2019. Right hand laceration with tendon involvement Pt with injury to right hand a week ago with power tool; [facility] repaired -Patient febrile on admission, with acute confusion of 1 day, leukocytosis to 17.5 -X-ray of right hand showed changes consistent with inflammatory arthropathy (pseudogout) versus osteomyelitis CT right hand- negative for osteomyelitis and fracture. There were noted degenerative changes as well as changes consistent with calcium phosphate deposition. Edema present. -Blood cultures-NGTD -Started on cefepime and vancomycin. -No concern given clinical picture to treat for acute gouty flare---will just continue home allopurinol (see below) [facility] consulted, was seen by their group 10/19/2019 for primary repair--recommend continuing abx and hand specialist for further evaluation. -Hand talent management specialist- no concern for hand infection; recommended discontinuing abx and f/u with their office in a week. -Pt discharged with no further antibiotic therapy. KAPIL on CKD Patient baseline creatinine of approximately 1.0-1.1 on Oct 19, 2019. acutely increased to 1.78 on discharge. ED gave fluid bolus Given heart Hx held off on treating with fluids as likely prerenal. -held potentially nephrotoxic lisinopril and chlorthalidone - Recommend close PCP followup with repeat BMP. Metabolic encephalopathy - resolved. Chronic Diastolic CHF, history of [place]/CAD History of CHF with elevated BNP Echo 2018--EF 65-70% with noted mild LVH, pulm HTN. X-ray on admit shows volume overload and cardiomegaly without overt pulmonary edema No increased oxygen requirement at time of admission Continue aspirin 81 mg daily Continue atenolol 50 mg daily Continue atorvastatin 80 mg nightly Held chlorthalidone 25 mg p.o. daily Held lisinopril 20 mg p.o. daily Pseudogout Interpretation of x-ray of right hand complicated by underlying evidence of inflammatory arthropathy CT results as above with no clinical evidence of an acute gouty flare follow clinically Continue allopurinol 100 mg p.o. 3 times daily. Total Time Total Time Spent Total Time Spent (In Minutes): See attending attestation Discharge Plan Discharge Items Patient Disposition: Home - Self-Care Reason For Visit: RT HAND CELLULITIS VS OSTEOMYELITIS Discharge Diagnosis: Right hand swelling Activity: Per Instructions section Non-emergency contact: Primary Care Provider and Surgeon Call non-emergency contact if: your symptoms worsen, your pain is worsening and you have a fever Follow-up/Referrals: Jacqueline Vivas MD [Primary Care Provider] - 11/05/19 1:50 pm (APPT WITH DR HAMMOND AT [facility] [id number] Diet: Heart Healthy Addtl Attending Provider Instructions: Mr. Villatoro, we are discharging you after treatment of your right hand in the hospital. Your hand doctors do not think you require any further antibiotic therapy as your hand no longer appears infected. We ask that you follow up with your orthopedist who performed your hand surgery, Dr. Newberry, next week. Please call the office to schedule the appointment if it has not been made for you already. We also ask that you follow up with your primary care doctor, Dr. Vivas on Nov 05, 2019 so she can monitor your kidney function in addition to everything else. That appointment has already been scheduled for you. Should your hand symptoms worsen, or you develop fevers, chills or night sweats with confusion once more, please go to the emergency room. It was a pleasure taking care of you during your stay here! Pending Studies at Discharge: No Stand-Alone Forms: My [facility] [place], Smoking Cessation Medications and DC Order Prescriptions: Continued famotidine [Pepcid] 20 mg tablet 20 mg PO DAILY RF: 0 meclizine [Dramamine Less Drowsy] 25 mg tablet 25 mg PO Q6H PRN (Reason: Dizziness) RF: 0 atorvastatin [Lipitor] 80 mg tablet 80 mg PO BID RF: 0 lisinopril [Zestril] 20 mg tablet 20 mg PO DAILY RF: 0 chlorthalidone 25 mg tablet 25 mg PO DAILY RF: 0 atenolol [Tenormin] 50 mg tablet 50 mg PO DAILY RF: 0 ropinirole 4 mg tablet 4 mg PO DAILY RF: 0 aspirin 81 mg Tablet,Delayed Release (Dr/Ec) 81 mg PO DAILY RF: 0 oxycodone-acetaminophen [Percocet] 5-325 mg tablet 1 - 2 tab PO Q6H MDD 4 PRN (Reason: pain) Qty: 12 RF: 0 terazosin 5 mg capsule 5 mg PO HS RF: 0 pantoprazole [Protonix] 40 mg tablet,delayed release (DR/EC) 40 mg PO QAM RF: 0 allopurinol [Zyloprim] 100 mg tablet 100 mg PO TID RF: 0 tramadol [Ultram] 50 mg tablet 100 mg PO Q12H PRN (Reason: Pain) RF: 0 ketoconazole 2 % cream 1 applic TOPICAL DAILY RF: 0 Discharge Orders: Discharge Order (Routine); Ordered 10/29/19 Ordered By: Viry Oh Admission Data Admit Date/Time: 10/27/19 23:28 Attending Provider: Pebbles Hansen Admit Provider: Martin Ward Primary Care Provider: Jacqueline Vivas Other Providers: Delbert Gloria ; [facility] ; Stanislaw Mcintosh Other Interventions: Discharge Summary Assessment (RN) Last Done: 10/29/19 15:49 DC Date/Time DO NOT enter until pt leaves facility: 10/29/19 16:30 Supervising Physician Co-Signing Physician Notes Resident Physician Supervision Note: I independently interviewed and examined the patient and verified the dimas history and physical, reviewed labs and image studies, discussed the case with the resident Dr. Oh and agree with the findings and care plan. Resident Activity Tracking Resident Involvement: Resident Care Provided Care Provided: Adult Hospital Medicine
== END 2019-10-29 16:30 | disposition home health service (06) | DRG 602 ==
LOC: ED 19:42 → SUATTDRO 23:28 → 3N 23:28

== ENCOUNTER 2019-11-03 19:03 | Inpatient (IN) ==
[2019-11-03] MEDS ORDERED: SODIUM CHLORIDE 0.9% 500 ML IV SCH ×2 (19:45→23:00)
[2019-11-03 21:24] LABS: Basophils # (auto) 0.04 K/uL (0-0.2); Basophils % (auto) 0.2 %; Eosinophils # (auto) 0.72 K/uL (0-0.5); Eosinophils % (auto) 3.4 %; Hematocrit (blood only) 28.3 % (42-52); Hemoglobin 9.3 g/dL (14.0-18.0); Immature Granulocytes # (auto) 0.54 K/uL (0.00-0.02); Immature Granulocytes % (auto) 2.5 %; Lymphocytes # (auto) 1.07 K/uL (1.2-3.4); Mean Corpuscular Hemoglobin 28.6 pg (25-34); Mean Corpuscular Hgb Conc 32.9 g/dL (32-36); Mean Corpuscular Volume 87.1 fL (80-100); Mean Platelet Volume 9.6 fL (7.4-10.4); Monocytes # (auto) 2.87 K/uL (0.11-0.59); Monocytes % (auto) 13.5 %; Neutrophils # (auto) 16.09 K/uL (1.4-6.5); Neutrophils % (auto) 75.4 %; Platelet Count 349 K/uL (130-400); RDW Coefficient of Variation 16.9 % (11.5-14.5); RDW Standard Deviation 53.7 fL (36.4-46.3); Red Blood Count 3.25 M/uL (4.7-6.1); White Blood Count 21.33 K/uL (4.8-10.8)
[2019-11-03 21:34] LABS: INR 1.1 (0.9-1.1); Prothrombin Time 11.4 Seconds (9.0-12.0)
[2019-11-03 21:42] LABS: Albumin Level 3.1 gm/dl (3.4-5.0); Aspartate Aminotransferase 11 U/L (15-37); BUN Creatinine Ratio 21.5 (10-20); Blood Urea Nitrogen 59 mg/dl (7-18); Calcium 8.5 mg/dl (8.5-10.1); Carbon Dioxide 21 mmol/L (21-32); Chloride 107 mmol/L (98-107); Est GFR (African American) 23.5; Est GFR (Non-African American) 20.3; Glucose 87 mg/dl (70-99); Magnesium 2.3 mg/dl (1.8-2.4); Potassium 5.8 mmol/L (3.5-5.1); Sodium 134 mmol/L (136-145)
[2019-11-03 21:47] LABS: Alanine Aminotransferase 29 U/L (12-78); Albumin Globulin Ratio 0.9 (0.9-2); Alkaline Phosphatase 101 U/L (45-117); Bilirubin,Total 0.4 mg/dl (0.2-1); Globulin 3.3 gm/dl (2.5-4.0); Total Protein 6.4 gm/dl (6.4-8.2)
--- NOTE | 2019-11-04 00:25 | History & Physical Report ---
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 Hyperkalemia - K 6 without t wave changes - Admit to med/tele - 1g ca/gluc - NSS 80cc/hr Hold Bactrim. Defer antibiotics at this time. BMP every 12 hours KAPIL - nonanuric Received NSS 100 cc bolus in ED, no signs of fluid overload - NSS 80cc/hr Suspect prerenal versus ATN with antibiotic treatment hold nephrotoxins BMP as above CHF, history of NV/CAD History of CHF No increased oxygen requirement at time of admission Continue aspirin 81 mg daily Continue atenolol 50 mg daily Continue atorvastatin 80 mg nightly Hold chlorthalidone and lisinopril in the setting of KAPIL BMP as above, KAPIL management as above. Cautious use of diuretics in the setting of KAPIL. Gout versus pseudogout Follow clinically Hold allopurinol in the setting of potential acute flare. NSAIDs limited by KAPIL Defer prednisone at this timeTylenol 650 mg every 4 hours as needed DVT prophylaxis: Heparin 5000 units every 12 Diet: Heart healthy Disposition: MedSurg with telemetry CODE STATUS: Full code, discussed with patient and family (2) Side effect of medication: (3) Laceration of right hand: (4) KAPIL (acute kidney injury): (5) Chronic kidney disease: History of Present Illness Chief Complaint: Hyperkalemia, KAPIL Primary Care Provider: Jacqueline Vivas MD Jose D Villatoro is a 84-year-old male with a past medical history of decreased hearing, NV, hypertension, GERD, dyslipidemia, CKD, 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 Mr. Vela reports that he was in his usual state of health with some diffuse achiness due to his pseudogout but otherwise feeling well when he presented to his PCPs office today for follow-up labs. He was recently admitted to the hospital and was discharged on 10/29/2019 for a right hand laceration with tendon involvement concerning for cellulitis versus osteomyelitis, and was ultimately felt to be cellulitic in origin and for which she was discharged on a course of Bactrim. He developed hyperkalemia to 5.8 and an acute kidney injury with a creatinine of 2.76 and was referred to the emergency department for further care. His creatinine at discharge on 10/29 was 1.78. He reports he feels well today, and notes that his joints particularly at the bases of his toes, wrists, and hand metacarpals bilaterally are achy consistent with a pseudogout flare that he has experienced in the past but that due to his kidney injury he cannot take NSAIDs. He is not having any chest pain, chest pressure, fever, chills, sweats. He reports he continues to have good movement in his right hand and thinks that it is healing well. He is hungry. No nausea/vomiting. No diarrhea. He has swelling in his legs bilaterally at baseline which feel normal, or even a little less than normal for him since he has had his feet up before today seen at the bedside with his family. Medical history: Reviewed in EMR, no changes Surgical history: Reviewed in EMR, no changes Allergies: Reviewed in EMR, no changes (allergic to chlorhexidine) Social: Lives at home with his son and daughter. No tobacco use. Rare alcohol use, no recreational drug use. CODE STATUS: Full code Allergies Allergy/AdvReac Type Severity Reaction Status Date / Time chlorhexidine Allergy Intermediate Rash Verified 11/03/19 19:54 Home Medications Home Medications Medication Instructions Recorded Confirmed Type aspirin 81 mg PO QAM 05/07/19 11/03/19 History atenolol [Tenormin] 50 mg PO QAM 05/07/19 11/03/19 History chlorthalidone 25 mg PO QAM 05/07/19 11/03/19 History lisinopril [Zestril] 20 mg PO QAM 05/07/19 11/03/19 History ropinirole 4 mg PO HS 05/07/19 11/03/19 History meclizine 25 mg tablet 25 mg PO Q6H PRN tab 05/25/19 11/03/19 History allopurinol [Zyloprim] 100 mg PO TID 10/27/19 11/03/19 History ketoconazole 1 applic TOPICAL DAILY PRN 10/27/19 11/03/19 History terazosin 5 mg PO HS 10/27/19 11/03/19 History tramadol [Ultram] 100 mg PO Q12H PRN 10/27/19 11/03/19 History atorvastatin 80 mg PO QAM 11/03/19 11/03/19 History pantoprazole 20 mg PO QAM 11/03/19 11/03/19 History Past Med/Surg History Social History Preferred Language: Irish Communication Ability: Effective Souvenir And Novelty Maker Required: No Beliefs That Will Affect Care: None marital status: / Current Living Situation: Alone Other Information That Helps Us Care for You: No Feels Safe at Home: Yes Safety Concerns: Feels Safe At This Time Smoking Status: Former smoker Tobacco Type: smokeless tobacco ; Do You Dip or Chew Tobacco: No ; Second Hand Exposure: No ; Tobacco Cessation Education Requested by Patient: No Hx Alcohol Use: Yes Alcohol type: beer Hx Substance Use: No Review of Systems Review of Systems: All systems reviewed & are unremarkable except as noted in HPI & below Physical Exam Physical Exam: General: Alert and oriented x3. No acute distress. Cooperative. HEENT: Atraumatic, normocephalic. Pulm: CTAB A&P. Bibasilar crackles without rales. -wheezes, -rhonchi. Symmetrical chest rise. No increase work of breathing. No respiratory distress. Cardiac: RRR, -mrg. Radial pulses intact and symmetrical. Abdominal: Nontender, nondistended, soft. BS present. Extremities: Left hand with second digit amputation at the MCP, well-healed. Right hand with repaired laceration covering the third and fourth dorsal aspect of the hand most prominent over the MCP and PIP. Sensation in all 5 fingertips intact, fruit canner strength 4+/5, no warmth, minimal erythema with no purulence. Radial pulses intact bilaterally. No pain on flexion/extension of the fingers. Legs with sensation is soft touch intact in the feet bilaterally, 2+ edema to the mid calf bilaterally without erythema or venous stasis changes. Results & Data Vital Signs (Past 12 Hours) Vital Signs Temp Pulse Pulse Resp BP BP Pulse Ox 11/03/19 23:00 73 16 137/69 99 11/03/19 21:10 67 18 135/66 99 11/03/19 21:08 96 11/03/19 19:17 37.1 C 69 20 161/82 H 100 Supervising Physician Co-Signing Physician Notes Attending addendum: I have physically seen this patient, have supervised the medical residents activities, and agree with the H&P unless as otherwise noted. Assessment and Plan: Hyperkalemia/kidney injury Admit to telemetry Potassium 5.8, creatinine 2.76. Calcium gluconate 1 g IV x1. NSS at 80 mils per hour. Repeat BMP in a.m. CAD/hypertension/history of NV/CHF- Continue aspirin, atenolol and atorvastatin. Hold chlorthalidone and lisinopril due to KAPIL. Repeat laboratories as noted. Remainder of orders and notations as noted. Resident Activity Tracking Resident Involvement: Resident Care Provided Care Provided: Adult Hospital Medicine (1) Laceration of right hand Encounter type: subsequent encounter Foreign body presence: without foreign body Qualified Code(s): S61.411D - Laceration without foreign body of right hand, subsequent encounter
--- NOTE | 2019-11-04 01:10 | Emergency Department Note ---
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 The patient states that he received blood work today and his PCP presents concern for his potassium levels. Family reports that he eats 1 banana per day but has not had an over intake of bananas or potatoes. The patient also recently had an infection and finished an antibiotic 1 day ago. Of note, the patient takes Lisinopril daily. He also experiences chronic pain (denies new pain) and leg swelling at baseline. The patient and his family offer no further concerns at this time. Home Medications Home Medications Medication Instructions Recorded Confirmed Type aspirin 81 mg PO QAM 05/07/19 11/03/19 History atenolol [Tenormin] 50 mg PO QAM 05/07/19 11/03/19 History chlorthalidone 25 mg PO QAM 05/07/19 11/03/19 History lisinopril [Zestril] 20 mg PO QAM 05/07/19 11/03/19 History ropinirole 4 mg PO HS 05/07/19 11/03/19 History meclizine 25 mg tablet 25 mg PO Q6H PRN tab 05/25/19 11/03/19 History allopurinol [Zyloprim] 100 mg PO TID 10/27/19 11/03/19 History ketoconazole 1 applic TOPICAL DAILY PRN 10/27/19 11/03/19 History terazosin 5 mg PO HS 10/27/19 11/03/19 History tramadol [Ultram] 100 mg PO Q12H PRN 10/27/19 11/03/19 History atorvastatin 80 mg PO QAM 11/03/19 11/03/19 History pantoprazole 20 mg PO QAM 11/03/19 11/03/19 History Allergies Allergy/AdvReac Type Severity Reaction Status Date / Time chlorhexidine Allergy Intermediate Rash Verified 11/03/19 19:54 Past Med/Surg History Social History Preferred Language: Citizen Of [place] Communication Ability: Effective Human Resources Benefits Assistant Required: No Beliefs That Will Affect Care: None marital status: / Current Living Situation: Alone Feels Safe at Home: Yes Smoking Status: Never smoker Tobacco Type: smokeless tobacco ; Second Hand Exposure: No ; Hx Alcohol Use: Yes Alcohol type: beer Hx Substance Use: No Review of Systems See HPI for pertinent positives & negatives. and A total of 10 systems reviewed and were otherwise negative Physical Exam Vital Signs Vital Signs - 24 hr 11/03/19 19:17 11/03/19 21:08 11/03/19 21:10 Temperature 37.1 C Temperature Source Oral Pulse Rate 69 Pulse Rate [Right Finger] 67 Pulse Rhythm [Right Finger] Regular Pulse Strength [Right Finger] Normal Respiratory Rate 20 18 Respiratory Effort / Characteristics Non-Labored Spontaneous Respiratory Depth Normal Blood Pressure 161/82 H Blood Pressure [Right Arm] 135/66 Blood Pressure Mean 108 Blood Pressure Mean [Right Arm] 89 Blood Pressure Position [Right Arm] Lying Pulse Oximetry 100 96 99 Oxygen Delivery Method Room Air Room Air Room Air Sepsis Action Taken by Nursing No Action Required 11/03/19 23:00 11/04/19 01:00 Temperature Temperature Source Pulse Rate 75 Pulse Rate [Right Finger] 73 Pulse Rhythm [Right Finger] Pulse Strength [Right Finger] Respiratory Rate 16 18 Respiratory Effort / Characteristics Respiratory Depth Normal Blood Pressure 132/63 Blood Pressure [Right Arm] 137/69 Blood Pressure Mean Blood Pressure Mean [Right Arm] 91 Blood Pressure Position [Right Arm] Lying Pulse Oximetry 99 97 Oxygen Delivery Method Room Air Room Air Sepsis Action Taken by Nursing GENERAL: Well appearing, hard of hearing, wearing glasses, well nourished, NAD, non-toxic. EYE EXAM: Normal conjunctiva. PERRL, no anisocoria and EOM's grossly intact w/o pain. OROPHARYNX: Moist mucus membranes. Grossly normal dentition. NECK: Supple, no nuchal rigidity, no adenopathy, non-tender. no signs of meningismus. LUNGS: Clear to auscultation. Normal chest wall mechanics. HEART: NSR, no MRG. ABDOMEN: Abdomen soft, non-tender, normo-active bowel sounds, no masses, no rebound or guarding. BACK: No CVA TTP. SKIN: No rashes and no bruising. Healing wound over right hand. UPPER EXTREMITIES: Upper extremities are grossly normal. LOWER EXTREMITIES: 1-2+ pitting edema bilaterally. No calf pain. NEURO EXAM: A&O x3, cranial nerves II-XII grossly intact, normal speech, moves all 4 extremities on command w/o issue. Course Course 1954: Past medical records reviewed. The patient was evaluated in room B09. A complete history and physical exam was performed. 1956: The patient was placed on a cardiac cath technologist. 2054: Dr. Rodriguez states that the patient's outpatient kidney function was 3 today and that he had a potassium of 6. 2246: [facility] the [facility]. 2251: I checked on the patient and updated him on test results. The patient verbally expressed understanding and agreement of the treatment plan. The patient will be evaluated for further treatment. Administered Medications Discontinued Medications Sodium Chloride (Nss) 500 mls @ 999 mls/hr IV .Q31M RODRIGO Stop: 11/03/19 20:15 Last Infusion: 11/03/19 21:53 Dose: 0 mls/hr Documented by: [id number] Admin: 11/03/19 21:09 Dose: 999 mls/hr Documented by: [id number] Medical Decision Making Differential Diagnosis Differential diagnosis includes but is not limited to dehydration, kidney dysfunction, heart failure, medication side effect, obstructive uropathy, dietary cause. Medical Records Attestation: I reviewed the patient's medical records. Home Medications Current Medication List: was personally reviewed by me Laboratory Data Attestation: I reviewed the patient's lab results. Result diagrams: 11/03/19 21:07 11/03/19 21:07 Lab Results 11/03/19 11/03/19 11/03/19 Range/Units 21:07 21:07 21:07 WBC 21.33 H (4.8-10.8) K/uL RBC 3.25 L (4.7-6.1) M/uL Hgb 9.3 L (14.0-18.0) g/dL Hct 28.3 L (42-52) % MCV 87.1 (80-100) fL MCH 28.6 (25-34) pg MCHC 32.9 (32-36) g/dL RDW Std Deviation 53.7 H (36.4-46.3) fL RDW Coeff of Dione 16.9 H (11.5-14.5) % Plt Count 349 (130-400) K/uL MPV 9.6 (7.4-10.4) fL Immature Gran % (Auto) 2.5 % Neut % (Auto) 75.4 % Lymph % (Auto) 5.0 % Merrick % (Auto) 13.5 % Eos % (Auto) 3.4 % Baso % (Auto) 0.2 % Immature Gran # (Auto) 0.54 H (0.00-0.02) K/uL Neut # (Auto) 16.09 H (1.4-6.5) K/uL Lymph # (Auto) 1.07 L (1.2-3.4) K/uL Merrick # (Auto) 2.87 H (0.11-0.59) K/uL Eos # (Auto) 0.72 H (0-0.5) K/uL Baso # (Auto) 0.04 (0-0.2) K/uL PT 11.4 (9.0-12.0) Seconds INR 1.1 (0.9-1.1) Sodium 134 L (136-145) mmol/L Potassium 5.8 H (3.5-5.1) mmol/L Chloride 107 (98-107) mmol/L Carbon Dioxide 21 (21-32) mmol/L Anion Gap 6.0 (3-11) BUN 59 H (7-18) mg/dl Creatinine 2.76 H (0.6-1.4) mg/dl Est Cr Clr Drug Dosing Not Reportable Est GFR ( Amer) 23.5 Est GFR (Non-Af Amer) 20.3 BUN/Creatinine Ratio 21.5 H (10-20) Glucose 87 (70-99) mg/dl Calcium 8.5 (8.5-10.1) mg/dl Magnesium 2.3 (1.8-2.4) mg/dl Total Bilirubin 0.4 (0.2-1) mg/dl AST 11 L (15-37) U/L ALT 29 (12-78) U/L Alkaline Phosphatase 101 (45-117) U/L Total Protein 6.4 (6.4-8.2) gm/dl Albumin 3.1 L (3.4-5.0) gm/dl Globulin 3.3 (2.5-4.0) gm/dl Albumin/Globulin Ratio 0.9 (0.9-2) ECG Data Attestation: I personally reviewed and interpreted this ECG as follows: Indication: + weakness Rate (beats per minute): 68 Rhythm: + normal sinus ECG Embarrass: + Left axis deviation ECG Findings: + Other (normal intervals); no PACs and no PVCs Blood Pressure Blood Pressure Findings: Elevated blood pressure Blood Pressure Disposition: further management by hospitalist MDM Narrative The patient is an 84 year old elderly white male with a history of CKD and STEMI who presents to the Emergency Room for abnormal labs/diagnostic testing. Continuous Cardiac Monitoring: An order was placed for continuous cardiac monitoring. The monitor shows a rate of 68 with normal sinus rhythm and no PVCs or PACs. Patient was seen and evaluated the bedside. The patient was referred from outpatient clinic due to concern for elevated creatinine and potassium. The patient was on a course of outpatient Bactrim and is on lisinopril which may be a medications that may increase his potassium. The patient has been having appropriate urine output. Patient did a blood work completed and the patient does have an elevated potassium and creatinine compared to prior. The patient's potassium is less than 6 without any EKG changes. The patient was started on IV fluids. I did speak the on-call hospitalist agreed to further evaluate treat the patient. Patient was admitted to the medicine service. Impression & Plan KAPIL (acute kidney injury), Hyperkalemia, Side effect of medication Discharge Plan Visit Data Chief Complaint: Abnormal Labs/Diagnostic Testing Stated Complaint: HYPERKALEMIA, ABNORMAL TEST RESULTS ED Provider: Francesco Michaels Discharge Problem: KAPIL (acute kidney injury), Hyperkalemia, Side effect of medication Patient Disposition: Being Evaluated by Hospitalist Discharge Instructions Interventions: ED Discharge Assessment Last Done: 11/04/19 01:00 Forms Stand Alone Forms: [employer] Prescriptions Prescriptions: No Action meclizine [Dramamine Less Drowsy] 25 mg tablet 25 mg PO Q6H PRN (Reason: Dizziness) RF: 0 lisinopril [Zestril] 20 mg tablet 20 mg PO QAM RF: 0 chlorthalidone 25 mg tablet 25 mg PO QAM RF: 0 atenolol [Tenormin] 50 mg tablet 50 mg PO QAM RF: 0 ropinirole 4 mg tablet 4 mg PO HS RF: 0 aspirin 81 mg Tablet,Delayed Release (Dr/Ec) 81 mg PO QAM RF: 0 terazosin 5 mg capsule 5 mg PO HS RF: 0 allopurinol [Zyloprim] 100 mg tablet 100 mg PO TID RF: 0 tramadol [Ultram] 50 mg tablet 100 mg PO Q12H PRN (Reason: Pain) RF: 0 ketoconazole 2 % cream 1 applic TOPICAL DAILY PRN (Reason: Psoriasis) RF: 0 atorvastatin 40 mg tablet 80 mg PO QAM RF: 0 pantoprazole 20 mg tablet,delayed release (DR/EC) 20 mg PO QAM RF: 0 Referrals Referrals: Jacqueline Vivas MD [Primary Care Provider] - The scribe's documentation has been prepared under my direction and personally reviewed by me in its entirety. I confirm that the note above accurately reflects all work, treatment, procedures, and medical decision making performed by me.
[2019-11-04] MEDS ORDERED: ACETAMINOPHEN 325 MG TAB PO PRN (02:37)
[2019-11-04] MEDS ORDERED: MoRPHine SULFATE 2 MG/ML CARP IV PRN ×2 (02:37→02:45)
[2019-11-04] MEDS ORDERED: SODIUM CHLORIDE 0.9% 1000ML 1,000 ML IV SCH (02:37)
[2019-11-04] MEDS ORDERED: TRAMADOL HCL 50 MG TABLET PO PRN (02:37)
[2019-11-04] MEDS ORDERED: CALCIUM GLUCONATE 10% 1,000 MG in SODIUM CHLORIDE 0.9% 50 ML IV STA (02:37)
[2019-11-04 06:22] LABS: Hematocrit (blood only) 27.4 % (42-52); Hemoglobin 8.8 g/dL (14.0-18.0); Mean Corpuscular Hemoglobin 28.3 pg (25-34); Mean Corpuscular Hgb Conc 32.1 g/dL (32-36); Mean Corpuscular Volume 88.1 fL (80-100); Mean Platelet Volume 9.3 fL (7.4-10.4); Platelet Count 333 K/uL (130-400); RDW Coefficient of Variation 17.2 % (11.5-14.5); RDW Standard Deviation 54.1 fL (36.4-46.3); Red Blood Count 3.11 M/uL (4.7-6.1); White Blood Count 18.97 K/uL (4.8-10.8)
[2019-11-04 06:49] LABS: Basophils # (auto) 0.02 K/uL (0-0.2); Basophils % (auto) 0.1 %; Eosinophils # (auto) 0.61 K/uL (0-0.5); Eosinophils % (auto) 3.2 %; Immature Granulocytes # (auto) 0.34 K/uL (0.00-0.02); Immature Granulocytes % (auto) 1.8 %; Lymphocytes # (auto) 1.33 K/uL (1.2-3.4); Neutrophils # (auto) 14.77 K/uL (1.4-6.5); Neutrophils % (auto) 77.9 %
[2019-11-04 06:57] LABS: BUN Creatinine Ratio 23.3 (10-20); Calcium 8.5 mg/dl (8.5-10.1); Creatinine Clr Calc Pharmacy 24.9 ml/min; Est GFR (African American) 25.7; Est GFR (Non-African American) 22.1; Potassium 5.6 mmol/L (3.5-5.1)
[2019-11-04] MEDS: SODIUM CHLORIDE 0.45 % 1,000 ML IV SCH ×2 (08:21→20:48)
--- NOTE | 2019-11-04 08:32 | XRay Report ---
XR chest 1V portable CLINICAL HISTORY: 84 years-old Male presenting with CHF, shortness of breath, recent hand injury. TECHNIQUE: Portable upright AP view of the chest was obtained. COMPARISON: 10/27/2019. FINDINGS: Atherosclerosis of the aortic arch. Cardiac silhouette enlarged. Pulmonary vascular prominence simila r to prior exam. Mild interstitial prominence. Low lung volumes. No focal lung opacity. Trace pleural effusions may be present. No pneumothorax. Degenerative changes of the thoracic spine. Upper abdomen normal. IMPRESSION: 1. Cardiomegaly with volume overload and mild congestive change. No carson pulmonary edema. Findings similar to prior. 2. Low lung volumes. 3. Possible trace bilateral pleural effusions. ACT 112: Negative or not required by law. Electronically signed by: Martin Woods M.D. 11/04/2019 8:31 AM
[2019-11-04] MEDS: PANTOprazole 40 MG TAB PO SCH (09:33)
[2019-11-04] MEDS: ASPIRIN 81 MG ECTAB PO SCH (09:33)
[2019-11-04] MEDS: ATENOLOL 50 MG TABLET PO SCH (09:33)
[2019-11-04] MEDS: HEPARIN SOD 5,000 UNIT/0.5 ML VIAL SQ SCH ×2 (09:33→20:50)
[2019-11-04] MEDS: ATORVASTATIN 40 MG TAB PO SCH (09:34)
--- NOTE | 2019-11-04 14:17 | Communication Note ---
Date of Service: November 04, 2019 Patient admitted after midnight therefore I will not be billing for this encounter (despite the considerable time it took). HPI: Discussed with patient and his daughter. He has had a significant decline since I saw him last back in July. At that time he had a table saw injury to his left hand. Developed cellulitis, treated with ceftriaxone and keflex -> levaquin as outpatient, went to ER as his feet started to swell and he had purulent drainage from the stitches from the ER. He was taken to the OR for washout by Dr Escalante -> cultured coag negative staph. Dr Foote saw him on this visit and noted chronic venous insufficiency probably causing leg swelling and trial of lasix actually made his renal function worse Cr 1.46->2.03, improved to 1.63 on discharge. After talking to his daughter I diagnosed him with unspecified (but probable gout) acute inflammatory arthritis and treated him with colchicine and prednisone as he had a strange history of multiple joint flare ups treated with antibiotics and it was unclear if these truly helped. He improved with prednisone but colchicine 0.6mg BID caused nausea and diarrhea. He returned in August for finger amputation due to worsening erythema, warmth and pain of the incision site. His renal function improved on this admission. He was seen by our group as a medical consult and again treated for gout flare with prednisone. [facility] records not available for review but I understand he was treated for gout ?1 week of steroids on Oct 09 by his PCP. This improved his symptoms temporarily but he gets worse whenever they are stopped. More recently he was started on keflex and bactrim empirically (no cellulitis) on the ER visit on 19 October after right hand planar injury. I suspect this caused his worsening renal function when admitted on with fever and altered mental state. He was not discharged on antibiotics from the discharge summary but his daughter thinks he was told to continue all his prior medications. His daughter took that to mean including the keflex and bactrim therefore he has been on this up until this admission. His chlorthalidone and lisinopril were held during his last admission and Cr stable around 1.7 but these were restarted on discharge. With regards to his renal function he is under Dr Ortiz back in June and thought to be secondary to chronic NSAID use therefore this was stopped. This appeared to help his renal function however in hindsight he was clearly treating his pseudogout and stopping the NSAIDs appears to be the start of his chronic severe joint degeneration. O/E - no cellulitis around multiple scabs over right wrist. Numbness in distal ulna distribution of left wrist. A&P KAPIL - suspect Cr somewhat artificially raised with Bactrim use (causes decreased secretion). However associated BUN/K rise makes this a true KAPIL. Possible dehydration from chlorthalidone as his renal function was stable off this. Since baseline Cr 1.0 I suspect chronic urate nephropathy is much less likely and would assume we can get his . Hyperkalemia - concerning since he was on chlorthalidone which should be reducing this. Suspect caused by combination of true KAPIL and lisinopril use. Trending down with IV fluids. Will continue to monitor. Tophaceous Gout/pseudogout - Patient likely to need chronic steroids if unable to up titrate colchicine to the point of it controlling his pain/inflammation. I'm not sure what the reluctance to use chronic steroids has been given his confirmed diagnosis of gout and severe degeneration of his joints. 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 He has had severe joint degeneration since I first met him in July. Unclear if he truly has both diagnoses. Gout was confirmed with birefringent crystals on pathology when he alvares d his left index finger amputated. 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 Given the definitive gout diagnosis, an additional pseudogout diagnosis would not change management facilitator. Continue allopurinol, should not up titrate during acute flare but no need to stop and he needs this to lower uric acid longer term, and no definitive acute flare - he has chronic crystal deposition causing his arthritis. Repeat uric acid level in AM. Stop chlorthalidone as will elevate uric acid. HTN - will monitor BP off chlorthalidone and lisinopril. Paroxysmal atrial tachycardia - noted 4-5 second run of atrial tachycardia today
[2019-11-04] MEDS: TRAMADOL HCL 50 MG TABLET PO PRN (16:48)
[2019-11-04 20:05] LABS: Calcium 8.4 mg/dl (8.5-10.1); Creatinine Clr Calc Pharmacy 26.4 ml/min; Est GFR (African American) 27.6; Est GFR (Non-African American) 23.8; Potassium 5.4 mmol/L (3.5-5.1)
[2019-11-04] MEDS ORDERED: predniSONE 20 MG TAB PO STA (20:14)
[2019-11-04] MEDS: TERAZOSIN HCL 5 MG CAP PO SCH (20:49)
[2019-11-04] MEDS: ROPINIROLE HCL 1 MG TABLET PO SCH (20:49)
[2019-11-04 21:28] LABS: Appearance Urine Clear (Clear); Bilirubin Urine Negative (Negative); Blood Urine Negative (Negative); Color Urine Yellow; Glucose Urine UA Negative (Negative); Ketones Urine Negative (Negative); Leukocyte Esterase Urine Negative (Negative); Nitrite Urine Negative (Negative); Protein Urine Negative (Negative); Specific Gravity Urine 1.016 (1.000-1.030); Urobilinogen Urine Negative (Negative)
[2019-11-04] MEDS: allopurinoL 300 MG TAB PO SCH (21:30)
--- NOTE | 2019-11-04 22:50 | Electrocardiogram Report ---
Test Reason : Blood Pressure : / mmHG Vent. Rate : 068 BPM Atrial Rate : 068 BPM P-R Int : 178 ms QRS Dur : 082 ms QT Int : 356 ms P-R-T Axes : 057 -25 063 degrees QTc Int : 378 ms Normal sinus rhythm Normal ECG When compared with ECG of 27-OCT-2019 20:07, No significant change was found Confirmed by Edy Foote ([id number]) on 11/04/2019 10:49:52 PM Referred By: Jonn Rodriguez Confirmed By:Edy Foote
--- NOTE | 2019-11-05 00:39 | Billing Data ---
Date of Service November 05, 2019 Coding Level of Care Code 73072 OBS Care - Level 3
[2019-11-05] MEDS: SODIUM CHLORIDE 0.45 % 1,000 ML IV SCH ×3 (06:03→22:38)
--- NOTE | 2019-11-05 06:24 | Electrocardiogram Report ---
Test Reason : Blood Pressure : / mmHG Vent. Rate : 072 BPM Atrial Rate : 072 BPM P-R Int : 184 ms QRS Dur : 076 ms QT Int : 326 ms P-R-T Axes : 092 -05 059 degrees QTc Int : 356 ms Poor data quality, interpretation may be adversely affected Normal sinus rhythm When compared with ECG of 03-NOV-2019 19:31, No significant change was found Confirmed by Edy Foote ([id number]) on 11/05/2019 6:24:06 AM Referred By: Jonn Rodriguez Confirmed By:Edy Foote
[2019-11-05] MEDS: TRAMADOL HCL 50 MG TABLET PO PRN (06:28)
--- NOTE | 2019-11-05 08:08 | XRay Report ---
XR wrist LT min 3V routine CLINICAL HISTORY: 84 years-old Male presenting with left wrist swelling ?CPPD arthropathy / gout, #. TECHNIQUE: Frontal, bilateral oblique, lateral views of the left wrist were obtained. COMPARISON: 10/09/2019. FINDINGS: No significant calcification in the region of the triangular fibrocartilage complex is appreciated wi th certainty. Widening of the scapholunate interval, which measures 5 mm. The capitate is proximally displaced. A b one-on-bone appearance is evident at the lunate-hamate and lunate-capitate articulations. There is a tmwl-oy-bien appearance of the radioscaphoid articulation with advanced joint space loss also evident at the scaphoid-trapezium and scaphoid-trapezoid regulations. There appears to be dorsal angulation of the lunate with the radiolunate angle measuring 24 degrees (normal less than 15 degrees). Osteophytosis at the distal radial ulnar joint. Underlying osteopenia is evident. Postsurgical changes of resection of the majority of the second met acarpal as well as the second finger with the second metacarpal base intact. Allowing for the degree of diffuse degenerative change and osteopenia, no acute fracture or acute maurice earing malalignment. Mild diffuse soft tissue swelling. Surgical clip may be present at the lateral s oft tissues of the distal forearm. Atherosclerosis. IMPRESSION: 1. Findings may suggest the presence of ligamentous dorsal intercalated segment instability. 2. Extensive degenerative changes as detailed above. 3. No definite evidence of CPPD. 4. Align for osteopenia, no acute osseous injury. 5. Postsurgical changes of the second metacarpal and second finger. ACT 112: Negative or not required by law. Electronically signed by: Martin Woods M.D. 11/05/2019 8:07 AM
[2019-11-05 08:34] LABS: Basophils # (auto) 0.01 K/uL (0-0.2); Basophils % (auto) 0.1 %; Eosinophils # (auto) 0.01 K/uL (0-0.5); Eosinophils % (auto) 0.1 %; Hematocrit (blood only) 27.3 % (42-52); Hemoglobin 8.9 g/dL (14.0-18.0); Immature Granulocytes # (auto) 0.29 K/uL (0.00-0.02); Immature Granulocytes % (auto) 1.5 %; Lymphocytes # (auto) 0.42 K/uL (1.2-3.4); Lymphocytes % (auto) 2.2 %; Mean Corpuscular Hemoglobin 28.8 pg (25-34); Mean Corpuscular Hgb Conc 32.6 g/dL (32-36); Mean Corpuscular Volume 88.3 fL (80-100); Mean Platelet Volume 9.3 fL (7.4-10.4); Monocytes # (auto) 0.46 K/uL (0.11-0.59); Monocytes % (auto) 2.5 %; Neutrophils # (auto) 17.53 K/uL (1.4-6.5); Neutrophils % (auto) 93.6 %; Platelet Count 348 K/uL (130-400); RDW Coefficient of Variation 17.1 % (11.5-14.5); RDW Standard Deviation 55.2 fL (36.4-46.3); Red Blood Count 3.09 M/uL (4.7-6.1); White Blood Count 18.72 K/uL (4.8-10.8)
[2019-11-05 09:08] LABS: Calcium 8.8 mg/dl (8.5-10.1); Creatinine Clr Calc Pharmacy 29.1 ml/min; Est GFR (Non-African American) 26.7; Magnesium 2.2 mg/dl (1.8-2.4); Potassium 5.6 mmol/L (3.5-5.1); Uric Acid 7.5 mg/dl (2.6-7.2)
[2019-11-05] MEDS: ASPIRIN 81 MG ECTAB PO SCH (09:10)
[2019-11-05] MEDS: ATENOLOL 50 MG TABLET PO SCH (09:10)
[2019-11-05] MEDS: ATORVASTATIN 40 MG TAB PO SCH (09:10)
[2019-11-05] MEDS: HEPARIN SOD 5,000 UNIT/0.5 ML VIAL SQ SCH ×2 (09:11→21:01)
[2019-11-05] MEDS: PANTOprazole 40 MG TAB PO SCH (09:11)
[2019-11-05] MEDS: predniSONE 5 MG TAB PO SCH (09:11)
[2019-11-05 09:13] LABS: Ferritin 158.8 ng/ml (8-388); Phosphorus 5.9 mg/dl (2.5-4.9)
[2019-11-05 09:34] LABS: Folate (Folic Acid) 10.31 ng/ml (>5.38)
[2019-11-05] MEDS ORDERED: INSULIN HUMAN REGULAR PER UNIT 10 UNITS in SYRINGE 9.9 ML IV ONE (09:45)
[2019-11-05] MEDS ORDERED: DEXTROSE 50% 50 ML SYRINGE IV ONE (09:45)
[2019-11-05] MEDS: SODIUM POLYSTYRENE SULFONATE 15G/60ML SUSP PO SCH ×4 (10:17→20:58)
--- NOTE | 2019-11-05 11:23 | Ultrasound Report ---
US renal/blad retro comp HISTORY: Renal insufficiency KAPIL COMPARISON: 05/21/2018 FINDINGS: Right kidney: Maximum dimension 11.9 cm. No evidence for hydronephrosis. Normal corticomedullary diff erentiation and cortical thickness. Left kidney: Maximum dimension 11.5 cm. No evidence for hydronephrosis. 9 mm nonobstructing midpole cortical calcification. Normal corticomedullary differentiation and cortical thickness. Bladder: No bladder wall thickening. The bilateral ureteral jets were identified. IMPRESSION: 1. Nonobstructing 9 mm cortical calcification mid aspect of kidney. 2. Otherwise negative renal ultrasound. ACT 112: Negative or not required by law. The above report was generated using voice recognition software. It may contain grammatical, syntax or spelling errors. Electronically signed by: Jerzy Quiros M.D. 11/05/2019 11:22 AM
[2019-11-05 14:47] LABS: BUN Creatinine Ratio 25.1 (10-20); Calcium 8.7 mg/dl (8.5-10.1); Creatinine Clr Calc Pharmacy 30.8 ml/min; Est GFR (African American) 33.1; Est GFR (Non-African American) 28.6; Potassium 5.1 mmol/L (3.5-5.1)
[2019-11-05] MEDS: TERAZOSIN HCL 5 MG CAP PO SCH (20:58)
[2019-11-05] MEDS: allopurinoL 300 MG TAB PO SCH (20:58)
[2019-11-05] MEDS: ROPINIROLE HCL 1 MG TABLET PO SCH (20:59)
--- NOTE | 2019-11-05 23:02 | Hospitalist Progress Note ---
Date of Service November 05, 2019 Assessment & Plan (1) Hyperkalemia: Secondary to KAPIL and lisinopril use Increased this morning therefore insulin/dextrose given and Kayexalate started Repeat potassium in afternoon improved Continue to monitor with daily BMP (2) KAPIL (acute kidney injury): Non-oligoanuric Partly due to decreased Cr clearance with Bactrim therefore artificially raising Cr through reduced secretion UA normal therefore less suspicion of ATN but possible AIN related to Keflex use Suspect also pre-renal from chlorthalidone use and dehydration Slower improvement than expected therefore US KUB ordered which was unremarkable and showed no obstructive nephropathy Baseline Cr 1.01 Continue 0.5NSS 125ml/hr - no evidence of pulmonary edema or fluid overload - no suspicion of heart failure from cardiology notes. (3) Laceration of right hand: No cellulitis or infected areas. No requirement for antibiotics at this time. 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 No NSAIDs due to KAPIL. Prednisone 40mg given day of admission. Will continue on 20mg and slowly taper as able. (6) Neutrophilia: Appears to be elevated since 2018. Suspect secondary to chronic inflammatory state given neutrophil predominance. Outpatient hematology workup recommended. (7) Iron deficiency anemia: Hemoglobin iron deficit (mg) = 100.9 kg x (14 - 8.9) x (2.145) (mg) = approx. 1100mg Venofer 200mg doses x6 to be given. Will wait for renal function to improve before giving first dose of this. Ferritin WNL although also in chronic inflammatory state therefore I do not suspect this reflects his true iron stores. (8) CAD (coronary artery disease): ASA, atenolol, atorvastatin (9) DVT prophylaxis: Heparin 5000 units SQ BID Admission and Anticipated Discharge Date Admission Date: November 04, 2019 Continue PT/OT Discharge dependant on continued improvement of renal function at least close back to his baseline. Subjective Patient reports mild improvement in his joint pains this morning especially his ankle. Asking when he can go home. Difficult for him to understand severity of renal failure. No change in urine frequency, smell, dysuria. Unfortunately unable to meet up with his daughter on the [place] today despite multiple attempts and called but no-one picked up. Summary: He has had a significant decline since I saw him last back in July. At that time he had a table saw injury to his left hand. Developed cellulitis, treated with ceftriaxone and keflex -> levaquin as outpatient, went to ER as his feet started to swell and he had purulent drainage from the stitches from the ER. He was taken to the OR for washout by Dr Escalante -> cultured coag negative staph. Dr Foote saw him on this visit and noted chronic venous insufficiency probably causing leg swelling and trial of lasix actually made his renal function worse Cr 1.46->2.03, improved to 1.63 on discharge. After talking to his daughter I diagnosed him with unspecified (but probable gout) acute inflammatory arthritis and treated him with colchicine and prednisone as he had a strange history of multiple joint flare ups treated with antibiotics and it was unclear if these truly helped. He improved with prednisone but colchicine 0.6mg BID caused nausea and diarrhea. He returned in August for finger amputation due to worsening erythema, warmth and pain of the incision site. His renal function improved on this admission. He was seen by our group as a medical consult and again treated for gout flare with prednisone. [facility] records not available for review but I understand he was treated for gout ?1 week of steroids on Oct 09 by his PCP. This improved his symptoms temporarily but he gets worse whenever they are stopped. More recently he was started on keflex and bactrim empirically (no cellulitis) on the ER visit on 19 October after right hand planar injury. I suspect this caused his worsening renal function when admitted on with fever and altered mental state. He was not discharged on antibiotics from the discharge summary but his daughter thinks he was told to continue all his prior medications. His daughter took that to mean including the keflex and bactrim therefore he has been on this up until this admission. His chlorthalidone and lisinopril were held during his last admission and Cr stable around 1.7 but these were restarted on discharge. With regards to his renal function he is under Dr Angel dillard in June and thought to be secondary to chronic NSAID use therefore this was stopped. This appeared to help his renal function however in hindsight he was clearly treating his pseudogout and stopping the NSAIDs appears to be the start of his chronic severe joint degeneration. Review of Systems Review of Systems: All systems reviewed & are unremarkable except as noted in HPI & below Physical Exam Constitutional: well developed; no acute distress Eyes: + anicteric sclerae; normal pupil size ENMT: external ear and nose normal, oropharynx normal Neck: trachea midline, no thyromegaly Respiratory: normal respiratory effort, lungs clear to auscultation Cardiovascular: Rate/Rhythm: regular rate and regular rhythm Heart Sounds: no murmur Vessels: no JVD Extremities: normal capillary refill and + pedal edema (2+ up to mid thighs); no calf tenderness Gastrointestinal (Abdomen): Inspection/Auscultation: + abdomen distended and normal bowel sounds Percussion/Palpation: abdomen soft; abdomen nontender, no guarding and abdomen not rigid Musculoskeletal: No cellulitis surrounding lacerations on right hand which appear to be healing. Significant pain and swelling of left wrist with numbness in 3-5th fingers. Skin: No cellulitis surrounding healing scabs on left hand. No change in multiple joint effusions of wrists, knees and ankles b/l Neurologic: awake Motor/Sensory: + sensory deficit (3th-5th left fingers) Psychiatric: A+Ox3, euthymic affect Lymphatic: no cervical or axillary lymphadenopathy Results & Data ([facility]) Vital Signs (Past 12 Hours) Vital Signs Temp Pulse Resp BP Pulse Ox 11/05/19 19:16 36.7 C 71 20 156/66 H 96 11/05/19 11:52 36.6 C 69 18 150/68 H 97 PG Care Time/CCT Total # of Minutes Spent Total Time Spent with Patient: Total time spent is greater than 50% in coordination of care (as documented) at patient's floor/unit and/or counseling patient: Coding Level of Care Code 18304 Subseq Hosp Care Lvl 3 Diagnoses Hyperkalemia E87.5 KAPIL (acute kidney injury) N17.9 Laceration of right hand S61.411D Encounter type: subsequent encounter Foreign body presence: without foreign body Chronic kidney disease N18.3 Chronic kidney disease stage: stage 3 (moderate) Chronic tophaceous gout [id number] Neutrophilia D72.9 Iron deficiency anemia D50.9 Iron deficiency anemia type: unspecified iron deficiency CAD (coronary artery disease) I25.10 Associated angina: without angina Coronary Disease-Associated Artery/Lesion type: [place] artery [place] vs. transplanted heart: [place] heart DVT prophylaxis Z29.9 (1) CAD (coronary artery disease) Associated angina: without angina Coronary Disease-Associated Artery/Lesion type: [place] artery [place] vs. transplanted heart: [place] heart Qualified Code (s): I25.10 - Atherosclerotic heart disease of [place] coronary artery without angina pectoris (2) Chronic kidney disease Chronic kidney disease stage: stage 3 (moderate) Qualified Code(s): N18.3 - Chronic kidney disease, stage 3 (moderate) (3) Iron deficiency anemia Iron deficiency anemia type: unspecified iron deficiency Qualified Code(s): D50.9 - Iron deficiency anemia, unspecified (4) Laceration of right hand Encounter type: subsequent encounter Foreign body presence: without foreign body Qualified Code(s): S61.411D - Laceration without foreign body of right hand, subsequent encounter
[2019-11-06] MEDS: SODIUM CHLORIDE 0.45 % 1,000 ML IV SCH ×3 (06:41→20:42)
[2019-11-06] MEDS: ATORVASTATIN 40 MG TAB PO SCH (08:28)
[2019-11-06] MEDS: ATENOLOL 50 MG TABLET PO SCH (08:28)
[2019-11-06] MEDS: ASPIRIN 81 MG ECTAB PO SCH (08:29)
[2019-11-06] MEDS: PANTOprazole 40 MG TAB PO SCH (08:29)
[2019-11-06] MEDS: predniSONE 5 MG TAB PO SCH (08:30)
[2019-11-06] MEDS: SODIUM POLYSTYRENE SULFONATE 15G/60ML SUSP PO SCH ×2 (08:31→13:10)
[2019-11-06] MEDS: HEPARIN SOD 5,000 UNIT/0.5 ML VIAL SQ SCH ×2 (08:37→20:38)
[2019-11-06 08:53] LABS: Basophils # (auto) 0.01 K/uL (0-0.2); Basophils % (auto) 0.1 %; Eosinophils # (auto) 0.01 K/uL (0-0.5); Eosinophils % (auto) 0.1 %; Hematocrit (blood only) 25.8 % (42-52); Hemoglobin 8.3 g/dL (14.0-18.0); Immature Granulocytes # (auto) 0.23 K/uL (0.00-0.02); Immature Granulocytes % (auto) 1.9 %; Lymphocytes # (auto) 0.89 K/uL (1.2-3.4); Lymphocytes % (auto) 7.2 %; Mean Corpuscular Hemoglobin 28.2 pg (25-34); Mean Corpuscular Hgb Conc 32.2 g/dL (32-36); Mean Corpuscular Volume 87.8 fL (80-100); Mean Platelet Volume 9.3 fL (7.4-10.4); Monocytes # (auto) 2.48 K/uL (0.11-0.59); Monocytes % (auto) 20.2 %; Neutrophils # (auto) 8.66 K/uL (1.4-6.5); Neutrophils % (auto) 70.5 %; Platelet Count 394 K/uL (130-400); RDW Standard Deviation 54.8 fL (36.4-46.3); Red Blood Count 2.94 M/uL (4.7-6.1); White Blood Count 12.28 K/uL (4.8-10.8)
[2019-11-06 09:34] LABS: Albumin Globulin Ratio 0.9 (0.9-2); Albumin Level 2.9 gm/dl (3.4-5.0); BUN Creatinine Ratio 26.7 (10-20); Bilirubin,Total 0.4 mg/dl (0.2-1); C Reactive Protein 2.95 mg/dl (0-0.29); Calcium 8.8 mg/dl (8.5-10.1); Creatinine Clr Calc Pharmacy 40.3 ml/min; Est GFR (African American) 45.5; Est GFR (Non-African American) 39.3; Globulin 3.2 gm/dl (2.5-4.0); Potassium 4.3 mmol/L (3.5-5.1); Total Protein 6.1 gm/dl (6.4-8.2)
[2019-11-06] MEDS ORDERED: IRON SUCROSE 200 MG in 0.9 % SODIUM CHLORIDE 100 ML IV ONE (15:00)
[2019-11-06] MEDS: ROPINIROLE HCL 1 MG TABLET PO SCH (20:39)
[2019-11-06] MEDS: allopurinoL 300 MG TAB PO SCH (20:39)
[2019-11-06] MEDS: TERAZOSIN HCL 5 MG CAP PO SCH (20:40)
--- NOTE | 2019-11-07 00:43 | Hospitalist Progress Note ---
Date of Service November 06, 2019 Assessment & Plan (1) Hyperkalemia: Secondary to KAPIL and lisinopril use Improved with Kayexalate (can now be d/c as having diarrhea) and insulin/dextrose given yesterday. Continue to monitor with daily BMP (2) KAPIL (acute kidney injury): Improving daily Non-oligoanuric. Partly due to decreased Cr clearance with Bactrim therefore artificially raising Cr through reduced secretion UA normal therefore less suspicion of ATN but possible AIN related to Keflex use Suspect also pre-renal from chlorthalidone use and dehydration US KUB unremarkable Baseline Cr 1.01 Continue 0.5NSS 125ml/hr - no evidence of pulmonary edema or fluid overload - no suspicion of heart failure from cardiology notes. Can likely be d/c tomorrow. (3) Laceration of right hand: No cellulitis or infected areas. No requirement for antibiotics at this time. (4) Chronic kidney disease: as above for KAPIL (5) Iron deficiency anemia: Hemoglobin iron deficit (mg) = 100.9 kg x (14 - 8.9) x (2.145) (mg) = approx. 1100mg Venofer 200mg doses x6 to be given. First dose given 11/06. Plan for every 2 days while here FOB negative. ?chronic inflammatory state interfering with iron homoeostasis Ferritin WNL although also in chronic inflammatory state therefore I do not suspect this reflects his true iron stores. 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 No need to hold chronic allopurinol - the dose should not be changed in acute gout episodes however there is no evidence of acute flare rather he has severe degeneration from chronic gout which should also be treated with prednisone and colchicine (once renal function improves. No NSAIDs due to KAPIL. Prednisone 40mg given day of admission. Will continue on 20mg and slowly taper as able. I believe he is improving on this although difficult to get a straight answer from the patient. CRP improving. Below diagnoses of wrist all suspect secondary to chronic gout - no intervention required at this time; known to ortho. 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 Suspect secondary to chronic inflammatory state given neutrophil predominance. Outpatient hematology workup recommended. (12) CAD (coronary artery disease): ASA, atenolol, atorvastatin (13) Peripheral edema: Venous insufficiency and gout. Despite elevated BNP I suspect this is renal related as no other symptoms signs of heart failure. He may benefits from GAVINO hose once inflammation adequately treated. (14) Hypertension: Discontinued lisinopril and chlorthalidone in setting of KAPIL above. Do not wish to replace with Ca channel naheed to avoid worsening peripheral edema. May be able to re-introduce lisinopril alone if Cr returns to baseline. Thiazides will increase uric acid therefore do not wish to re-introduce this. (15) DVT prophylaxis: Heparin 5000 units SQ BID Admission and Anticipated Discharge Date Admission Date: November 04, 2019 Continue PT/OT Continued Cr improvement but no close enough to baseline. Subjective He is unclear with me whether his joint pains are getting better, he does note his left wrist is still swollen. He reports trying to stay off his ankles and walking as little as possible because of the gout. He had a bad left knee pain last night which he kept moving his leg and eventually it went away. Having diarrhea secondary to the Kayexalate. Discussed care over the phone with his daughter with permission from the patient. She was concerned about him missing his hematology appointment. His WBC has been elevated since 2018, fluctuates wildly (mainly with infections) and is neutrophil predominant therefore I do not see a reason he requires an inpatient hematology visit. Updated daughter over the phone and she was pleased with care he is getting. Review of Systems Review of Systems: All systems reviewed & are unremarkable except as noted in HPI & below Physical Exam Constitutional: well developed and + obese; no acute distress Eyes: + anicteric sclerae; normal pupil size ENMT: external ear and nose normal, oropharynx normal Mouth: + poor dentition Neck: trachea midline, no thyromegaly Respiratory: normal respiratory effort, lungs clear to auscultation Cardiovascular: Rate/Rhythm: regular rate and regular rhythm Heart Sounds: no murmur Vessels: no JVD Extremities: normal capillary refill and + pedal edema (2+ up to mid thighs); no calf tenderness Gastrointestinal (Abdomen): Inspection/Auscultation: + abdomen distended and normal bowel sounds Percussion/Palpation: abdomen soft; abdomen nontender, no guarding and abdomen not rigid Musculoskeletal: No change in joint effusions in knees and wrists. Skin: no rashes, warm and dry Neurologic: awake Motor/Sensory: + sensory deficit (left ulna nerve distribution in left wrist) Psychiatric: A+Ox3, euthymic affect [facility] & [facility] ([facility]) Vital Signs (Past 12 Hours) Vital Signs Temp Pulse Pulse Resp BP Pulse Ox 11/07/19 00:13 72 11/06/19 23:54 36.4 C L 64 20 156/83 H 96 11/06/19 19:47 36.7 C 69 18 158/66 H 97 11/06/19 17:56 72 11/06/19 15:53 36.6 C 79 18 173/73 H 97 11/06/19 14:17 96 PG Care Time/CCT Total # of Minutes Spent Total Time Spent with Patient: Total time spent is greater than 50% in coordination of care (as documented) at patient's floor/unit and/or counseling patient: Coding Level of Care Code 23346 Subseq Hosp Care Lvl 3 Diagnoses Hyperkalemia E87.5 KAPIL (acute kidney injury) N17.9 Laceration of right hand S61.411D Encounter type: subsequent encounter Foreign body presence: without foreign body Chronic kidney disease N18.3 Chronic kidney disease stage: stage 3 (moderate) Iron deficiency anemia D50.9 Iron deficiency anemia type: unspecified iron deficiency Chronic tophaceous gout M1A.9XX1 SLAC (scapholunate advanced collapse) wrist M19.131 Laterality: right DISI (dorsal intercalated segment instability) M25.331 Laterality: right VISI (volar intercalated segment instability) M25.331 Laterality: right Ulnar neuropathy at wrist G56.22 Laterality: left Neutrophilia D72.9 CAD (coronary artery disease) I25.10 Coronary Disease-Associated Artery/Lesion type: [place] artery [place] vs. transplanted heart: [place] heart Associated angina: without angina Peripheral edema R60.9 Hypertension I10 Hypertension type: essential hypertension DVT prophylaxis Z29.9 (1) Laceration of right hand Encounter type: subsequent encounter Foreign body presence: without foreign body Qualified Code(s): S61.411D - Laceration without foreign body of right hand, subsequent encounter (2) Chronic kidney disease Chronic kidney disease stage: stage 3 (moderate) Qualified Code(s): N18.3 - Chronic kidney disease, stage 3 (moderate) (3) Iron deficiency anemia Iron deficiency anemia type: unspecified iron deficiency Qualified Code(s): D50.9 - Iron deficiency anemia, unspecified (4) CAD (coronary artery disease) Coronary Disease-Associated Artery/Lesion type: [place] artery [place] vs. 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
[2019-11-07] MEDS: SODIUM CHLORIDE 0.45 % 1,000 ML IV SCH (05:46)
[2019-11-07] MEDS: PANTOprazole 40 MG TAB PO SCH (08:19)
[2019-11-07] MEDS: ATORVASTATIN 40 MG TAB PO SCH (08:19)
[2019-11-07] MEDS: ATENOLOL 50 MG TABLET PO SCH (08:19)
[2019-11-07] MEDS: ASPIRIN 81 MG ECTAB PO SCH (08:20)
[2019-11-07] MEDS: predniSONE 5 MG TAB PO SCH (08:20)
[2019-11-07] MEDS: HEPARIN SOD 5,000 UNIT/0.5 ML VIAL SQ SCH (08:23)
[2019-11-07 10:26] LABS: Hematocrit (blood only) 25.5 % (42-52); Hemoglobin 8.3 g/dL (14.0-18.0); Mean Corpuscular Hemoglobin 28.8 pg (25-34); Mean Corpuscular Hgb Conc 32.5 g/dL (32-36); Mean Corpuscular Volume 88.5 fL (80-100); Mean Platelet Volume 9.2 fL (7.4-10.4); Platelet Count 410 K/uL (130-400); RDW Coefficient of Variation 16.9 % (11.5-14.5); RDW Standard Deviation 54.9 fL (36.4-46.3); Red Blood Count 2.88 M/uL (4.7-6.1)
[2019-11-07 10:55] LABS: BUN Creatinine Ratio 26.6 (10-20); Calcium 8.1 mg/dl (8.5-10.1); Creatinine Clr Calc Pharmacy 57.5 ml/min; Est GFR (African American) 69.3; Est GFR (Non-African American) 59.8; Potassium 3.7 mmol/L (3.5-5.1)
[2019-11-07 10:56] LABS: C Reactive Protein 1.43 mg/dl (0-0.29)
[2019-11-07] MEDS ORDERED: AMLODIPINE BESYLATE 5 MG TAB PO ONE (11:53)
[2019-11-07] MEDS ORDERED: COLCHICINE 0.6 MG TAB PO ONE (12:00)
[2019-11-07] MEDS ORDERED: IRON SUCROSE 200 MG in 0.9 % SODIUM CHLORIDE 100 ML IV SCH (12:30)
[2019-11-07] MEDS ORDERED: FUROSEMIDE 20 MG TAB PO STA (14:14)
--- NOTE | 2019-11-07 14:20 | Discharge Summary ---
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 Mr. Vela reports that he was in his usual state of health with some diffuse achiness due to his pseudogout but otherwise feeling well when he presented to his PCPs office today for follow-up labs. He was recently admitted to the hospital and was discharged on 10/29/2019 for a right hand laceration with tendon involvement concerning for cellulitis versus osteomyelitis, and was ultimately felt to be cellulitic in origin and for which she was discharged on a course of Bactrim. He developed hyperkalemia to 5.8 and an acute kidney injury with a creatinine of 2.76 and was referred to the emergency department for further care. His creatinine at discharge on 10/29 was 1.78. He reports he feels well today, and notes that his joints particularly at the bases of his toes, wrists, and hand metacarpals bilaterally are achy consistent with a pseudogout flare that he has experienced in the past but that due to his kidney injury he cannot take NSAIDs. He is not having any chest pain, chest pressure, fever, chills, sweats. He reports he continues to have good movement in his right hand and thinks that it is healing well. He is hungry. No nausea/vomiting. No diarrhea. He has swelling in his legs bilaterally at baseline which feel normal, or even a little less than normal for him since he has had his feet up before today seen at the bedside with his family. Medical history: Reviewed in EMR, no changes Surgical history: Reviewed in EMR, no changes Allergies: Reviewed in EMR, no changes (allergic to chlorhexidine) Social: Lives at home with his son and daughter. No tobacco use. Rare alcohol use, no recreational drug use. CODE STATUS: Full code Admission Exam Per Admitting Provider General: Alert and oriented x3. No acute distress. Cooperative. HEENT: Atraumatic, normocephalic. Pulm: CTAB A&P. Bibasilar crackles without rales. -wheezes, -rhonchi. Symmetrical chest rise. No increase work of breathing. No respiratory distress. Cardiac: RRR, -mrg. Radial pulses intact and symmetrical. Abdominal: Nontender, nondistended, soft. BS present. Extremities: Left hand with second digit amputation at the MCP, well-healed. Right hand with repaired laceration covering the third and fourth dorsal aspect of the hand most prominent over the MCP and PIP. Sensation in all 5 fingertips intact, multimedia editor strength 4+/5, no warmth, minimal erythema with no purulence. Radial pulses intact bilaterally. No pain on flexion/extension of the fingers. Legs with sensation is soft touch intact in the feet bilaterally, 2+ edema to the mid calf bilaterally without erythema or venous stasis changes. Principal Diagnosis Acute renal injury Elevated potassium Chronic tophaceous gout arthritis Iron deficient anemia Discharge Exam Constitutional well developed and + obese; no acute distress Eyes + anicteric sclerae; normal pupil size ENMT external ear and nose normal, oropharynx normal Mouth: + poor dentition Neck trachea midline, no thyromegaly Respiratory normal respiratory effort, lungs clear to auscultation Cardiovascular Rate/Rhythm: regular rate and regular rhythm Heart Sounds: no murmur Vessels: no JVD Extremities: normal capillary refill and + pedal edema (2+ to knees b/l, improved throughout admission despite IV fluids); no calf tenderness Gastrointestinal (Abdomen) Inspection/Auscultation: + abdomen distended and normal bowel sounds Percussion/Palpation: abdomen soft; abdomen nontender, no guarding and abdomen not rigid Musculoskeletal Moderately improved joint effusions in his left knee and wrist. Mild improvement in b/l ankle effusions Skin no rashes, warm and dry Neurologic awake Motor/Sensory: + sensory deficit (left ulna nerve distribution in left wrist) Psychiatric A+Ox3, euthymic affect Lymphatic no cervical or axillary lymphadenopathy Discharge Data Allergies Allergy/AdvReac Type Severity Reaction Status Date / Time chlorhexidine Allergy Intermediate Rash Verified 11/03/19 19:54 Consultations 11/03/19 22:47 ED Decision to Admit Stat Ordered Studies 11/05/19 11:00 US renal/blad retro comp HISTORY: Renal insufficiency KAPIL COMPARISON: 05/21/2018 FINDINGS: Right kidney: Maximum dimension 11.9 cm. No evidence for hydronephrosis. Normal corticomedullary differentiation and cortical thickness. Left kidney: Maximum dimension 11.5 cm. No evidence for hydronephrosis. 9 mm nonobstructing midpole cortical calcification. Normal corticomedullary differentiation and cortical thickness. Bladder: No bladder wall thickening. The bilateral ureteral jets were identified. IMPRESSION: 1. Nonobstructing 9 mm cortical calcification mid aspect of kidney. 2. Otherwise negative renal ultrasound. Hospital Course (1) Hyperkalemia: Jose D Villatoro is an 84 year old male admitted to [facility] from November 04 to 2019 due to worsening renal function and elevated potassium on outpatient labs. This was likely due to a combination of Bactrim (elevation of Cr without true kidney problem), lisinopril (causing hyperkalemia) and chlorthalidone (causing dehydration). Renal US showed no anatomical obstruction. He improved with slow IV fluids and stopping Bactrim, Keflex, lisinopril and chlorthalidone. His Cr now back to baseline at the start of October. Chlorthalidone discontinued due to gout and suspected dehydration. Lisinopril also stopped due to hyperkalemia but suspected can be restart on follow up visit if his HTN remains elevated. He was started on Lasix for HTN (alternative would be amlodipine but given chronic venous insufficiency likely to make this worse. With repeat labs next week to make sure Cr stable (1.13 on discharge). Incidentally noted to be progressively slowly anemia. Iron sats 6%. Hemoglobin iron deficit (mg) = 100.9 kg x (14 - 8.9) x (2.145) (mg) = approx. 1100mg Venofer 200mg doses x6 to be given. x2 Venofer 200mg given while admitted on 11/06 and 11/07. Fecal occult blood negative. Suspect due to abnormal iron homoeostasis in chronic inflammatory state but would consider GI referral if patient is amenable. He was also noted to have chronic tophaceous gout (confirmed with pathology of amputated finger with birefringent crystals). He may also have pseudogout (as per prior hand CT however this hasn't been confirmed on fluid analysis). This has caused severe destruction of multiple joints, tissues and tendons (some of the conditions of which are listed as diagnoses below). His gout is at the chronic tophaceous stage and causing constant ongoing inflammation rather than acute flares. He was unwittingly partially treating this without knowing using Aleve up until June 2019 when advised to stop NSAIDs by Dr Ortiz due to worsening CKD. His decline with joint inflammation has been severe since then and since I last saw him in July the destruction in his joints has been quite substantial. He has only been on intermittent steroids since then which improves his symptoms up he comes off of them. I prescribed him 0.6mg colchicine BID back in July but I understand this caused him diarrhea. Recommend treating with the chronic steroids at the lowest dose that controls his inflammation. He was given a slow tapering dose on discharge and recommended he call his PCP if his symptoms come return as he weans down. He was also started on a lower dose of colchicine given prior side effects and this should be slowly up titrated as able. Recommend continuing to increase allopurinol as able to lower uric acid levels; currently decreased from 10 in September to 7.5 currently. He may also need occasional burst if his joints flare up although it is difficult to know given severity whether this represents ongoing crystal deposition or bone-bone friction causing inflammation at this severity. I suspect his chronically elevated WBC which is mainly neutrophilia is due to his chronically inflamed joints due to gout as above but recommended rescheduling your hematology appointment to be sure of this. 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 He had copious IV fluids on this admission without any significant pulmonary edema or worsening peripheral edema. In fact his peripheral edema actually improved as likely combination of gouty arthritis (treated with steroids) and venous insufficiency. He was advised to use stockings to help with the venous insufficiency now his ankle pain is significantly improved on prednisone. He was advised to keep his appointment with Dr Rodriguez but inform the clinic to change this to hospital follow up. 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: (11) Neutrophilia: (12) CAD (coronary artery disease): (13) Peripheral edema: (14) Hypertension: Total Time Total Time Spent Total Time Spent (In Minutes): 50 Total Time Includes: Examination of the Patient, Discharge Planning and Medic ation Reconciliation Discharge Plan Discharge Items Patient Disposition: Home - Home Health Services Reason For Visit: HYPERKALEMIA, KAPIL Discharge Diagnosis: Acute renal injury Elevated potassium Chronic tophaceous gout arthritis Iron deficient anemia Condition on Discharge: Fair Activity: Resume your previous activity Non-emergency contact: Primary Care Provider Call non-emergency contact if: you have any medication questions and your symptoms worsen Follow-up/Referrals: Jacqueline Vivas MD [Primary Care Provider] - Diet: Heart Healthy Ambulatory Orders: Basic Metabolic Panel (Routine) Timeframe: 20191111 Location: Determined by Patient Ordered By: Noe Nichols Complete Blood Count with Diff (Routine) Timeframe: 20191111 Location: Determined by Patient Ordered By: Noe Nichols Addtl Attending Provider Instructions: You were admitted to [facility] from November 04 to 2019 due to worsening renal function and elevated potassium. This was likely due to a combination of Bactrim, lisinopril (causing elevated potassium) and chlorthalidone (causing dehydration). Ultrasound of your kidneys showed no anatomical obstruction. You renal function improved with intravenous fluids and stopping the offending medication. Your renal function is now back to your baseline from October 19. Chlorthalidone discontinued due to gout and suspected dehydration. Lisinopril also stopped due to high potassium but may be restarted at your primary care appointment iif required for your blood pressure. You were started on Lasix as a substitute for your blood pressure, this can also make you dehydrated therefore please repeat your lab tests as ordered with results to your primary care physician for follow up. Please call you primary care provider if you feel faint taking this medication. In addition you were incidentally noted to be significantly anemic although this was relatively stable during your admission. Iron studies showed severe deficiency therefore this was treated with intravenous iron transfusions which I would recommended are continued as an outpatient - to be discussed with your primary care physician. Please discuss further investigative workup for this if felt necessary with your primary care physician. You have gout (as confirmed with pathology of your finger) and possibly pseudogout (seen changes consistent with this on right hand CT) causing severe destruction of multiple joints, tissues and tendons. This is on a chronic basis known as tophaceous gout causing ongoing inflammation rather than acute flare ups. It appears you were unwittingly partially treating this without knowing with Aleve up until June 2018 when you were advised to stop this due to worsening renal function. It appears this is when your joint pains/swelling significantly became worse. Unfortunately it has only been intermittently treated since then with steroids but then gets worse after stopping. Recommend you are treated with the chronic steroids at the lowest dose that controls your inflammation. Hopefully steroids can be completely weaned off in the future - if colchicine can be slowly up titrated (as long as you are not having diarrhea) and allopurinol slowly increased (to lower uric acid levels). Allopurinol is working and your levels have decreased from 10 to 7.5 now. I suspect your chronic elevated white blood count which mainly consists of neutrophils is secondary to your chronic inflammatory state due to severe gout but recommend rescheduling your hematology appointment to be sure of this. Of note despite IV fluids given for multiple days you developed no symptoms or signs of heart failure. 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 You edema in your legs appears to be on the basis of venous insufficiency and gout. Kind regards, Dr Noe Nichols Pending Studies at Discharge: No Stand-Alone Forms: My [facility] Active Tax & Accounting, Smoking Cessation Medications and DC Order Prescriptions: New prednisone 5 mg Tablet See Rx Instructions .ROUTE .COMPLEX Qty: 56 RF: 0 colchicine 0.6 mg tablet 0.3 mg PO DAILY Qty: 30 RF: 0 furosemide [Lasix] 20 mg tablet 20 mg PO DAILY Qty: 30 RF: 0 Continued atenolol [Tenormin] 50 mg tablet 50 mg PO QAM RF: 0 ropinirole 4 mg tablet 4 mg PO HS RF: 0 aspirin 81 mg Tablet,Delayed Release (Dr/Ec) 81 mg PO QAM RF: 0 terazosin 5 mg capsule 5 mg PO HS RF: 0 allopurinol [Zyloprim] 100 mg tablet 100 mg PO TID RF: 0 atorvastatin 40 mg tablet 80 mg PO QAM RF: 0 pantoprazole 20 mg tablet,delayed release (DR/EC) 20 mg PO QAM RF: 0 ketoconazole 2 % cream 1 applic TOPICAL DAILY PRN (Reason: Fungal infection) Qty: 0 RF: 0 Changed tramadol [Ultram] 50 mg tablet 50 mg PO Q12H PRN (Reason: Pain) Qty: 0 RF: 0 Discontinued meclizine [Dramamine Less Drowsy] 25 mg tablet 25 mg PO Q6H PRN (Reason: Dizziness) RF: 0 lisinopril [Zestril] 20 mg tablet 20 mg PO QAM RF: 0 chlorthalidone 25 mg tablet 25 mg PO QAM RF: 0 Discharge Orders: Discharge Order (Routine); Ordered 11/07/19 Ordered By: Noe Nichols Admission Data Admit Date/Time: 11/04/19 00:34 Attending Provider: Noe Nichols Admit Provider: Martin Ward Primary Care Provider: Jacqueline Vivas Other Providers: Raúl Desai ; [facility] Other Interventions: Discharge Summary Assessment (RN) Last Done: 11/07/19 14:26 DC Date/Time DO NOT enter until pt leaves facility: 11/07/19 15:14 Coding Level of Care Code D/C Day Management >30 mins Diagnoses Hyperkalemia E87.5 KAPIL (acute kidney injury) N17.9 Laceration of right hand S61.411D Encounter type: subsequent encounter Foreign body presence: without foreign body Chronic kidney disease N18.3 Chronic kidney disease stage: stage 3 (moderate) Iron deficiency anemia D50.9 Iron deficiency anemia type: unspecified iron deficiency Chronic tophaceous gout [id number] SLAC (scapholunate advanced collapse) wrist M19.131 Laterality: right DISI (dorsal intercalated segment instability) M25.331 Laterality: right VISI (volar intercalated segment instability) M25.331 Laterality: right Ulnar neuropathy at wrist G56.22 Laterality: left Neutrophilia D72.9 CAD (coronary artery disease) I25.10 Associated angina: without angina Coronary Disease-Associated Artery/Lesion type: [place] artery [place] vs. transplanted heart: [place] heart Peripheral edema R60.9 Hypertension I10 Hypertension type: essential hypertension
== END 2019-11-07 15:14 | disposition home health service (06) | DRG 683 ==
LOC: ED 19:03 → 2W 11-04 00:34 → SUATTDRO 11-04 00:34 → 2W 11-04 01:00

== ENCOUNTER 2021-06-27 12:42 | Observation (INO) ==
[2021-06-27 14:47] LABS: Hematocrit (blood only) 36.9 % (42-52); Hemoglobin 11.5 g/dL (14.0-18.0); Mean Corpuscular Hemoglobin 28.3 pg (25-34); Mean Corpuscular Hgb Conc 31.2 g/dL (32-36); Mean Corpuscular Volume 90.9 fL (80-100); Mean Platelet Volume 11.3 fL (7.4-10.4); Platelet Count 314 K/uL (130-400); RDW Coefficient of Variation 17.9 % (11.5-14.5); RDW Standard Deviation 59.8 fL (36.4-46.3); Red Blood Count 4.06 M/uL (4.7-6.1); White Blood Count 33.62 K/uL (4.8-10.8)
[2021-06-27 14:52] LABS: Alanine Aminotransferase 27 U/L (12-78); Albumin Level 3.4 gm/dl (3.4-5.0); Aspartate Aminotransferase 23 U/L (15-37); BUN Creatinine Ratio 11.5 (10-20); Blood Urea Nitrogen 14 mg/dl (7-18); Calcium 8.6 mg/dl (8.5-10.1); Carbon Dioxide 26 mmol/L (21-32); Chloride 109 mmol/L (98-107); Est GFR (African American) 61.1 ml/min; Est GFR (Non-African American) 52.7 ml/min; Glucose 165 mg/dl (70-99); Potassium 3.9 mmol/L (3.5-5.1); Sodium 141 mmol/L (136-145)
[2021-06-27 14:53] LABS: ANC (manual) 26.43 K/uL (1.4-6.5); Acanthocytes 1+; Echinocytes 1+; Eosinophils # (manual) 1.45 K/uL (0-0.5); Eosinophils % (manual) 4.3 %; Lymphocytes % (manual) 0.9 %; Monocytes # (manual) 2.86 K/uL (0.11-0.59); Monocytes % (manual) 8.5 %; Myelocytes # (manual) 2.59 K/uL (0-0); Myelocytes % (manual) 7.7 %; Neutrophils # (manual) 26.43 K/uL (1.4-6.5); Neutrophils % (manual) 78.6 %
[2021-06-27 14:54] LABS: Albumin Globulin Ratio 0.9 (0.9-2); Alkaline Phosphatase 130 U/L (45-117); Bilirubin,Total 0.6 mg/dl (0.2-1); Globulin 3.6 gm/dl (2.5-4.0)
[2021-06-27 16:28] LABS: Partial Thromboplastin Ratio 1.1; Partial Thromboplastin Time 30.1 Seconds (21.0-31.0); Prothrombin Time 10.5 Seconds (9.0-12.0)
[2021-06-27] MEDS ORDERED: OPTIRAY 320 125ml IV ONE (16:32)
--- NOTE | 2021-06-27 16:56 | CT Scan Report ---
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 TECHNIQUE: Following IV administration of 120 mL of Optiray, helical axial images of the chest were o btained utilizing the pulmonary embolus protocol. Maximal intensity projections and sagittal and cor onal reformats were viewed on an independent 3D workstation. IV contrast was administered without co mplication. Automated exposure control was utilized for the study. A dose lowering technique was ut ilized adhering to the principles of ALARA. CT DOSE: 745.43 mGy.cm FINDINGS: No central pulmonary emboli are identified. The remainder of the pulmonary arteries are costello boptimally assessed due to respiratory motion. There is no thoracic aortic dissection. Moderate cardi omegaly is noted. There is extensive coronary artery calcification. No pericardial effusion is noted. Note is made of extensive left axillary, left retropectoral and left supraclavicular lymphadenopathy . Index left supraclavicular lymph node measures 2.9 cm. Index left axillary lymph node measures 4.3 x 3.3 cm. The adenopathy is partially imaged on this examination. No pneumothorax or pleural effusion is noted. Lungs are suboptimally assessed due to respiratory motion. Groundglass opacities favor ate lectasis. There is no consolidation to suggest pneumonia. Diffuse sclerosis of visualized skeletal st ructures is noted. This is new since abdominal CT of July 25, 2015. There is mild splenomegaly. Th e liver is heterogeneous. There is suggestion of numerous hypodense hepatic lesions which were not pr esent on prior abdominal CT. Several hepatic cysts were noted on prior exam and measure up to 2.4 cm. IMPRESSION: 1. Exam significantly compromised by respiratory motion artifact. No central pulmonary emboli. Remain karmen of pulmonary arteries suboptimally assessed. 2. Extensive left axillary, left retropectoral and left supraclavicular lymphadenopathy. This favors lymphoma/leukemia. Metastatic disease could appear similar although is considered less likely. 3. Heterogeneity of the liver, partially imaged on this exam. Mild splenomegaly. The findings may ref lect hepatic and splenic involvement. 4. Diffuse sclerosis of visualized skeletal structures suggestive of skeletal involvement by leukemia /lymphoma or less likely metastatic disease. ACT 112: Negative or not required by law. Electronically signed by: Brett Snow M.D. 06/27/2021 4:54 PM
--- NOTE | 2021-06-27 18:24 | Ultrasound Report ---
US venous doppler UE LT HISTORY: 86 years-old Male swelling, obstructing mass L axilla acute pain and swelling of the left u pper extremity COMPARISON: Doppler study 06/01/2021, CTA chest 06/27/2021 TECHNIQUE: Multiple real-time sonographic images of the left upper cavity deep venous structures were obtained assessing grayscale appearance, color and spectral flow FINDINGS: Normal flow and phasicity of the upper deep venous structures. Supraclavicular adenopathy redemonstra fabi measuring up to 2.1 x 1.9 x 1.9 cm. The previously described extensive superficial venous thrombi are not identified. IMPRESSION: 1. No deep or superficial venous thrombi identified. 2. Pathologic supraclavicular adenopathy. Please refer to the CTA chest study of same day for additio nal findings. ACT 112: Negative or not required by law. The above report was generated using voice recognition software. It may contain grammatical, syntax o r spelling errors. Electronically signed by: Torsten Freire M.D. 06/27/2021 6:23 PM
[2021-06-27] MEDS ORDERED: traMADol HCL 50 MG TABLET PO PRN (20:52)
[2021-06-27] MEDS ORDERED: rOPINIRole HCL 1 MG TABLET PO SCH (21:00)
--- NOTE | 2021-06-27 21:36 | History & Physical Report ---
Date of Service June 27, 2021 Assessment & Plan (1) Lymphedema of left upper extremity: (2) Leukocytosis: (3) Chronic kidney disease: (4) Chronic tophaceous gout: (5) Dyslipidemia: (6) Hypertension: (7) CAD (coronary artery disease): (8) GERD (gastroesophageal reflux disease): Plan: 86 yo M Hx CAD, CKD, chronic gout/pseudogout on steroid therapy, anemia of chronic disease, GERD, leukocytosis with suspicion for leukemia/lymphoma admitted for worsening LUE lymphedema suspected to be secondary to enlarged axillary lymph node. Leukocytosis, axillary lymphadenopathy, LUE lymphedema: Presents with progressive worsening of LUE swelling as well as enlarging axillary mass that is tender. CBC reveals WBC count that continues to be elevated, today to 33.62. This is overall down from [facility] [place] at which point it was 70,000, however still significantly elevated. Imaging shows extensive left chest lymphadenopathy with suspicion of hepatic/splenic/bone involvement. Patient has refused bone marrow biopsy in the past, again refuses the prospect today, however is amenable to axillary lymph node biopsy. Ultrasound-guided lymph node biopsy ordered. Oncology consult placed as patient and daughter would like to discuss prognosis and options prior to any discussions on palliative care. Consider further imaging to include CTAP, PET scan based on overall goals of patient and family. Chronic pain, gout, pseudogout: History of chronic pain on hydrocodone 10 mg BID scheduled with as needed tramadol 50 mg BID. Patient is also on chronic prednisone therapy. Continue outpatient pain regimen, no acute worsening on admission. CAD, hypertension, hyperlipidemia: BP currently within goal range. Continue home atenolol, atorvastatin, Lasix, aspirin. CKD: Creatinine is currently at baseline at 1.24. GERD: Continue home pantoprazole. 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 Magdaleno with [facility] for worsening swelling and pain of left axillary mass with concurrent worsening of left upper extremity edema. Of note, he was admitted to [facility] in April for septic right shoulder s/p excisional debridement and IV ceftaroline which completed on 05/24/21. He was transitioned to PO doxycycline which completed on 06/23. Per patient and family, a few days after discharge from [facility] his LUE started to get more swollen and has been as such since. He also reported radiating discomfort from the left axillary mass into the left chest. Has been evaluated for concern for leukemia/lymphoma regarding his elevated WBC count in the past, however has refused bone marrow biopsy twice and therefore has not been clarified. Has been described as multifactorial with some element of elevation due to chronic steroid therapy for gout/pseudogout. Also of note, he was sent for a venous Doppler of the left upper extremity in May due to swelling which showed a short segment of occlusive thrombus seen in the basilic vein of the left forearm. Patient lives alone with daughter/son living close-by and checking in on him frequently and at least daily. In the ER patient was noted to be hemodynamically stable. Lab work notable for WBC count of 33.62 with elevation predominantly in neutrophils (but also with elevation in monocytes and eosinophils), hemoglobin 11.5, creatinine 1.24, elevated alk phos to 130. COVID-19 testing negative. Repeat extremity venous study was performed which showed pathologic supraclavicular adenopathy with recommendation for CTA chest. Former superficial venous thrombosis was not visualized. CTA chest showed extensive left axillary, left retropectoral, and left supraclavicular lymphadenopathy favoring lymphoma/leukemia. There is also noted to be heterogeneity of the liver and mild splenomegaly. Lastly, diffuse sclerosis of skeletal structures was suggestive of skeletal involvement. Per patient and daughter, patient is unsure if and what intervention he would be comfortable with with regard to a likely cancer. He would like to speak with oncology and see if the mass under his left axilla can be biopsied to determine source to help with decisions regarding intervention. His complaints at this time are pain in his left axilla area and his chronic pain secondary to his ongoing joint issues. Allergies Allergy/AdvReac Type Severity Reaction Status Date / Time chlorhexidine Allergy Intermediate Rash Verified 06/27/21 15:41 gabapentin AdvReac Intermediate vomiting Verified 06/27/21 15:41 and "spazz out" Home Medications Medication Instructions Recorded Confirmed Type aspirin 81 mg tablet,delayed 81 mg PO QAM 05/07/19 06/27/21 History release atenolol 50 mg tablet (Tenormin) 50 mg PO QAM 05/07/19 06/27/21 History ropinirole 4 mg tablet 4 mg PO HS 05/07/19 06/27/21 History allopurinol 100 mg tablet 100 mg PO TID 10/27/19 06/27/21 History (Zyloprim) terazosin 5 mg capsule 5 mg PO HS 10/27/19 06/27/21 History pantoprazole 20 mg tablet,delayed 20 mg PO QAM 11/03/19 06/27/21 History release ketoconazole 2 % topical cream 1 applic TOPICAL DAILY PRN #0 g 11/07/19 06/27/21 Rx tramadol 50 mg tablet (Ultram) 50 mg PO Q12H PRN #0 tab 11/07/19 06/27/21 Rx prednisone 5 mg tablet 7.5 mg PO QAM tab 02/05/20 06/27/21 History atorvastatin 40 mg tablet 40 mg PO QAM tab 02/16/21 06/27/21 History cholecalciferol (vitamin D3) 25 25 mcg PO QAM 06/27/21 06/27/21 History mcg (1,000 unit) capsule colchicine 0.6 mg tablet 0.3 mg PO QAM 06/27/21 06/27/21 History duloxetine 60 mg capsule,delayed 60 mg PO HS 06/27/21 06/27/21 History release (Cymbalta) furosemide 20 mg tablet (Lasix) 20 mg PO QAM 06/27/21 06/27/21 History hydrocodone bitartrate 10 mg 10 mg PO BID 06/27/21 06/27/21 History capsule, oral only, extended rel 12 hr (Zohydro ER) prednisone 1 mg tablet 2 mg PO QAM 06/27/21 06/27/21 History Past Med/Surg History Medical History (Updated 06/28/21 @ 14:09 by Larry Montalvo DO) CAD (coronary artery disease) Cellulitis of hand, left Dyslipidemia GERD (gastroesophageal reflux disease) High cholesterol HTN (hypertension) Lower extremity edema 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 Surgical History History of cholecystectomy History of lumbar fusion Family History Other No significant family history Social History Smoking Status: Former smoker Second Hand Exposure: No; Do You Dip or Chew Tobacco: No; Hx Alcohol Use: No Hx Substance Use: No Preferred Language: Marshallese Communication Ability: Effective Dynamics Ax Consultant Required: No Beliefs That Will Affect Care: None marital status: / Current Living Situation: Alone Other Information That Helps Us Care for You: No Feels Safe at Home: Yes Assistive Devices: Cane and Walker Review of Systems Review of Systems: All systems reviewed & are unremarkable except as noted in HPI & below Constitutional: no fever, no chills and no malaise Respiratory: no cough and no dyspnea Cardiovascular: + chest pain (left lateral, radiating from left axilla); no palpitations and no edema Gastrointestinal: no abdominal pain, no constipation and no diarrhea/loose stools Physical Exam Constitutional: WD/WN, vitals as above Eyes: PERRL, conjunctivae normal, anicteric sclerae ENMT: external ear and nose normal, oropharynx normal Neck: normal visual inspection Respiratory: normal respiratory effort, lungs clear to auscultation Cardiovascular: RRR, no murmur, no edema Gastrointestinal (Abdomen): normal bowel sounds, soft, nontender, no hepatosplenomegaly Musculoskeletal: Right shoulder ROM significantly decreased as compared to left secondary to recent shoulder surgeries. Has about 20 degrees of motion in abduction. Skin: no rashes, warm and dry Neurologic: AAOx3, normal speech. Hard of hearing. Bilateral UE, LE, and face without sensory or motor deficits. Psychiatric: A+Ox3, euthymic affect Lymphatic: + lymphedema (LUE, pitting; no erythema or tenderness) and + axillary lymphadenopathy (left axilla, 4cm in diametes mass noted, mildly tender to palpation); no cervical lymphadenopathy Results & Data Results & Data ([facility]) Vital Signs (Past 12 Hours) Vital Signs Temp Pulse Pulse Resp BP BP Pulse Ox 06/27/21 20:50 70 21 99 06/27/21 20:40 69 18 99 06/27/21 20:30 70 18 100 06/27/21 20:20 73 23 100 06/27/21 20:10 70 13 96 06/27/21 20:00 72 20 97 06/27/21 19:50 73 16 97 06/27/21 19:40 74 21 96 06/27/21 19:30 69 14 98 06/27/21 19:20 68 14 97 06/27/21 19:10 67 17 97 06/27/21 19:00 70 19 95 06/27/21 18:50 69 18 98 06/27/21 18:40 68 16 96 06/27/21 18:37 69 25 H 06/27/21 17:30 67 14 06/27/21 17:20 65 17 06/27/21 17:10 66 13 06/27/21 17:00 67 15 06/27/21 16:50 66 15 06/27/21 16:40 66 13 06/27/21 16:32 67 18 06/27/21 16:20 65 12 93 06/27/21 16:10 65 13 93 06/27/21 16:00 65 11 L 93 06/27/21 15:50 69 15 93 06/27/21 15:40 66 10 L 91 06/27/21 15:30 66 14 92 06/27/21 15:20 65 9 L 93 06/27/21 15:10 67 11 L 94 06/27/21 15:00 67 18 95 06/27/21 14:54 66 15 95 06/27/21 14:50 65 16 138/59 L 96 06/27/21 12:48 36 C L 75 18 171/71 H 99 Code Status & VTE Plan VTE Prophylaxis Plan VTE Prophylaxis will be ordered: Yes Supervising Physician Co-Signing Physician Notes Attending addendum: I have physically seen this patient, have supervised the medical residents activities, and agree with the H&P unless as otherwise noted. 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 Enlarged liver and spleen Bone involvement Venous Doppler left upper extremity negative for DVT Consult interventional radiology for ultrasound-guided biopsy Consult heme-onc Chronic pain/gout/pseudogout- Continue usual hydrocodone and tramadol as noted CAD/hypertension- Continue atenolol, Lasix and aspirin Remaining orders and notations as noted Resident Activity Tracking Resident Involvement: Resident Care Provided Care Provided: Adult Hospital Medicine (1) CAD (coronary artery disease) Associated angina: without angina Coronary Disease-Associated Artery/Lesion type: [place] artery [place] vs. transplanted heart: [place] heart Qualified Code(s): I25.10 - Atherosclerotic heart disease of [place] coronary artery without angina pectoris (2) Leukocytosis Leukocytosis type: unspecified Qualified Code(s): D72.829 - Elevated white blood cell count, unspecified (3) Chronic kidney disease Chronic kidney disease stage: stage 3 (moderate) Qualified Code(s): N18.3 - Chronic kidney disease, stage 3 (moderate) (4) GERD (gastroesophageal reflux disease) Esophagitis presence: with esophagitis Qualified Code(s): K21.0 - Gastro- esophageal reflux disease with esophagitis (5) Hypertension Hypertension type: essential hypertension Qualified Code(s): I10 - Essential (primary) hypertension
[2021-06-27] MEDS ORDERED: KETOCONAZOLE 2% CR 15 GM TUBE EXT PRN (22:11)
[2021-06-27] MEDS ORDERED: ACETAMINOPHEN 325 MG TAB PO PRN (22:11)
[2021-06-27] MEDS ORDERED: POLYETHYLENE (MIRALAX) 17 GM PACK PO PRN (22:11)
[2021-06-27] MEDS ORDERED: ONDANSETRON INJ 2 MG/ML 2 ML VIAL IV PRN (22:11)
[2021-06-27] MEDS: HYDROcodone/ACETAMINOPHEN 10/325 TAB PO SCH (23:16)
[2021-06-27] MEDS: TERAZOSIN HCL 5 MG CAP PO SCH (23:17)
[2021-06-27] MEDS: allopurinoL 100 MG TAB PO SCH (23:17)
[2021-06-27] MEDS: DULoxetine HCL 60 MG CAP PO SCH (23:18)
--- NOTE | 2021-06-28 06:59 | Hospitalist Progress Note ---
Date of Service June 28, 2021 Assessment & Plan (1) Lymphedema of left upper extremity: Plan: Leukocytosis, axillary lymphadenopathy, LUE lymphedema: Presents with progressive worsening of LUE swelling as well as enlarging axillary mass that is tender. CBC reveals WBC count that continues to be elevated, today to 33.62. This is overall down from [facility] admission at which point it was 70,000, however still significantly elevated. Imaging shows extensive left chest lymphadenopathy with suspicion of hepatic/splenic/bone involvement. Patient has refused bone marrow biopsy in the past, again refuses the prospect today, however is amenable to axillary lymph node biopsy. Ultrasound-guided lymph node biopsy done. Oncology recommended CT abdomen pelvis along with surgical biopsy removal for better tissue specimen. -CT abdomen pelvis showed pathologic left axillary chain adenopathy redemonstrated suspicious for lymphoma. Additional pathologically enlarged periportal lymph nodes are also present, as well as diffuse sclerosis of the imaged osseous structures is suggestive of lymphomatous skeletal disease, and mild splenomegaly with numerous ill-defined hypodense foci throughout the liver are new from 07/25/2015, suggestive of lymphomatous involvement. -Will proceed to surgical removal tomorrow morning and follow up outpatient afterwards. (2) Leukocytosis: Plan: Given CT findings and progression/location of the symptoms more likely a lymphoma type picture. Biopsy will be performed tomorrow as stated above. (3) Chronic kidney disease: Plan: CKD: Creatinine is currently at baseline at 1.24. (4) Chronic tophaceous gout: Plan: Chronic pain, gout, pseudogout: History of chronic pain on hydrocodone 10 mg BID scheduled with as needed tramadol 50 mg BID. Patient is also on chronic prednisone therapy. Continue outpatient pain regimen, no acute worsening on admission. (5) Dyslipidemia: (6) Hypertension: (7) CAD (coronary artery disease): Plan: CAD, hypertension, hyperlipidemia: BP currently within goal range. Continue home atenolol, atorvastatin, Lasix, aspirin. (8) GERD (gastroesophageal reflux disease): Plan: GERD: Continue home pantoprazole. 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 CODE STATUS: DNR/DNI; patient's daughter is his legal POA FEN: Heart healthy, low-sodium diet DVT prophylaxis: Hold chemoprophylaxis in the setting of possible biopsy in the morning of axillary lymph node; SCDs Dispo: Medical floor for evaluation by heme/onc and possible lymph node biopsy Admission and Anticipated Discharge Date Admission Date: June 27, 2021 Supervising Physician Co-Signing Physician Notes I personally examined the patient and verified all dimas points of history and ex am, discussed case, and agree with decision making with Dr Gaona no new complaints. Was about to get CT abdomen pelvis whenever I first saw him, later returned and reviewed CT findings with patient, discussed biopsywill be able to have excisional biopsy tomorrow inpatient versus next week probably as an outpatientto that end he opted to have the biopsy done as an inpatient. Updated his daughter over the phone first at the bedside, and later over the phone by myself with his permission. Vitals noted, in general he is awake and alert pleasant no distress. HEENT normocephalic atraumatic mucous membranes moist. Breathing unlabored no accessory muscle use good effort. Skin shows no rashes no pallor or icterus. Neuro without focal deficits. Leukocytosis, adenopathyhighly probable lymphomaCT scans consistent with lymphoma, biopsy to be done tomorrow (needle aspirate biopsy done earlier today, but hematology felt that an excisional biopsy would be much more useful in diagnostic eval)then probably home tomorrow, close outpatient follow-up with oncology. Otherwise as above. Subjective Patient was seen at bedside this morning. Patient said he was sent by [facility] down in [place] who he had seen yesterday. Has recent swelling of left axillary lymph node that is tender at times. Was on antibiotics from previous infection of right upper extremity where he was hospitalized down in [place], coming off of doxycycline. Patient denies any fevers, chills, shortness of breath, chest pain. Physical Exam Constitutional: WD/WN, vitals as above Eyes: PERRL, conjunctivae normal, anicteric sclerae Respiratory: normal respiratory effort, lungs clear to auscultation Cardiovascular: RRR, no murmur, no edema Gastrointestinal (Abdomen): normal bowel sounds, soft, nontender, no hepatosplenomegaly Musculoskeletal: No weakness of left upper extremity. Lymphatic: + axillary lymphadenopathy (Left sided, lemon sized. No right sided adenopathy palpable. ) No cervical lymphadenopathy palpated. Results & Data Results & Data ([facility]) Vital Signs (Past 12 Hours) Vital Signs Temp Pulse Pulse Resp BP Pulse Ox 06/27/21 22:40 66 153/69 H 06/27/21 22:00 36.7 C 69 18 171/80 H 98 06/27/21 20:50 70 21 99 06/27/21 20:40 69 18 99 06/27/21 20:30 70 18 100 06/27/21 20:20 73 23 100 06/27/21 20:10 70 13 96 06/27/21 20:00 72 20 97 06/27/21 19:50 73 16 97 06/27/21 19:40 74 21 96 06/27/21 19:30 69 14 98 06/27/21 19:20 68 14 97 06/27/21 19:10 67 17 97 06/27/21 19:00 70 19 95 Resident Activity Tracking Resident Involvement: Resident Care Provided Care Provided: Adult Hospital Medicine (1) CAD (coronary artery disease) Associated angina: without angina Coronary Disease-Associated Artery/Lesion type: [place] artery [place] vs. transplanted heart: [place] heart Qualified Code(s): I25.10 - Atherosclerotic heart disease of [place] coronary artery without angina pectoris (2) Leukocytosis Leukocytosis type: unspecified Qualified Code(s): D72.829 - Elevated white blood cell count, unspecified (3) Chronic kidney disease Chronic kidney disease stage: stage 3 (moderate) Qualified Code(s): N18.3 - Chronic kidney disease, stage 3 (moderate) (4) GERD (gastroesophageal reflux disease) Esophagitis presence: with esophagitis Qualified Code(s): K21.0 - Gastro- esophageal reflux disease with esophagitis (5) Hypertension Hypertension type: essential hypertension Qualified Code(s): I10 - Essential (primary) hypertension
--- NOTE | 2021-06-28 08:39 | Consultation Report ---
HEMATOLOGY CONSULTATION DATE OF SERVICE: 06/28/2021. REASON FOR CONSULTATION: Left axillary lymphadenopathy and persistent leukocytosis. HISTORY OF PRESENT ILLNESS: Mr. Jose D Villatoro is a pleasant 86-year-old gentleman who was admitted to [facility]'s Emergency Room with progressive left upper extremity swelling and a xillary lymphadenopathy. This gentleman has been under the care of Dr. Magdaleno, Beatrice Aries [facility] for a worsening swelling and pain of the left axillary mass with concurrent left upper extremit y edema. He apparently was admitted to [facility] in April with septic right shoulder, status pos t excisional debridement and broad-spectrum antibiotics completed in early May of 2021. This g entleman is very familiar with [facility]. I evaluated him around the holidays time in 2019 with persistent leukocytosis. At that time, I did not appreciate evidence of blasts per se; however, he did have a f air amount of metamyelocytes and monocytes present. At that time, he was on chronic steroid therapy for refractory gout. Peripheral smear as well as flow cytometry was done at that time, which did not reveal evidence for emerging hematologic malignancy. Peripheral smear specifically favored leukemoi d reaction. That said, I have not seen him since that time and Mr. Villatoro states over the past cou ple of weeks, he began to notice fullness in the left axillary area. The left arm is exquisitely swo llen and edematous. He denies any pain, but clearly on examination, he has a 4-5 cm left axillary ma ss and is willing to pursue biopsy for formal diagnosis. The patient is not exhibiting B symptoms at this time. I have been asked by the hospitalist service to expedite a diagnosis and make formal elida mmendations for treatment upon confirmation. 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 PAST SURGICAL HISTORY: Includes cholecystectomy and lumbar fusion. MEDICATIONS: Include aspirin 81 mg p.o. daily, atenolol 50 mg p.o. daily, ropinirole 4 mg p.o. at be dtime, allopurinol 100 mg p.o. t.i.d., terazosin 5 mg p.o. at bedtime, Protonix 20 mg p.o. daily, tra madol 50 mg p.o. q.12 hours p.r.n., prednisone 7.5 mg p.o. daily, atorvastatin 40 mg p.o. daily, chol ecalciferol 25 mcg p.o. daily, colchicine 0.3 mg p.o. daily, duloxetine 60 mg p.o. daily, furosemide 20 mg p.o. daily, hydrocodone 10 mg p.o. b.i.d., prednisone 2 mg p.o. q.a.m. FAMILY HISTORY: Noncontributory. SOCIAL HISTORY: The patient is a . He drinks an occasional beer. He is not a cigarette smok er, nor does he chew tobacco. REVIEW OF SYSTEMS: EXTREMITIES: Most notably for left upper extremity swelling and left axillary fullness. CONSTITUTIONAL: No fevers, chills or sweats. He is not anorexic or losing weight. SKIN: No rashes or lesions. No history of dermatoses otherwise. HEENT: Denies headaches, lightheadedness or dizziness. No acute visual or hearing deficits. He wea rs corrective lenses. No sinus symptoms, sore throat or dysphagia. LYMPH: As per HPI. CARDIAC: History of coronary artery disease. No current angina or palpitations. PULMONARY: Negative for COPD. He is not short of breath, dyspneic or orthopneic. No cough or hemop tysis. GASTROINTESTINAL: Negative for abdominal pain, nausea, vomiting, diarrhea or constipation. Splenome orly noted on radiographic studies. GENITOURINARY: No current hematuria or dysuria. MUSCULOSKELETAL: No arthralgias or myalgias. No focal muscle weakness. ENDOCRINE: Negative for diabetes or thyroid disease. NEUROLOGIC: Negative for seizure, stroke or migraine headache. HEMATOLOGIC: As per HPI, most notably for chronic leukocytosis, mild normocytic, normochromic anemia . PHYSICAL EXAMINATION: GENERAL: Very pleasant 86-year-old gentleman, awake, alert, appropriate, in no acute distress. VITAL SIGNS: Temperature 37, pulse 77, respiratory rate 20, blood pressure 151/70. SKIN: Turgor is fair. Warm, dry, noncyanotic, no evidence of petechiae, or bruising. HEENT: Atraumatic, normocephalic. Eyes: PERRLA, EOMI. Nares patent without rhinorrhea or discharg e. Throat clear. Tongue midline. Mucous membranes are moist. NECK: Supple without JVD or thyromegaly. LYMPH: Again, a 5-cm palpable left axillary mass noted. HEART: Regular rate and rhythm. No clicks, rubs, murmurs or gallops. LUNGS: Clear to auscultation bilaterally. ABDOMEN: Obese, soft, nontender, nondistended. I could not appreciate splenomegaly on exam. EXTREMITIES: No clubbing, cyanosis or edema of the lower extremities. Left upper extremity markedly swollen. NEUROLOGICAL: He is awake, alert and oriented x3. Cranial nerves are intact. LABORATORY DATA: WBC count 33,620, hemoglobin 11.5, platelet count 314,000, absolute neutrophil coun t 26,430, monocytosis 2860, eosinophils 1450 and myelocytes 2590. Coags normal. Sodium 141, potassi um 3.9, chloride 109, carbon dioxide 26, creatinine 1.24, BUN 14. RADIOGRAPHIC DATA: CTA of the chest, exam compromised by respiratory motion artifact, extensive left axillary, left retropectoral and left supraclavicular lymphadenopathy favoring the lymphoproliferati ve process. Mild splenomegaly noted. IMPRESSION: 1. Left axillary lymphadenopathy. 2. Lymphedema attributable to adenopathy, left upper extremity. 3. Chronic kidney disease. 4. Chronic gout. 5. Coronary artery disease by history. 6. Gastroesophageal reflux disease. 7. Leukocytosis (leukemoid reaction). PLAN: Mr. Villatoro is a very pleasant 86-year-old gentleman well known to [facility] originally evaluated f or leukocytosis at the end of 2019. At that time, he was on chronic steroid therapy and felt periphe ral blood counts were service center representative of a leukemoid reaction. Flow cytometry failed to reveal any ev idence of emerging lymphoproliferative disease or hematologic malignancy. Peripheral smear was felt to be consistent with leukemoid reaction as well. Clearly, however, he has progressive lymphadenopat hy, mostly left sided. I would like CT scan of the abdomen and pelvis to complete staging. Mr. Jorge cristina is agreeable to excisional biopsy and request General Surgery obtain a sizable portion of the ly mph node in question to facilitate diagnosis. FNA is not sufficient. The patient does not appear to be ill, but clearly this lymph node is causing obstructive symptomatology and thus treatment needs t o be considered. I cannot proceed with concrete recommendations until diagnosis is established. I w ould be happy to reconvene with Mr. Villatoro upon discharge. If there are questions or concerns, fee l free to contact me at any time. I have nothing further to add and otherwise agree with medical man trina. Job ID: [id number]
--- NOTE | 2021-06-28 09:51 | Ultrasound Report ---
US biopsy lymph node ULTRASOUND-GUIDED FINE-NEEDLE ASPIRATION THYROID CLINICAL HISTORY: Pathologic left axillary chain adenopathy. COMPARISON STUDY: CTA of the chest 06/27/2021. PROCEDURE: The risks, benefits, and alternatives to the procedure were discussed with the patient. Wr itten informed consent was obtained. The patient was placed supine in ultrasound, and one of the path ologic left axillary chain lymph nodes was localized by ultrasound and selected for fine needle aspir ation. The left axilla was prepped and draped in the usual sterile fashion. One of the pathologic lym ph nodes was aspirated under ultrasound guidance with 3 passes utilizing 25-gauge needles. Specimens were reviewed by the pathologist in real-time and deemed adequate for diagnosis. A core needle biopsy specimen was also obtained utilizing a 20-gauge 2 cm throw device. The patient tolerated the procedu re well and left the department in satisfactory condition. IMPRESSION: Completed fine-needle aspiration and core needle biopsy of a pathologically enlarged left axillary chain lymph node. ACT 112: Negative or not required by law. The above report was generated using voice recognition software. It may contain grammatical, syntax o r spelling errors. Electronically signed by: Torsten Freire M.D. 06/28/2021 9:50 AM
[2021-06-28] MEDS: allopurinoL 100 MG TAB PO SCH ×3 (10:00→21:15)
[2021-06-28] MEDS: ATORVASTATIN 40 MG TAB PO SCH (10:01)
[2021-06-28] MEDS: ASPIRIN 81 MG ECTAB PO SCH (10:01)
[2021-06-28] MEDS: CHOLECALCIFEROL 1,000 UNITS 25 MCG TAB PO SCH (10:01)
[2021-06-28] MEDS: ATENOLOL 50 MG TABLET PO SCH (10:01)
[2021-06-28] MEDS: COLCHICINE 0.6 MG TAB PO SCH (10:02)
[2021-06-28] MEDS: PANTOprazole 40 MG TAB PO SCH (10:02)
[2021-06-28] MEDS: FUROSEMIDE 20 MG TAB PO SCH (10:02)
[2021-06-28] MEDS: predniSONE 1 MG TAB PO SCH (10:03)
[2021-06-28] MEDS: predniSONE 2.5 MG TAB PO SCH (10:03)
[2021-06-28] MEDS: HYDROcodone/ACETAMINOPHEN 10/325 TAB PO SCH ×2 (10:08→21:15)
[2021-06-28] MEDS ORDERED: OPTIRAY 320 100ml IV ONE (12:02)
--- NOTE | 2021-06-28 14:12 | Surgery Consultation ---
Date of Consultation June 28, 2021 Assessment & Plan (1) Lymphedema of left upper extremity: (2) Leukocytosis: (3) Lymphadenopathy, axillary: The patient went down today for an ultrasound-guided biopsy. Generally this is not adequate tissue and the pathology generally wants a larger specimen preferably a whole lymph node. I discussed with Dr. Sim who will talk to the patient. If he stays here tonight we will plan excisional biopsy tomorrow in the operating room and he would be able to go home afterwards. If he decides to go home today I can see him and schedule him sometime next week as an outpatient. We discussed the risks which include bleeding infection neurovascular injury DVT, PE, AR, CVA etc. etc. I have answered his questions. History of Present Illness Attending Physician: Willie Guajardo, History of Present Illness 86-year-old male with multiple comorbidities the last couple weeks noted rather rapid swelling in the left axilla. It is quite tender to him. He is a patient of Dr. Rasmussen's who has requested an excisional biopsy of the soft tissue mass of his left axilla. Allergies Allergy/AdvReac Type Severity Reaction Status Date / Time chlorhexidine Allergy Intermediate Rash Verified 06/27/21 15:41 gabapentin AdvReac Intermediate vomiting Verified 06/27/21 15:41 and "spazz out" Home Medications Medication Instructions Recorded Confirmed Type aspirin 81 mg tablet,delayed 81 mg PO QAM 05/07/19 06/27/21 History release atenolol 50 mg tablet (Tenormin) 50 mg PO QAM 05/07/19 06/27/21 History ropinirole 4 mg tablet 4 mg PO HS 05/07/19 06/27/21 History allopurinol 100 mg tablet 100 mg PO TID 10/27/19 06/27/21 History (Zyloprim) terazosin 5 mg capsule 5 mg PO HS 10/27/19 06/27/21 History pantoprazole 20 mg tablet,delayed 20 mg PO QAM 11/03/19 06/27/21 History release ketoconazole 2 % topical cream 1 applic TOPICAL DAILY PRN #0 g 11/07/19 06/27/21 Rx tramadol 50 mg tablet (Ultram) 50 mg PO Q12H PRN #0 tab 11/07/19 06/27/21 Rx prednisone 5 mg tablet 7.5 mg PO QAM tab 02/05/20 06/27/21 History atorvastatin 40 mg tablet 40 mg PO QAM tab 02/16/21 06/27/21 History cholecalciferol (vitamin D3) 25 25 mcg PO QAM 06/27/21 06/27/21 History mcg (1,000 unit) capsule colchicine 0.6 mg tablet 0.3 mg PO QAM 06/27/21 06/27/21 History duloxetine 60 mg capsule,delayed 60 mg PO HS 06/27/21 06/27/21 History release (Cymbalta) furosemide 20 mg tablet (Lasix) 20 mg PO QAM 06/27/21 06/27/21 History hydrocodone bitartrate 10 mg 10 mg PO BID 06/27/21 06/27/21 History capsule, oral only, extended rel 12 hr (Zohydro ER) prednisone 1 mg tablet 2 mg PO QAM 06/27/21 06/27/21 History Patient History Medical History (Updated 06/28/21 @ 14:09 by Larry Montalvo DO) CAD (coronary artery disease) Cellulitis of hand, left Dyslipidemia GERD (gastroesophageal reflux disease) High cholesterol HTN (hypertension) Lower extremity edema 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 Surgical History History of cholecystectomy History of lumbar fusion Family History Other No significant family history Social History Smoking Status: Former smoker Second Hand Exposure: No; Do You Dip or Chew Tobacco: No; Hx Alcohol Use: No Hx Substance Use: No Preferred Language: Swedish Communication Ability: Effective Artificial Flowers Supervisor Required: No Beliefs That Will Affect Care: None marital status: / Current Living Situation: Alone Other Information That Helps Us Care for You: No Feels Safe at Home: Yes Assistive Devices: Cane and Walker Physical Exam Constitutional: WD/WN, vitals as above no acute distress and not ill appearing Eyes: PERRL, conjunctivae normal, anicteric sclerae EOM intact bilaterally ENMT: external ear and nose normal, oropharynx normal Ears: no hearing impa irment Neck: trachea midline, no thyromegaly Respiratory: normal respiratory effort; no respiratory distress and does not use accessory muscles Cardiovascular: Rate/Rhythm: regular rate and regular rhythm Gastrointestinal (Abdomen): normal bowel sounds, soft, nontender, no hepatosplenomegaly Skin: no rashes, warm and dry Psychiatric: Orientation: alert, oriented x 3 and cooperative Lymphatic: He has a large ovoid mass in his left axilla. It is at least 5 cm in diameter. It is mildly tender. There are no skin color changes. It is soft but appears fixed. Results & Data ([facility]) Vital Signs (Past 12 Hours) Vital Signs Temp Pulse Resp BP Pulse Ox 06/28/21 07:16 37 C 77 20 151/70 H 93 PG Care Time/CCT Total # of Minutes Spent Total Time Spent with Patient: Total time spent is greater than 50% in coordination of care (as documented) at patient's floor/unit and/or counseling patient: Coding Level of Care Code 01854 Initial Inpt Care Lvl 3 Diagnoses Lymphedema of left upper extremity I89.0 Leukocytosis D72.829 Leukocytosis type: unspecified Lymphadenopathy, axillary R59.0 (1) Leukocytosis Leukocytosis type: unspecified Qualified Code(s): D72.829 - Elevated white blood cell count, unspecified
--- NOTE | 2021-06-28 14:40 | CT Scan Report ---
ABDOMEN AND PELVIS CT WITH IV AND ORAL CONTRAST CT DOSE: 1132.68 mGy.cm HISTORY: Follow up study in a patient with pathologic adenopathy leukocytosis, adenopathy, ?lymphoma TECHNIQUE: Multiaxial CT images of the abdomen and pelvis were performed following the IV administrat ion of 93 cc of Optiray and oral contrast. A dose lowering technique was utilized adhering to the pr inciples of [place]. COMPARISON STUDY: CTA chest 06/27/2021 FINDINGS: Cardiomegaly with coronary artery calcifications. Mild bibasilar atelectasis. No pneumatosi s or pneumoperitoneum. Spleen is mildly enlarged measuring 14.5 cm. There are a few cystic foci noted within the pancreatic neck and body measuring up to 1.6 cm on image 163. In retrospect these have in creased in size from the 2015 study where foci measuring up to approximately 10 mm. 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 Calcifications of the pancreas are suggestive of chronic pancreatitis. No pancreat ic ductal dilation. Unremarkable adrenal glands. Cholecystectomy. Scattered hepatic cysts. Innumerabl e hypodense hepatic lesions are new from 2015 measure up to approximately 1-2 cm. Patent portal vein. There are a few calculi noted within the interpolar left kidney measuring up to 4 mm. No ureteral wilman culi or hydronephrosis. Mild nonspecific bilateral perinephric stranding. 8 mm hypodensity of the int erpolar right kidney is too small to characterize however suggestive of a probable cyst. Mild prostam egaly. Unremarkable urinary bladder with partial distention and mild wall thickening. Atherosclerosis of the aorta without aneurysm. 3.6 x 2.4 cm periportal lymph node on image 153 series 3 is new from prior. Partially imaged pathologic left axillary chain lymph node with associated subcutaneous edema of the left axilla, and left lateral body wall.. Diffusely sclerotic appearance of the osseous struct ures. Partially imaged subacute to chronic fracture of the lateral right fifth rib. No acute patholog ic fracture identified. Lumbar dextroscoliosis. Posterior interbody clem and screw fusion hardware of the lumbar spine L2-L5. Pedicle screws partially extend into the L1-L2 disc space. IMPRESSION: 1. Pathologic left axillary chain adenopathy redemonstrated suspicious for lymphoma. Additional patho logically enlarged periportal lymph nodes are also present. 2. Mild splenomegaly with numerous ill-defined hypodense foci throughout the liver are new from 2014, suggestive of lymphomatous involvement. 3. Diffuse sclerosis of the imaged osseous structures is suggestive of lymphomatous skeletal disease. 4. No bowel obstruction or bowel wall thickening. 5. Nonobstructing left nephrolithiasis. 6. Additional findings as above. ACT 112: Negative or not required by law. The above report was generated using voice recognition software. It may contain grammatical, syntax o r spelling errors. Electronically signed by: Torsten Freire M.D. 06/28/2021 2:39 PM
--- NOTE | 2021-06-28 18:11 | Billing Data ---
Date of Service June 28, 2021 Coding Level of Care Code 00311 Subseq Hosp Care Lvl 3
--- NOTE | 2021-06-28 19:16 | Billing Data ---
Date of Service June 28, 2021 Coding Level of Care Code INT OBSERVATION CARE 70M LVL 3
[2021-06-28] MEDS ORDERED: rOPINIRole HCL 2 MG TABLET PO SCH (21:00)
[2021-06-28] MEDS: TERAZOSIN HCL 5 MG CAP PO SCH (21:15)
[2021-06-28] MEDS: DULoxetine HCL 60 MG CAP PO SCH (21:15)
--- NOTE | 2021-06-29 07:23 | Hospitalist Progress Note ---
Date of Service June 29, 2021 Assessment & Plan (1) Lymphedema of left upper extremity: Plan: Leukocytosis, axillary lymphadenopathy, LUE lymphedema: Presents with progressive worsening of LUE swelling as well as enlarging axillary mass that is tender. CBC reveals WBC count that continues to be elevated, today to 33.62. This is overall down from [facility] admission at which point it was 70,000, however still significantly elevated. Imaging shows extensive left chest lymphadenopathy with suspicion of hepatic/splenic/bone involvement. Patient has refused bone marrow biopsy in the past, again refuses the prospect today, however is amenable to axillary lymph node biopsy. Ultrasound-guided lymph node biopsy done. Oncology recommended CT abdomen pelvis along with surgical biopsy removal for better tissue specimen. -CT abdomen pelvis showed pathologic left axillary chain adenopathy redemonstrated suspicious for lymphoma. Additional pathologically enlarged periportal lymph nodes are also present, as well as diffuse sclerosis of the imaged osseous structures is suggestive of lymphomatous skeletal disease, and mild splenomegaly with numerous ill-defined hypodense foci throughout the liver are new from 07/25/2015, suggestive of lymphomatous involvement. -Will proceed to surgical removal of lymph node in the afternoon and follow up outpatient afterwards. (2) Leukocytosis: Plan: Given CT findings and progression/location of the symptoms more likely a lymphoma type picture. Biopsy will be performed as stated above. (3) Chronic kidney disease: Plan: CKD: Creatinine is currently at baseline at 1.24. (4) Chronic tophaceous gout: Plan: Chronic pain, gout, pseudogout: History of chronic pain on hydrocodone 10 mg BID scheduled with as needed tramadol 50 mg BID. Patient is also on chronic prednisone therapy. Continue outpatient pain regimen, no acute worsening on admission. (5) Dyslipidemia: (6) Hypertension: (7) CAD (coronary artery disease): Plan: CAD, hypertension, hyperlipidemia: BP currently within goal range. Continue home atenolol, atorvastatin, Lasix, aspirin. (8) GERD (gastroesophageal reflux disease): Plan: GERD: Continue home pantoprazole. 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 CODE STATUS: DNR/DNI; patient's daughter is his legal POA FEN: Heart healthy, low-sodium diet DVT prophylaxis: Hold chemoprophylaxis in the setting of possible biopsy in the morning of axillary lymph node; SCDs Dispo: Medical floor for evaluation by heme/onc and possible lymph node biopsy Admission and Anticipated Discharge Date Admission Date: June 27, 2021 Subjective Patient was seen at bedside this morning. He will be going to surgery today for the excisional lymph node biopsy. Patient denies any fevers, chills, shortness of breath, chest pain. Physical Exam Constitutional: WD/WN, vitals as above Eyes: PERRL, conjunctivae normal, anicteric sclerae Respiratory: normal respiratory effort, lungs clear to auscultation Cardiovascular: RRR, no murmur, no edema Gastrointestinal (Abdomen): normal bowel sounds, soft, nontender, no hepatosplenomegaly Lymphatic: + axillary lymphadenopathy (Left sided, lemon sized. No right sided adenopathy palpable. ) Results & Data Results & Data ([facility]) Vital Signs (Past 12 Hours) Vital Signs Temp Pulse Resp BP Pulse Ox 06/28/21 22:48 36.6 C 66 16 170/74 H 96 (1) Leukocytosis Leukocytosis type: unspecified Qualified Code(s): D72.829 - Elevated white blood cell count, unspecified (2) Chronic kidney disease Chronic kidney disease stage: stage 3 (moderate) Qualified Code(s): N18.3 - Chronic kidney disease, stage 3 (moderate) (3) Hypertension Hypertension type: essential hypertension Qualified Code(s): I10 - Essential (primary) hypertension (4) CAD (coronary artery disease) Coronary Disease-Associated Artery/Lesion type: [place] artery [place] vs. transplanted heart: [place] heart Associated angina: without angina Qualified Code(s): I25.10 - Atherosclerotic heart disease of [place] coronary artery wit hout angina pectoris (5) GERD (gastroesophageal reflux disease) Esophagitis presence: with esophagitis Qualified Code(s): K21.0 - Gastro- esophageal reflux disease with esophagitis
[2021-06-29] MEDS: PANTOprazole 40 MG TAB PO SCH (08:14)
[2021-06-29] MEDS: FUROSEMIDE 20 MG TAB PO SCH (08:14)
[2021-06-29] MEDS: ATENOLOL 50 MG TABLET PO SCH (08:14)
[2021-06-29] MEDS: predniSONE 2.5 MG TAB PO SCH (08:14)
[2021-06-29] MEDS: CHOLECALCIFEROL 1,000 UNITS 25 MCG TAB PO SCH (08:14)
[2021-06-29] MEDS: allopurinoL 100 MG TAB PO SCH ×2 (08:14→14:59)
[2021-06-29] MEDS: COLCHICINE 0.6 MG TAB PO SCH (08:14)
[2021-06-29] MEDS: ATORVASTATIN 40 MG TAB PO SCH (08:14)
[2021-06-29] MEDS: predniSONE 1 MG TAB PO SCH (08:14)
[2021-06-29] MEDS: ASPIRIN 81 MG ECTAB PO SCH (08:14)
[2021-06-29] MEDS: HYDROcodone/ACETAMINOPHEN 10/325 TAB PO SCH (08:16)
--- NOTE | 2021-06-29 08:43 | History & Physical Bridge Note ---
Date of Service June 29, 2021 History & Physical Bridge Note I have examined the patient, reviewed the History & Physical and in the interval since the performance of the History & Physical I have noted the following changes of clinical significance: no changes noted pt seen. d/w Dr. Sim yesterday... will plan excisional bx of left axillary mass this AM...pt can be d/c'd home after procedure. discussed risks. questions answered. pt agreeable to plan.
[2021-06-29] MEDS ORDERED: LIDOCAINE 2% 2 ML VIAL/AMP(20MG/ML) INFIL ONE (11:58)
[2021-06-29] MEDS ORDERED: fentaNYL citrate 100 MCG/2 ML VIAL ONE (11:58)
[2021-06-29] MEDS ORDERED: PROPOFOL IV EMULSION 10 MG/ML 20 ML VIAL IV ONE (11:58)
[2021-06-29] MEDS ORDERED: ceFAZolin 3000MG/72.5 ML BAG IV ONE (12:34)
[2021-06-29] MEDS ORDERED: BUPIVACAINE 0.5 % 5 MG/1 ML MPF 30ML VIAL ONE (12:45)
[2021-06-29] MEDS ORDERED: EPINEPHrine INJ 1 MG/ML AMP ONE (12:45)
--- NOTE | 2021-06-29 12:48 | Anesthesiology Consultation ---
Date of Service June 29, 2021 Assessment & Plan (1) Encounter for pre-operative examination: Chart Review Chart Review: Acceptable Risk for Surgery and Patient NOT seen in Pre Admission Testing Consults Requested none History Surgery Operation Date: 06/29/21 12:50 Proposed Procedures p Left Axillary Lymph Node Biopsy - Larry Montalvo, DO Height/Weight Height: 5 ft 7 in Weight: 98.3 kg Allergies Allergy/AdvReac Type Severity Reaction Status Date / Time chlorhexidine Allergy Intermediate Rash Verified 06/27/21 15:41 gabapentin AdvReac Intermediate vomiting Verified 06/27/21 15:41 and "spazz out" Medications Home Medications Medication Instructions Recorded Confirmed Last Taken aspirin 81 mg tablet,delayed 81 mg PO QAM 05/07/19 06/27/21 11/03/19 release atenolol 50 mg tablet (Tenormin) 50 mg PO QAM 05/07/19 06/27/21 11/03/19 ropinirole 4 mg tablet 4 mg PO HS 05/07/19 06/27/21 11/02/19 allopurinol 100 mg tablet 100 mg PO TID 10/27/19 06/27/21 11/03/19 (Zyloprim) AM DOSE terazosin 5 mg capsule 5 mg PO HS 10/27/19 06/27/21 11/02/19 pantoprazole 20 mg tablet,delayed 20 mg PO QAM 11/03/19 06/27/21 11/03/19 release ketoconazole 2 % topical cream 1 applic TOPICAL DAILY PRN #0 g 11/07/19 06/27/21 Unknown tramadol 50 mg tablet (Ultram) 50 mg PO Q12H PRN #0 tab 11/07/19 06/27/21 Unkn own prednisone 5 mg tablet 7.5 mg PO QAM tab 02/05/20 06/27/21 06/27/21 atorvastatin 40 mg tablet 40 mg PO QAM tab 02/16/21 06/27/21 Unknown cholecalciferol (vitamin D3) 25 25 mcg PO QAM 06/27/21 06/27/21 Unknown mcg (1,000 unit) capsule colchicine 0.6 mg tablet 0.3 mg PO QAM 06/27/21 06/27/21 Unknown duloxetine 60 mg capsule,delayed 60 mg PO HS 06/27/21 06/27/21 06/26/21 release (Cymbalta) furosemide 20 mg tablet (Lasix) 20 mg PO QAM 06/27/21 06/27/21 Unknown hydrocodone bitartrate 10 mg 10 mg PO BID 06/27/21 06/27/21 Unknown capsule, oral only, extended rel 12 hr (Zohydro ER) prednisone 1 mg tablet 2 mg PO QAM 06/27/21 06/27/21 06/27/21 Active Medications Generic Name Dose Route Start Last Admin Trade Name Bal PRN Reason Stop Dose Admin Hydrocodone Bitart/Acetaminophen 1 tab 06/27/21 21:00 06/29/21 08:16 Hydrocodone/Acetaminophen 10/325 Tab PO 07/11/21 20:59 1 tab Q12H RODRIGO Administration Allopurinol 100 mg 06/27/21 21:00 06/29/21 08:14 Allopurinol 100 Mg Tab PO 07/27/21 20:59 100 mg TID RODRIGO Administration Aspirin 81 mg 06/28/21 09:00 06/29/21 08:14 Aspirin 81 Mg Ectab PO 07/28/21 08:59 81 mg QAM RODRIGO Administration Atenolol 50 mg 06/28/21 09:00 06/29/21 08:14 Atenolol 50 Mg Tablet PO 07/28/21 08:59 50 mg QAM RODRIGO Administration Atorvastatin Calcium 40 mg 06/28/21 09:00 06/29/21 08:14 Atorvastatin 40 Mg Tab PO 07/28/21 08:59 40 mg QAM RODRIGO Administration Colchicine 0.3 mg 06/28/21 09:00 06/29/21 08:14 Colchicine 0.6 Mg Tab PO 07/28/21 08:59 0.3 mg QAM RODRIGO Administration Duloxetine HCl 60 mg 06/27/21 22:11 06/28/21 21:15 Duloxetine Hcl 60 Mg Cap PO 07/27/21 22:10 60 mg HS RODRIGO Administration Furosemide 20 mg 06/28/21 09:00 06/29/21 08:14 Furosemide 20 Mg Tab PO 07/28/21 08:59 20 mg QAM RODRIGO Administration Pantoprazole Sodium 40 mg 06/28/21 09:00 06/29/21 08:14 Pantoprazole 40 Mg Tab PO 07/28/21 08:59 40 mg QAM RODRIGO Administration Prednisone 2 mg 06/28/21 09:00 06/29/21 08:14 Prednisone 1 Mg Tab PO 07/28/21 08:59 2 mg QAM RODRIGO Administration Prednisone 7.5 mg 06/28/21 09:00 06/29/21 08:14 Prednisone 2.5 Mg Tab PO 07/28/21 08:59 7.5 mg QAM RODRIGO Administration Ropinirole HCl 4 mg 06/28/21 21:00 06/28/21 21:15 Ropinirole Hcl 2 Mg Tablet PO 07/28/21 20:59 4 mg HS RODRIGO Administration Terazosin HCl 5 mg 06/27/21 21:00 06/28/21 21:15 Terazosin Hcl 5 Mg Cap PO 07/27/21 20:59 5 mg HS RODRIGO Administration Vitamin D 1,000 units 06/28/21 09:00 06/29/21 08:14 Cholecalciferol 1,000 Units 25 Mcg Tab PO 07/28/21 08:59 1,000 units QAM RODRIGO Administration NPO Date Last Intake of Fluids: 06/28/21 Time Last Intake of Fluids: 23:00 Date Last Intake of Solids: 06/28/21 Time Last Intake of Solids: 19:00 Last Intake of Solids Comment: chewing gum at present Past Medical History Medical History (Updated 06/29/21 @ 12:47 by Anju James MD) CAD (coronary artery disease) Cellulitis of hand, left Dyslipidemia GERD (gastroesophageal reflux disease) High cholesterol HTN (hypertension) Lower extremity edema 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 Past Family History Family History Other No significant family history Past Surgical History Surgical History History of cholecystectomy History of lumbar fusion Social History Smoking Status: Former smoker tobacco type: smokeless tobacco Do You Dip or Chew Tobacco: No Hx Alcohol Use: No Alcohol type: beer alcohol intake frequency: holidays/special occasions only Hx Substance Use: No substance use type: does not use Physical Exam Vital Signs Last Vital Signs Temp 36.7 C 06/29/21 11:50 Pulse 63 06/29/21 11:50 Resp 18 06/29/21 11:50 BP 168/70 H 06/29/21 11:50 Pulse Ox 97 06/29/21 11:50 Testing Laboratory Results 06/27/21 14:22 06/27/21 14:22 PT 10.5 Seconds (9.0-12.0) 06/27/21 14: INR 1.0 (0.9-1.1) 06/27/21 14:22 APTT 30.1 Seconds (21.0-31.0) 06/27/21 14:22 Electrocardiogram Date: 11/04/19 Findings: + NSR @ (72) Other Testing Echocardiogram Date: 08/10/19 EF: 65-70% LV Function: normal Other Findings: + LVH (mild) Severe biatrial dilatation Mild pulm HTN
[2021-06-29] MEDS ORDERED: ATROPINE SULFATE 0.1 MG/ML 10ML SYR IV PRN (12:55)
[2021-06-29] MEDS ORDERED: ePHEDrine sulfate 50 MG/ML AMP IV PRN (12:55)
[2021-06-29] MEDS ORDERED: ONDANSETRON INJ 2 MG/ML 2 ML VIAL IV PRN (12:55)
[2021-06-29] MEDS ORDERED: fentaNYL citrate 100 MCG/2 ML VIAL IV PRN (12:55)
[2021-06-29] MEDS ORDERED: DEXAMETHASONE SOD INJ 4 MG/ML VIAL ONE (13:22)
[2021-06-29] MEDS ORDERED: ONDANSETRON INJ 2 MG/ML 2 ML VIAL ONE (13:22)
--- NOTE | 2021-06-29 13:56 | Operative Report ---
PG Post Operative Report Pre & Post Diagnosis Operation Date: 06/29/21 12:50 Pre-Op Diagnosis: Left Upper Extremity Lymphedema/lymphadenopathy Post-Op Diagnosis: Left Upper Extremity Lymphedema/lymphadenopathy I identified the patient and participated in the time-out.: Yes Procedure Operation Date: 06/29/21 12:50 Actual Procedures p Left Axillary Lymphadenectomy - Larry Montalvo DO Surgeon Larry Montalvo DO It Specialist kya Davalos Estimated Blood Loss 10 Findings Consistent with Post-Op Diagnosis Specimens left axillary lymph nodes Description of Procedure After informed consent was obtained the patient was taken to the operating room and placed in supine position. After successful placement of the laryngeal mask airway the left upper chest wall shoulder upper arm and axilla were sterilely prepped and draped in usual fashion. Began by making a linear incision directly over the large visible and palpable mass. This was carried down through the soft tissue using cautery. We readily encountered a very large matted conglomeration of lymph nodes. I used primarily blunt dissection with small amounts of cautery to come around them. They were removed in 1 large piece as there were many matted together. Once we had these removed we sent the pathology and thoroughly irrigated the wound. Several small bleeding points were controlled using cautery as well as 3-0 silk ties. At the completion of the procedure there was adequate hemostasis. A final irrigation was performed. The wound was closed in 2 layers using 2-0 Vicryl for deep layer and 4-0 Monocryl for skin. Marcaine with epinephrine was injected around it for postoperative analgesia and Dermabond glue used as a dressing. The patient was awakened extubated transferred recovery in stable condition. My physician diversional therapist's assistant was present for the entire case and was instrumental in providing exposure for my dissection. He also assisted in wound closure and dressing placement. I attest to the content of the Intraoperative Record and any orders documented therein. Any exceptions are noted below.
--- NOTE | 2021-06-29 14:30 | Anesthesiology Progress Note ---
Date of Service June 29, 2021 Anesthesia Post Procedure Vital Signs Vital Signs: Temp Pulse Pulse Pulse Resp BP BP 06/29/21 14:25 64 14 151/60 H 06/29/21 14:15 62 12 132/54 L 06/29/21 14:05 65 16 140/54 L 06/29/21 13:58 36.9 C 71 18 132/40 L 06/29/21 11:50 36.7 C 63 18 168/70 H 06/29/21 07:38 36.8 C 69 18 156/76 H 06/28/21 22:48 36.6 C 66 16 170/74 H 06/28/21 16:00 36.6 C 71 18 107/67 Pulse Ox 06/29/21 14:25 94 06/29/21 14:15 98 06/29/21 14:05 99 06/29/21 13:58 97 06/29/21 11:50 97 06/29/21 07:38 96 06/28/21 22:48 96 06/28/21 16:00 95 Pain Intensity Bilateral Foot: Pain Intensity: 6 Transfer of Care Handoff Completed per policy Notes Mental Status: alert / awake / arousable and participated in evaluation Patient Amnestic to Procedure: Yes Nausea / Vomiting: adequately controlled Pain: adequately controlled Airway Patency, RR, SpO2: stable & adequate BP & HR: stable & adequate Hydration State: stable & adequate Anesthetic Complications: no major complications apparent and Pt Satisfied with anesthetic care
[2021-06-29] MEDS ORDERED: MoRPHine SULFATE 4 MG/ML 1 ML CARP\\VIAL IV PRN (14:49)
--- NOTE | 2021-06-29 19:44 | Discharge Summary ---
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 Magdaleno with [facility] for worsening swelling and pain of left axillary mass with concurrent worsening of left upper extremity edema. Of note, he was [place] [facility] [place] for septic right shoulder s/p excisional debridement and IV ceftaroline which completed on 05/24/21. He was transitioned to PO doxycycline which completed on 06/23. Per patient and family, a few days after discharge [place] [facility] his LUE started to get more swollen and has been as such since. He also reported radiating discomfort from the left axillary mass into the left chest. Has been evaluated for concern for leukemia/lymphoma regarding his elevated WBC count in the past, however has refused bone marrow biopsy twice and therefore has not been clarified. Has been described as multifactorial with some element of elevation due to chronic steroid therapy for gout/pseudogout. Also of note, he was sent for a venous Doppler of the left upper extremity in May due to swelling which showed a short segment of occlusive thrombus seen in the basilic vein of the left forearm. Patient lives alone with daughter/son living close-by and checking in on him frequently and at least daily. In the ER patient was noted to be hemodynamically stable. Lab work notable for WBC count of 33.62 with elevation predominantly in neutrophils (but also with elevation in monocytes and eosinophils), hemoglobin 11.5, creatinine 1.24, elevated alk phos to 130. COVID-19 testing negative. Repeat extremity venous study was performed which showed pathologic supraclavicular adenopathy with recommendation for CTA chest. Former superficial venous thrombosis was not visualized. CTA chest showed extensive left axillary, left retropectoral, and left supraclavicular lymphadenopathy favoring lymphoma/leukemia. There is also noted to be heterogeneity of the liver and mild splenomegaly. Lastly, diffuse sclerosis of skeletal structures was suggestive of skeletal involvement. Per patient and daughter, patient is unsure if and what intervention he would be comfortable with with regard to a likely cancer. He would like to speak with oncology and see if the mass under his left axilla can be biopsied to determine source to help with decisions regarding intervention. His complaints at this time are pain in his left axilla area and his chronic pain secondary to his ongoing joint issues. Principal Diagnosis Lymphadenopathyhighly probable lymphoma Discharge Exam In general he is awake and alert pleasant hard of hearing no distress. HEENT normocephalic atraumatic mucous membranes moist. Breathing unlabored no accessory muscle use good effort. Skin shows no rashes no pallor or icterus. Right shoulder red with scar, patient notes this is largely chronic. No focal neuro deficits. Discharge Data Allergies Allergy/AdvReac Type Severity Reaction Status Date / Time chlorhexidine Allergy Intermediate Rash Verified 06/27/21 15:41 gabapentin AdvReac Intermediate vomiting Verified 06/27/21 15:41 and "spazz out" Consultations 06/27/21 19:14 ED Decision to Admit Stat 06/27/21 20:52 Consult Oncology Routine 06/28/21 08:04 Consult General Surgery Routine Procedures Performed Operation Date: 06/29/21 12:50 Actual Procedures p Left Axillary Lymph Node Biopsy(Left) - Larry Montalvo DO Ordered Studies 06/27/21 16:08 CT angio chest PE protocol Stat US venous doppler UE LT Stat 06/28/21 08:58 CT abd pelvis oral and IV con Routine 06/28/21 09:00 US biopsy lymph node Routine 06/28/21 09:43 US FNA w/img 1st lesion Routine Hospital Course (1) Lymphadenopathy, axillary: Presented for expedited work-up of adenopathy with high concern of lymphoma. CTs consistent with lymphoma, biopsies done, heme-onc saw him to get further evaluation/discussion/possible treatment pipelines. Biopsy done today, patient stable for home. Obviously pathology still pending. Stable for home, follow-up with heme-onc next week. Total Time Total Time Spent Total Time Spent (In Minutes): Less than 30 Discharge Plan Discharge Items Patient Disposition: Home - Self-Care Reason For Visit: LUE LYMPHEDEMA, L AXILLARY LYMPH NODE SUSPECT Discharge Diagnosis: Lymphedema of left upper extremity. Activity: Per Instructions section Bathing Comment: Ok to shower Non-emergency contact: Primary Care Provider and Oncologist Call non-emergency contact if: your pain is worsening, your temperature is above 101, your wound has increased redness, your wound has increased drainage and your wound pain has increased Follow-up/Referrals: Jose D Simmons DO [Physician] - (Dr. Waller office was closed at the time of your discharge. A loading unit operator seating will phone you with a follow up appt that will be scheduled within in 1-2 weeks. If you are unable to keep the scheduled appt, please phone Dr Escobedo office tp reschedule.) Larry Montalvo DO [Surgeon] - (Dr. Estevez office was closed at the time of your discharge. A loading unit operator seating will make a follow up appt for you. If the appt made does not suit your schedule, you may phone the providers office to reschedule. This appt will be scheduled within 1-2 weeks) Jacqueline Vivas MD [Primary Care Provider] - (The office was closed at the time of your discharge. A loading unit operator seating will make a follow up appt for you with your Primary Care Provider and phone you with the date and time. If the appt made does not suit your schedule, you may phone the providers office to reschedule.) Diet: Regular Addtl Attending Provider Instructions: Swollen lymph node of left armpit: - When you came into the hospital you had a swollen lymph node under your left armpit and an elevated white blood cell count. Your swollen lymph node is concerning for possible lymphoma and so we removed the lymph node for a biopsy. - We don't know what the cause of the swollen lymph glands is right now but the biopsy will shed a better light on the cause. - Your surgery for the biopsy went well and you should hear back the results after a week. You will need to see Dr. Simmons, the hematology/oncologist, in the outpatient setting for further examination of the results as well as possible treatment avenues based on the results. - Please follow up with your primary care doctor as well for management of your other medical conditions. If you experience any: worsening of symptoms, fevers, or worsening of the surgical excision site please come back to the hospital for further evaluation. Pending Studies at Discharge: Yes (Excisional biopsy and ultrasound guided biopsy) Stand-Alone Forms: My That{img}, Smoking Cessation Medications and DC Order Prescriptions: Continued prednisone 5 mg tablet 7.5 mg PO QAM RF: 0 atenolol [Tenormin] 50 mg tablet 50 mg PO QAM RF: 0 ropinirole 4 mg tablet 4 mg PO HS RF: 0 aspirin 81 mg Tablet,Delayed Release (Dr/Ec) 81 mg PO QAM RF: 0 terazosin 5 mg capsule 5 mg PO HS RF: 0 allopurinol [Zyloprim] 100 mg tablet 100 mg PO TID RF: 0 pantoprazole 20 mg tablet,delayed release (DR/EC) 20 mg PO QAM RF: 0 tramadol [Ultram] 50 mg tablet 50 mg PO Q12H PRN (Reason: Pain) Qty: 0 RF: 0 ketoconazole 2 % cream 1 applic TOPICAL DAILY PRN (Reason: Fungal infection) Qty: 0 RF: 0 atorvastatin 40 mg tablet 40 mg PO QAM RF: 0 prednisone 1 mg tablet 2 mg PO QAM RF: 0 duloxetine [Cymbalta] 60 mg capsule,delayed release(DR/EC) 60 mg PO HS RF: 0 hydrocodone bitartrate [Zohydro ER] 10 mg capsule, oral only, ER 12hr 10 mg PO BID RF: 0 furosemide [Lasix] 20 mg tablet 20 mg PO QAM RF: 0 colchicine 0.6 mg tablet 0.3 mg PO QAM RF: 0 cholecalciferol (vitamin D3) 25 mcg (1,000 unit) capsule 25 mcg PO QAM RF: 0 Discharge Orders: Discharge Order (Routine); Ordered 06/29/21 Ordered By: Joshua Garner/Other Patient Handouts: DVT Post Op Prevention Admission Data Admit Date/Time: 06/27/21 20:52 Attending Provider: Willie Guajardo Admit Provider: Raúl Desai Primary Care Provider: Jacqueline Vivas Other Providers: Kasia Shields ; Raúl Desai ; Jose D Simmons V. ; Larry Montalvo Other Interventions: Discharge Summary Assessment (RN) Last Done: 06/29/21 16:41 Coding Level of Care Code D/C DAY MANAGEMENT <30 MINS Diagnoses Lymphadenopathy, axillary R59.0
--- NOTE | 2021-06-29 22:44 | Electrocardiogram Report ---
Test Reason : Blood Pressure : / mmHG Vent. Rate : 065 BPM Atrial Rate : 065 BPM P-R Int : 174 ms QRS Dur : 082 ms QT Int : 392 ms P-R-T Axes : 042 -21 017 degrees QTc Int : 407 ms Normal sinus rhythm Normal ECG When compared with ECG of 04-NOV-2019 14:26, No significant change was found Confirmed by Edy Foote ([id number]) on 06/29/2021 10:44:16 PM Referred By: Mariposa Murray Confirmed By:Edy Foote
--- NOTE | 2021-07-01 18:02 | Emergency Department Note ---
Impression & Plan Lymphadenopathy, Lymphedema ED Provider Note CHIEF COMPLAINT: Left upper extremity edema, mass at the armpit HISTORY OF PRESENT ILLNESS: This 86-year-old male patient presents to the emergency department with his daughter who states he has had some persistent left upper extremity edema and redness over the last several weeks. There is a mass in his left axilla that has become a growing concern. Patient was seen by orthopedic surgery today at a tertiary care facility and referred to the ER for further management. Patient apparently has a known blood dyscrasia that he has refused further evaluation for. A bone marrow biopsy was recommended but he has declined. Patient had 2 ultrasounds of the left upper extremity that have been negative for DVT according to the daughter. Patient denies shortness of breath, fevers or chest pain. He denies any injury to the left upper extremity. REVIEW OF SYSTEMS: A review of systems was performed with positives and pertinent negatives listed in the history of present illness. 10 systems were reviewed and are otherwise negative. ALLERGIES: see below MEDICATIONS: see below PMH: see below SOCIAL HISTORY: see below DDx: DVT, malignancy, abscess, musculoskeletal, infection, joint effusion, trauma, lymphedema, idiopathic, CHF, as well as other pathologies. PHYSICAL EXAM: Vital signs reviewed. General: Chronically ill-appearing 86-year-old male, in no significant distress. HEENT: No scleral icterus, PERRLA, neck supple. Atraumatic. Cardiovascular: Regular rate and rhythm, no extra sounds. Pulmonary: Clear to auscultation bilaterally, normal work of breathing. Abdomen: Soft, nontender, nondistended, positive bowel sounds. Musculoskeletal: Atraumatic, left upper extremity with chronic lymphedema, erythema. Palpable mass approximately the size of an orange in the left axilla with mild discomfort to palpation. There is no fluctuance. Lymph: Limited exam secondary to obesity and positioning however shotty lymphadenopathy is palpated in the cervical region. Neurologic: Patient awake alert and oriented x 3, speech is clear. Hard of hearing. Skin: Warm, dry, no rash EMERGENCY DEPARTMENT COURSE/MDM: This patient was evaluated and appeared to be in no significant distress. Physical examination is concerning for marked lymphedema of the left upper extremity. The orange size mass in the left axilla is concerning for malignancy. Laboratory work reveals a marked leukocytosis. Patient feels comfortable with additional work-up at this time. He states he is not feeling well and although he cannot commit to further treatment would like to hear what his options may be. He and his daughter both expressed u nderstanding of the plan. They do not feel that outpatient evaluation and management is feasible given his immobility and essentially wheelchair-bound status. The hospitalist has been consulted for further management. MONITORING: An order for cardiac monitoring was placed and the patient is noted to be in a normal sinus rhythm at 66 beats per minute. RADIOLOGY: See below EKG: Normal sinus rhythm at [address] segments. Normal axis. Normal QT interval. No PVC, no PAC. 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 Beliefs That Will Affect Care: None marital status: / Current Living Situation: Alone Feels Safe at Home: Yes Assistive Devices: Glasses, Hearing Aid - Right and Wheelchair Allergies Allergies Allergy/AdvReac Type Severity Reaction Status Date / Time chlorhexidine Allergy Intermediate Rash Verified 06/27/21 15:41 gabapentin AdvReac Intermediate vomiting Verified 06/27/21 15:41 and "spazz out" Home Meds Home Medications Medication Instructions Recorded Confirmed aspirin 81 mg tablet,delayed 81 mg PO QAM 05/07/19 06/27/21 release atenolol 50 mg tablet (Tenormin) 50 mg PO QAM 05/07/19 06/27/21 ropinirole 4 mg tablet 4 mg PO HS 05/07/19 06/27/21 allopurinol 100 mg tablet 100 mg PO TID 10/27/19 06/27/21 (Zyloprim) terazosin 5 mg capsule 5 mg PO HS 10/27/19 06/27/21 pantoprazole 20 mg tablet,delayed 20 mg PO QAM 11/03/19 06/27/21 release prednisone 5 mg tablet 7.5 mg PO QAM tab 02/05/20 06/27/21 atorvastatin 40 mg tablet 40 mg PO QAM tab 02/16/21 06/27/21 cholecalciferol (vitamin D3) 25 25 mcg PO QAM 06/27/21 06/27/21 mcg (1,000 unit) capsule colchicine 0.6 mg tablet 0.3 mg PO QAM 06/27/21 06/27/21 duloxetine 60 mg capsule,delayed 60 mg PO HS 06/27/21 06/27/21 release (Cymbalta) furosemide 20 mg tablet (Lasix) 20 mg PO QAM 06/27/21 06/27/21 hydrocodone bitartrate 10 mg 10 mg PO BID 06/27/21 06/27/21 capsule, oral only, extended rel 12 hr (Zohydro ER) prednisone 1 mg tablet 2 mg PO QAM 06/27/21 06/27/21 Previous Rx's Medication Instructions Recorded ketoconazole 2 % topical cream 1 applic TOPICAL DAILY PRN #0 g 11/07/19 tramadol 50 mg tablet (Ultram) 50 mg PO Q12H PRN #0 tab 11/07/19 Results & Data (ED) Laboratory Data Result diagrams: 06/27/21 14:22 06/27/21 14:22 Lab Results 06/27/21 06/27/21 06/27/21 Range/Units 14:22 14:22 14:22 WBC 33.62 H* (4.8-10.8) K/uL RBC 4.06 L (4.7-6.1) M/uL Hgb 11.5 L (14.0-18.0) g/dL Hct 36.9 L (42-52) % MCV 90.9 (80-100) fL MCH 28.3 (25-34) pg MCHC 31.2 L (32-36) g/dL RDW Std Deviation 59.8 H (36.4-46.3) fL RDW Coeff of Dione 17.9 H (11.5-14.5) % Plt Count 314 (130-400) K/uL MPV 11.3 H (7.4-10.4) fL Neutrophils % (Manual) 78.6 % Lymphocytes % (Manual) 0.9 % Monocytes % (Manual) 8.5 % Eosinophils % (Manual) 4.3 % Myelocytes % (Man) 7.7 % Neutrophils # (Manual) 26.43 H (1.4-6.5) K/uL Total Absolute Neuts 26.43 H (1.4-6.5) K/uL Lymphocytes # (Manual) 0.30 L (1.2-3.4) K/uL Total Abs Lymphocytes 0.30 L (1.2-3.4) K/uL Monocytes # (Manual) 2.86 H (0.11-0.59) K/uL Eosinophils # (Manual) 1.45 H (0-0.5) K/uL Myelocytes # (Manual) 2.59 H (0-0) K/uL Echinocytes 1+ Acanthocytes (Spur) 1+ PT 10.5 (9.0-12.0) Seconds INR 1.0 (0.9-1.1) APTT 30.1 (21.0-31.0) Seconds PTT Ratio 1.1 Sodium 141 (136-145) mmol/L Potassium 3.9 (3.5-5.1) mmol/L Chloride 109 H (98-107) mmol/L Carbon Dioxide 26 (21-32) mmol/L Anion Gap 6.0 (3-11) BUN 14 (7-18) mg/dl Creatinine 1.24 (0.6-1.4) mg/dl Est Cr Clr Drug Dosing Not Reportable Est GFR ( Amer) 61.1 ml/min Est GFR (Non-Af Amer) 52.7 ml/min BUN/Creatinine Ratio 11.5 (10-20) Glucose 165 H (70-99) mg/dl Calcium 8.6 (8.5-10.1) mg/dl Total Bilirubin 0.6 (0.2-1) mg/dl AST 23 (15-37) U/L ALT 27 (12-78) U/L Alkaline Phosphatase 130 H (45-117) U/L Total Protein 7.0 (6.4-8.2) gm/dl Albumin 3.4 (3.4-5.0) gm/dl Globulin 3.6 (2.5-4.0) gm/dl Albumin/Globulin Ratio 0.9 (0.9-2) COVID-19 Eval Order SARS-CoV-2 (PCR) (Negative) 06/27/21 06/27/21 Range/Units 16:37 16:37 WBC (4.8-10.8) K/uL RBC (4.7-6.1) M/uL Hgb (14.0-18.0) g/dL Hct (42-52) % MCV (80-100) fL MCH (25-34) pg MCHC (32-36) g/dL RDW Std Deviation (36.4-46.3) fL RDW Coeff of Dione (11.5-14.5) % Plt Count (130-400) K/uL MPV (7.4-10.4) fL Neutrophils % (Manual) % Lymphocytes % (Manual) % Monocytes % (Manual) % Eosinophils % (Manual) % Myelocytes % (Man) % Neutrophils # (Manual) (1.4-6.5) K/uL Total Absolute Neuts (1.4-6.5) K/uL Lymphocytes # (Manual) (1.2-3.4) K/uL Total Abs Lymphocytes (1.2-3.4) K/uL Monocytes # (Manual) (0.11-0.59) K/uL Eosinophils # (Manual) (0-0.5) K/uL Myelocytes # (Manual) (0-0) K/uL Echinocytes Acanthocytes (Spur) PT (9.0-12.0) Seconds INR (0.9-1.1) APTT (21.0-31.0) Seconds PTT Ratio Sodium (136-145) mmol/L Potassium (3.5-5.1) mmol/L Chloride (98-107) mmol/L Carbon Dioxide (21-32) mmol/L Anion Gap (3-11) BUN (7-18) mg/dl Creatinine (0.6-1.4) mg/dl Est Cr Clr Drug Dosing Est GFR ( Amer) ml/min Est GFR (Non-Af Amer) ml/min BUN/Creatinine Ratio (10-20) Glucose (70-99) mg/dl Calcium (8.5-10.1) mg/dl Total Bilirubin (0.2-1) mg/dl AST (15-37) U/L ALT (12-78) U/L Alkaline Phosphatase (45-117) U/L Total Protein (6.4-8.2) gm/dl Albumin (3.4-5.0) gm/dl Globulin (2.5-4.0) gm/dl Albumin/Globulin Ratio (0.9-2) COVID-19 Eval Order Covid19 at [facility] SARS-CoV-2 (PCR) NEGATIVE (Negative) Administered Medications Discontinued Medications Hydrocodone Bitart/Acetaminophen (Hydrocodone/Acetaminophen 10/325 Tab) 1 tab PO Q12H RODRIGO Stop: 07/11/21 20:59 Last Admin: 06/29/21 08:16 Dose: 1 tab Documented by: [id number] Admin: 06/28/21 21:15 Dose: 1 tab Documented by: [id number] Admin: 06/28/21 10:08 Dose: 1 tab Documented by: [id number] Admin: 06/27/21 23:16 Dose: 1 tab Documented by: [id number] Allopurinol (Allopurinol 100 Mg Tab) 100 mg PO TID [facility] Stop: 07/27/21 20:59 Last Admin: 06/29/21 14:59 Dose: 100 mg Documented by: [id number] Admin: 06/29/21 08:14 Dose: 100 mg Documented by: [id number] Admin: 06/28/21 21:15 Dose: 100 mg Documented by: [id number] Admin: 06/28/21 14:50 Dose: 100 mg Documented by: [id number] Admin: 06/28/21 10:00 Dose: 100 mg Documented by: [id number] Admin: 06/27/21 23:17 Dose: 100 mg Documented by: [id number] Aspirin (Aspirin 81 Mg Ectab) 81 mg PO QA RODRIGO Stop: 07/28/21 08:59 Last Admin: 06/29/21 08:14 Dose: 81 mg Documented by: [id number] Admin: 06/28/21 10:01 Dose: 81 mg Documented by: [id number] Atenolol (Atenolol 50 Mg Tablet) 50 mg PO QA RODRIGO Stop: 07/28/21 08:59 Last Admin: 06/29/21 08:14 Dose: 50 mg Documented by: [id number] Admin: 06/28/21 10:01 Dose: 50 mg Documented by: [id number] Atorvastatin Calcium (Atorvastatin 40 Mg Tab) 40 mg PO [facility] Stop: 07/28/21 08:59 Last Admin: 06/29/21 08:14 Dose: 40 mg Documented by: [id number] Admin: 06/28/21 10:01 Dose: 40 mg Documented by: [id number] Bupivacaine HCl (Bupivacaine 0.5 % 5 Mg/1 Ml Mpf 30ml Vial) Confirm Administered Dose 30 ml .ROUTE .STK-MED ONE Stop: 06/29/21 12:46 Last Admin: 06/29/21 13:48 Dose: 12 ml Documented by: [id number] Cefazolin Sodium (Cefazolin 3000mg/72.5 Ml Bag) Confirm Administered Dose 3,000 mg IV .STK-MED ONE Stop: 06/29/21 12:35 Last Admin: 06/29/21 13:00 Dose: 3,000 mg Documented by: [id number] Colchicine (Colchicine 0.6 Mg Tab) 0.3 mg PO [facility] Stop: 07/28/21 08:59 Last Admin: 06/29/21 08:14 Dose: 0.3 mg Documented by: [id number] Admin: 06/28/21 10:02 Dose: 0.3 mg Documented by: [id number] Duloxetine HCl (Duloxetine Hcl 60 Mg Cap) 60 mg PO [facility] Stop: 07/27/21 22:10 Last Admin: 06/28/21 21:15 Dose: 60 mg Documented by: [id number] Admin: 06/27/21 23:18 Dose: 60 mg Documented by: [id number] Epinephrine HCl (Epinephrine Inj 1 Mg/Ml Amp) Confirm Administered Dose 1 mg .ROUTE .STK-MED ONE Stop: 06/29/21 12:46 Last Admin: 06/29/21 13:49 Dose: 0.15 mg Documented by: [id number] Furosemide (Furosemide 20 Mg Tab) 20 mg PO [facility] Stop: 07/28/21 08:59 Last Admin: 06/29/21 08:14 Dose: 20 mg Documented by: [id number] Admin: 06/28/21 10:02 Dose: 20 mg Documented by: [id number] Cefazolin Sodium (Ancef 3000mg) 72.5 mls @ 130 mls/hr IV PREOP ONE Stop: 06/29/21 13:06 Last Admin: 06/29/21 13:00 Dose: 130 mls/hr Documented by: [id number] Ioversol (Optiray 320 125ml) 120 ml IV ONCE ONE Stop: 06/27/21 16:33 Last Admin: 06/27/21 16:32 Dose: 120 ml Documented by: [id number] Ioversol (Optiray 320 100ml) 93 ml IV ONCE ONE Stop: 06/28/21 12:03 Last Admin: 06/28/21 11:58 Dose: 93 ml Documented by: [id number] Pantoprazole Sodium (Pantoprazole 40 Mg Tab) 40 mg PO [facility] Stop: 07/28/21 08:59 Last Admin: 06/29/21 08:14 Dose: 40 mg Documented by: [id number] Admin: 06/28/21 10:02 Dose: 40 mg Documented by: [id number] Prednisone (Prednisone 1 Mg Tab) 2 mg PO [facility] Stop: 07/28/21 08:59 Last Admin: 06/29/21 08:14 Dose: 2 mg Documented by: [id number] Admin: 06/28/21 10:03 Dose: 2 mg Documented by: [id number] Prednisone (Prednisone 2.5 Mg Tab) 7.5 mg PO [facility] Stop: 07/28/21 08:59 Last Admin: 06/29/21 08:14 Dose: 7.5 mg Documented by: [id number] Admin: 06/28/21 10:03 Dose: 7.5 mg Documented by: [id number] Ropinirole HCl (Ropinirole Hcl 1 Mg Tablet) 4 mg PO [facility] Stop: 06/27/21 23:59 Last Admin: 06/27/21 23:17 Dose: 4 mg Documented by: [id number] Ropinirole HCl (Ropinirole Hcl 2 Mg Tablet) 4 mg PO [facility] Stop: 07/28/21 20:59 Last Admin: 06/28/21 21:15 Dose: 4 mg Documented by: [id number] Terazosin HCl (Terazosin Hcl 5 Mg Cap) 5 mg PO [facility] Stop: 07/27/21 20:59 Last Admin: 06/28/21 21:15 Dose: 5 mg Documented by: [id number] Admin: 06/27/21 23:17 Dose: 5 mg Documented by: [id number] Vitamin D (Cholecalciferol 1,000 Units 25 Mcg Tab) [facility] [place] [place] Stop: 07/28/21 08:59 Last Admin: 06/29/21 08:14 Dose: 1,000 units Documented by: [id number] Admin: 06/28/21 10:01 Dose: 1,000 units Documented by: [id number] Imaging Data Radiologist's Impression: Chest CTA 06/27/21 16:08 CT ANGIOGRAPHY OF THE CHEST, PULMONARY EMBOLUS PROTOCOL CLINICAL HISTORY: PE,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 TECHNIQUE: Following IV administration of 120 mL of Optiray, helical axial images of the chest were obtained utilizing the pulmonary embolus protocol. Maximal intensity projections and sagittal and coronal reformats were viewed on an independent 3D workstation. IV contrast was administered without complication. Automated exposure control was utilized for the study. A dose lowering technique was utilized adhering to the principles of ALARA. CT DOSE: 745.43 mGy.cm FINDINGS: No central pulmonary emboli are identified. The remainder of the pulmonary arteries are suboptimally assessed due to respiratory motion. There is no thoracic aortic dissection. Moderate cardiomegaly is noted. There is extensive coronary artery calcification. No pericardial effusion is noted. Note is made of extensive left axillary, left retropectoral and left supraclavicular lymphadenopathy. Index left supraclavicular lymph node measures 2.9 cm. Index left axillary lymph node measures 4.3 x 3.3 cm. The adenopathy is partially imaged on this examination. No pneumothorax or pleural effusion is noted. Lungs are suboptimally assessed due to respiratory motion. Groundglass opacities favor atelectasis. There is no consolidation to suggest pneumonia. Diffuse sclerosis of visualized skeletal structures is noted. This is new since abdominal CT of July 25, 2015. There is mild splenomegaly. The liver is heterogeneous. There is suggestion of numerous hypodense hepatic lesions which were not present on prior abdominal CT. Several hepatic cysts were noted on prior exam and measure up to 2.4 cm. IMPRESSION: 1. Exam significantly compromised by respiratory motion artifact. No central pulmonary emboli. Remainder of pulmonary arteries suboptimally assessed. 2. Extensive left axillary, left retropectoral and left supraclavicular lymphadenopathy. This favors lymphoma/leukemia. Metastatic disease could appear similar although is considered less likely. 3. Heterogeneity of the liver, partially imaged on this exam. Mild splenomegaly. The findings may reflect hepatic and splenic involvement. 4. Diffuse sclerosis of visualized skeletal structures suggestive of skeletal involvement by leukemia/lymphoma or less likely metastatic disease. ACT 112: Negative or not required by law. Electronically signed by: Brett Snow M.D. 06/27/2021 4:54 PM Extremity Venous Study 06/27/21 16:08 US venous doppler UE LT HISTORY: 86 years-old Male swelling, obstructing mass L axilla acute pain and swelling of the left upper extremity COMPARISON: Doppler study 06/01/2021, CTA chest 06/27/2021 TECHNIQUE: Multiple real-time sonographic images of the left upper cavity deep venous structures were obtained assessing grayscale appearance, color and spectral flow FINDINGS: Normal flow and phasicity of the upper deep venous structures. Supraclavicular adenopathy redemonstrated measuring up to 2.1 x 1.9 x 1.9 cm. The previously described extensive superficial venous thrombi are not identified. IMPRESSION: 1. No deep or superficial venous thrombi identified. 2. Pathologic supraclavicular adenopathy. Please refer to the CTA chest study of same day for additional findings. ACT 112: Negative or not required by law. The above report was generated using voice recognition software. It may contain grammatical, syntax or spelling errors. Electronically signed by: Torsten Freire M.D. 06/27/2021 6:23 PM Blood Pressure Blood Pressure Findings: Elevated blood pressure Blood Pressure Disposition: further management by hospitalist Discharge Plan Visit Data Chief Complaint: Swelling/Edema to Extremity Stated Complaint: LEFT ARM SWOLLEN, DR REF ED Provider: Katherine Gross Discharge Problem: Lymphadenopathy, Lymphedema Patient Disposition: Admitted As Inpatient Discharge Instructions Interventions: ED Discharge Assessment Last Done: 06/27/21 22:13
== END 2021-06-29 17:48 | disposition home or self-care (01) ==
LOC: ED 12:42 → 3N 12:42 → SUATTDRO 20:52 → 3N 22:13

== ENCOUNTER 2021-07-23 16:47 | Inpatient (IN) ==
--- NOTE | 2021-07-23 17:14 | Emergency Department Note ---
Impression & Plan Abscess of right shoulder, [place] cell cancer, Osteomyelitis of right shoulder ED Provider Note NAME: ERICKA TAMAYO AGE: 86 SEX: M ARRIVES VIA: Walk-In INFORMANT: Patient, ED PROVIDER(S): Brooks Beebe MD CHIEF COMPLAINT: Right shoulder infection. PLAN: Disposition: Admit MEDICAL DECISION MAKING: The patient is a pleasant 86-year-old gentleman with a complicated recent past medical history of diagnosis of metastatic Lindsay cell carcinoma, lymphadenopathy with lymphedema of the left upper extremity and history of right shoulder septic joint status post drainage per the patient and daughter's report who presents emergency department for acute drainage of right shoulder fluid which began last night draining yellow foul-smelling fluid which they report saturated his bed. This occurs in the setting of having history of shoulder infection and effusion. They report that they were told that with exertion that his shoulder fluid may return. He has been doing rehab and wondered whether or not this may be related. He denies fevers, chills, cough congestion, vomiting diarrhea. His daughter reports she feels his abdomen is more bloated than she remembers. The patient reports he had a normal bowel movement this morning. On arrival patient is chronically ill-appearing but no acute distress, afebrile stable vital signs. He has edema and erythema surrounding the right shoulder with 2 punctate wounds on the anterior aspect of the shoulder where there is pus draining actively. The patient denies any particular pain in the shoulder from baseline. His range of motion is limited at baseline to approximately 45 degrees. With assistance he can passively move his arm to 90 degrees and this is not changed. His left upper extremity has 3+ pitting edema which has been his recent baseline in the setting of his metastatic cancer. His abdomen is soft but mildly distended and nontender. He has 3+ bilateral lower extremity pitting edema. Calves are nontender. Further examination of the patient's right shoulder demonstrated extensive collection of purulence which upon massage of the area did express copious amounts of purulent discharge saturating over 10 ABD pads. A culture was sent from this collection. EKG without overt acute ischemia. CXR with nonspecific interstitial thickening and bilateral opacities. WBC 25.5K, similar to prior in setting of the patient's metastatic cancer, H/H 9.8/31.3 proximal to prior range of values. Platelets within normal limits. Chemistry without metabolic acidosis. LFTs without significant normality. Lactic acid within normal limits. Troponin negative/undetectable. Procalciton in is not significantly elevated. ESR elevated at 35 with CRP elevated 8.8. COVID-[address] chest/abd/pelvis demonstrates stable findings c/w patient's known metastatic disease. CT without and with contrast of the right shoulder was performed and demonstrates extensive infection including large abscess, gas, evidence of osteomyelitis and joint effusion. I did review the concerning findings with the patient and his daughter at the bedside. I did recommend that the patient be transferred as he had received his surgical intervention for this in the past at [facility]. However, the patient was adamant that did not want to be transferred. Moreover he was unsure if he wanted any surgi wilman intervention at this time. He recognizes that he was told he may have 3-6 months of life expectancy related to his metastatic cancer and so he is wary about compromising his quality of life and that short amount of time he may have left. I did review the case with [facility] orthopedic surgery, with whom the patient has followed with in the past, and I discussed with Dr. Rosales who was community relations liaison. Appreciate recommendations for transfer to [facility] where he had been treated for this in the past. However, given the patient persists that he does not want to be transferred and is unsure of any intervention will admit the patient here for now for anticipated discussion with oncology, palliative care, and orthopedics. Case was discussed with Dr. Squires, [facility] hospitalist, who will evaluate the patient for admission. Triage Nursing notes reviewed and agree them. Prior medical records reviewed Vital Signs: reviewed and remarkable for no significant abnormalities Differential diagnosis: Infection, dehydration, metabolic abnormality, hypo/hyperglycemia, electrolyte disturbance, anemia, hypoxia, cardiac sources, intracerebral event, toxicologic, neurologic, as well as other pathologies. ER treatment provided: See below. Diagnostics interpreted by me: ECG: Normal sinus rhythm, 69 bpm, no ectopy, no overt ST elevation or depression, QTC 4 5, cures 80. Cardiac Monitoring: An order for continuous cardiac monitoring was placed and demonstrated Normal sinus rhythm, 69 bpm, no ectopy. Laboratory studies: See below Imaging studies: See below [facility] Preliminary Findings Only See Final Report For Complete Findings CT ABDOMEN & PELVIS With Contrast: No acute findings in the abdomen or pelvis. Anasarca. Numerous hypodensities are visualized throughout the liver for which metastases or not excluded. Status post cholecystectomy. Subcentimeter hypodensity of the right kidney is too small to characterize. No hydronephrosis. Bilateral perinephric fat stranding is nonspecific. There are a few shotty retroperitoneal lymph nodes. No bulky retroperitoneal lymphadenopathy. No evidence of bowel obstruction or focal bowel wall thickening. Unremarkable appendix. No significant free fluid or free air in the abdomen or pelvis. Post surgical changes of the lumbar spine. Radiologist: Celia Kiran M.D. Study ready at 21:05 and initial results transmitted at 21:28 Preliminary Findings Only See Final Report For Complete Findings CT CHEST With Contrast: Comparison: CT chest with contrast 06/27/2021 New trace left greater than right pleural effusions. Atelectasis visualized predominantly within the lung bases. Grossly stable left supraclavicular and left axillary lymphadenopathy consistent with provided history of metastatic disease. No acute pulmonary embolism visualized within the left or right main pulmonary arteries. Old healed right lateral fourth and fifth rib fractures versus osseous metastases. Additional findings not significantly changed from prior exam. Please see dedicated CT of the right shoulder performed concurrently and dictated separately for additional findings. Radiologist: Celia Kiran M.D. Study ready at 21:03 and initial results transmitted at 21:21 Preliminary Findings Only See Final Report For Complete Findings CT RIGHT SHOULDER: Large multiloculated rim-enhancing fluid collection with multifocal gas bubbles visualized within the left upper extremity extending from the acromial on distally to the level of the mid to proximal humeral diaphysis, consistent with history of abscess. This collection measures approximately 11.9 x 9.5 x 5 overlying 7 cm (CC, TR, AP). There are erosive and subcortical cystic changes within the posterior humeral head and neck, concerning for osteomyelitis. There is a small amount of fluid and a locule of air in the glenohumeral joint r aising the possibility of a septic joint. Moderate anterior subluxation of the humeral head with respect to the glenoid. Probable underlying rotator cuff tear. 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 Old healed right lateral fourth and fifth rib fractures Radiologist: Celia Kiran M.D. Study ready at 21:03 and initial results transmitted at 21:14 Consultation(s): Dr. Rosales, [facility] orthopedic surgery on-call. Dr. Squires, [facility] hospitalist HPI: The patient is a pleasant 86-year-old gentleman with a complicated recent past medical history of diagnosis of metastatic Lindsay cell carcinoma, lymphadenopathy with lymphedema of the left upper extremity and history of right shoulder septic joint status post drainage per the patient and daughter's report who presents emergency department for acute drainage of right shoulder fluid which began last night draining yellow foul-smelling fluid which they report saturated his bed. This occurs in the setting of having history of shoulder infection and effusion. They report that they were told that with exertion that his shoulder fluid may return. He has been doing rehab and wondered whether or not this may be related. He denies fevers, chills, cough congestion, vomiting diarrhea. His daughter reports she feels his abdomen is more bloated than she remembers. The patient reports he had a normal bowel movement this morning. ROS: See above HPI for pertinent positives & negatives. A total of 10 systems reviewed and were otherwise negative. PAST MEDICAL HISTORY:See Below PAST SURGICAL HISTORY:See Below FAMILY HISTORY:See Below SOCIAL HISTORY:See Below HOME MEDICATIONS:See Below ALLERGIES:See Below VITALS:See Below PHYSICAL EXAMINATION: GENERAL: Awake, alert, uncomfortable-appearing, in no distress HENT: Normocephalic, atraumatic. Oropharynx unremarkable. EYES: Normal conjunctiva. Sclera non-icteric. NECK: Supple. No nuchal rigidity. FROM. No JVD. RESPIRATORY: Clear to auscultation. CARDIAC: Regular rate, normal rhythm. Extremities warm and well perfused. Pulses equal. ABDOMEN: Soft, non-distended. No tenderness to palpation. No rebound or guarding. No masses. RECTAL: Deferred. MUSCULOSKELETAL: Chest examination reveals no tenderness. The back is symmetrical on inspection without obvious abnormality. There is no CVA te nderness to palpation. No joint edema. LOWER EXTREMITIES: Calves are equal size bilaterally and non-tender. No edema. No discoloration. edema and erythema surrounding the right shoulder with 2 punctate wounds on the anterior aspect of the shoulder where there is pus draining actively. The patient denies any particular pain in the shoulder from baseline. His range of motion is limited at baseline to approximately 45 degrees. With assistance he can passively move his arm to 90 degrees and this is not changed. His left upper extremity has 3+ pitting edema which has been his recent baseline in the setting of his metastatic cancer. His abdomen is soft but mildly distended and nontender. He has 3+ bilateral lower extremity pitting edema. Calves are nontender. NEURO: Normal sensorium. No sensory or motor deficits noted. SKIN: No rash or jaundice noted. ED COURSE: Critical Care: I have personally spent greater than 35 minutes of critical care time in the direct management of this patient. This includes bedside care, interpretation of diagnostic studies, and testing, discussion with consultants, patient, and family members, and other required patient management activities. This 35 minutes is in excess of all separately billable procedures. 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 Montalvo 06/29/2021 Family History Other No significant family history Social History Smoking Status: Former smoker Second Hand Exposure: No; Hx Alcohol Use: No Hx Substance Use: No Preferred Language: Estonian Communication Ability: Effective Visual Impairment: No Limitations Hearing Ability: Normal Production Floater Required: No Beliefs That Will Affect Care: None marital status: / Current Living Situation: Alone Other Information That Helps Us Care for You: No Feels Safe at Home: Yes Safety Concerns: Feels Safe At This Time Assistive Devices: Glasses Allergies Allergies Allergy/AdvReac Type Severity Reaction Status Date / Time chlorhexidine Allergy Intermediate Rash Verified 07/23/21 17:42 gabapentin AdvReac Intermediate vomiting Verified 07/23/21 17:42 and "spazz out" Home Meds Home Medications Medication Instructions Recorded Confirmed aspirin 81 mg tablet,delayed 81 mg PO QAM 05/07/19 07/23/21 release atenolol 50 mg tablet (Tenormin) 50 mg PO QAM 05/07/19 07/23/21 ropinirole 4 mg tablet 4 mg PO HS 05/07/19 07/23/21 allopurinol 100 mg tablet 100 mg PO TID 10/27/19 07/23/21 (Zyloprim) terazosin 5 mg capsule 5 mg PO HS 10/27/19 07/23/21 pantoprazole 20 mg tablet,delayed 20 mg PO QAM 11/03/19 07/23/21 release prednisone 5 mg tablet 7.5 mg PO QAM tab 02/05/20 07/23/21 atorvastatin 40 mg tablet 40 mg PO QAM tab 02/16/21 07/23/21 cholecalciferol (vitamin D3) 25 25 mcg PO QAM 06/27/21 07/23/21 mcg (1,000 unit) capsule colchicine 0.6 mg tablet 0.3 mg PO QAM 06/27/21 07/23/21 duloxetine 60 mg capsule,delayed 60 mg PO HS 06/27/21 07/23/21 release (Cymbalta) furosemide 20 mg tablet (Lasix) 20 mg PO QAM 06/27/21 07/23/21 hydrocodone bitartrate 10 mg 10 mg PO BID 06/27/21 07/23/21 capsule, oral only, extended rel 12 hr (Zohydro ER) prednisone 1 mg tablet 2 mg PO QAM 06/27/21 07/23/21 Previous Rx's Medication Instructions Recorded ketoconazole 2 % topical cream 1 applic TOPICAL DAILY PRN #0 g 11/07/19 tramadol 50 mg tablet (Ultram) 50 mg PO Q12H PRN #0 tab 11/07/19 Results & Data (ED) Vital Signs Vital Signs - 24 hr 07/23/21 16:51 07/23/21 17:06 07/23/21 17:30 Temperature 36.3 C L Temperature Source Temporal Artery Scan Pulse Rate 73 73 71 Pulse Rate from SpO2 Sensor 72 70 Respiratory Rate 18 21 17 Respiratory Effort / Characteristics Non-Labored Respiratory Depth Normal Blood Pressure 122/56 L Blood Pressure Mean 78 Pulse Oximetry 98 95 96 Oxygen Delivery Method Room Air Sepsis Recent Fever Within 48 Hours No Sepsis New/Unexplained Change in Mental Status No Sepsis Action Taken by Nursing No Action Required 07/23/21 17:55 07/23/21 18:03 07/23/21 18:25 Temperature Temperature Source Pulse Rate 70 Pulse Rate from SpO2 Sensor 70 Respiratory Rate 19 Respiratory Effort / Characteristics Non-Labored Non-Labored Respiratory Depth Blood Pressure Blood Pressure Mean Pulse Oximetry 98 Oxygen Delivery Method Room Air Sepsis Recent Fever Within 48 Hours Sepsis New/Unexplained Change in Mental Status Sepsis Action Taken by Nursing 07/23/21 18:30 07/23/21 19:00 07/23/21 19:30 Temperature Temperature Source Pulse Rate 68 73 Pulse Rate from SpO2 Sensor 69 73 Respiratory Rate 14 20 Respiratory Effort / Characteristics Non-Labored Non-Labored Respiratory Depth Blood Pressure Blood Pressure Mean 142 Pulse Oximetry 97 96 Oxygen Delivery Method Sepsis Recent Fever Within 48 Hours Sepsis New/Unexplained Change in Mental Status Sepsis Action Taken by Nursing 07/23/21 19:58 07/23/21 20:00 07/23/21 20:30 Temperature Temperature Source Pulse Rate 71 Pulse Rate from SpO2 Sensor Respiratory Rate 16 Respiratory Effort / Characteristics Non-Labored Non-Labored Non-Labored Respiratory Depth Blood Pressure Blood Pressure Mean Pulse Oximetry Oxygen Delivery Method Sepsis Recent Fever Within 48 Hours Sepsis New/Unexplained Change in Mental Status Sepsis Action Taken by Nursing 07/23/21 21:00 07/23/21 21:30 07/23/21 22:00 Temperature Temperature Source Pulse Rate Pulse Rate from SpO2 Sensor Respiratory Rate Respiratory Effort / Characteristics Non-Labored Non-Labored Non-Labored Respiratory Depth Blood Pressure Blood Pressure Mean Pulse Oximetry Oxygen Delivery Method Sepsis Recent Fever Within 48 Hours Sepsis New/Unexplained Change in Mental Status Sepsis Action Taken by Nursing 07/23/21 22:30 07/23/21 23:20 Temperature Temperature Source Pulse Rate 69 Pulse Rate from SpO2 Sensor Respiratory Rate 22 Respiratory Effort / Characteristics Non-Labored Respiratory Depth Blood Pressure 159/83 H Blood Pressure Mean 108 Pulse Oximetry 97 Oxygen Delivery Method Sepsis Recent Fever Within 48 Hours Sepsis New/Unexplained Change in Mental Status Sepsis Action Taken by Nursing Laboratory Data Attestation: I reviewed the patient's lab results. Result diagrams: 07/23/21 18:56 07/23/21 18:56 Lab Results 07/23/21 07/23/21 07/23/21 Range/Units 18:56 18:56 18:56 WBC (4.8-10.8) K/uL RBC (4.7-6.1) M/uL Hgb (14.0-18.0) g/dL Hct (42-52) % MCV (80-100) fL MCH (25-34) pg MCHC (32-36) g/dL RDW Std Deviation (36.4-46.3) fL RDW Coeff of Dione (11.5-14.5) % Plt Count (130-400) K/uL MPV (7.4-10.4) fL Immature Gran % (Auto) % Neut % (Auto) % Lymph % (Auto) % [place] % (Auto) % Eos % (Auto) % Baso % (Auto) % Neut # (Auto) (1.4-6.5) K/uL Lymph # (Auto) (1.2-3.4) K/uL [place] # (Auto) (0.11-0.59) K/uL Eos # (Auto) (0-0.5) K/uL Baso # (Auto) (0-0.2) K/uL Immature Gran # (Auto) (0.00-0.02) K/uL ESR 35 H (0-20) mm/hr PT (9.0-12.0) Seconds INR (0.9-1.1) APTT (21.0-31.0) Seconds PTT Ratio Sodium 139 (136-145) mmol/L Potassium 3.8 (3.5-5.1) mmol/L Chloride 103 (98-107) mmol/L Carbon Dioxide 28 (21-32) mmol/L Anion Gap 8.0 (3-11) BUN 20 H (7-18) mg/dl Creatinine 1.03 (0.6-1.4) mg/dl Est Cr Clr Drug Dosing Not Reportable Est GFR ( Amer) 76.4 ml/min Est GFR (Non-Af Amer) 65.9 ml/min BUN/Creatinine Ratio 19.0 (10-20) Glucose 80 (70-99) mg/dl Lactate (0.4-2.0) mmol/L Calcium 8.2 L (8.5-10.1) mg/dl Magnesium 1.8 (1.8-2.4) mg/dl Total Bilirubin 0.6 (0.2-1) mg/dl AST 20 (15-37) U/L ALT 21 (12-78) U/L Alkaline Phosphatase 141 H (45-117) U/L Troponin I < 0.015 (0-0.045) ng/ml C-Reactive Protein 8.85 H (0-0.29) mg/dl Total Protein 6.5 (6.4-8.2) gm/dl Albumin 2.7 L (3.4-5.0) gm/dl Globulin 3.8 (2.5-4.0) gm/dl Albumin/Globulin Ratio 0.7 L (0.9-2) Procalcitonin 0.18 (0-0.5) ng/ml Urine Color Urine Appearance (Clear) Urine pH (4.5-7.5) Ur Specific [place] (1.000-1.030) Urine Protein (Negative) Urine Glucose (UA) (Negative) Urine Ketones (Negative) Urine Blood (Negative) Urine Nitrite (Negative) Urine Bilirubin (Negative) Urine Urobilinogen (Negative) Ur Leukocyte Esterase (Negative) Urine WBC (Auto) (0-5) /hpf Urine RBC (Auto) (0-4) /hpf U Hyaline Cast (Auto) (0-5) /lpf U Epithel Cells (Auto) (0-5) /lpf Urine Bacteria (Auto) (Negative) COVID-19 Eval Order SARS-CoV-2 (PCR) (Negative) 07/23/21 07/23/21 07/23/21 Range/Units 18:56 18:56 18:56 WBC 25.54 H (4.8-10.8) K/uL RBC 3.57 L (4.7-6.1) M/uL Hgb 9.8 L (14.0-18.0) g/dL Hct 31.3 L (42-52) % MCV 87.7 (80-100) fL MCH 27.5 (25-34) pg MCHC 31.3 L (32-36) g/dL RDW Std Deviation 55.0 H (36.4-46.3) fL RDW Coeff of Dione 17.0 H (11.5-14.5) % Plt Count 356 (130-400) K/uL MPV 10.0 (7.4-10.4) fL Immature Gran % (Auto) 2.4 % Neut % (Auto) 74.4 % Lymph % (Auto) 12.2 % [place] % (Auto) 10.2 % Eos % (Auto) 0.7 % Baso % (Auto) 0.1 % Neut # (Auto) 19.00 H (1.4-6.5) K/uL Lymph # (Auto) 3.11 (1.2-3.4) K/uL [place] # (Auto) 2.61 H (0.11-0.59) K/uL Eos # (Auto) 0.19 (0-0.5) K/uL Baso # (Auto) 0.02 (0-0.2) K/uL Immature Gran # (Auto) 0.61 H (0.00-0.02) K/uL ESR (0-20) mm/hr PT 10.3 (9.0-12.0) Seconds INR 1.0 (0.9-1.1) APTT 37.2 H (21.0-31.0) Seconds PTT Ratio 1.4 Sodium (136-145) mmol/L Potassium (3.5-5.1) mmol/L Chloride (98-107) mmol/L Carbon Dioxide (21-32) mmol/L Anion Gap (3-11) BUN (7-18) mg/dl Creatinine (0.6-1.4) mg/dl Est Cr Clr Drug Dosing Est GFR ( Amer) ml/min Est GFR (Non-Af Amer) ml/min BUN/Creatinine Ratio (10-20) Glucose (70-99) mg/dl Lactate 0.8 (0.4-2.0) mmol/L Calcium (8.5-10.1) mg/dl Magnesium (1.8-2.4) mg/dl Total Bilirubin (0.2-1) mg/dl AST (15-37) U/L ALT (12-78) U/L Alkaline Phosphatase (45-117) U/L Troponin I (0-0.045) ng/ml C-Reactive Protein (0-0.29) mg/dl Total Protein (6.4-8.2) gm/dl Albumin (3.4-5.0) gm/dl Globulin (2.5-4.0) gm/dl Albumin/Globulin Ratio (0.9-2) Procalcitonin (0-0.5) ng/ml Urine Color Urine Appearance (Clear) Urine pH (4.5-7.5) Ur Specific [place] (1.000-1.030) Urine Protein (Negative) Urine Glucose (UA) (Negative) Urine Ketones (Negative) Urine Blood (Negative) Urine Nitrite (Negative) Urine Bilirubin (Negative) Urine Urobilinogen (Negative) Ur Leukocyte Esterase (Negative) Urine WBC (Auto) (0-5) /hpf Urine RBC (Auto) (0-4) /hpf U Hyaline Cast (Auto) (0-5) /lpf U Epithel Cells (Auto) (0-5) /lpf Urine Bacteria (Auto) (Negative) COVID-19 Eval Order SARS-CoV-2 (PCR) (Negative) 07/23/21 07/23/21 07/23/21 Range/Units 19:44 19:44 22:13 WBC (4.8-10.8) K/uL RBC (4.7-6.1) M/uL Hgb (14.0-18.0) g/dL Hct (42-52) % MCV (80-100) fL MCH (25-34) pg MCHC (32-36) g/dL RDW Std Deviation (36.4-46.3) fL RDW Coeff of Dione (11.5-14.5) % Plt Count (130-400) K/uL MPV (7.4-10.4) fL Immature Gran % (Auto) % Neut % (Auto) % Lymph % (Auto) % [place] % (Auto) % Eos % (Auto) % Baso % (Auto) % Neut # (Auto) (1.4-6.5) K/uL Lymph # (Auto) (1.2-3.4) K/uL [place] # (Auto) (0.11-0.59) K/uL Eos # (Auto) (0-0.5) K/uL Baso # (Auto) (0-0.2) K/uL Immature Gran # (Auto) (0.00-0.02) K/uL ESR (0-20) mm/hr PT (9.0-12.0) Seconds INR (0.9-1.1) APTT (21.0-31.0) Seconds PTT Ratio Sodium (136-145) mmol/L Potassium (3.5-5.1) mmol/L Chloride (98-107) mmol/L Carbon Dioxide (21-32) mmol/L Anion Gap (3-11) BUN (7-18) mg/dl Creatinine (0.6-1.4) mg/dl Est Cr Clr Drug Dosing Est GFR ( Amer) ml/min Est GFR (Non-Af Amer) ml/min BUN/Creatinine Ratio (10-20) Glucose (70-99) mg/dl Lactate (0.4-2.0) mmol/L Calcium (8.5-10.1) mg/dl Magnesium (1.8-2.4) mg/dl Total Bilirubin (0.2-1) mg/dl AST (15-37) U/L ALT (12-78) U/L Alkaline Phosphatase (45-117) U/L Troponin I (0-0.045) ng/ml C-Reactive Protein (0-0.29) mg/dl Total Protein (6.4-8.2) gm/dl Albumin (3.4-5.0) gm/dl Globulin (2.5-4.0) gm/dl Albumin/Globulin Ratio (0.9-2) Procalcitonin (0-0.5) ng/ml Urine Color Yellow Urine Appearance Clear (Clear) Urine pH 5.5 (4.5-7.5) Ur Specific [place] 1.027 (1.000-1.030) Urine Protein Trace H (Negative) Urine Glucose (UA) Negative (Negative) Urine Ketones Negative (Negative) Urine Blood Negative (Negative) Urine Nitrite Negative (Negative) Urine Bilirubin Negative (Negative) Urine Urobilinogen Negative (Negative) Ur Leukocyte Esterase Negative (Negative) Urine WBC (Auto) 1-5 (0-5) /hpf Urine RBC (Auto) 10-30 H (0-4) /hpf U Hyaline Cast (Auto) 0 (0-5) /lpf U Epithel Cells (Auto) 0-5 (0-5) /lpf Urine Bacteria (Auto) Negative (Negative) COVID-19 Eval Order Covid19 at [facility] SARS-CoV-2 (PCR) NEGATIVE (Negative) Administered Medications Piperacillin Sod/Tazobactam (Sod 3.375 gm/ Dextrose) 115 mls @ 28.75 mls/hr IV Q8H RODRIGO; Protocol Stop: 07/31/21 01:59 Last Admin: 07/24/21 02:28 Dose: 28.8 mls/hr Documented by: [id number] Lactated Ringer's (Lr) 1,000 mls @ 125 mls/hr IV .Q8H RODRIGO Stop: 07/24/21 09:14 Last Infusion: 07/24/21 02:28 Dose: 0 mls/hr Documented by: [id number] Admin: 07/24/21 01:17 Dose: 125 mls/hr Documented by: [id number] Clindamycin Phosphate 600 mg/ (Dextrose) 54 mls @ 108 mls/hr IV Q8H RODRIGO; Protocol Stop: 07/31/21 01:59 Last Infusion: 07/24/21 02:28 Dose: 0 mls/hr Documented by: [id number] Admin: 07/24/21 01:57 Dose: 108 mls/hr Documented by: [id number] Oxycodone HCl (Oxycodone Hcl Ir 5 Mg Tab (Immediate Release)) 5 mg PO Q4H PRN PRN Reason: MODERATE Pain (4,5,6) & Pre PT Stop: 08/07/21 00:41 Last Admin: 07/24/21 01:17 Dose: 5 mg Documented by: [id number] Discontinued Medications Piperacillin Sod/Tazobactam Sod (Zosyn) 4.5 gm in 120 mls @ 240 mls/hr IV NOW ONE Stop: 07/23/21 18:30 Last Infusion: 07/23/21 20:19 Dose: 0 mls/hr Documented by: [id number] Admin: 07/23/21 19:46 Dose: 240 mls/hr Documented by: [id number] Daptomycin 600 mg/ Syringe 12 mls @ 6 mls/min IV NOW ONE; Protocol Stop: 07/23/21 21:54 Last Admin: 07/23/21 23:16 Dose: 6 mls/min Documented by: [id number] Ioversol (Optiray 320 100ml) 94 ml IV ONCE ONE Stop: 07/23/21 20:55 Last Admin: 07/23/21 20:54 Dose: 94 ml Documented by: [id number] Imaging Data Radiologist's Impression: Chest X-Ray 07/23/21 17:55 XR chest 1V portable CLINICAL HISTORY: SEPSIS COMPARISON STUDY: Chest CT June 27, 2021. FINDINGS: There is suspected soft tissue gas which projects superior to the right humeral head. There may be sclerosis of the proximal right humerus. No pneumothorax. Possible trace left pleural effusion. Lung volumes are diminished. Cardiomegaly is noted. Interstitial thickening and bilateral opacities are present. IMPRESSION: 1. Low lung volumes with interstitial thickening and bilateral opacities which may reflect an infectious process or pulmonary edema. Radiographic follow-up is recommended. Possible trace left pleural effusion. 2. Nonspecific soft tissue gas which project superior to the proximal right humerus. 3. Apparent sclerosis of the proximal right humerus. This may be related to known underlying leukemia/lymphoma. ACT 112: Negative or not required by law. Electronically signed by: Brett Snow M.D. 07/23/2021 6:[address] 07/23/21 18:17 CT shoulder RT wo con CLINICAL HISTORY: sepsis, abscess. h/o septic shoulder COMPARISON STUDY: Right shoulder radiographs July 17, 2020. TECHNIQUE: Axial images of the right shoulder were obtained without IV contrast. Sagittal and coronal reconstructions were viewed. Automated exposure control was utilized for the study. A dose lowering technique was utilized adhering to the principles of ALARA. FINDINGS: There is anterior subluxation of the right humeral head with respect to the glenoid. Severe degenerative changes within the right shoulder are noted. Note is made of a large fluid and gas containing collection along the superolateral aspect of the right shoulder, likely reflecting a distended sub acromial/subdeltoid bursa which is infected. This suggests a large multiloculated abscess. Intramuscular component within the deltoid is suspected. Communication with the joint space is noted. There is a moderate-sized glenohumeral joint effusion. The effusion appears complex. Infiltration of the adjacent adjacent soft tissues is noted. There is erosion of the adjacent portion of the acromium shown best on axial image 51 of 321. Sclerosis of visualized skeletal structures is noted. This was shown on prior chest CT. No acute fractures identified. Several old right-sided rib fractures are incide ntally noted. IMPRESSION: 1. Findings consistent with an extensive infectious process of the right shoulder, as described above. Large multiloculated fluid and gas containing collection along the superolateral aspect of the right shoulder suggestive of a large abscess within the subacromial/subdeltoid bursa extending into the deltoid muscle and communicating with the right glenohumeral joint with complex joint effusion. The gas could be due to a gas-forming organism or wound. Erosion of the adjacent acromion. This is age indeterminate and osteomyelitis cannot be excluded. 2. Anterior subluxation of the right femoral head with respect to the glenoid which is likely chronic. Severe right shoulder osteoarthritis. 3. Sclerosis of visualized skeletal structures which may be related to known leukemia/lymphoma. ACT 112: Negative or not required by law. Electronically signed by: Brett Snow M.D. 07/23/2021 7:34 PM Discharge Plan Visit Data Chief Complaint: Infection Stated Complaint: RIGHT ARM INFECTED ED Provider: Brooks eBebe Discharge Problem: Abscess of right shoulder, [place] cell cancer, Osteomyelitis of right shoulder Patient Disposition: Admitted As Inpatient Discharge Instructions Interventions: ED Discharge Assessment Last Done: 07/24/21 00:16 Discharge Problem: Osteomyelitis of right shoulder Qualifiers: Osteomyelitis type: unspecified type Qualified Code(s): M86.9 - Osteomyelitis, unspecified
[2021-07-23] MEDS ORDERED: PIPERACILL/TAZOBAC CONSULT ACTIVE PRN (18:01)
[2021-07-23] MEDS ORDERED: PIPERACILLIN/TAZOBACTAM 4.5 GM/120 ML BAG IV ONE (18:01)
--- NOTE | 2021-07-23 18:20 | XRay Report ---
XR chest 1V portable CLINICAL HISTORY: SEPSIS COMPARISON STUDY: Chest CT June 27, 2021. FINDINGS: There is suspected soft tissue gas which projects superior to the right humeral head. There may be sclerosis of the proximal right humerus. No pneumothorax. Possible trace left pleural effusio n. Lung volumes are diminished. Cardiomegaly is noted. Interstitial thickening and bilateral opacitie s are present. IMPRESSION: 1. Low lung volumes with interstitial thickening and bilateral opacities which may reflect an infecti ous process or pulmonary edema. Radiographic follow-up is recommended. Possible trace left pleural ef fusion. 2. Nonspecific soft tissue gas which project superior to the proximal right humerus. 3. Apparent sclerosis of the proximal right humerus. This may be related to known underlying leukemia /lymphoma. ACT 112: Negative or not required by law. Electronically signed by: Brett Snow M.D. 07/23/2021 6:19 PM
[2021-07-23 19:06] LABS: Hematocrit (blood only) 31.3 % (42-52); Hemoglobin 9.8 g/dL (14.0-18.0); Mean Corpuscular Hemoglobin 27.5 pg (25-34); Mean Corpuscular Hgb Conc 31.3 g/dL (32-36); Mean Corpuscular Volume 87.7 fL (80-100); Platelet Count 356 K/uL (130-400); Red Blood Count 3.57 M/uL (4.7-6.1); White Blood Count 25.54 K/uL (4.8-10.8)
[2021-07-23 19:23] LABS: Alanine Aminotransferase 21 U/L (12-78); Albumin Level 2.7 gm/dl (3.4-5.0); Aspartate Aminotransferase 20 U/L (15-37); Blood Urea Nitrogen 20 mg/dl (7-18); C Reactive Protein 8.85 mg/dl (0-0.29); Calcium 8.2 mg/dl (8.5-10.1); Carbon Dioxide 28 mmol/L (21-32); Chloride 103 mmol/L (98-107); Est GFR (African American) 76.4 ml/min; Est GFR (Non-African American) 65.9 ml/min; Glucose 80 mg/dl (70-99); Magnesium 1.8 mg/dl (1.8-2.4); Potassium 3.8 mmol/L (3.5-5.1); Sodium 139 mmol/L (136-145)
[2021-07-23 19:25] LABS: Basophils # (auto) 0.02 K/uL (0-0.2); Basophils % (auto) 0.1 %; Eosinophils # (auto) 0.19 K/uL (0-0.5); Eosinophils % (auto) 0.7 %; Immature Granulocytes # (auto) 0.61 K/uL (0.00-0.02); Immature Granulocytes % (auto) 2.4 %; Lymphocytes # (auto) 3.11 K/uL (1.2-3.4); Lymphocytes % (auto) 12.2 %; Monocytes # (auto) 2.61 K/uL (0.11-0.59); Monocytes % (auto) 10.2 %; Neutrophils % (auto) 74.4 %
[2021-07-23 19:28] LABS: Albumin Globulin Ratio 0.7 (0.9-2); Alkaline Phosphatase 141 U/L (45-117); Bilirubin,Total 0.6 mg/dl (0.2-1); Globulin 3.8 gm/dl (2.5-4.0); Total Protein 6.5 gm/dl (6.4-8.2); Troponin I < 0.015 ng/ml (0-0.045)
[2021-07-23 19:32] LABS: Partial Thromboplastin Ratio 1.4; Partial Thromboplastin Time 37.2 Seconds (21.0-31.0); Prothrombin Time 10.3 Seconds (9.0-12.0)
--- NOTE | 2021-07-23 19:35 | CT Scan Report ---
CT shoulder RT wo con CLINICAL HISTORY: sepsis, abscess. h/o septic shoulder COMPARISON STUDY: Right shoulder radiographs July 17, 2020. TECHNIQUE: Axial images of the right shoulder were obtained without IV contrast. Sagittal and coronal reconstructions were viewed. Automated exposure control was utilized for the study. A dose lowering technique was utilized adhering to the principles of ALARA. FINDINGS: There is anterior subluxation of the right humeral head with respect to the glenoid. Severe degenerative changes within the right shoulder are noted. Note is made of a large fluid and gas cont aining collection along the superolateral aspect of the right shoulder, likely reflecting a distended subacromial/subdeltoid bursa which is infected. This suggests a large multiloculated abscess. Intram uscular component within the deltoid is suspected. Communication with the joint space is noted. There is a moderate-sized glenohumeral joint effusion. The effusion appears complex. Infiltration of the a djacent adjacent soft tissues is noted. There is erosion of the adjacent portion of the acromium show n best on axial image 51 of 321. Sclerosis of visualized skeletal structures is noted. This was shown on prior chest CT. No acute fractures identified. Several old right-sided rib fractures are incident ally noted. IMPRESSION: 1. Findings consistent with an extensive infectious process of the right shoulder, as described above . Large multiloculated fluid and gas containing collection along the superolateral aspect of the righ t shoulder suggestive of a large abscess within the subacromial/subdeltoid bursa extending into the d eltoid muscle and communicating with the right glenohumeral joint with complex joint effusion. The ga s could be due to a gas-forming organism or wound. Erosion of the adjacent acromion. This is age inde terminate and osteomyelitis cannot be excluded. 2. Anterior subluxation of the right femoral head with respect to the glenoid which is likely chronic . Severe right shoulder osteoarthritis. 3. Sclerosis of visualized skeletal structures which may be related to known leukemia/lymphoma. ACT 112: Negative or not required by law. Electronically signed by: Brett Snow M.D. 07/23/2021 7:34 PM
[2021-07-23] MEDS ORDERED: OPTIRAY 320 100ml IV ONE (20:54)
[2021-07-23] MEDS ORDERED: DAPTOmycin 600 MG in SYRINGE 0 ML IV ONE (21:53)
[2021-07-23 22:55] LABS: Appearance Urine Clear (Clear); Bacteria Urine Automated Negative (Negative); Bilirubin Urine Negative (Negative); Blood Urine Negative (Negative); Cast Urine Automated 0 /lpf (0-5); Color Urine Yellow; Epithelial Cell Urine Auto 0-5 /lpf (0-5); Glucose Urine UA Negative (Negative); Ketones Urine Negative (Negative); Leukocyte Esterase Urine Negative (Negative); Nitrite Urine Negative (Negative); Protein Urine Trace (Negative); Specific Gravity Urine 1.027 (1.000-1.030); Urobilinogen Urine Negative (Negative); pH Urine 5.5 (4.5-7.5)
--- NOTE | 2021-07-23 23:34 | History & Physical Report ---
Date of Service July 23, 2021 Assessment & Plan (1) Septic arthritis: Plan: 86yo C male with multiple medical comorbidities presenting with [place] joint infection of right shoulder. Patient has had surgical [place] of the [place] [facility] [place] course of [place]. He returns with purulent drainage x [address] with large multiloculated rim-enhancing fluid collection with multifocal gas bubbles visualized within the LUE. Patient is presently afebrile, HD stable and nontoxic in appearance. He does not endorse symptoms of systemic infection. Patient and daughter are reluctant to travel to [facility] [place] this time - patient is u ncertain if he would want to have surgery or aggressive therapy. -Admit to medical -Follow cultures sent in ER - blood and wound -Continue broad spectrum antibiotics - Daptomycin, Zosyn and Clindamycin -Orthopedic Surgery assistance appreciated -Consider Palliative Care consultation to assist with treatment goals -Dressing changes and wound care q shift and as needed -Continue Oxycodone 10mg po BID at home dose -Tylenol PRN -Oxycontin PRN -Morphine PRN -Bowel regimen -Zofran PRN (2) Lymphedema of left upper extremity: Plan: Chronic. 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 Blood pressure elevated -Pain control as above -Continue Atenolol 50mg po daily -Continue to monitor (6) High cholesterol: Plan: Chronic -Will hold Atorvastatin while patient is on Daptomycin (7) GERD (gastroesophageal reflux disease): Plan: Chronic. 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 Patient has had initial evaluation with Dr. Simmons and is planning to follow with him this week to initiate immunotherapy. 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 He has see Dr. Simmons on 07/12/21 and plans to start treatment with Pembrolizumab q 3 weeks starting this Saturday. Patient was [place] [facility] [place] for [place] RIGHT shoulder and had excisional debridement performed. He was treated with a course of IV Ceftaroli ne until 05/24/21 and continued on oral Doxycycline until 06/23/21. Patient was admitted to [facility] from 06/28/21 - 06/29/21 for worsening of LUE lymphedema/swelling as well as pain in the left axillary mass. He was found to have elevated WBC to 33.62 with neutrophil predominance. Imaging with extensive left axillary, retropectoral and supraclavicular LAD favoring lymphoma/leukemia. 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 Patient had CT of the C/A/P performed which showed a left supraclavicular node, axillary node as well as splenomegaly and multiple ill-defined hypodensities in the liver suggestive of metastatic disease. Patient presents to the ER today with purulent drainage from the shoulder. He apparently rolled over in bed and his right shoulder began oozing pus. In the ER he was found to be afebrile, HD stable, NAD. He had significant purulent drainage from the right shoulder - soaking through approximately 10 ABD pads in the ER. CT of the shoulder was performed which revealed a large shoulder abscess with effusion and suggestion of osteomyelitis. Case was discussed between ER provider and Orthopedics - suggested that patient be transferred [place] [facility] [place] as he has had his shoulder drained there in the past. Patient and patient's daughter are reluctant at this time to travel to [facility] [place] and would rather stay at [facility] to discuss options for treatment here. Patient states he noted a small amount of drainage from the shoulder yesterday. He denies pain but does report diminished mobility - states that he is unable to abduct his arm >45 degrees. Patient offers no additional complaints - he denies fever, chills, malaise, sweats, chest pain, palpitations, cough, SOB, abdominal pain, nausea, vomiting, diarrhea or constipation. ER Course: Daptomycin 600mg, Zosyn 4.5gm Allergies Allergy/AdvReac Type Severity Reaction Status Date / Time chlorhexidine Allergy Intermediate Rash Verified 07/23/21 17:42 gabapentin AdvReac Intermediate vomiting Verified 07/23/21 17:42 and "spazz out" Home Medications Medication Instructions Recorded Confirmed Type aspirin 81 mg tablet,delayed 81 mg PO QAM 05/07/19 07/23/21 History release atenolol 50 mg tablet (Tenormin) 50 mg PO QAM 05/07/19 07/23/21 History ropinirole 4 mg tablet 4 mg PO HS 05/07/19 07/23/21 History allopurinol 100 mg tablet 100 mg PO TID 10/27/19 07/23/21 History (Zyloprim) terazosin 5 mg capsule 5 mg PO HS 10/27/19 07/23/21 History pantoprazole 20 mg tablet,delayed 20 mg PO QAM 11/03/19 07/23/21 History release ketoconazole 2 % topical cream 1 applic TOPICAL DAILY PRN #0 g 11/07/19 07/23/21 Rx tramadol 50 mg tablet (Ultram) 50 mg PO Q12H PRN #0 tab 11/07/19 07/23/21 Rx prednisone 5 mg tablet 7.5 mg PO QAM tab 02/05/20 07/23/21 History atorvastatin 40 mg tablet 40 mg PO QAM tab 02/16/21 07/23/21 History cholecalciferol (vitamin D3) 25 25 mcg PO QAM 06/27/21 07/23/21 History mcg (1,000 unit) capsule colchicine 0.6 mg tablet 0.3 mg PO QAM 06/27/21 07/23/21 History duloxetine 60 mg capsule,delayed 60 mg PO HS 06/27/21 07/23/21 History release (Cymbalta) furosemide 20 mg tablet (Lasix) 20 mg PO QAM 06/27/21 07/23/21 History hydrocodone bitartrate 10 mg 10 mg PO BID 06/27/21 07/23/21 History capsule, oral only, extended rel 12 hr (Zohydro ER) prednisone 1 mg tablet 2 mg PO QAM 06/27/21 07/23/21 History Past Med/Surg History Medical History (Updated 07/24/21 @ 01:54 by Su Squires DO) CAD (coronary artery disease) Cellulitis of hand, left Dyslipidemia GERD (gastroesophageal reflux disease) High cholesterol HTN (hypertension) Lower extremity edema 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 Montalvo 06/29/2021 Family History Other No significant family history Social History Smoking Status: Former smoker Second Hand Exposure: No; Hx Alcohol Use: No Hx Substance Use: No Preferred Language: Afghan Communication Ability: Effective Visual Impairment: No Limitations Hearing Ability: Normal General Maintenance Helper Required: No Beliefs That Will Affect Care: None marital status: / Current Living Situation: Alone Other Information That Helps Us Care for You: No Feels Safe at Home: Yes Safety Concerns: Feels Safe At This Time Assistive Devices: Glasses Review of Systems Review of Systems: All systems reviewed & are unremarkable except as noted in HPI & below Physical Exam Physical Exam: General: elderly male patient resting comfortably, NAD, non- toxic in appearance, AA&O x 4 Skin: warm, dry, intact, no rashes or lesions HEENT: NC/AT, PERRL, EOMI, anicteric sclera, conjunctiva without injection, external ear normal to inspection and nontender, nares patent, moist mucus membranes, dentition intact, no oropharyngeal lesions, neck supple, trachea midline, no LAD, no thyromegaly, no JVD Heart: +S1/S2, regular, 2/6 LAM Lungs: equal air entry bilaterally, no rales/rhonchi/wheezes Abd: +BS, soft, NT/ND, no masses/organomegaly/ascites Ext: warm, 2+ pulses in UE/LE bilaterally. 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 RUE shoulder dressed - edema and erythema of the right shoulder with 2 punctate wounds on the anterior aspect of the shoulder with pus drainage Neuro: nonfocal, patient AA&O x 4, speech intact, no facial droop, moving all extremities on command with equal strength 5/5 Results & Data Results & Data ([facility]) Vital Signs (Past 12 Hours) Vital Signs Temp Pulse Resp BP Pulse Ox 07/23/21 23:20 69 22 159/83 H 97 07/23/21 20:00 71 16 07/23/21 19:30 73 20 96 07/23/21 18:30 68 14 97 07/23/21 18:03 70 19 98 07/23/21 17:30 71 17 96 07/23/21 17:06 73 21 95 07/23/21 16:51 36.3 C L 73 18 122/56 L 98 Laboratory Results Laboratory Results WBC 25.54 K/uL (4.8-10.8) H 07/23/21 18:56 RBC 3.57 M/uL (4.7-6.1) L 07/23/21 18:56 Hgb 9.8 g/dL (14.0-18.0) L 07/23/21 18:56 Hct 31.3 % (42-52) L 07/23/21 18:56 MCV 87.7 fL (80-100) 07/23/21 18:56 MCH 27.5 pg (25-34) 07/23/21 18:56 MCHC 31.3 g/dL (32-36) L 07/23/21 18:56 RDW Std Deviation 55.0 fL (36.4-46.3) H 07/23/21 18:56 RDW Coeff of Dione 17.0 % (11.5-14.5) H 07/23/21 18:56 Plt Count 356 K/uL (130-400) 07/23/21 18:56 MPV 10.0 fL (7.4-10.4) 07/23/21 18:56 Immature Gran % (Auto) 2.4 % 07/23/21 18:56 Neut % (Auto) 74.4 % 07/23/21 18:56 Lymph % (Auto) 12.2 % 07/23/21 18:56 Sharp % (Auto) 10.2 % 07/23/21 18:56 Eos % (Auto) 0.7 % 07/23/21 18:56 Baso % (Auto) 0.1 % 07/23/21 18:56 Neut # (Auto) 19.00 K/uL (1.4-6.5) H 07/23/21 18:56 Lymph # (Auto) 3.11 K/uL (1.2-3.4) 07/23/21 18:56 Sharp # (Auto) 2.61 K/uL (0.11-0.59) H 07/23/21 18:56 Eos # (Auto) 0.19 K/uL (0-0.5) 07/23/21 18:56 Baso # (Auto) 0.02 K/uL (0-0.2) 07/23/21 18:56 Immature Gran # (Auto) 0.61 K/uL (0.00-0.02) H 07/23/21 18:56 ESR 35 mm/hr (0-20) H 07/23/21 18:56 PT 10.3 Seconds (9.0-12.0) 07/23/21 18:56 INR 1.0 (0.9-1.1) 07/23/21 18:56 APTT 37.2 Seconds (21.0-31.0) H 07/23/21 18:56 PTT Ratio 1.4 07/23/21 18:56 Sodium 139 mmol/L (136-145) 07/23/21 18:56 Potassium 3.8 mmol/L (3.5-5.1) 07/23/21 18:56 Chloride 103 mmol/L (98-107) 07/23/21 18:56 Carbon Dioxide 28 mmol/L (21-32) 07/23/21 18:56 Anion Gap 8.0 (3-11) 07/23/21 18:56 BUN 20 mg/dl (7-18) H 07/23/21 18:56 Creatinine 1.03 mg/dl (0.6-1.4) 07/23/21 18:56 Est Cr Clr Drug Dosing Not Reportable 07/23/21 18:56 Est GFR ( Amer) 76.4 ml/min 07/23/21 18:56 Est GFR (Non-Af Amer) 65.9 ml/min 07/23/21 18:56 BUN/Creatinine Ratio 19.0 (10-20) 07/23/21 18:56 Glucose 80 mg/dl (70-99) 07/23/21 18:56 Lactate 0.8 mmol/L (0.4-2.0) 07/23/21 18:56 Calcium 8.2 mg/dl (8.5-10.1) L 07/23/21 18:56 Magnesium 1.8 mg/dl (1.8-2.4) 07/23/21 18:56 Total Bilirubin 0.6 mg/dl (0.2-1) 07/23/21 18:56 AST 20 U/L (15-37) 07/23/21 18:56 ALT 21 U/L (12-78) 07/23/21 18:56 Alkaline Phosphatase 141 U/L (45-117) H 07/23/21 18:56 Troponin I < 0.015 ng/ml (0-0.045) 07/23/21 18:56 C-Reactive Protein 8.85 mg/dl (0-0.29) H 07/23/21 18:56 Total Protein 6.5 gm/dl (6.4-8.2) 07/23/21 18:56 Albumin 2.7 gm/dl (3.4-5.0) L 07/23/21 18:56 Globulin 3.8 gm/dl (2.5-4.0) 07/23/21 18:56 Albumin/Globulin Ratio 0.7 (0.9-2) L 07/23/21 18:56 Procalcitonin 0.18 ng/ml (0-0.5) 07/23/21 18:56 Urine Color Yellow 07/23/21 22:13 Urine Appearance Clear (Clear) 07/23/21 22:13 Urine pH 5.5 (4.5-7.5) 07/23/21 22:13 Ur Specific [place] 1.027 (1.000-1.030) 07/23/21 22:13 Urine Protein Trace (Negative) H 07/23/21 22:13 Urine Glucose (UA) Negative (Negative) 07/23/21 22:13 Urine Ketones Negative (Negative) 07/23/21 22:13 Urine Blood Negative (Negative) 07/23/21 22:13 Urine Nitrite Negative (Negative) 07/23/21 22:13 Urine Bilirubin Negative (Negative) 07/23/21 22:13 Urine Urobilinogen Negative (Negative) 07/23/21 22:13 Ur Leukocyte Esterase Negative (Negative) 07/23/21 22:13 Urine WBC (Auto) 1-5 /hpf (0-5) 07/23/21 22:13 Urine RBC (Auto) 10-30 /hpf (0-4) H 07/23/21 22:13 U Hyaline Cast (Auto) 0 /lpf (0-5) 07/23/21 22:13 U Epithel Cells (Auto) 0-5 /lpf (0-5) 07/23/21 22:13 Urine Bacteria (Auto) Negative (Negative) 07/23/21 22:13 COVID-19 Eval Order Covid19 at [facility] 07/23/21 19:44 SARS-CoV-2 (PCR) NEGATIVE (Negative) 07/23/21 19:44 Impressions Chest X-Ray 07/23/21 17:55 XR chest 1V portable CLINICAL HISTORY: SEPSIS COMPARISON STUDY: Chest CT June 27, 2021. FINDINGS: There is suspected soft tissue gas which projects superior to the right humeral head. There may be sclerosis of the proximal right humerus. No pneumothorax. Possible trace left pleural effusion. Lung volumes are diminished. Cardiomegaly is noted. Interstitial thickening and bilateral opacities are present. IMPRESSION: 1. Low lung volumes with interstitial thickening and bilateral opacities which may reflect an infectious process or pulmonary edema. Radiographic follow-up is recommended. Possible trace left pleural effusion. 2. Nonspecific soft tissue gas which project superior to the proximal right humerus. 3. Apparent sclerosis of the proximal right humerus. This may be related to known underlying leukemia/lymphoma. ACT 112: Negative or not required by law. Electronically signed by: Brett Snow M.D. 07/23/2021 6:19 PM Code Status & VTE Plan VTE Prophylaxis Plan VTE Prophylaxis will be ordered: Yes PG Care Time/CCT Total # of Minutes Spent Total Time Spent with Patient: Total time spent is greater than 50% in coordination of care (as documented) at patient's floor/unit and/or counseling patient: Coding Level of Care Code 38658 Initial Inpt Care Lvl 3 Diagnoses Lymphedema of left upper extremity I89.0 Chronic kidney disease N18.3 Chronic kidney disease stage: stage 3 (moderate) Gout M10.9 Hypertension I10 Hypertension type: essential hypertension High cholesterol E78.00 GERD (gastroesophageal reflux disease) K21.0 Esophagitis presence: with esophagitis Fifield cell cancer C4A.9 Septic arthritis M00.9 (1) Chronic kidney disease Chronic kidney disease stage: stage 3 (moderate) Qualified Code(s): N18.3 - Chronic kidney disease, stage 3 (moderate) (2) Hypertension Hypertension type: essential hypertension Qualified Code(s): I10 - Essential (primary) hypertension (3) GERD (gastroesophageal reflux disease) Esophagitis presence: with esophagitis Qualified Code(s): K21.0 - Gastro- esophageal reflux disease with esophagitis
[2021-07-24] MEDS ORDERED: ONDANSETRON INJ 2 MG/ML 2 ML VIAL IV PRN (00:42)
[2021-07-24] MEDS ORDERED: POLYETHYLENE (MIRALAX) 17 GM PACK PO PRN (00:42)
[2021-07-24] MEDS ORDERED: ACETAMINOPHEN 500 MG TAB PO PRN (00:42)
[2021-07-24] MEDS ORDERED: MoRPHine SULFATE 2 MG/ML CARP IV PRN (00:42)
[2021-07-24] MEDS ORDERED: DOCUSATE SODIUM 100 MG CAP PO PRN (00:42)
[2021-07-24] MEDS ORDERED: PIPERACILL/TAZOBAC CONSULT ACTIVE PRN (00:42)
[2021-07-24] MEDS ORDERED: traMADol HCL 50 MG TABLET PO PRN (00:42)
[2021-07-24] MEDS ORDERED: LACTATED RINGER'S 1,000 ML IV SCH (01:15)
[2021-07-24] MEDS: oxyCODONE HCL IR 5 MG TAB (IMMEDIATE RELEASE) PO PRN (01:17)
[2021-07-24] MEDS: CLINDAMYCIN 600 MG in DEXTROSE 5% 50 ML IV SCH ×2 (01:57→10:26)
[2021-07-24] MEDS: PIPERACILLIN/TAZOBACTAM 3.375 GM in DEXTROSE 5% 100 ML IV SCH ×3 (02:28→19:47)
[2021-07-24 05:50] LABS: Hematocrit (blood only) 30.3 % (42-52); Hemoglobin 9.5 g/dL (14.0-18.0); Mean Corpuscular Hemoglobin 27.3 pg (25-34); Mean Corpuscular Hgb Conc 31.4 g/dL (32-36); Mean Corpuscular Volume 87.1 fL (80-100); Mean Platelet Volume 9.9 fL (7.4-10.4); Platelet Count 351 K/uL (130-400); RDW Coefficient of Variation 16.8 % (11.5-14.5); RDW Standard Deviation 53.9 fL (36.4-46.3); Red Blood Count 3.48 M/uL (4.7-6.1); White Blood Count 24.27 K/uL (4.8-10.8)
[2021-07-24 06:26] LABS: Albumin Level 2.4 gm/dl (3.4-5.0); BUN Creatinine Ratio 16.1 (10-20); Bilirubin Direct 0.2 mg/dl (0-0.2); Calcium 8.3 mg/dl (8.5-10.1); Est GFR (African American) 71.4 ml/min; Est GFR (Non-African American) 61.6 ml/min; Potassium 3.4 mmol/L (3.5-5.1)
[2021-07-24 06:29] LABS: Bilirubin,Total 0.7 mg/dl (0.2-1); Total Protein 5.8 gm/dl (6.4-8.2)
[2021-07-24 06:31] LABS: Basophils # (auto) 0.03 K/uL (0-0.2); Basophils % (auto) 0.1 %; Eosinophils # (auto) 0.78 K/uL (0-0.5); Eosinophils % (auto) 3.2 %; Immature Granulocytes # (auto) 0.65 K/uL (0.00-0.02); Immature Granulocytes % (auto) 2.7 %; Lymphocytes # (auto) 1.47 K/uL (1.2-3.4); Lymphocytes % (auto) 6.1 %; Monocytes # (auto) 4.35 K/uL (0.11-0.59); Monocytes % (auto) 17.9 %; Neutrophils # (auto) 16.99 K/uL (1.4-6.5); RBC Morphology Unremarkable
--- NOTE | 2021-07-24 06:59 | CT Scan Report ---
CT chest diagnostic w con CLINICAL HISTORY: metastatic disease, sepsis COMPARISON STUDY: 06/27/2021 TECHNIQUE: Standard CT of the Chest was performed with IV contrast. A dose lowering technique was u tilized adhering to the principles of ALARA. Contrast Volume: Optiray 320, 94 ml FINDINGS: Compared to previous examination, there is again extensive supraclavicular and axillary raciel nopathy present on the left. Airway: The airway is clear. No endobronchial lesion is identified. Lungs and pleural: There is breathing motion artifact with small left pleural effusion. The lungs are clear of acute alveolar opacities, air bronchograms or pulmonary nodules. Minimal bibasilar atelecta sis present. Mediastinum: There is no evidence for pathologic adenopathy. Heart size is again enlarged with proctor ry artery calcification. The thoracic aorta is within normal limits. There is no evidence for pericar dial effusion. Upper abdomen: The adrenal glands are normal bilaterally. The liver and spleen are not well evaluated by this study. Osseous structures: There are again degenerative changes present throughout the thoracic spine. There is asymmetric degenerative changes right shoulder with evidence for a shoulder joint effusion. There is also a rim enhancing fluid collection seen lateral to the humeral head measuring at least 5.3 x 3 .0 cm. This is characteristic of soft tissue abscess as reported history. Separate CT of the shoulder was performed. IMPRESSION: 1. Motion artifact with minimal bibasilar atelectasis and small left pleural effusion. No other acute chest disease. 2. Extensive left supraclavicular and axillary adenopathy is again seen. 3. Rim-enhancing fluid collection lateral to the right humeral head characteristic of abscess. Please see CT of the right shoulder report for further evaluation. ACT 112: Negative or not required by law. Electronically signed by: Koby Nogueira M.D. 07/24/2021 6:58 AM
--- NOTE | 2021-07-24 08:57 | CT Scan Report ---
CT SCAN OF THE ABDOMEN AND PELVIS WITH IV CONTRAST CLINICAL HISTORY: Sepsis. Metastatic disease. Lymphoma. COMPARISON STUDY: Abdominal CT dated 06/28/2021. TECHNIQUE: Following the IV administration of 94 cc of Optiray 320, CT scan of the abdomen and pelvi s is performed from the lung bases to the proximal femora. Images are reviewed in the axial, sagittal , and coronal planes. IV contrast was administered without complication. A dose lowering technique wa s utilized adhering to the principles of ALARA. The examination is degraded by motion artifact. There is also streak artifact from the right arm which could not be elevated above the abdomen, as well as the body wall abutting the CT gantry. FINDINGS: Lung bases: The heart is enlarged and without pericardial effusion. The coronary arteries are densely calcified. There are trace pleural effusions, left larger than right with bibasilar atelectasis. A s mall hiatal hernia is noted. Liver: The contrast-enhanced liver is cirrhotic in morphology and heterogeneous in attenuation. There is nodularity of the hepatic surface contour. There are numerous low attenuation hepatic lesions. Wh ich appear decreased in size as compared to the 06/28/2021 examination. There is no intrahepatic bili antonia ductal dilatation. The hepatic veins and portal veins are patent. A 2 cm cyst is again seen in th e right lobe. Gallbladder: Surgically absent noting clips in the gallbladder fossa. Spleen: The spleen is mildly enlarged measuring 14.7 cm in length. Pancreas: The unenhanced pancreas is moderately atrophic. Numerous pancreatic cystic lesions are raquel lar to previous and measure up to 1.7 cm. Adrenal glands: Unremarkable. Kidneys: The contrast enhanced kidneys demonstrate cortical atrophy and are without hydronephrosis. T he kidneys enhance symmetrically. Scattered subcentimeter cortical hypodensities likely represent cys ts but are too small for definitive characterization. A nonobstructing calculus is suggested on the l eft. Abdominal vasculature: The abdominal aorta is normal in course and caliber noting advanced atheroscle rotic calcification. Bowel: There is mild colonic diverticulosis without CT evidence of acute diverticulitis. No bowel obs truction is seen. Fecal retention is noted throughout the colon. The appendix is well-visualized and normal. Peritoneum: No intraperitoneal free air is identified. Trace free fluid is seen in the right paracoli c gutter. Lymphadenopathy: Enlarged upper abdominal lymph nodes have modestly decreased in size from 06/28/2021 . The largest node in the nik hepatis on image #138 measures 2.7 x 2.1 cm (previously measured 3.6 x 2.4 cm). A portacaval node on image #154 measures 3.2 x 2.1 cm (previously measured 3.6 x 2.5 cm). There is no retroperitoneal, pelvic sidewall, or inguinal lymphadenopathy. Pelvic viscera: The prostate gland is diminutive and heterogeneous. The bladder is normal as visualiz ed. Skeletal structures: The skeletal structures appear heterogeneously sclerotic. There is lumbosacral s pondylosis with changes of extensive spinal fusion. Soft tissues: There is body wall edema. IMPRESSION: 1. Significant streak and motion compromised examination. 2. Numerous low-attenuation liver lesions have decreased in size from 06/28/2021. This likely represe nts metastatic disease with positive treatment response. Numerous microabscesses could appear similar but this is considered less likely. Correlate clinically. 3. Upper abdominal lymphadenopathy has modestly decreased in size from 06/28/2021. 4. Mild splenomegaly. 5. Heterogeneous sclerosis throughout the visualized bony structures likely represents lymphomatous i nvolvement. This is similar to previous. 6. Trace pleural effusions, body wall edema, and trace ascites indicate fluid overload. 7. Additional findings as above. ACT 112: Negative or not required by law. Electronically signed by: Rob Benjamin M.D. 07/24/2021 8:56 AM
[2021-07-24] MEDS: allopurinoL 100 MG TAB PO SCH ×3 (09:15→19:55)
[2021-07-24] MEDS: COLCHICINE 0.6 MG TAB PO SCH (09:15)
[2021-07-24] MEDS: ATENOLOL 50 MG TABLET PO SCH (09:16)
[2021-07-24] MEDS: predniSONE 2.5 MG TAB PO SCH (09:16)
[2021-07-24] MEDS: PANTOprazole 40 MG TAB PO SCH (09:16)
[2021-07-24] MEDS: predniSONE 1 MG TAB PO SCH (09:16)
[2021-07-24] MEDS: FUROSEMIDE 20 MG TAB PO SCH (09:17)
[2021-07-24] MEDS: oxyCODONE HCL 10 MG TABCR (OxyCONTIN) PO SCH ×2 (09:19→21:07)
--- NOTE | 2021-07-24 09:35 | CT Scan Report ---
CT SCAN OF THE RIGHT SHOULDER WITH IV CONTRAST CLINICAL HISTORY: Sepsis. Right shoulder abscess. COMPARISON STUDY: Unenhanced CT of the right shoulder dated 07/23/2021. Radiographs of the right shoul karmen dated 07/17/2020. TECHNIQUE: Following the IV administration of 94 cc of Optiray 320, CT scan of the right shoulder is performed from the lower neck to the humeral shaft. Images are reviewed in the axial, sagittal, and c oronal planes. IV contrast was administered without complication. A dose lowering technique was utili marquesd adhering to the principles of ALARA. The examination is degraded by motion artifact. CT DOSE: 2808.42 mGy.cm FINDINGS: The skeletal structures are osteopenic. No acute fracture is identified. Again seen is ante rior subluxation of the humeral head at the glenohumeral articulation where there is moderate osteoar thritic change. Subchondral cyst formation is noted within the flattened humeral head. Mild degenerat maurice change is seen at the acromioclavicular joint. There is unchanged appearance of a large thick-wal led and peripherally enhancing multiloculated gas and fluid containing collection in the lateral shou lder overlying the humeral head. This measures approximately 9 x 9 x 6 cm. Overlying soft tissue pradip a is noted. There is a joint effusion, and the large fluid collection appears to communicate with the joint space. This likely extends into the overlying deltoid musculature. This is typical for abscess . There is erosive change suggested within the anterior aspect of the humeral head on axial image #69 . There may also be mild erosive change of the acromion process. The right lung parenchyma is clear a s visualized. No axillary lymphadenopathy is identified. There are chronic appearing right-sided rib fractures. IMPRESSION: 1. Unchanged examination from today's earlier unenhanced study. 2. A large gas and fluid containing collection of the right shoulder as detailed above is consistent with abscess with probable septic arthritis. 3. Question erosive change involving the anterior aspect of the humeral head as well as the acromion. Osteomyelitis is not excluded. 4. 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 ACT 112: Negative or not required by law. Dictated: 07/24/2021 8:25 AM Transcribed: 07/24/2021 9:00 AM Elizabeth [id number] CARMINE_Carlos Electronically signed by: Rob Benjamin M.D. 07/24/2021 9:34 AM
--- NOTE | 2021-07-24 10:57 | Consultation Report ---
ORTHOPEDIC CONSULTATION DATE OF SERVICE: 07/24/2021 CHIEF COMPLAINT: Right shoulder purulent drainage. HISTORY OF PRESENT ILLNESS: Mr. Villatoro is an 86-year-old gentleman with medical history significant for 2 surgical procedures to the right shoulder done back in April for purulent drainage. He was treated with antibiotics for 6 weeks after that surgery. In speaking with his daughter, he has been off antibiotics for the last 6 weeks. 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 He has seen Dr. Simmons, who is planning on starting him on chemotherapy to treat his metastatic Lindsay cell carcinoma. In the last several days, his shoulder has become more swollen and started to ooze purulent drainage 2 days ago. He presented to the Emergency Room yesterday where they got a CT scan. They spoke to the orthopedic surgeon evaluation assistant who recommended to transfer back to [facility]. The patient at that time was adamant that he did not want to go back to [place], and therefore, he was admitted to [facility] last night. Orthopedics is now consulted for an opinion on the management of his right shoulder. The patient was seen and examined on the floor. He denies any fevers or chills. He is wheelchair bound. It is his understanding that he only has about 3-6 months to live. He has had a fair amount of pain in the right shoulder, although he is on narcotics for chronic pain and it has not been a huge bump above his baseline. Denies any numbness or tingling distally down the arm. PAST MEDICAL HISTORY: 1. Metastatic Lindsay cell carcinoma. 2. Gout. 3. Hypertension. 4. High cholesterol. 5. GERD. 6. Chronic kidney disease. 7. Left upper extremity lymphedema. 8. Chronic pain. 9. History of right shoulder surgeries. 10. Coronary artery disease PAST SURGICAL HISTORY: Right index finger ray resection by myself, 2 right shoulder surgeries done in April of this year at [facility],, lymph node biopsy by Dr. Montalvo on 06/29/2021, history of lumbar fusion, and cholecystectomy. FAMILY HISTORY: Noncontributory. REVIEW OF SYSTEMS: Fourteen-point review of systems are reviewed in the chart. PHYSICAL EXAMINATION: GENERAL: He is a pleasant male, resting comfortably in bed, in no acute distress. He is similar to baseline from the last time I saw him several months ago. No signs of sepsis. VITAL SIGNS: Demonstrated the patient to be afebrile. Vital signs are stable. EXTREMITIES: Right upper extremity exam reveals the patient to have a well- healed deltopectoral incision. However, he has significant swelling overlying the deltoid and subdeltoid bursa with 2 breaks in the skin, through which there is purulent drainage. The ER physicians were able to express out a fair amount of pus last night. I was able to express further purulence approximately 20-30 mL. There is some induration of the underlying tissues concerning for a loculated abscess. He is distally neurovascularly intact with intact hand, wrist, and elbow function. Shoulder range of motion was not tested. RESULTS REVIEWED: Lab results showed his white count was elevated at 25 on admission. ESR was elevated at 35. C-reactive protein elevated at 8.85 mg/dL. CT scan of the right shoulder shows an abscess within the subdeltoid bursa. Air was seen consistent with the openings in the skin. No severe bony erosions are noted. Official radiology read is not available. ASSESSMENT: An 86-year-old male with metastatic Lindsay cell carcinoma, scheduled to receive chemotherapy, now with purulent drainage from his right shoulder. PLAN: I spent approximately 60 minutes reviewing this patient's chart including his outside records at [facility], speaking with his daughter as well as speaking with Dr. Simmons, his oncologist. Treatment options were discussed including transfer to [facility] for surgical management versus palliative cares. In speaking with Dr. Simmons, he was concerned that chemotherapy could make the presumed infection/purulent drainage worsen. He said there are no guarantees that chemotherapy will prolong his life span. At this point, I think it is up to the patient and his family how aggressive they want to be with this. If they want to be maximally aggressive with treatment, then they would be best served by transferring to [place] for surgical management of his shoulder followed by chemotherapy once his wound has healed and infection is cured. If they want to avoid aggressive measures, then I think it would be a consideration to simply have him on suppressive antibiotics per infectious diseases and forego chemotherapy. Job ID: [id number] [facility]
--- NOTE | 2021-07-24 12:06 | Electrocardiogram Report ---
Test Reason : Blood Pressure : / mmHG Vent. Rate : 069 BPM Atrial Rate : 069 BPM P-R Int : 162 ms QRS Dur : 080 ms QT Int : 378 ms P-R-T Axes : 062 -15 033 degrees QTc Int : 405 ms Normal sinus rhythm Normal ECG When compared with ECG of 29-JUN-2021 12:54, No significant change was found Confirmed by Fabio Hickey ([id number]) on 07/24/2021 12:06:12 PM Referred By: REFERRED SELF Confirmed By:Fabio Hickey
--- NOTE | 2021-07-24 13:56 | Hospitalist Progress Note ---
Date of Service July 24, 2021 Assessment & Plan (1) Septic arthritis: Plan: 86yo C male with multiple medical comorbidities presenting with [place] joint infection of right shoulder. Patient has had surgical washout of the shoulder performed before at [facility] followed by prolonged course of antibiotics. He returns with purulent drainage x [address] with large multiloculated rim-enhancing fluid collection with multifocal gas bubbles visualized within the LUE. Patient is presently afebrile, HD stable and nontoxic in appearance. He does not endorse symptoms of systemic infection. Patient and daughter are reluctant to travel to [facility] at this time - patient is uncertain if he would want to have surgery or aggressive therapy. -Admit to medical -Follow cultures sent in ER - blood and wound -Continue broad spectrum antibiotics - Daptomycin, Zosyn and Clindamycin -Orthopedic Surgery assistance appreciated -Consider Palliative Care consultation to assist with treatment goals -Dressing changes and wound care q shift and as needed -Continue Oxycodone 10mg po BID at home dose -Tylenol PRN -Oxycontin PRN -Morphine PRN -Bowel regimen -Zofran PRN (2) Lymphedema of left upper extremity: Plan: Chronic. No evidence of secondary infection -Elevate LUE as tolerated -Monitor (3) Hypertension: Plan: Chronic. Blood pressure elevated -Pain control as above -Continue Atenolol 50mg po daily -Continue to monitor (4) High cholesterol: Plan: Chronic -Will hold Atorvastatin while patient is on Daptomycin (5) GERD (gastroesophageal reflux disease): Plan: Chronic. Stable on medications -Continue Protonix 20mg po qAM (6) Lindsay cell cancer: Plan: Newly diagnosed Lindsay cell cancer with presumed metastatic disease involving LN and liver. Patient has had initial evaluation with Dr. Simmons and is planning to follow with him this week to initiate immunotherapy. This may need to be placed on hold while acute issues are addressed Admission and Anticipated Discharge Date Admission Date: July 23, 2021 Results & Data Results & Data ([facility]) Vital Signs (Past 12 Hours) Vital Signs Temp Pulse Resp BP Pulse Ox 07/24/21 07:55 36.8 C 84 18 165/70 H 94 (1) GERD (gastroesophageal reflux disease) Esophagitis presence: with esophagitis Qualified Code(s): K21.0 - Gastro- esophageal reflux disease with esophagitis (2) Hypertension Hypertension type: essential hypertension Qualified Code(s): I10 - Essential (primary) hypertension
--- NOTE | 2021-07-24 14:22 | Hospitalist Progress Note ---
Date of Service July 24, 2021 Assessment & Plan (1) Abscess of right shoulder: Plan: 86yo C male with multiple medical comorbidities presenting with [place] joint infection of right shoulder. Patient has had surgical washout of the shoulder performed before at [facility] followed by prolonged course of antibiotics. He returns with purulent drainage x 2 days. Abscess of right shoulder Patient is presently afebrile, HD stable and nontoxic in appearance; does not endorse symptoms of systemic infection CT with large multiloculated rim-enhancing fluid collection with multifocal gas bubbles visualized within the LUE Patient and daughter are reluctant to travel to [facility] at this time; patient expresses disinterest in surgery; will revisit this conversation on 07/25 Follow cultures sent in ER - blood and wound Continue broad spectrum antibiotics (daptomycin, zosyn) - clindamycin discontinued Ortho consulted, recommendations appreciated: Patient will likely need transfer to [facility] if aggressive therapy/surgery is desired Otherwise, continue medical management Per ortho, patient does not need to be NPO; heart-healthy diet started Consider Palliative consultation to assist with treatment goals Dressing changes and wound care q shift and as needed Continue oxycodone 10mg PO bid (home dose) Tylenol PRN Oxycontin PRN Morphine PRN Bowel regimen Zofran PRN Lymphedema of left upper extremity Chronic; no evidence of secondary infection Elevate LUE as tolerated Continue to monitor Chronic kidney disease BUN and Cr near baseline Continue to monitor I/O, urine output, electrolytes Avoid nephrotoxic agents Gout Patient with history of gout on detention therapy with steroids as well as all opurinol Continue Allopurinol at home dose 100mg PO tid Continue Prednisone at home dose - 9.5mg PO daily Continue Colchicine 0.3mg PO qAM Consider stress dose steroids should patient become hypotensive Hypertension Chronic; blood pressure elevated at this time, likely secondary to pain Pain control as above Continue atenolol 50mg PO daily Continue to monitor Hyperlipidemia Will hold atorvastatin while patient is on daptomycin GERD Continue protonix 20mg PO qAM [place] cell cancer Newly diagnosed Lindsay cell cancer with presumed metastatic disease involving LN and liver Patient has had initial evaluation with Dr. Simmons and is planning to follow with him this week to initiate immunotherapy This may need to be placed on hold while acute issues are addressed FEN: heart-healthy diet Code status: full code DVT ppx: SCD's Consults: orthopedic surgery PT/OT: ordered Case management: following Dispo: med/surg Admission and Anticipated Discharge Date Admission Date: July 23, 2021 Supervising Physician Co-Signing Physician Notes I personally examined the patient and verified all dimas points of history and exam, discussed case, and agree with decision making with Dr Gutiérrez Not much of any shoulder pain. Notes that it was dressed by orthopedics. Does not want surgery. Does have a little bit of a hard time discussing other goals of care. Vitals noted, in general he is awake and alert pleasant no distress. HEENT normocephalic atraumatic mucous membranes moist. Right shoulder and bulky dressing. Neuro without focal deficits. Otherwise as above. Septic shoulderon suppressive antibiotics, does not want surgery. As we are outlining goals of care, will need to determine if he wants chronic suppressive therapy, etc. For now continue current care. Metastatic Lindsay cell carcinomasimilar to above, will need to try to outline his goals of care, particularly given that the shoulder infection will not be able to be treated to a definitive resolution, that obviously raises risk of any sort of chemo or immunotherapy. Continue to discuss goals with patient/daughter. Otherwise as above Subjective Patient seen and evaluated at bedside this morning. Patient feels alright today and notes his pain has greatly improved since when he arrived. No new symptoms. Denies CP, SOB, nausea, vomiting, fever, chills, or other symptoms. No new concerns today. Expresses very clearly he is not interested in surgery. Review of Systems Review of Systems: See HPI Physical Exam Physical Exam: Constitutional: well-appearing, no acute distress, sitting up in bed HEENT: NCAT, no conjunctival injection CV: regular rhythm, no murmur appreciated, extremities well-perfused, minimal LE edema Resp: CTABL, no wheezes/rales/rhonchi appreciated, no increased work of breathing MSK: deferred as ortho had just examined patient Neuro: AOx4, no focal neurological deficits appreciated Results & Data Results & Data ([facility]) Vital Signs (Past 12 Hours) Vital Signs Temp Pulse Resp BP Pulse Ox 07/24/21 07:55 36.8 C 84 18 165/70 H 94 Resident Activity Tracking Resident Involvement: Resident Care Provided Care Provided: [facility]
--- NOTE | 2021-07-24 14:44 | Magnetic Resonance Report ---
MR shoulder RT wo con CLINICAL HISTORY: eval for osteomyelitis TECHNIQUE: Multiplanar multisequence MR images of the right shoulder were obtained. Comparison: Comparison is made to CT right shoulder 07/23/2021 FINDINGS: There is no evidence of os acromiale. There is osteoarthropathy of the acromioclavicular joint with resultant impression on the supraspinatus. Large heterogeneous soft tissue collection with some susceptibility artifact compatible with CT findings of gas and fluid-containing fluid collectio n. There is complete tear of the subscapularis, supraspinatus, infraspinatus with retraction. The biceps tendon is not visualized and is likely torn and retracted. Teres minor is normal. There is complete maceration of the labrum. There is flattening of the posterior humeral head which m ay be due to old Hill-Sachs deformity. Anterior subluxation of the glenohumeral joint is seen. 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 Serpiginous hy pointensities in the proximal shaft of the humerus likely represent old bone infarct. IMPRESSION: 1. Redemonstration of large abscess with locules of gas. No evidence of osteomyelitis. 2. Complete tear and retraction of the rotator cuff. Likely tear and retraction of the biceps tendon . 3. Maceration of the glenoid labrum. ACT 112: Negative or not required by law. Electronically signed by: Vikash Toscano M.D. 07/24/2021 2:43 PM
--- NOTE | 2021-07-24 19:30 | Billing Data ---
Date of Service July 24, 2021 Coding Level of Care Code 79200 Subseq Hosp Care Lvl 3
[2021-07-24] MEDS: POTASSIUM CHLORIDE CRTAB 20 MEQ TABCR PO SCH (19:53)
[2021-07-24] MEDS: rOPINIRole HCL 2 MG TABLET PO SCH (19:53)
[2021-07-24] MEDS: DULoxetine HCL 60 MG CAP PO SCH (19:54)
[2021-07-24] MEDS: TERAZOSIN HCL 5 MG CAP PO SCH (19:54)
[2021-07-24] MEDS: DAPTOmycin 500 MG in SYRINGE 0 ML IV SCH (22:05)
[2021-07-25] MEDS: PIPERACILLIN/TAZOBACTAM 3.375 GM in DEXTROSE 5% 100 ML IV SCH (04:57)
[2021-07-25 06:29] LABS: Hematocrit (blood only) 30.6 % (42-52); Hemoglobin 9.4 g/dL (14.0-18.0); Mean Corpuscular Hemoglobin 27.3 pg (25-34); Mean Corpuscular Hgb Conc 30.7 g/dL (32-36); Mean Platelet Volume 9.9 fL (7.4-10.4); Platelet Count 390 K/uL (130-400); RDW Coefficient of Variation 17.1 % (11.5-14.5); Red Blood Count 3.44 M/uL (4.7-6.1); White Blood Count 22.68 K/uL (4.8-10.8)
[2021-07-25 07:08] LABS: Basophils # (auto) 0.02 K/uL (0-0.2); Basophils % (auto) 0.1 %; Eosinophils # (auto) 0.52 K/uL (0-0.5); Eosinophils % (auto) 2.3 %; Immature Granulocytes # (auto) 0.68 K/uL (0.00-0.02); Lymphocytes # (auto) 1.29 K/uL (1.2-3.4); Lymphocytes % (auto) 5.7 %; Monocytes # (auto) 3.94 K/uL (0.11-0.59); Monocytes % (auto) 17.4 %; Neutrophils # (auto) 16.23 K/uL (1.4-6.5); Neutrophils % (auto) 71.5 %
[2021-07-25 07:15] LABS: Albumin Level 2.4 gm/dl (3.4-5.0); BUN Creatinine Ratio 13.8 (10-20); Calcium 8.2 mg/dl (8.5-10.1); Creatinine Clr Calc Pharmacy 44.7 ml/min; Est GFR (African American) 53.2 ml/min; Est GFR (Non-African American) 45.9 ml/min; Potassium 3.5 mmol/L (3.5-5.1)
[2021-07-25 07:18] LABS: Albumin Globulin Ratio 0.7 (0.9-2); Bilirubin,Total 0.6 mg/dl (0.2-1); Globulin 3.6 gm/dl (2.5-4.0)
[2021-07-25] MEDS: PANTOprazole 40 MG TAB PO SCH (07:57)
[2021-07-25] MEDS: ATENOLOL 50 MG TABLET PO SCH (07:57)
[2021-07-25] MEDS: predniSONE 1 MG TAB PO SCH (07:57)
[2021-07-25] MEDS: COLCHICINE 0.6 MG TAB PO SCH (07:58)
[2021-07-25] MEDS: predniSONE 2.5 MG TAB PO SCH (07:58)
[2021-07-25] MEDS: FUROSEMIDE 20 MG TAB PO SCH (07:58)
[2021-07-25] MEDS: oxyCODONE HCL 10 MG TABCR (OxyCONTIN) PO SCH ×2 (07:58→20:20)
[2021-07-25] MEDS: allopurinoL 100 MG TAB PO SCH ×3 (07:58→20:20)
[2021-07-25] MEDS: POTASSIUM CHLORIDE CRTAB 20 MEQ TABCR PO SCH ×2 (07:58→20:21)
--- NOTE | 2021-07-25 08:31 | Hospitalist Progress Note ---
Date of Service July 25, 2021 Assessment & Plan (1) Abscess of right shoulder: Plan: 86yo C male with multiple medical comorbidities presenting with [place] joint infection of right shoulder. Patient has had surgical washout of the shoulder performed before [place] [facility] followed by prolonged course of antibiotics. He returns with purulent drainage x 2 days. Abscess of right shoulder Patient is presently afebrile, HD stable and nontoxic in appearance; does not endorse symptoms of systemic infection CT with large multiloculated rim-enhancing fluid collection with multifocal gas bubbles visualized within the LUE Patient and daughter are reluctant to travel to [facility] at this time; patient expresses disinterest in surgery; will revisit this conversation on 07/25 Follow cultures sent in ER - blood and wound Continue daptopmycin; clindamycin discontinued 07/25: zosyn discontinued, ceftriaxone started Ortho consulted, recommendations appreciated: Would require transfer to [facility] if patient desired surgery (patient declines surgery or aggressive treatment options) Continue medical management Palliative consulted to assist in goals of care discussions 07/25: will have ultrasound-guided IV placed for continued antibiotic treatment after DC home on home hospice Dressing changes and wound care q shift and as needed Continue oxycodone 10mg PO bid (home dose) Tylenol PRN Oxycontin PRN Morphine PRN Bowel regimen Zofran PRN Lymphedema of left upper extremity Chronic; no evidence of secondary infection Elevate LUE as tolerated Continue to monitor Chronic kidney disease BUN and Cr near baseline on admission Continue to monitor I/O, urine output, electrolytes, avoid nephrotoxic agents 07/25: patient with bump in creatinine from 1.09 to 1.39; will hold lasix and give gentle IVF (LR 500mL @ 80mL/hr) Trend BMP Gout Patient with history of gout on manager long term care therapy with steroids as well as allopurinol Continue Allopurinol at home dose 100mg PO tid Continue Prednisone at home dose - 9.5mg PO daily Continue Colchicine 0.3mg PO qAM Consider stress dose steroids should patient become hypotensive Hypertension Chronic; blood pressure elevated at this time, likely secondary to pain Pain control as above Continue atenolol 50mg PO daily Continue to monitor Hyperlipidemia Atorvastatin held while patient was on daptomycin Daptomycin discontinued; statin not restarted as patient will be going home on hospice GERD Continue protonix 20mg PO qAM [place] cell cancer 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 Simmons and is planning to follow with him this week to initiate immunotherapy This may need to be placed on hold while acute issues are addressed FEN: heart-healthy diet Code status: full code DVT ppx: SCD's Consults: orthopedic surgery PT/OT: ordered Case management: following Dispo: med/surg Admission and Anticipated Discharge Date Admission Date: July 23, 2021 Supervising Physician Co-Signing Physician Notes I personally examined the patient and verified all dimas points of history and exam, discussed case, and agree with decision making with Dr Gutiérrez Not much of any shoulder pain.resident physician discussed goals of care extensively - plan will be home, palliative goals, ongoing suppressive antibiotics Vitals noted, in general he is awake and alert pleasant no distress. HEENT normocephalic atraumatic mucous membranes moist. Right shoulder and bulky dressing. Neuro without focal deficits. Otherwise as above. Septic shoulderon suppressive antibiotics, does not want surgery.For home with chronic suppressive therapy. Metastatic [place] cell carcinomasimilar to [facility] with an overall palliative goal of care Otherwise as above Subjective Patient seen and evaluated at bedside this morning. Patient feels alright today and notes his pain is minimal at this time. No new symptoms. Does not wish to pursue surgery. Denies CP, SOB, nausea, vomiting, fever, chills, or other symptoms. Review of Systems Review of Systems: See HPI Physical Exam Physical Exam: Constitutional: well-appearing, no acute distress, sitting up in bed HEENT: NCAT, no conjunctival injection CV: regular rhythm, no murmur appreciated, extremities well-perfused, minimal LE edema Resp: CTABL, no wheezes/rales/rhonchi appreciated, no increased work of breathing MSK: right shoulder wound dressed and bandaged Neuro: AOx4, no focal neurological deficits appreciated Results & Data Results & Data ([facility]) Vital Signs (Past 12 Hours) Vital Signs Temp Pulse Resp BP Pulse Ox 07/25/21 07:11 36.8 C 70 16 157/79 H 94 07/24/21 22:13 36.8 C 71 20 130/84 95 Resident Activity Tracking Resident Involvement: Resident Care Provided Care Provided: Adult [facility] Medicine
[2021-07-25] MEDS ORDERED: LACTATED RINGER'S 500 ML IV SCH (08:45)
--- NOTE | 2021-07-25 10:13 | Palliative Care Consultation ---
Date of Consultation July 25, 2021 Assessment & Plan (1) Palliative care encounter: This is an 86 year old male who presented to the [facility] after he was experiencing purulent drainage for a few days. He had experienced a recent joint infection that was initially treated at the [facility] with an open wash out and prolonged IV antibiotic course. He also has [place] cell cancer with mets to the lymph nodes and liver. He is to see Dr. Simmons this week to begin immunotherapy; however, this proves challenging with unresolved infection. Additional PMH includes: HTN, GERD, CAD, HLD, osteomyelitis, and others. Palliative Medicine was consulted to discuss overall goals of care, including code status. I met with the patient in room 315. He is extremely hard of hearing. We discussed his current hospitalization and its details. Earlier the IV team was in to place an US guided PIV and commented that a PICC would not be possible due to poor vasculature. I di. scussed this with Jose D and later with his daughter, Ting on the phone. He said that at home he is relatively independent and able to bath himself, cook and even clean some. We discussed code status briefly and he indicated that he would want resuscitated and ventilated unless he was 'brain '. He was agreeable for me to reach out to his daughter, Ting. I talked to her at length at [phone]. We reviewed his medical course and the complex decisions associated with it. She confirmed that they would not want to pursue overall aggressive measures from a life prolonging standpoint, but would like to try the IV antibiotics at home. She has given him IV antibiotics before at home and feels confident with this. She understands that a PICC is unobtainable and that immunotherapy treatment is not recommended with an active infection. We discussed hospice transition after a month of IV abx as one month is the duration an US guided PIV can remain in place. For now, he and she are receptive to outpatient follow up with palliative care to further establish goals of care as he progresses through treatment. Sri PALAFOX was able to arrange an out patient palliative care appointment upon discharge. The above was discussed with Dr. Yoan Coleman and Анна in case management. For now, Ting agr ees for him to remain a full code. Plan is for him to return home with home health at discharge. Palliative will follow as necessary. (2) Osteomyelitis: History of Present Illness Reason for Consultation: goals of care Requesting Physician: Dr. Yoan Coleman Attending Physician: Willie Guajardo DO History of Present Illness This is an 86 year old male who presented to the [facility] after he was experiencing purulent drainage for a few days. He had experienced a recent joint infection that was initially treated at the [facility] with an open wash out and prolonged IV antibiotic course. He also has [place] cell cancer with mets to the lymph nodes and liver. He is to see Dr. Simmons this week to begin immunotherapy; however, this proves challenging with unresolved infection. Additional PMH includes: HTN, GERD, CAD, HLD, osteomyelitis, and others. Palliative Medicine was consulted to discuss overall goals of care, including code status. Please see A/P for further details. Thanks for involving Palliative Medicine with this individual. Allergies Allergy/AdvReac Type Severity Reaction Status Date / Time chlorhexidine Allergy Intermediate Rash Verified 07/23/21 17:42 gabapentin AdvReac Intermediate vomiting Verified 07/23/21 17:42 and "spazz out" Home Medications Medication Instructions Recorded Confirmed Type aspirin 81 mg tablet,delayed 81 mg PO QAM 05/07/19 07/23/21 History release atenolol 50 mg tablet (Tenormin) 50 mg PO QAM 05/07/19 07/23/21 History ropinirole 4 mg tablet 4 mg PO HS 05/07/19 07/23/21 History allopurinol 100 mg tablet 100 mg PO TID 10/27/19 07/23/21 History (Zyloprim) terazosin 5 mg capsule 5 mg PO HS 10/27/19 07/23/21 History pantoprazole 20 mg tablet,delayed 20 mg PO QAM 11/03/19 07/23/21 History release ketoconazole 2 % topical cream 1 applic TOPICAL DAILY PRN #0 g 11/07/19 07/23/21 Rx tramadol 50 mg tablet (Ultram) 50 mg PO Q12H PRN #0 tab 11/07/19 07/23/21 Rx prednisone 5 mg tablet 7.5 mg PO QAM tab 02/05/20 07/23/21 History atorvastatin 40 mg tablet 40 mg PO QAM tab 02/16/21 07/23/21 History cholecalciferol (vitamin D3) 25 25 mcg PO QAM 06/27/21 07/23/21 History mcg (1,000 unit) capsule colchicine 0.6 mg tablet 0.3 mg PO QAM 06/27/21 07/23/21 History duloxetine 60 mg capsule,delayed 60 mg PO HS 06/27/21 07/23/21 History release (Cymbalta) furosemide 20 mg tablet (Lasix) 20 mg PO QAM 06/27/21 07/23/21 History hydrocodone bitartrate 10 mg 10 mg PO BID 06/27/21 07/23/21 History capsule, oral only, extended rel 12 hr (Zohydro ER) prednisone 1 mg tablet 2 mg PO QAM 06/27/21 07/23/21 History Patient History Medical History (Updated 07/25/21 @ 21:36 by RAUDEL Melara) CAD (coronary artery disease) Cellulitis of hand, left Dyslipidemia GERD (gastroesophageal reflux disease) High cholesterol HTN (hypertension) Lower extremity edema Lindsay cell cancer Osteomyelitis Palliative care encounter 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 Montalvo 06/29/2021 Family History Other No significant family history Social History Smoking Status: Former smoker Second Hand Exposure: No; Hx Alcohol Use: No Hx Substance Use: No Preferred Language: Malaysian Communication Ability: Effective Visual Impairment: No Limitations Hearing Ability: Normal Field Collector Required: No Beliefs That Will Affect Care: None marital status: / Current Living Situation: Alone Feels Safe at Home: Yes Assistive Devices: Walker Review of Systems Review of Systems: [place] System Assessment Scale: Pain: 1/3 Nausea: 0/3 Anxiety: 0/3 SOB: 0/3 Palliative Performance Scale: 50% Physical Exam Constitutional: cooperative ENMT: Ears: + hearing impairment Mouth: + dry oral mucous membranes Respiratory: normal respiratory effort Auscultation: + diminished lung sounds Cardiovascular: Rate/Rhythm: regular rate and regular rhythm Heart Sounds: normal S1 and normal S2 Extremities: normal capillary refill Gastrointestinal (Abdomen): Inspection/Auscultation: abdomen normal to inspection Percussion/Palpation: abdomen soft Skin: normal turgor Psychiatric: Orientation: alert and oriented x 3 Results & Data ([facility]) Vital Signs (Past 12 Hours) Vital Signs Temp Pulse Resp BP Pulse Ox 07/25/21 07:11 36.8 C 70 16 157/79 H 94 07/24/21 22:13 36.8 C 71 20 130/84 95 PG Care Time/CCT Total # of Minutes Spent Total Time Spent with Patient: Total time spent is greater than 50% in coordination of care (as documented) at patient's floor/unit and/or counseling patient: 70 minutes with > 50% of that time spent assessing the patient,discussing goals of care with the family and collaborating with IDT Coding Level of Care Code 22305 Initial Inpt Care Lvl 3 Diagnoses Osteomyelitis M86.9 Palliative care encounter Z51.5 Time Spent (min) 70
[2021-07-25] MEDS: cefTRIAXone SODIUM 2,000 MG in DEXTROSE 5% 50 ML IV SCH (15:13)
[2021-07-25] MEDS: oxyCODONE HCL IR 5 MG TAB (IMMEDIATE RELEASE) PO PRN (19:27)
--- NOTE | 2021-07-25 19:42 | Orthopedic Progress Note ---
Date of Service July 25, 2021 Assessment & Plan (1) Abscess of right shoulder: Plan: Discussed with the patient and his daughter that surgical intervention is not warranted at this time. 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 ID at [facility] recommended discharging the patient on oral doxycycline 100 mg twice daily for 3 weeks, along with Augmentin 500 mg twice daily for 3 weeks as a suppressive therapy. Patient's daughter was in agreements with this decision. She states that she feels comfortable aspirating his shoulder manually on a daily basis to expel the material. After speaking with the orthopedic service and infectious disease service at [facility], they do not feel that the patient needs to follow-up with them at this point. If he has any other orthopedic issues he may contact our clinic at [phone]. Otherwise, from an orthopedic standpoint the patient is stable. He can be discharged when medicine is comfortable with his disposition. Admission and Anticipated Discharge Date Admission Date: July 23, 2021 Supervising Physician Co-Signing Physician Notes I saw and examined patient, spoke with Dr. Carias at [facility] and agree with above note. No surgery indicated as this purulent drainage is likely not infectious; instead it is gout. Recommend medical treatment of his gout. Antibiotics to decrease the risk of him developing an infection of his draining wound. Dressing changes. Follow-up with ortho as needed. Subjective This 86-year-old male seen this afternoon for follow-up of his right shoulder abscess. He states that the wound care nurse was in earlier today and aspirated some fluid and placed a dressing over it. He states he does not want to have surgery in the shoulder. He states that he spoke with case management today and they are planning on discharging him home tomorrow on some sort of antibiotic therapy. I spoke with the patient's daughter numerous times today and she was present during his evaluation this afternoon. I advised her that I contacted infectious disease at [facility] that cared for the patient back in April when he had 2 irrigation debridement procedures of this shoulder. I advised her that they recommended the patient be discharged home on oral antibiotics. I also advised her that Dr. Dobbs spoke with Dr. Carias and he recommended the patient not undergo another washout. We reviewed his records at [facility] and confirmed with Dr. Carias and the ID service that the patient did not grow any type of bacteria back in April and the care team in [facility] thought it may have been some sort of gouty issue in his shoulder. Cur rently the patient states that he does not have much pain. He denies chest pain, shortness of breath, fever, chills, sweats, lethargy, nausea, vomiting or diarrhea. He states his biggest issue is that his shoulder continues to drain pus. Review of Systems Review of Systems: All systems reviewed & are unremarkable except as noted in Subjective Right shoulder: Dressing was removed from the right shoulder. The 2 holes that were present yesterday seem to have merged into 1 open area. There is also edema and palpable fluctuance. I manually compressed the area around the shoulder and expressed approximately 150 cc of thick white purulent material along with thin Aqueous purulent colored material and fluid. This fluid material did not have a pungent or foul odor. Patient tolerated this very well and states it was not painful to him. After expelling all of the material patient had a depression in the lateral subdeltoid space. I did not test range of motion of the shoulder, however he was able to reach terminal flexion extension his elbow. He had appropriate dexterity of his fingers and full range of motion of his wrist. Patient was neurovascularly intact right upper extremity. Results & Data ([facility]) Vital Signs (Past 12 Hours) Vital Signs Temp Pulse Resp BP Pulse Ox 07/25/21 14:55 36.7 C 69 16 161/71 H 94 Diagnostic Findings Laboratory Results WBC 22.68 K/uL (4.8-10.8) H 07/25/21 05:34 RBC 3.44 M/uL (4.7-6.1) L 07/25/21 05:34 Hgb 9.4 g/dL (14.0-18.0) L 07/25/21 05:34 Hct 30.6 % (42-52) L 07/25/21 05:34 MCV 89.0 fL (80-100) 07/25/21 05:34 MCH 27.3 pg (25-34) 07/25/21 05:34 MCHC 30.7 g/dL (32-36) L 07/25/21 05:34 RDW Std Deviation 56.0 fL (36.4-46.3) H 07/25/21 05:34 RDW Coeff of Dione 17.1 % (11.5-14.5) H 07/25/21 05:34 Plt Count 390 K/uL (130-400) 07/25/21 05:34 MPV 9.9 fL (7.4-10.4) 07/25/21 05:34 Immature Gran % (Auto) 3.0 % 07/25/21 05:34 Neut % (Auto) 71.5 % 07/25/21 05:34 Lymph % (Auto) 5.7 % 07/25/21 05:34 Humphreys % (Auto) 17.4 % 07/25/21 05:34 Eos % (Auto) 2.3 % 07/25/21 05:34 Baso % (Auto) 0.1 % 07/25/21 05:34 Neut # (Auto) 16.23 K/uL (1.4-6.5) H 07/25/21 05:34 Lymph # (Auto) 1.29 K/uL (1.2-3.4) 07/25/21 05:34 Humphreys # (Auto) 3.94 K/uL (0.11-0.59) H 07/25/21 05:34 Eos # (Auto) 0.52 K/uL (0-0.5) H 07/25/21 05:34 Baso # (Auto) 0.02 K/uL (0-0.2) 07/25/21 05:34 Immature Gran # (Auto) 0.68 K/uL (0.00-0.02) H 07/25/21 05:34 RBC Morphology Unremarkable 07/24/21 05:38 ESR 35 mm/hr (0-20) H 07/23/21 18:56 PT 10.3 Seconds (9.0-12.0) 07/23/21 18:56 INR 1.0 (0.9-1.1) 07/23/21 18:56 APTT 37.2 Seconds (21.0-31.0) H 07/23/21 18:56 PTT Ratio 1.4 07/23/21 18:56 Sodium 139 mmol/L (136-145) 07/25/21 05:34 Potassium 3.5 mmol/L (3.5-5.1) 07/25/21 05:34 Chloride 103 mmol/L (98-107) 07/25/21 05:34 Carbon Dioxide 32 mmol/L (21-32) 07/25/21 05:34 Anion Gap 4.0 (3-11) 07/25/21 05:34 BUN 19 mg/dl (7-18) H 07/25/21 05:34 Creatinine 1.39 mg/dl (0.6-1.4) D 07/25/21 05:34 Est Cr Clr Drug Dosing 44.7 ml/min 07/25/21 05:34 Est GFR ( Amer) 53.2 ml/min 07/25/21 05:34 Est GFR (Non-Af Amer) 45.9 ml/min 07/25/21 05:34 BUN/Creatinine Ratio 13.8 (10-20) 07/25/21 05:34 Glucose 113 mg/dl (70-99) H 07/25/21 05:34 Lactate 0.8 mmol/L (0.4-2.0) 07/23/21 18:56 Calcium 8.2 mg/dl (8.5-10.1) L 07/25/21 05:34 Magnesium 1.8 mg/dl (1.8-2.4) 07/23/21 18:56 Total Bilirubin 0.6 mg/dl (0.2-1) 07/25/21 05:34 Direct Bilirubin 0.2 mg/dl (0-0.2) 07/24/21 05:38 AST 19 U/L (15-37) 07/25/21 05:34 ALT 19 U/L (12-78) 07/25/21 05:34 Alkaline Phosphatase 127 U/L (45-117) H 07/25/21 05:34 Troponin I < 0.015 ng/ml (0-0.045) 07/23/21 18:56 C-Reactive Protein 8.85 mg/dl (0-0.29) H 07/23/21 18:56 Total Protein 6.0 gm/dl (6.4-8.2) L 07/25/21 05:34 Albumin 2.4 gm/dl (3.4-5.0) L 07/25/21 05:34 Globulin 3.6 gm/dl (2.5-4.0) 07/25/21 05:34 Albumin/Globulin Ratio 0.7 (0.9-2) L 07/25/21 05:34 Procalcitonin 0.18 ng/ml (0-0.5) 07/23/21 18:56 Urine Color Yellow 07/23/21 22:13 Urine Appearance Clear (Clear) 07/23/21 22:13 Urine pH 5.5 (4.5-7.5) 07/23/21 22:13 Ur Specific Haworth 1.027 (1.000-1.030) 07/23/21 22:13 Urine Protein Trace (Negative) H 07/23/21 22:13 Urine Glucose (UA) Negative (Negative) 07/23/21 22:13 Urine Ketones Negative (Negative) 07/23/21 22:13 Urine Blood Negative (Negative) 07/23/21 22:13 Urine Nitrite Negative (Negative) 07/23/21 22:13 Urine Bilirubin Negative (Negative) 07/23/21 22:13 Urine Urobilinogen Negative (Negative) 07/23/21 22:13 Ur Leukocyte Esterase Negative (Negative) 07/23/21 22:13 Urine WBC (Auto) 1-5 /hpf (0-5) 07/23/21 22:13 Urine RBC (Auto) 10-30 /hpf (0-4) H 07/23/21 22:13 U Hyaline Cast (Auto) 0 /lpf (0-5) 07/23/21 22:13 U Epithel Cells (Auto) 0-5 /lpf (0-5) 07/23/21 22:13 Urine Bacteria (Auto) Negative (Negative) 07/23/21 22:13 COVID-19 Eval Order Covid19 at [facility] 07/23/21 19:44 SARS-CoV-2 (PCR) NEGATIVE (Negative) 07/23/21 19:44 Impressions Chest X-Ray 07/23/21 17:55 XR chest 1V portable CLINICAL HISTORY: SEPSIS COMPARISON STUDY: Chest CT June 27, 2021. FINDINGS: There is suspected soft tissue gas which projects superior to the right humeral head. There may be sclerosis of the proximal right humerus. No pneumothorax. Possible trace left pleural effusion. Lung volumes are diminished. Cardiomegaly is noted. Interstitial thickening and bilateral opacities are present. IMPRESSION: 1. Low lung volumes with interstitial thickening and bilateral opacities which may reflect an infectious process or pulmonary edema. Radiographic follow-up is recommended. Possible trace left pleural effusion. 2. Nonspecific soft tissue gas which project superior to the proximal right humerus. 3. Apparent sclerosis of the proximal right humerus. This may be related to known underlying leukemia/lymphoma. ACT 112: Negative or not required by law. Electronically signed by: Brett Snow M.D. 07/23/2021 6:19 PM Abdomen/Pelvis CT 07/23/21 19:26 CT SCAN OF THE ABDOMEN AND PELVIS WITH IV CONTRAST CLINICAL HISTORY: Sepsis. Metastatic disease. Lymphoma. COMPARISON STUDY: Abdominal CT dated 06/28/2021. TECHNIQUE: Following the IV administration of 94 cc of Optiray 320, CT scan of the abdomen and pelvis is performed from the lung bases to the proximal femora. Images are reviewed in the axial, sagittal, and coronal planes. IV contrast was administered without complication. A dose lowering technique was utilized adhering to the principles of ALARA. The examination is degraded by motion artifact. There is also streak artifact from the right arm which could not be elevated above the abdomen, as well as the body wall abutting the CT gantry. FINDINGS: Lung bases: The heart is enlarged and without pericardial effusion. The coronary arteries are densely calcified. There are trace pleural effusions, left larger than right with bibasilar atelectasis. A small hiatal hernia is noted. Liver: The contrast-enhanced liver is cirrhotic in morphology and heterogeneous in attenuation. There is nodularity of the hepatic surface contour. There are numerous low attenuation hepatic lesions. Which appear decreased in size as compared to the 06/28/2021 examination. There is no intrahepatic biliary ductal dilatation. The hepatic veins and portal veins are patent. A 2 cm cyst is again seen in the right lobe. Gallbladder: Surgically absent noting clips in the gallbladder fossa. Spleen: The spleen is mildly enlarged measuring 14.7 cm in length. Pancreas: The unenhanced pancreas is moderately atrophic. Numerous pancreatic cystic lesions are similar to previous and measure up to 1.7 cm. Adrenal glands: Unremarkable. Kidneys: The contrast enhanced kidneys demonstrate cortical atrophy and are without hydronephrosis. The kidneys enhance symmetrically. Scattered subcentimeter cortical hypodensities likely represent cysts but are too small for definitive characterization. A nonobstructing calculus is suggested on the left. Abdominal vasculature: The abdominal aorta is normal in course and caliber noting advanced atherosclerotic calcification. Bowel: There is mild colonic diverticulosis without CT evidence of acute diverticulitis. No bowel obstruction is seen. Fecal retention is noted throughout the colon. The appendix is well-visualized and normal. Peritoneum: No intraperitoneal free air is identified. Trace free fluid is seen in the right paracolic gutter. Lymphadenopathy: Enlarged upper abdominal lymph nodes have modestly decreased in size from 06/28/2021. The largest node in the nik hepatis on image #138 measures 2.7 x 2.1 cm (previously measured 3.6 x 2.4 cm). A portacaval node on image #154 measures 3.2 x 2.1 cm (previously measured 3.6 x 2.5 cm). There is no retroperitoneal, pelvic sidewall, or inguinal lymphadenopathy. Pelvic viscera: The prostate gland is diminutive and heterogeneous. The bladder is normal as visualized. Skeletal structures: The skeletal structures appear heterogeneously sclerotic. There is lumbosacral spondylosis with changes of extensive spinal fusion. Soft tissues: There is body wall edema. IMPRESSION: 1. Significant streak and motion compromised examination. 2. Numerous low-attenuation liver lesions have decreased in size from 06/28/2021. This likely represents metastatic disease with positive treatment response. Numerous microabscesses could appear similar but this is considered less likely. Correlate clinically. 3. Upper abdominal lymphadenopathy has modestly decreased in size from 06/28/2021. 4. Mild splenomegaly. 5. Heterogeneous sclerosis throughout the visualized bony structures likely represents lymphomatous involvement. This is similar to previous. 6. Trace pleural effusions, body wall edema, and trace ascites indicate fluid overload. 7. Additional findings as above. ACT 112: Negative or not required by law. Electronically signed by: Rob Benjamin M.D. 07/24/2021 8:[address] 07/23/21 19:26 CT chest diagnostic w con CLINICAL HISTORY: metastatic disease, sepsis COMPARISON STUDY: 06/27/2021 TECHNIQUE: Standard CT of the Chest was performed with IV contrast. A dose lowering technique was utilized adhering to the principles of ALARA. Contrast Volume: Optiray 320, 94 ml FINDINGS: Compared to previous examination, there is again extensive supraclavicular and axillary adenopathy present on the left. Airway: The airway is clear. No endobronchial lesion is identified. Lungs and pleural: There is breathing motion artifact with small left pleural effusion. The lungs are clear of acute alveolar opacities, air bronchograms or pulmonary nodules. Minimal bibasilar atelectasis present. Mediastinum: There is no evidence for pathologic adenopathy. Heart size is again enlarged with coronary artery calcification. The thoracic aorta is within normal limits. There is no evidence for pericardial effusion. Upper abdomen: The adrenal glands are normal bilaterally. The liver and spleen are not well evaluated by this study. Osseous structures: There are again degenerative changes present throughout the thoracic spine. There is asymmetric degenerative changes right shoulder with evidence for a shoulder joint effusion. There is also a rim enhancing fluid collection seen lateral to the humeral head measuring at least 5.3 x 3.0 cm. This is characteristic of soft tissue abscess as reported history. Separate CT of the shoulder was performed. IMPRESSION: 1. Motion artifact with minimal bibasilar atelectasis and small left pleural effusion. No other acute chest disease. 2. Extensive left supraclavicular and axillary adenopathy is again seen. 3. Rim-enhancing fluid collection lateral to the right humeral head characteristic of abscess. Please see CT of the right shoulder report for further evaluation. ACT 112: Negative or not required by law. Electronically signed by: Koby Nogueira M.D. 07/24/2021 6:[address] 07/23/21 19:26 CT SCAN OF THE RIGHT SHOULDER WITH IV CONTRAST CLINICAL HISTORY: Sepsis. Right shoulder abscess. COMPARISON STUDY: Unenhanced CT of the right shoulder dated 07/23/2021. Radiographs of the right shoulder dated 07/17/2020. TECHNIQUE: Following the IV administration of 94 cc of Optiray 320, CT scan of the right shoulder is performed from the lower neck to the humeral shaft. Images are reviewed in the axial, sagittal, and coronal planes. IV contrast was administered without complication. A dose lowering technique was utilized adhering to the principles of ALARA. The examination is degraded by motion artifact. CT DOSE: 2808.42 mGy.cm FINDINGS: The skeletal structures are osteopenic. No acute fracture is identified. Again seen is anterior subluxation of the humeral head at the glenohumeral articulation where there is moderate osteoarthritic change. Subcho ndral cyst formation is noted within the flattened humeral head. Mild degenerative change is seen at the acromioclavicular joint. There is unchanged appearance of a large thick-walled and peripherally enhancing multiloculated gas and fluid containing collection in the lateral shoulder overlying the humeral head. This measures approximately 9 x 9 x 6 cm. Overlying soft tissue edema is noted. There is a joint effusion, and the large fluid collection appears to communicate with the joint space. This likely extends into the overlying deltoid musculature. This is typical for abscess. There is erosive change suggested within the anterior aspect of the humeral head on axial image #69. There may also be mild erosive change of the acromion process. The right lung parenchyma is clear as visualized. No axillary lymphadenopathy is identified. There are chronic appearing right-sided rib fractures. IMPRESSION: 1. Unchanged examination from today's earlier unenhanced study. 2. A large gas and fluid containing collection of the right shoulder as detailed above is consistent with abscess with probable septic arthritis. 3. Question erosive change involving the anterior aspect of the humeral head as well as the acromion. Osteomyelitis is not excluded. 4. 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 ACT 112: Negative or not required by law. Dictated: 07/24/2021 8:25 AM Transcribed: 07/24/2021 9:00 AM Elizabeth [id number] [email or web address]_Carlos Electronically signed by: Rob Benjamin M.D. 07/24/2021 9:34 AM Shoulder MRI 07/24/21 06:59 MR shoulder RT wo con CLINICAL HISTORY: eval for osteomyelitis TECHNIQUE: Multiplanar multisequence MR images of the right shoulder were obtained. Comparison: Comparison is made to CT right shoulder 07/23/2021 FINDINGS: There is no evidence of os acromiale. There is osteoarthropathy of the acromioclavicular joint with resultant impression on the supraspinatus. Large heterogeneous soft tissue collection with some susceptibility artifact compatible with CT findings of gas and fluid-containing fluid collection. There is complete tear of the subscapularis, supraspinatus, infraspinatus with retraction. The biceps tendon is not visualized and is likely torn and retracted. Teres minor is normal. There is complete maceration of the labrum. There is flattening of the posterior humeral head which may be due to old Hill-Sachs deformity. Anterior subluxation of the glenohumeral joint is seen. 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 Serpiginous hypointensities in the proximal shaft of the humerus likely represent old bone infarct. IMPRESSION: 1. Redemonstration of large abscess with locules of gas. No evidence of osteomyelitis. 2. Complete tear and retraction of the rotator cuff. Likely tear and retraction of the biceps tendon. 3. Maceration of the glenoid labrum. ACT 112: Negative or not required by law. Electronically signed by: Vikash Toscano M.D. 07/24/2021 2:43 PM
[2021-07-25] MEDS: rOPINIRole HCL 2 MG TABLET PO SCH (20:20)
[2021-07-25] MEDS: DULoxetine HCL 60 MG CAP PO SCH (20:21)
[2021-07-25] MEDS: TERAZOSIN HCL 5 MG CAP PO SCH (21:55)
[2021-07-25] MEDS: DAPTOmycin 500 MG in SYRINGE 0 ML IV SCH (21:55)
[2021-07-26 05:37] LABS: Creatinine Clr Calc Pharmacy 42.2 ml/min; Est GFR (African American) 49.7 ml/min; Est GFR (Non-African American) 42.9 ml/min
--- NOTE | 2021-07-26 06:49 | Discharge Summary ---
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 He has see Dr. Simmons on 07/12/21 and plans to start treatment with Pembrolizumab q 3 weeks starting this Saturday. Patient was admitted to [facility] in April 2021 for septic RIGHT shoulder and had excisional debridement performed. He was treated with a course of IV Ceftaroline until 05/24/21 and continued on oral Doxycycline until 06/23/21. Patient was admitted to [facility] from 06/28/21 - 06/29/21 for worsening of LUE lymphedema/swelling as well as pain in the left axillary mass. He was found to have elevated WBC to 33.62 with neutrophil predominance. Imaging with extensive left axillary, retropectoral and supraclavicular LAD favoring lymphoma/leukemia. 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 Patient had CT of the C/A/P performed which showed a left supraclavicular node, axillary node as well as splenomegaly and multiple ill-defined hypodensities in the liver suggestive of metastatic disease. Patient presents to the ER today with purulent drainage from the shoulder. He apparently rolled over in bed and his right shoulder began oozing pus. In the ER he was found to be afebrile, HD stable, NAD. He had significant purulent drainage from the right shoulder - soaking through approximately 10 ABD pads in the ER. CT of the shoulder was performed which revealed a large shoulder abscess with effusion and suggestion of osteomyelitis. Case was discussed between ER provider and Orthopedics - suggested that patient be transferred to [facility] for management as he has had his shoulder drained there in the past. Patient and patient's daughter are reluctant at this time to travel to [facility] and would rather stay at [facility] to discuss options for treatment here. Patient states he noted a small amount of drainage from the shoulder yesterday. He denies pain but does report diminished mobility - states that he is unable to abduct his arm >45 degrees. Patient offers no additional complaints - he denies fever, chills, malaise, sweats, chest pain, palpitations, cough, SOB, abdominal pain, nausea, vomiting, diarrhea or constipation. ER Course: Daptomycin 600mg, Zosyn 4.5gm Admission Exam Per Admitting Provider General: elderly male patient resting comfortably, NAD, non-toxic in appearance, AA&O x 4 Skin: warm, dry, intact, no rashes or lesions HEENT: NC/AT, PERRL, EOMI, anicteric sclera, conjunctiva without injection, external ear normal to inspection and nontender, nares patent, moist mucus membranes, dentition intact, no oropharyngeal lesions, neck supple, trachea midline, no LAD, no thyromegaly, no JVD Heart: +S1/S2, regular, 2/6 LAM Lungs: equal air entry bilaterally, no rales/rhonchi/wheezes Abd: +BS, soft, NT/ND, no masses/organomegaly/ascites Ext: warm, 2+ pulses in UE/LE bilaterally. 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 RUE shoulder dressed - edema and erythema of the right shoulder with 2 punctate wounds on the anterior aspect of the shoulder with pus drainage Neuro: nonfocal, patient AA&O x 4, speech intact, no facial droop, moving all extremities on command with equal strength 5/5 Principal Diagnosis septic shoulder Discharge Exam Constitutional: well-appearing, no acute distress, sitting up in bed HEENT: NCAT, no conjunctival injection CV: regular rhythm, no murmur appreciated, extremities well-perfused, minimal LE edema Resp: CTABL, no wheezes/rales/rhonchi appreciated, no increased work of breathing MSK: right shoulder wound dressed and bandaged Neuro: AOx4, no focal neurological deficits appreciated Discharge Data Allergies Allergy/AdvReac Type Severity Reaction Status Date / Time chlorhexidine Allergy Intermediate Rash Verified 07/23/21 17:42 gabapentin AdvReac Intermediate vomiting Verified 07/23/21 17:42 and "spazz out" Consultations 07/23/21 22:26 ED Decision to Admit Stat 07/23/21 23:33 Consult Orthopedic Surgery Routine 07/25/21 06:30 Consult Palliative Care Routine Ordered Studies 07/23/21 18:17 CT shoulder RT wo con Stat 07/23/21 19:26 CT abd pelvis IV con only Stat CT chest diagnostic w con Stat CT shoulder RT w con Stat 07/24/21 06:59 MR shoulder RT wo con Stat Hospital Course (1) Abscess of right shoulder: Abscess of right shoulder On admission, patient was afebrile, nontoxic-appearing, and did not endorse symptoms of systemic infection, but given the voluminous purulent drainage from shoulder, empiric antibiotics were started, as was pain control. CT showed a large multiloculated rim-enhancing fluid collection with multifocal gas bubbles visualized within the LUE. Orthopedic surgery was consulted and felt patient's presentation required transfer to [facility] for more specialized management; however, patient expressed in no uncertain terms that he was not interested in further surgical management. Palliative care was consulted to clarify goals of care; patient and family agreed to pursue non-surgical, non-aggressive medical management given patient's poor surgical candidate status given recent cancer diagnosis. Blood cultures were negative. [facility] ID was remotely consulted and recommended medical management with doxycycline and augmentin. Patient was discharged on hospital day four in stable condition with arrangements made for palliative home health in addition to the aforementioned chronic suppressive antibiotic regimen. Orthopedic surgery follow-up was not felt to be indicated given the transition of patient's goals of care towards symptom palliation. PCP follow-up was encouraged. Total Time Total Time Spent Total Time Spent (In Minutes): <30 Discharge Plan Discharge Items Patient Disposition: Home - Home Health Services Reason For Visit: RIGHT SHOULDER INFECTION, ABSCESS Discharge Diagnosis: Right shoulder abscess Activity: Resume your previous activity Non-emergency contact: Primary Care Provider Call non-emergency contact if: you have any medication questions, your symptoms worsen and your pain is not controlled Follow-up/Referrals: Breana Heller MD [Physician] - 08/15/21 3:00 pm (Palliative Care, telehealth visit.) Jacqueline Vivas MD [Primary Care Provider] - 08/08/21 4:50 pm (APPT WILL BE AT [address] Diet: Heart Healthy Add Attending Provider Instructions: You were admitted to the hospital for a worsening infection in your shoulder. You were treated with diuresis antibiotics and pain control. You were evaluated by orthopedic surgery, who felt that any surgical procedure for your shoulder would have a low likelihood of success. After discussing this with you and your family at length, you and your family have decided to return home with home health aid and palliative care. We support your decision and wish you the best. Medications: Your medication list has been reviewed and reconciled upon discharge to ensure accuracy and continuity of care. An updated list of all your medications is included with your hospital discharge paperwork. Please review this list closely, and make note of any changes. * For mild/moderate pain, you can take acetaminophen (Tylenol) 650mg every four to six hours. Another option for mild/moderate pain is ibuprofen 600mg (Advil) every four to six hours. * For severe pain, we have prescribed a medicine called Percocet. Percocet is a combination of two medicines - 5mg oxycodone with 325mg acetaminophen. You can take Percocet [1-2 tablets] by mouth every 4 to 6 hours as needed for severe pain. Percocet can cause drowsiness or sleepiness, and so it is very important that you do not take it before driving or anything else that requires you to stay awake. Percocet can also cause mild nausea. If you experience side effects, call your primary care physician. Do not take acetaminophen (Tylenol) within 4-6 hours of taking a dose of Percocet, and vice versa. * We sent a new medication calledamoxicillin-clavulanate(also known as Augmentin) to your pharmacy. This is an antibiotic which we will use to treat the infection in your shoulder and blood.Take amoxicillin-clavulanate (500mg/125mg)twice daily. * We sent a new medication calleddoxycycline to your pharmacy. This is another antibiotic which we will use to treat the infection in your shoulder and blood.Take doxycycline(100mg)twice daily. Take your medications as instructed; do not skip a dose of your medicines. Make sure all of your doctors know every medicine you are taking (including terd-sfz-blckawt medicines, vitamins, and supplements). Call your primary care provider before taking any new medicines (including riqk-ejl-lsjlpgx medicines, vitamins, and supplements), because some of these may interact with your current medications, or may make your symptoms worse. Tell your primary care provider if you cannot afford your medications. If you have any questions or concerns, please contact the [facility]. We wish you and your family the best. It's been a pleasure to participate in your care. Pending Studies at Discharge: No Stand-Alone Forms: My [facility], Opioid Pain Management Medications and DC Order Prescriptions: New doxycycline hyclate 100 mg tablet 100 mg PO BID 60 Days Qty: 120 RF: 3 amoxicillin-pot clavulanate [Augmentin] 500-125 mg tablet 1 tab PO BID Qty: 60 RF: 3 oxycodone-acetaminophen [Percocet] 10-325 mg tablet 1 tab PO Q6H PRN (Reason: pain) Qty: 20 RF: 0 Continued prednisone 5 mg tablet 7.5 mg PO QAM RF: 0 atenolol [Tenormin] 50 mg tablet 50 mg PO QAM RF: 0 ropinirole 4 mg tablet 4 mg PO HS RF: 0 aspirin 81 mg Tablet,Delayed Release (Dr/Ec) 81 mg PO QAM RF: 0 terazosin 5 mg capsule 5 mg PO HS RF: 0 allopurinol [Zyloprim] 100 mg tablet 100 mg PO TID RF: 0 pantoprazole 20 mg tablet,delayed release (DR/EC) 20 mg PO QAM RF: 0 tramadol [Ultram] 50 mg tablet 50 mg PO Q12H PRN (Reason: Pain) Qty: 0 RF: 0 ketoconazole 2 % cream 1 applic TOPICAL DAILY PRN (Reason: Fungal infection) Qty: 0 RF: 0 atorvastatin 40 mg tablet 40 mg PO QAM RF: 0 prednisone 1 mg tablet 2 mg PO QAM RF: 0 duloxetine [Cymbalta] 60 mg capsule,delayed release(DR/EC) 60 mg PO HS RF: 0 hydrocodone bitartrate [Zohydro ER] 10 mg capsule, oral only, ER 12hr 10 mg PO BID RF: 0 furosemide [Lasix] 20 mg tablet 20 mg PO QAM RF: 0 colchicine 0.6 mg tablet 0.3 mg PO QAM RF: 0 cholecalciferol (vitamin D3) 25 mcg (1,000 unit) capsule 25 mcg PO QAM RF: 0 Discharge Orders: Discharge Order (Routine); Ordered 07/26/21 Ordered By: Francesco Garnre/Other Patient Handouts: Weight Management: Healthy Eating Admission Data Admit Date/Time: 07/23/21 23:33 Attending Provider: Willie Guajardo Admit Provider: Su Squires Primary Care Provider: Jacqueline Vivas Other Providers: Martin Rosales ; Su Squires ; Breana Heller ; John Negro [facility] ; Floyd,Fax Other Interventions: Discharge Summary Assessment (RN) Last Done: 07/26/21 14:37 Supervising Physician Co-Signing Physician Notes I personally examined the patient and verified all dimas points of history and exam, discussed case, and agree with decision making with Dr Gutiérrez Wants to go home, ready for home. Discussed with case managementafter patient/daughter discussed with orthopedics, they opted for p.o. rather than IV antibiotics. Vitals noted, in general he is awake and alert pleasant no distress. HEENT normocephalic atraumatic mucous membranes moist. Right shoulder and bulky dressing. Neuro without focal deficits. Otherwise as above. Septic shoulderon suppressive antibiotics, does not want surgery.For home with chronic suppressive therapy. Doxycycline and Augmentin Metastatic [place] [facility] with [facility] overall palliative goal of care Otherwise as above Resident Activity Tracking Resident Involvement: Resident Care Provided Care Provided: Adult Hospital Medicine
[2021-07-26] MEDS: PANTOprazole 40 MG TAB PO SCH (08:00)
[2021-07-26] MEDS: allopurinoL 100 MG TAB PO SCH ×2 (08:00→14:58)
[2021-07-26] MEDS: predniSONE 2.5 MG TAB PO SCH (08:01)
[2021-07-26] MEDS: predniSONE 1 MG TAB PO SCH (08:01)
[2021-07-26] MEDS: COLCHICINE 0.6 MG TAB PO SCH (08:02)
[2021-07-26] MEDS: ATENOLOL 50 MG TABLET PO SCH (08:02)
[2021-07-26] MEDS: POTASSIUM CHLORIDE CRTAB 20 MEQ TABCR PO SCH (08:03)
[2021-07-26] MEDS: oxyCODONE HCL 10 MG TABCR (OxyCONTIN) PO SCH (08:04)
[2021-07-26] MEDS ORDERED: DAPTOmycin 500 MG in SYRINGE 0 ML IV ONE (13:00)
[2021-07-26] MEDS: cefTRIAXone SODIUM 2,000 MG in DEXTROSE 5% 50 ML IV SCH (13:24)
--- NOTE | 2021-07-26 18:58 | Billing Data ---
Date of Service July 26, 2021 Coding Level of Care Code D/C DAY MANAGEMENT <30 MINS
--- NOTE | 2021-07-26 18:58 | Billing Data ---
Date of Service July 25, 2021 Coding Level of Care Code 43927 Subseq Hosp Care Lvl 3
--- NOTE | 2021-08-02 11:40 | Coding Query ---
CHRONIC KIDNEY DISEASE To promote full compliance with coding requirements relating to patient care, physician participation is requested in all cases of medical dermatologist uncertainty. Please assist us with the question(s) below: Coding Question(s): The record reflects the following clinical findings: CKD Please specify the known or suspected type by placing an "X" within the parenthesis (x). If other, please document type. Please document Staging if known: ( ) Stage I >90 Kidney damage with normal or elevated GFR. ( ) Stage II 60-89 Kidney damage with mildly decreased kidney function (x ) Stage III 30-59 Moderately decreased kidney function ( ) Stage IV 15-29 Severely decreased kidney function ( ) Stage V <15 Renal failure (or dialysis) ( ) End Stage ( ) Unknown Thank you Tejal OWEN
--- NOTE | 2021-08-02 11:50 | Coding Query ---
CODING QUERY To promote full compliance with coding requirements relating to patient care, provider participation is requested in all cases of field artillery operations man uncertainty. Please assist us with the question(s) below: Coding Question(s): Right Shoulder Abscess and Septic Arthritis/Septic Shoulder are documented from H&P, Progress Notes and Discharge Summary, however the Orthopedic Progress Note on 07/25 documents under Abscess of right shoulder, "Abscess of right shoulder: Plan: Discussed with the patient and his daughter that surgical intervention is not warranted at this time. 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 ID at [facility] recommended discharging the patient on oral doxycycline 100 mg twice daily for 3 weeks, along with Augmentin 500 mg twice daily for 3 weeks as a suppressive therapy", and, "I saw and examined patient, spoke with Dr. Carias at [facility] and agree with above note. No surgery indicated as this purulent drainage is likely not infectious; instead it is gout. Recommend medical treatment of his gout. Antibiotics to decrease the risk of him developing an infection of his draining wound. Dressing changes. Follow-up with ortho as needed". Due to conflicting documentation, please clarify below, in your clinical opinion. ( x ) patient was treated for possible Septic right shoulder/Septic arthritis, and Abscess of the Right Shoulder and Gout ( ) patient was treated for Gout and was Ruled-Out for possible Septic right shoulder/Septic arthritis and Abscess right shoulder ( ) Other: Please Specify Physician's Response(s): Thank you Tejal Honeycutt Principal Diagnosis: "that condition established after study, to be chiefly responsible for occasioning the admission of the patient to the hospital for care." Co-Existing Principal Diagnosis: "when two or more diagnoses equally meet the criteria for principal diagnosis as determined by the circumstances of admission, diagnostic work up, and/or therapy provided, and the Alphabetic Index, Tabular List, or another coding guideline does not provide sequencing direction, any one of the diagnoses may be sequenced first." "When the physician has documented what appears to be a current diagnosis in the body of the record, but has not included the diagnosis in the final diagnostic statement, the physician should be asked whether the diagnosis should be added." (Source Coding Clinic 2 QTR90. p3-4) MTDD
== END 2021-07-26 16:09 | disposition home health service (06) | DRG 549 ==
LOC: ED 16:47 → SUATTDRO 23:33 → 3E 23:33